=== PATIENT | female | born 1965 | race Hispanic/Latino ===

== ENCOUNTER 2017-08-25 21:15 | Emergency (ER) | payer SELFPAY ==
[~2017-08-25] VITALS: Ht 149.9 cm; Wt 75.7 kg
[~2017-08-25 21:15] MED LIST: ATENOLOL PO; ATENOLOL50 MG PO; BENTYL; BIOTIN1 MG PO; BUSPIRONE HCL5 MG PO; CALCIUM 500+D1 EACH PO; CELEXA PO; CREON DR 6,000 U1 EA PO; CYMBALTA; CYMBALTA30 MG PO; FOLIC ACID1 MG PO; GLYBURIDE; HUMALOG MI100 UNIT/2 SQ; KLONOPIN1 MG PO; LASIX40 MG PO; LISINOPRIL; LISINOPRIL10 MG PO; LYRICA75 MG PO; METFORMIN HCL500 MG PO; METFORMIN PO; METOCLOPRAMIDE10 MG PO; MORPHINE SULFAT30 M2 PO; NEURONTIN; NORCO 10-325 T1 EACH PO; NORCO 5-325 TA1 EACH PO; NOVOLOG MI100 UNITS/ SQ; PANTOPRAZOLE SO40 MG PO; POTASSIUM CHLO20 ME1 PO; PROMETHAZINE HC25 M1 PO; TOPAMAX15 MG PO; VITAMIN D400 UNIT PO
[2017-08-25] MEDS ORDERED: SODIUM CHLORIDE 0.9% 1000ML 1,000 ML IV SCH (21:26)
[2017-08-25] MEDS ORDERED: CLONIDINE HCL 0.2 MG TAB PO ONE (21:30)
[2017-08-25] MEDS ORDERED: ONDANSETRON HCL INJ 2 MG/ML VIAL IV ONE (21:35)
[2017-08-25 21:42] LABS: BASOPHILS % 0.6 % (0.0-1.0); EOSINOPHILS # (AUTO) 0.2 (0.0-0.4); EOSINOPHILS % 3.5 % (0.0-6.0); HEMATOCRIT 42.5 % (34.2-44.1); HEMOGLOBIN 14.4 g/dL (12.0-16.0); LYMPHOCYTES # (AUTO) 2.7 (1.0-3.2); LYMPHOCYTES % 49.9 % (18.0-39.1); MEAN CORPUSCULAR HEMOGLOBIN 27.3 pg (28-32); MEAN CORPUSCULAR HGB CONC 33.9 g/dL (31-35); MEAN CORPUSCULAR VOLUME 80.6 fL (81-99); MONOCYTES # (AUTO) 0.4 (0.2-0.8); MONOCYTES % 7.1 % (4.4-11.3); NEUTROPHILS # (AUTO) 2.1 (2.1-6.9); NEUTROPHILS % 38.7 % (38.7-80.0); PLATELET COUNT 239 x10e3/uL (140-360); RED BLOOD COUNT 5.27 x10e6/uL (3.6-5.1); RED CELL DISTRIBUTION WIDTH 14.8 % (11.7-14.4)
[2017-08-25 21:44] LABS: BILIRUBIN,URINE NEGATIVE (NEGATIVE); CLARITY,URINE CLEAR (CLEAR); COLOR,URINE YELLOW (YELLOW); KETONES,URINE NEGATIVE (NEGATIVE); LEUKOCYTE ESTERASE ,URINE NEGATIVE (NEGATIVE); NITRITE,URINE NEGATIVE (NEGATIVE); PROTEIN,URINE DIPSTICK NEGATIVE (NEGATIVE); URINE UROBILINOGEN 0.2 mg/dL (0.2 - 1)
[2017-08-25] MEDS ORDERED: CLONIDINE HCL 0.1 MG TAB PO ONE (21:45)
[2017-08-25 21:50] LABS: RBC,URINE 0-5 /HPF (0-5); WBC,URINE (MAN) 0-5 /HPF (0-5)
[2017-08-25 21:51] LABS: MUCUS,URINE FEW (RARE)
[2017-08-25 21:59] LABS: ALBUMIN 3.9 g/dL (3.5-5.0); ANION GAP 14.9 mmol/L (8-16); CREATININE, SERUM 0.97 mg/dL (0.57-1.11); POTASSIUM 3.9 mmol/L (3.5-5.1)
[2017-08-25 22:01] LABS: AMYLASE 63 U/L (25-125); CREATINE KINASE 54 IU/L (29-168); LIPASE 25 U/L (8-78); MAGNESIUM 1.7 MG/DL (1.3-2.1)
--- NOTE | 2017-08-25 22:26 | Diagnostic Imaging Report ---
CHEST 2 VIEWS, Technique: CHEST 2 VIEWS Comparison: 05/05/2016 Clinical history: Hypertension, chest pain DISCUSSION: Unremarkable appearance of the heart, mediastinum, lungs and pleural spaces. IMPRESSION: No acute abnormality Signed by: Dr Linda Carballo MD on 08/25/2017 10:05 PM
[2017-08-25] MEDS ORDERED: NIFEDIPINE 10 MG CAP PO STA (22:49)
[2017-08-25] MEDS ORDERED: HYDROCODONE/APAP 7.5MG-325MG 1 EA TAB PO ONE (23:00)
[2017-08-25 23:12] VITALS: BP 158/95
== END 2017-08-25 23:32 | disposition home or self-care (01) ==
LOC: ER 21:15
DX: R06.02 Shortness of breath (principal); R11.0 Nausea; R51 Headache; R10.13 Epigastric pain; I10 Essential (primary) hypertension; E11.9 Type 2 diabetes mellitus without complications; M79.7 Fibromyalgia; F32.9 Major depressive disorder, single episode, unspecified; F41.9 Anxiety disorder, unspecified
CPT/HCPCS: 36415; 71046; 80053; 81001; 82150; 82550; 82553; 83690; 83735; 84484; 85025; 93005; 99284

== ENCOUNTER 2017-10-25 20:45 | Emergency (ER) | payer SELFPAY ==
[~2017-10-25] VITALS: Ht 149.9 cm; Wt 75.7 kg
[2017-10-25 22:08] LABS: BASOPHILS # (AUTO) 0.1 (0.0-0.1); BASOPHILS % 0.7 % (0.0-1.0); EOSINOPHILS # (AUTO) 0.2 (0.0-0.4); HEMATOCRIT 39.2 % (34.2-44.1); HEMOGLOBIN 13.6 g/dL (12.0-16.0); LYMPHOCYTES # (AUTO) 2.9 (1.0-3.2); LYMPHOCYTES % 36.2 % (18.0-39.1); MEAN CORPUSCULAR HEMOGLOBIN 28.5 pg (28-32); MEAN CORPUSCULAR HGB CONC 34.7 g/dL (31-35); MEAN CORPUSCULAR VOLUME 82.2 fL (81-99); MONOCYTES # (AUTO) 0.5 (0.2-0.8); MONOCYTES % 5.8 % (4.4-11.3); NEUTROPHILS # (AUTO) 4.5 (2.1-6.9); NEUTROPHILS % 54.9 % (38.7-80.0); PLATELET COUNT 260 x10e3/uL (140-360); RED BLOOD COUNT 4.77 x10e6/uL (3.6-5.1); RED CELL DISTRIBUTION WIDTH 12.6 % (11.7-14.4)
[2017-10-25 22:22] LABS: ALANINE AMINOTRANSFERASE 42 IU/L (0-55); ALBUMIN 3.8 g/dL (3.5-5.0); ALKALINE PHOSPHATASE 87 IU/L (40-150); BLOOD UREA NITROGEN 17 mg/dL (7-26); BUN/CREATININE RATIO 18 (6-25); CALCIUM 10.2 mg/dL (8.4-10.2); CARBON DIOXIDE 26 mmol/L (22-29); CHLORIDE 101 mmol/L (98-107); CREATININE, SERUM 0.96 mg/dL (0.57-1.11); EST GLOMERULAR FILTRATION RATE > 60 ML/MIN (60-); GLUCOSE 118 mg/dL (74-118); SODIUM 140 mmol/L (136-145)
[2017-10-25 22:24] LABS: BILIRUBIN,URINE NEGATIVE (NEGATIVE); CLARITY,URINE SL CLOUDY (CLEAR); COLOR,URINE YELLOW (YELLOW); KETONES,URINE NEGATIVE (NEGATIVE); LEUKOCYTE ESTERASE ,URINE NEGATIVE (NEGATIVE); NITRITE,URINE NEGATIVE (NEGATIVE); PROTEIN,URINE DIPSTICK NEGATIVE (NEGATIVE); URINE UROBILINOGEN 0.2 mg/dL (0.2 - 1)
[2017-10-25 22:25] LABS: PREGNANCY TEST, URINE NEGATIVE (NEGATIVE)
[2017-10-25 22:35] LABS: BACTERIA,URINE FEW /HPF; EPITHELIAL CELLS,URINE MODERATE /LPF
[2017-10-26 01:06] LABS: AMYLASE 67 U/L (25-125); LIPASE 43 U/L (8-78)
[2017-10-26 02:01] VITALS: BP 128/78
== END 2017-10-26 02:10 | disposition home or self-care (01) ==
LOC: ER 20:45
DX: R10.13 Epigastric pain (principal); I10 Essential (primary) hypertension; E11.9 Type 2 diabetes mellitus without complications; Z87.19 Personal history of other diseases of the digestive system
CPT/HCPCS: 36415; 80053; 81001; 81025; 82150; 83690; 85025; 99283

== ENCOUNTER 2019-11-05 22:49 | Inpatient (IN) | payer OTHER, SELFPAY ==
[~2019-11-05] VITALS: Ht 149.9 cm; Wt 73.0 kg
[2019-11-05] MEDS ORDERED: VANCOMYCIN 1GM/NS 250 ML 250 ML IV SCH (23:15)
[2019-11-05 23:18] LABS: BASOPHILS # (AUTO) 0.1 (0.0-0.1); BASOPHILS % 0.5 % (0.0-1.0); EOSINOPHILS # (AUTO) 0.2 (0.0-0.4); EOSINOPHILS % 1.7 % (0.0-6.0); HEMATOCRIT 29.1 % (34.2-44.1); HEMOGLOBIN 9.5 g/dL (12.0-16.0); LYMPHOCYTES # (AUTO) 2.5 (1.0-3.2); MEAN CORPUSCULAR HEMOGLOBIN 27.5 pg (28-32); MEAN CORPUSCULAR HGB CONC 32.6 g/dL (31-35); MEAN CORPUSCULAR VOLUME 84.3 fL (81-99); MONOCYTES # (AUTO) 0.7 (0.2-0.8); NEUTROPHILS # (AUTO) 8.2 (2.1-6.9); NEUTROPHILS % 68.6 % (38.7-80.0); PLATELET COUNT 492 x10e3/uL (140-360); RED BLOOD COUNT 3.45 x10e6/uL (3.6-5.1); RED CELL DISTRIBUTION WIDTH 13.3 % (11.7-14.4)
--- OUTSIDE RECORDS SUMMARY | 2019-11-05 23:23 | XMS REPORT | Continuity of Care Document ---
Author Author [facility] Organization [facility] Address [address] [place] [address] Phone Unavailable Care Team Providers Care Beam Carrier Hauler Pusher Name Role Phone PRABHU ARCE MD PCP Harinder PEREZ Attphys Unavailable Payers Payer Name Policy Type Policy Number Effective Date Expiration Date [facility] [id number] 2016 00:00:00 [facility] Problems Condition Name Condition Details Condition Category Status Onset Date Resolution Date Last Treatment Date Treating Clinician Comments Source Chest pain Chest pain Problem Active C [facility] Diabetes mellitus Diabetes Problem Active [facility] Hypertension Hypertension Problem Active [facility] Allergies, Adverse Reactions, Alerts Allergy Name Allergy Type Status Severity Reaction(s) Onset Date Inacti ve Date Treating Clinician Comments Source Metaxalone Allergy to Substance Active RASH 2016-02-06 00:00:00 [facility] Naproxen Allergy to Substance Active RASH 2016-02-06 00:00:00 [facility] Amoxicillin Allergy to Substance Active RASH 2016-02-06 00:00:00 [facility] Amitriptyline Allergy to Substance Active RASH 2016-02-06 00:00: 00 [facility] Medications Ordered Medication Name Filled Medication Name Start Date Stop Da te Current Medication? Ordering Clinician Indication Dosage Frequency Signature (SIG) Comments Components Source Amylas/Cellu/Lipas/Protea/Bile (Christiano Saleem 6,000 Units C apsule) 1 Ea Cap Amylas/Cellu/Lipas/Protea/Bile (Christiano Saleem 6,000 Units Capsule) 1 Ea Cap Yes 259[address] Three Times A Day [facility] Atenolol 50 Mg Tablet Atenolol 50 Mg Tablet Yes 50 Daily [facility] Buspirone Hcl 5 Mg Tablet Buspirone Hcl 5 Mg Tablet Yes 15 Twice A Day [facility] Clonazepam (Klonopin) 1 Mg Tablet Clonazepam (Klonopin) 1 Mg Tablet Yes 1 Twice A Day [facility] Duloxetine Hcl (Cymbalta) 30 Mg Capsule. Duloxetine Hcl (Cymbalta) 30 Mg Capsule. Yes 30 Twice A Day [facility] Furosemide (Lasix) 40 Mg Tablet Furosemide (Lasix) 40 Mg Tablet Yes 40 Daily [facility] Hydrocodone Bit/Acetaminophen (Breckenridge 10-325 Tablet) 1 Each Tablet Hydrocodone Bit/Acetaminophen (Breckenridge 10-325 Tablet) 1 Each Tablet Yes 30 As Needed [facility] Insulin Aspart (Novolog Mix 70-30 Vial) 100 Units/Ml M l Insulin Aspart (Novolog Mix 70-30 Vial) 100 Units/Ml Ml Yes 15 Daily [facility] Insulin Npl/Insulin Lispro (Humalog Mix 75-25 Kwikpen) 100 Unit/1 Ml Insuln.pen Insulin Npl/Insulin Lispro (Humalog Mix 75-25 Kwikpen) 100 Unit/1 Ml Insuln.pen Yes [address] [facility] Lisinopril 10 Mg Tablet Lisinopril 10 Mg Tablet Yes 40 Daily [facility] Metformin Hcl 500 Mg Tablet Metformin Hcl 500 Mg Tablet Yes 1000 Twice A Day [facility] Metoclopramide Hcl 10 Mg Tablet Metoclopramide Hcl 10 Mg Tablet Yes 10 Four Times Daily [facility] Morphine Sulfate (Morphine Sulfate Er) 30 Mg Tablet.er Morphine Sulfate (Morphine Sulfate Er) 30 Mg Tablet.er Yes 30 As Needed [facility] Pantoprazole Sodium (Protonix) 40 Mg Tablet. Pantopr azole Sodium (Protonix) 40 Mg Tablet. Yes 40 Twice A Day [facility] Potassium Chloride 20 Meq Tab.er.prt Potassium Chloride 20 Meq Tab. er.prt Yes 20 Twice A Day [facility] Pregabalin (Lyrica) 75 Mg Cap Pregabalin (Lyrica) 75 Mg Cap Yes 75 Twice A Day [facility] Promethazine Hcl 25 Mg Tablet Promethazine Hcl 25 Mg Tablet Yes 25 As Needed [facility] Cholecalciferol (Vitamin D3) (Vitamin D) 400 Unit Caps ule, 400 Units Oral Cholecalciferol (Vitamin D3) (Vitamin D) 400 Unit Capsule, 400 Units Oral 2016-05-05 00:00:00 No 400 Daily [facility] Folic Acid 1 Mg Tablet, 1 Mg Oral Folic Acid 1 Mg Tablet, 1 Mg O ral 2016-05-05 00:00:00 No 1 Daily [facility] Hydrocodone Bit/Acetaminophen (Breckenridge 5-325 Tablet) 1 E ach Tablet, 1 Each Oral Hydrocodone Bit/Acetaminophen (Breckenridge 5-325 Tablet) 1 Each Tablet, 1 Each Oral 2016-05-05 00:00:00 No 1 [facility] Topiramate (Topamax) 15 Mg Cap.sprink, 20 Mg Oral Topi ramate (Topamax) 15 Mg Cap.sprink, 20 Mg Oral 2016-05-05 00:00:00 No 20 T wice A Day [facility] Procedures Procedure Date / Time Performed Performing Clinician [facility] e X-ray of chest, two views 2017-08-25 00:00:00 PAMELA ROSENBAUM [facility] Encounters Start Date/Time End Date/Time Encounter Type Admission Type Attendi [facility] Care Department Encounter ID Source 2018-09-05 17:30:00 2018-09-05 17:30:00 [place] [id number] 2017-10-25 20:45:00 2017-10-26 02:10:00 Departed Emergency Room [facility] [id number] [facility] 2017-08-25 21:15:00 2017-08-25 23:32:00 Departed Emergency Room 1 GUNJAN PEREZ [facility] [id number] [facility] 2016-07-17 05:12:00 2016-07-17 05:12:00 Emergency E [facility] [id number] [facility] Results Test Description Test Time Test Comments Results Result Comments Source Amylase Level 2017-10-26 01:06:00 Test Item Amylase Level (test code = 1798-8) 67 25-125 [facility] 01:06:00* Test Item Value Reference Range Interpretation Comments Lipase (test code = 3040-3) 43 8-78 [facility] [id number] 22:35:00* Test Item Value Reference Range Interpretation Comments Urine WBC (test code = 5821-4) NONE 0-5 [facility] [id number] 22:35:00* Test Item Value Reference Range Interpretation Comments Urine RBC (test code = 97849-9) NONE 0-5 [facility] Ojavubaj1280-48-66 22:35:00* Test Item Value Reference Range Interpretation Comments Urine Bacteria (test code = 64376-1) FEW NONE [facility] Epithelial Xapsp6844-91-37 22:35:00 * Test Item Value Reference Range Interpretation Comments Urine Epithelial Cells (test code = 74622-3) MODERATE NONE [facility] Snfaq0360-10-78 22:26:00* Test Item Value Reference Range Interpretation Comments Sodium Level (test code = 2951-2) 140 136-145 [facility] Uzmxg7402-42-23 22:26:00* Test Item Value Reference Range Interpretation Comments Potassium Level (test code = 2823-3) 4.0 3.5-5.1 [facility]Chloride Kzhtj4720-62-10 22:26:00* Test Item Value Reference Range Interpretation Comments Chloride Level (test code = 2075-0) 101 98-107 [facility]Carbon Dioxide Lfqey6461-97-02 22:26:00* Test Item Value Reference Range Interpretation Comments Carbon Dioxide Level (test code = 2028-9) 26 22-29 [facility]Anion Vnh0389-46-61 22:26:00* Test Item Value Reference Range Interpretation Comments Anion Gap (test code = 85715-5) 17.0 8-16 H [facility]Blood Urea Dorwmssz5417-76-91 22:26:00* Test Item Value Reference Range Interpretation Comments Blood Urea Nitrogen (test code = 3094-0) 17 7-26 [facility]Creatinine2018-08-22 22:26:00* Test Item Value Reference Range Interpretation Comments Creatinine (test code = 2160-0) 0.96 0.57-1.11 [facility] HospitalBUN/Creatinine Pnhgo0631-14-56 22:26:00* Test Item Value Reference Range Interpretation Comments BUN/Creatinine Ratio (test code = 3097-3) 18 6-25 [facility]Estimat Glomerular Filtration Rate 2017-10-25 22:26:00* Test Item Value Reference Range Interpretation Comments Estimat Glomerular Filtration Rate (test code = 29360-5) 60- >60 Ranges were taken from the National Kidney Disease Education Program and the [facility] literature.Reference ranges:60 or greater: Icagzc53-54 ( for 3 consecutive months): Chronic kidney disease 15 or less: Kidney failureSeymour HospitalGlucose Tyhug1914-13-67 22:26:00* Test Item Value Reference Range Interpretation Comments Glucose Level (test code = NZL0869) 118 74-118 [facility]Calcium Nwlrg3114-88-64 22:26:00* Test Item Value Reference Range Interpretation Comments Calcium Level (test code = 64747-8) 10.2 8.4-10.2 [facility] HospitalTotal Kkzotctwf6092-11-38 22:26:00* Test Item Value Reference Range Interpretation Comments Total Bilirubin (test code = 1975-2) 0.3 0.2-1.2 [facility] HospitalAspartate Amino Transf (AST/SGOT) 2017-10-25 22:26:00* Test Item Value Reference Range Interpretation Comments Aspartate Amino Transf (AST/SGOT) (test code = Aspartate Amino Transf (AST/SGOT)) 42 5-34 H [facility] HospitalAlanine Aminotransferase (ALT/SGPT) 2017-10-25 22:26:00* Test Item Value Reference Range Interpretation Comments Alanine Aminotransferase (ALT/SGPT) (test code = 1742-6) 42 0-55 [facility] HospitalTotal Mlpedgp8598-36-97 22:26:00* Test Item Value Reference Range Interpretation Comments Total Protein (test code = 2885-2) 7.8 6.5-8.1 [facility] HospitalAlbumin2018-08-22 22:26:00* Test Item Value Reference Range Interpretation Comments Albumin (test code = 1751-7) 3.8 3.5-5.0 [facility] HospitalGlobulin2018-08-22 22:26:00* Test Item Value Reference Range Interpretation Comments Globulin (test code = 16450-8) 4.0 2.3-3.5 H [facility] HospitalAlbumin/Globulin Ktzyz8117-62-40 22:26:00 * Test Item Value Reference Range Interpretation Comments Albumin/Globulin Ratio (test code = 1759-0) 1.0 0.8-2.0 [facility] HospitalAlkaline Icxjsefuhqd6259-76-85 22:26:00* Test Item Value Reference Range Interpretation Comments Alkaline Phosphatase (test code = 6768-6) 87 40-150 [facility] HospitalUrine Eeken4204-13-81 22:25:00* Test Item Value Reference Range Interpretation Comments Urine Color (test code = 5778-6) YELLOW YELLOW [facility] Qvgkpkw0310-00-41 22:25:00* Test Item Value Reference Range Interpretation Comments Urine Clarity (test code = 41564-4) SL CLOUDY CLEAR [facility] HospitalUrine Specific Bmaydwv8045-61-25 22:25:00 * Test Item Value Reference Range Interpretation Comments Urine Specific Eolia (test code = 5811-5) 1.015 1.010-1.02 5 [facility] jI2902-18-67 22:25:00* Test Item Value Reference Range Interpretation Comments Urine pH (test code = 54634-7) 7 5-7 [facility] Leukocyte Upgfpgsw9892-43-69 22:25:00* Test Item Value Reference Range Interpretation Comments Urine Leukocyte Esterase (test code = 5799-2) NEGATIVE NEGATIVE [facility] HospitalU[facility] Natgysr3487-53-58 22:25:00* Test Item Value Reference Range Interpretation Comments Urine Nitrite (test code = 54298-7) NEGATIVE NEGATIVE [facility] Kqogcva2878-13-14 22:25:00* Test Item Value Reference Range Interpretation Comments Urine Protein (test code = 5804-0) NEGATIVE NEGATIVE [facility] HospitalUrine Glucose (UA)2017-10-25 22:25:00* Test Item Value Reference Range Interpretation Comments Urine Glucose (UA) (test code = 2349-9) 1+ NEGATIVE H [facility] HospitalUrine Osyyuzt3176-10-78 22:25:00* Test Item Value Reference Range Interpretation Comments Urine Ketones (test code = 75540-5) NEGATIVE NEGATIVE [facility] HospitalU[facility] Vgaqamxonvui0793-77-57 22:25:00* Test Item Value Reference Range Interpretation Comments Urine Urobilinogen (test code = 20736-6) 0.2 0.2-1 [facility] HospitalU[facility] Xlbzyzuck5309-77-00 22:25:00* Test Item Value Reference Range Interpretation Comments Urine Bilirubin (test code = 1978-6) NEGATIVE NEGATIVE [facility] Trjof3087-59-70 22:25:00* Test Item Value Reference Range Interpretation Comments Urine Blood (test code = 88619-2) NEGATIVE NEGATIVE [facility] HospitalUrine Zrfz2210-87-79 22:25:00* Test Item Value Reference Range Interpretation Comments Urine Test (test code = 2106-3) NEGATIVE NEGATIVE [facility] HospitalWhite Blood Yyiwh4585-84-90 22:16:00* Test Item Value Reference Range Interpretation Comments White Blood Count (test code = 6690-2) 8.13 4.8-10.8 [facility] HospitalRed Blood Fezcq7260-48-57 22:16:00* Test Item Value Reference Range Interpretation Comments Red Blood Count (test code = 789-8) 4.77 3.6-5.1 [facility] HospitalHemoglobin2018-08-22 22:16:00* Test Item Value Reference Range Interpretation Comments Hemoglobin (test code = 32309-5) 13.6 12.0-16.0 [facility] HospitalHematocrit2018-08-22 22:16:00* Test Item Value Reference Range Interpretation Comments Hematocrit (test code = 4544-3) 39.2 34.2-44.1 [facility] HospitalMean Corpuscular Yxfyja0489-84-38 22:16:00* Test Item Value Reference Range Interpretation Comments Mean Corpuscular Volume (test code = 787-2) 82.2 81-99 [facility] HospitalMean Corpuscular Axfeevccma2574-57-04 22:16:00* Test Item Value Reference Range Interpretation Comments Mean Corpuscular Hemoglobin (test code = 785-6) 28.5 28-32 [facility] HospitalMean Corpuscular Hemoglobin Concent 2017-10-25 22:16:00* Test Item Value Reference Range Interpretation Comments Mean Corpuscular Hemoglobin Concent (test code = 786-4) 34.7 31-35 [facility] HospitalRed Cell Distribution Irlfe0039-88-26 22:16:00* Test Item Value Reference Range Interpretation Comments Red Cell Distribution Width (test code = 29378-5) 12.6 11.7 -14.4 [facility] HospitalPlatelet Sfwvy8994-85-61 22:16:00* Test Item Value Reference Range Interpretation Comments Platelet Count (test code = 777-3) 260 140-360 [facility] HospitalNeutrophils (%) (Auto)2017-10-25 22:16:00 * Test Item Value Reference Range Interpretation Comments Neutrophils (%) (Auto) (test code = 05778-9) 54.9 38.7-80.0 [facility] HospitalLymphocytes (%) (Auto)2017-10-25 22:16:00 * Test Item Value Reference Range Interpretation Comments Lymphocytes (%) (Auto) (test code = 736-9) 36.2 18.0-39.1 [facility] HospitalMonocytes (%) (Auto)2017-10-25 22:16:00* Test Item Value Reference Range Interpretation Comments Monocytes (%) (Auto) (test code = 5905-5) 5.8 4.4-11.3 [facility] HospitalEosinophils (%) (Auto)2017-10-25 22:16:00 * Test Item Value Reference Range Interpretation Comments Eosinophils (%) (Auto) (test code = 713-8) 2.0 0.0-6.0 [facility] HospitalBasophils (%) (Auto)2017-10-25 22:16:00* Test Item Value Reference Range Interpretation Comments Basophils (%) (Auto) (test code = 706-2) 0.7 0.0-1.0 [facility] HospitalIM GRANULOCYTES %2017-10-25 22:16:00* Test Item Value Reference Range Interpretation Comments IM GRANULOCYTES % (test code = IM GRANULOCYTES %) 0.4 0.0- 1.0 [facility] HospitalNeutrophils # (Auto)2017-10-25 22:16:00* Test Item Value Reference Range Interpretation Comments Neutrophils # (Auto) (test code = 751-8) 4.5 2.1-6.9 [facility] HospitalLymphocytes # (Auto)2017-10-25 22:16:00* Test Item Value Reference Range Interpretation Comments Lymphocytes # (Auto) (test code = 74304-8) 2.9 1.0-3.2 [facility] HospitalMonocytes # (Auto)2017-10-25 22:16:00* Test Item Value Reference Range Interpretation Comments Monocytes # (Auto) (test code = 742-7) 0.5 0.2-0.8 [facility] HospitalEosinophils # (Auto)2017-10-25 22:16:00* Test Item Value Reference Range Interpretation Comments Eosinophils # (Auto) (test code = 711-2) 0.2 0.0-0.4 [facility] HospitalBasophils # (Auto)2017-10-25 22:16:00* Test Item Value Reference Range Interpretation Comments Basophils # (Auto) (test code = 704-7) 0.1 0.0-0.1 [facility] HospitalAbsolute Immature Granulocyte (auto 2017-10-25 22:16:00* Test Item Value Reference Range Interpretation Comments Absolute Immature Granulocyte (auto (jareth t code = Absolute Immature Granulocyte (auto) 0.03 0-0.1 [facility] HospitalCreatine Kinase OD8805-47-78 22:08:00* Test Item Value Reference Range Interpretation Comments Creatine Kinase MB (test code = 56784-7) 0.40 0-5.0 [facility] E8891-47-10 22:08:00* Test Item Value Reference Range Interpretation Comments Troponin I (test code = PWV3895) -0.001 0-0.300 [facility] HospitalCreatine Kinase CW1480-82-17 22:08:00* Test Item Value Reference Range Interpretation Comments Creatine Kinase MB (test code = 03307-5) 0.40 0-5.0 [facility]5172-45-16 22:08:00* Test Item Value Reference Range Interpretation Comments Troponin I (test code = JHF3606) -0.001 0-0.300 [facility] HospitalCHEST 2 OMXHD6158-43-94 22:04:00 [place] [address] Patient Name: RADHA BOUDREAUX MR #: [id number] : 0 1965 Age/Sex: 52/F Req #: [id number] Adm Physician: Ordered by: KARO ROSENBAUM Report #: [id number] Location: ER Room /Bed: Procedure: [id number] DX/CHEST 2 VIEWS Exam Shiv e: Exam Time: REPORT STATUS: Signed CHEST 2 VIEWS, Technique: CHEST 2 VIEWS Comparison: 05/05/2016 Clinical his tory: Hypertension, chest pain DISCUSSION: Unremarkable appearance of t he heart, mediastinum, lungs and pleural spaces. IMPRESSION: No acute abn ormality Signed by: Dr Roland Carballo MD on 08/25/2017 10:05 PM Dicta chio By: ROLAND CARBALLO MD 04 COPY TO: KARO ROSENBAUM Magnesium Yprqa1538-33-56 22:01:00* Test Item Value Reference Range Interpretation Comments Magnesium Level (test code = 69616-4) 1.7 1.3-2.1 [facility] HospitalCreatine Fdndkc4214-67-91 22:01:00* Test Item Value Reference Range Interpretation Comments Creatine Kinase (test code = 2157-6) 54 29-168 [facility] HospitalAmylase Xajlt0376-82-00 22:01:00* Test Item Value Reference Range Interpretation Comments Amylase Level (test code = 1798-8) 63 25-125 [facility] HospitalLipase2018-06-22 22:01:00* Test Item Value Reference Range Interpretation Comments Lipase (test code = 3040-3) 25 8-78 [facility] HospitalMagnesium Aqpps0516-48-12 22:01:00* Test Item Value Reference Range Interpretation Comments Magnesium Level (test code = 67987-5) 1.7 1.3-2.1 [facility] HospitalCreatine Vutgpi7815-81-14 22:01:00* Test Item Value Reference Range Interpretation Comments Creatine Kinase (test code = 2157-6) 54 29-168 [facility] Bmjaj2306-38-66 22:00:00* Test Item Value Reference Range Interpretation Comments Sodium Level (test code = 2951-2) 138 136-145 [facility] HospitalPotassium Soisq1017-75-94 22:00:00* Test Item Value Reference Range Interpretation Comments Potassium Level (test code = 2823-3) 3.9 3.5-5.1 [facility] HospitalChloride Hhgbc5523-61-75 22:00:00* Test Item Value Reference Range Interpretation Comments Chloride Level (test code = 2075-0) 100 98-107 [facility] HospitalCarbon Dioxide Sitxe9706-16-60 22:00:00* Test Item Value Reference Range Interpretation Comments Carbon Dioxide Level (test code = 2028-9) 27 22-29 [facility] HospitalAnion Tqp8520-00-56 22:00:00* Test Item Value Reference Range Interpretation Comments Anion Gap (test code = 93102-1) 14.9 8-16 [facility] HospitalBlood Urea Zbjbfebv1923-89-14 22:00:00* Test Item Value Reference Range Interpretation Comments Blood Urea Nitrogen (test code = 3094-0) 12 7-26 [facility] HospitalCreatinine2018-06-22 22:00:00* Test Item Value Reference Range Interpretation Comments Creatinine (test code = 2160-0) 0.97 0.57-1.11 [facility] HospitalBUN/Creatinine Iqpcc8865-21-45 22:00:00* Test Item Value Reference Range Interpretation Comments BUN/Creatinine Ratio (test code = 3097-3) 12 6-25 [facility] HospitalEstimat Glomerular Filtration Rate 2017-08-25 22:00:00* Test Item Value Reference Range Interpretation Comments Estimat Glomerular Filtration Rate (test code = 63715-7) 60 >60 Ranges were taken from the National Kidney Disease Education Program and the [facility] Kid[facility] Foundation literature.Reference ranges:60 or greater: Wqgvnb34-96 ( for 3 consecutive months): Chronic kidney disease 15 or less: Kidney failureSeymour HospitalGlucose Srdai5938-40-75 22:00:00* Test Item Value Reference Range Interpretation Comments Glucose Level (test code = OLD0304) 108 74-118 [facility] HospitalCalcium Ysodw6094-21-25 22:00:00* Test Item Value Reference Range Interpretation Comments Calcium Level (test code = 36322-5) 10.0 8.4-10.2 [facility] HospitalTotal Zozqxxryy8025-54-51 22:00:00* Test Item Value Reference Range Interpretation Comments Total Bilirubin (test code = 1975-2) 0.3 0.2-1.2 [facility] HospitalAspartate Amino Transf (AST/SGOT) 2017-08-25 22:00:00* Test Item Value Reference Range Interpretation Comments Aspartate Amino Transf (AST/SGOT) (test code = Aspartate Amino Transf (AST/SGOT)) 26 5-34 [facility] HospitalAlanine Aminotransferase (ALT/SGPT) 2017-08-25 22:00:00* Test Item Value Reference Range Interpretation Comments Alanine Aminotransferase (ALT/SGPT) (test code = 1742-6) 21 0-55 [facility] HospitalTotal Rzaqnnq3276-25-93 22:00:00* Test Item Value Reference Range Interpretation Comments Total Protein (test code = 2885-2) 8.0 6.5-8.1 [facility] HospitalAlbumin2018-06-22 22:00:00* Test Item Value Reference Range Interpretation Comments Albumin (test code = 1751-7) 3.9 3.5-5.0 [facility] HospitalGlobulin2018-06-22 22:00:00* Test Item Value Reference Range Interpretation Comments Globulin (test code = 44453-6) 4.1 2.3-3.5 H [facility] HospitalAlbumin/Globulin Qvgex5916-18-69 22:00:00 * Test Item Value Reference Range Interpretation Comments Albumin/Globulin Ratio (test code = 1759-0) 1.0 0.8-2.0 [facility] HospitalAlkaline Kwnhemhzbrl9153-41-36 22:00:00* Test Item Value Reference Range Interpretation Comments Alkaline Phosphatase (test code = 6768-6) 74 40-150 [facility] HospitalUrine KFA2347-58-04 21:51:00* Test Item Value Reference Range Interpretation Comments Urine WBC (test code = 5821-4) 0-5 0-5 [facility] HospitalUrine VZZ9932-04-35 21:51:00* Test Item Value Reference Range Interpretation Comments Urine RBC (test code = 01180-9) 0-5 0-5 [facility] HospitalUrine Tfomtgtv1326-93-58 21:51:00* Test Item Value Reference Range Interpretation Comments Urine Bacteria (test code = 01516-9) NONE NONE [facility] HospitalUrine Epithelial Wmdiv9322-83-22 21:51:00 * Test Item Value Reference Range Interpretation Comments Urine Epithelial Cells (test code = 05730-5) NONE NONE [facility] HospitalUrine Iuuew1016-09-54 21:51:00* Test Item Value Reference Range Interpretation Comments Urine Mucus (test code = 8247-9) FEW RARE H [facility] Haeei7930-84-08 21:51:00* Test Item Value Reference Range Interpretation Comments Urine Mucus (test code = 8247-9) FEW RARE H [facility] HospitalUrine Dkhqg7631-74-82 21:44:00* Test Item Value Reference Range Interpretation Comments Urine Color (test code = 5778-6) YELLOW YELLOW [facility] HospitalUrine Bzdsxld1517-57-08 21:44:00* Test Item Value Reference Range Interpretation Comments Urine Clarity (test code = 70626-3) CLEAR CLEAR [facility] HospitalUrine Specific Ttxyvaf3617-10-81 21:44:00 * Test Item Value Reference Range Interpretation Comments Urine Specific [place] (test code = 5811-5) 1.015 1.010-1.02 5 [facility] HospitalUrine aW6274-09-29 21:44:00* Test Item Value Reference Range Interpretation Comments Urine pH (test code = 53233-6) 6 5-7 [facility] HospitalUrine Leukocyte Mqraifbw2361-22-59 21:44:00* Test Item Value Reference Range Interpretation Comments Urine Leukocyte Esterase (test code = 5799-2) NEGATIVE NEGATIVE [facility] Omhugrg7738-52-89 21:44:00* Test Item Value Reference Range Interpretation Comments Urine Nitrite (test code = 42588-2) NEGATIVE NEGATIVE [facility] HospitalUrine Kogrerq2256-34-18 21:44:00* Test Item Value Reference Range Interpretation Comments Urine Protein (test code = 5804-0) NEGATIVE NEGATIVE [facility] HospitalUrine Glucose (UA)2017-08-25 21:44:00* Test Item Value Reference Range Interpretation Comments Urine Glucose (UA) (test code = 2349-9) NEGATIVE NEGATIVE [facility] HospitalUrine Ifivnfe1134-82-64 21:44:00* Test Item Value Reference Range Interpretation Comments Urine Ketones (test code = 93150-0) NEGATIVE NEGATIVE [facility] HospitalUrine Exeicklttfpp1416-26-50 21:44:00* Test Item Value Reference Range Interpretation Comments Urine Urobilinogen (test code = 96260-3) 0.2 0.2-1 [facility] HospitalUrine Fmcemohxy8920-93-84 21:44:00* Test Item Value Reference Range Interpretation Comments Urine Bilirubin (test code = 1978-6) NEGATIVE NEGATIVE [facility] HospitalUrine Tywoj9041-89-22 21:44:00* Test Item Value Reference Range Interpretation Comments Urine Blood (test code = 81436-9) NEGATIVE NEGATIVE [facility] HospitalWhite Blood Enmzr0421-84-34 21:42:00* Test Item Value Reference Range Interpretation Comments White Blood Count (test code = 6690-2) 5.37 4.8-10.8 [facility] HospitalRed Blood Zdqzh5467-85-70 21:42:00* Test Item Value Reference Range Interpretation Comments Red Blood Count (test code = 789-8) 5.27 3.6-5.1 [facility]:42:00* Test Item Value Reference Range Interpretation Comments Hemoglobin (test code = 02785-1) 14.4 12.0-16.0 [facility] 21:42:00* Test Item Value Reference Range Interpretation Comments Hematocrit (test code = 4544-3) 42.5 34.2-44.1 [facility] Corpuscular [id number] 21:42:00* Test Item Value Reference Range Interpretation Comments Mean Corpuscular Volume (test code = 787-2) 80.6 81-99 [facility] Corpuscular [id number] 21:42:00* Test Item Value Reference Range Interpretation Comments Mean Corpuscular Hemoglobin (test code = 785-6) 27.3 28-32 L [facility] Hemoglobin Concent 2017-08-25 21:42:00* Test Item Value Reference Range Interpretation Comments Mean Corpuscular Hemoglobin Concent (test code = 786-4) 33.9 31-35 [facility]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
--- OUTSIDE RECORDS SUMMARY | 2019-11-05 23:23 | XMS REPORT | Continuity of Care Document ---
Author Author Minh Zoe MajesteRADHA [facility] [employer] Address Unknown Phone Unavailable Care Team Providers Care Secondary Education Professor Name Role Phone [employer] Unavailable Un available Problems Problem Status Onset Date Classification Date Reported Comments Source SOB Active 0 09/05/2018 [facility] ACUTE CHEST PAIN, SINUS BRADYCARDIA Active 09/05/2018 [facility] Pain in left knee 04/03/2018 10/15/2018 [facility] Acute pain due to trauma 03/28/2018 10/15/2018 [facility],[id number] KNEE PAIN Active 03/27/2018 [facility] Pain in left shoulder 03/23/2018 10/03/2018 [facility] Unspecified fall, initial encounter 03/16/2018 10/03/2018 [facility] KNEE INJURY Active 03/16/2018 [facility] Left upper quadrant pain 11/03/2017 05/14/2018 [facility] ABD PAIN Active 10/25/2017 [facility] Unspecified hydronephrosis 04/09/2017 07/10/2017 [facility] ABDOMINAL PAIN Active 04/02/2017 [facility] ACUTE LOWER UTI, ACUTE PANCREATITIS Active 04/02/2017 [facility] 789.00 ABD PAINGALLBLADDER REMOVED 2 Active 08/18/2014 [facility] Discharge Diagnosis: Diabetic gastroparesis 05/12/2014 05/14/2014 [facility] Discharge Diagnosis: Acute gastritis 05/12/2014 05/14/2014 [facility] FALL Active 02/23/2013 [facility] ABD CRAMPING Active 01/07/2013 [facility] RECTAL PAIN Active 01/06/2013 [facility] NAUSEA Active 08/02/2012 [facility] SHORTNESS OF BREATH Active 07/20/2012 [facility] FLANK PAIN Active 05/15/2012 [facility] Abdominal pain Active Problem 10/04/2018 [id number]1.2 2568 Chronic headache Active Problem 10/04/2018 2.16.840.1.151549.4.391.11.2 2568 Chronic pancreatitis Active Diagnosis 10/04/2018 eCW: Kike Jarvis,[id number]1.87330 Type 2 diabetes mellitus with diabetic n europathy, unspecified Active Prob sonia 10/04/2018 eCW: Kike Jarvis,[id number] halfway current use of insulin Active Problem 03/2018 2.16.840.1.764768.4.391.11.2 2568 Coronary artery disease of [place] artery of [place] heart with stable angina pectoris Active Problem 10/04/2018 2.16.840.1.509326.4.391.11.64403 HTN (hypertension) Active Diagnosis 04/04/2018 2.16.840.1.506569.4.391.11.2 2568 DM (diabetes mellitus), secondary uncontrolled Active Problem 10/04/2018 2.16.840.1.518110.4.391.11.52400 Polyneuropathy Active Problem 10/04/2018 2.16.840.1.468936.4.391.11.2 2568 Anxiety Active Problem 10/04/2018 eCW: Kike Jarvis,2.16.840.1.527731.4.391 .11.32695 Yeast infection Active Diagnosis 06/09/2018 2.16.840.1.357858.4.391.11.2 2568 Mixed hyperlipidemia Active Problem 10/04/2018 eCW: Kike Cagleelijah,2.16.840.1. 949948.4.391.11.09832 Lisa infection Active Diagnosis 01/04/2018 2.16.840.1.753924.4.391.11.2 2568 Reactive depression Active Problem 10/04/2018 2.16.840.1.906728.4.391.11.2 2568 HTN (hypertension), benign Act gio Problem 03/2018 2.16.840.1.659967.4.391.11.2 2568 Memory loss Active Problem 10/04/2018 2.16.840.1.360357.4.391.11.20525 Acute bronchitis, unspecified organism Active Diagnosis 06/07/2017 2.16.840.1.964089.4.391.11.99807 Acute non-recurrent maxillary sinusitis Active Diagnosis 05/11/2018 2.16.840.1.141454.4.391.11.55448 Ureteral stone Active Diagnosis 08/22/2017 2.16.840.1.411300.4.391.11.2 2568 Idiopathic chronic pancreatitis Active Diagnosis 0 05/11/2017 2.16.840.1.980612.4.391.11.2 2568 Right upper quadrant abdominal pain Active Diagnosis 0 05/11/2017 2.16.840.1.773464.4.391.11.2 2568 Status post laser lithotripsy of ureteral calculus Active Diagnosis 05/11/2017 2.16.840.1.284017.4.391.11.46568 Drug induced constipation Acti ve Diagnosis 0 08/22/2017 2.16.840.1.677470.4.391.11.2 2568 Abscess of leg without foot, right Active Diagnosis 1 04/10/2017 2.16.840.1.320354.4.391.11.2 2568 Syncope and collapse Active Diagnosis 08/10/2018 2.16.840.1.647720.4.391.11.2 2568 Chronic pancreatitis Active Problem 2015 eCW: Kike Jarvis HTN Hypertension - Unspecified essential hypertension Active Problem 2015 eCW: Kike Jarvis Displacement of lumbar intervertebral di sc without myelopathy Active Prob sonia 2015 eCW: Kike Jarvis Hemorrhoid - Unspecified hemorrhoids wit hout mention of complication Active Prob sonia 2015 eCW: Kike Jarvis Diabetes with neurological manifestation s, type II or unspecified type, uncontrolled Active Problem 2015 eCW: Kike Jarvis Unspecified vaginitis and vulvovaginitis Active Problem 2015 eCW: iKke Jarvis Diabetes with ophthalmic manifestations, type II or unspecified type, uncontrolled Active Problem 2015 eCW: Kike Jarvis Benign hypertensive heart disease with heart failure Active Problem 2015 eCW: Kike Jarvis Abdominal pain, right upper quadrant Active Problem eCW: Kike Jarvis Gastroparesis Active Problem 2015 eCW: Kike Jarvis Background diabetic retinopathy Active Problem eCW: Kike Jarvis Mixed hyperlipidemia Active Problem 2015 eCW: Kike Jarvis Diabetes mellitus without mention of com plication, type II or unspecified type, uncontrolled Active Problem 2015 eCW: Kike Jarvis Displacement of thoracic intervertebral disc without myelopathy Active Prob sonia 2015 eCW: Kike Jarvis External thrombosed hemorrhoids Active Problem eCW: Kike Jarvis edema Active Diagnosis 09/26/2013 eCW: Kike Jarvis Peripheral autonomic neuropathy in disor ders classified elsewhere Active Diag nosis 09/26/2013 eCW: Kike Jarvis Other specified gastritis without mention of hemorrhag e Active Problem 2015 eCW: Kike Jarvis Fatty liver disease, nonalcoholic Active Problem eCW: Kike Jarvis Dysuria Active Problem 2015 eCW: Kike Jarvis Chronic tension type headache Active Problem eCW: Kike Jarvis Abdominal pain, unspecified site Active Problem eCW: Kike Jravis Chronic pain syndrome Active Problem 2015 eCW: Kike Jarvis Constipation Active Problem 2015 eCW: Kike Jarvis Acute gastritis without mention of hemorrhage Active Problem 2015 eCW: Kike Jarvis Irritable bowel syndrome Active Problem 2015 eCW: Kike Jarvis Abnormal LFTs (liver function tests) Active Problem eCW: Kike Jarvis Obesity Morbid Active Problem 2015 eCW: Kike Jarvis Acute bronchitis Active Problem 2015 eCW: Kike Jarvis Polyneuropathy in diabetes Act gio Problem eCW: Kike Jarvis Depression Active Problem 2015 eCW: Kike Jarvis Depression Active Problem 2015 eCW: Kike Jarvis Breast cancer screening Active Problem 2015 eCW: Kike Jarvis Fatty liver Active Problem 2015 eCW: Kike Jarvis Radiculopathy of lumbosacral region Active Problem eCW: Kike Jarvis Radiculopathy, thoracic region Active Problem eCW: Kike Jarvis 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 950343.4.391.11.06320 Chronic pain disorder Active Problem 10/04/2018 2.16.840.1.537091.4.391.11.2 2568 Anterior shoulder pain Active Diagnosis 04/28/2018 2.16.840.1.075045.4.391.11.2 2568 Left medial knee pain Active Diagnosis 04/28/2018 2.16.840.1.772535.4.391.11.2 2568 Non-recurrent acute suppurative otitis m edia of right ear without spontaneous rupture of tympanic membrane Active Diagnosis 0 06/01/2018 2.16.840.1.043446.4.391.11.2 2568 Abscess of leg without foot, left Active Diagnosis 1 04/10/2017 2.16.840.1.941377.4.391.11.2 2568 Onychomycosis Active Diagnosis 02/07/2018 2.16.840.1.440035.4.391.11.2 2568 Encounter for immunization Act gio Diagnosis 0 03/06/2018 [facility],[id number] [D]Chest pain Active Problem 08/04/2012 [facility] Anxiety Active Problem 08/04/2012 [facility] AP - Abdominal pain Active Problem 08/04/2012 [facility] CHF - Congestive heart failure Active Problem 03/2012 [facility] Depression Active Problem 08/04/2012 [facility] Diabetes mellitus Active Problem 08/04/2012 [facility] DM - Diabetes mellitus Active Problem 08/04/2012 [facility] HTN - Hypertension Active Problem 08/04/2012 [facility] Hypertension Active Problem 08/04/2012 [facility] Nausea Active Problem 08/04/2012 [facility] Pancreatitis Active Problem 08/04/2012 [facility] SOB - Shortness of breath Acti ve Problem 03/2012 [facility] Urinary tract infection, site not specified 07/10/2017 [facility] Fatty (change of) liver, not elsewhere classified 07/10/2017 [facility] Type 2 diabetes mellitus without complications 10/15/2018 [facility] Essential (primary) hypertension 10/03/2018 [facility] Fibromyalgia 10/15/2018 [facility],2.16.840.1.031075.4.391.11. 92253 Constipation, unspecified 07/10/2017 [facility] Other specified anxiety disorders 07/10/2017 [facility] [D]Chest pain (context-dependent category) Active Problem 10/15/2018 [facility] Anxiety (finding) Active Problem 10/15/2018 [facility] Abdominal pain (finding) Active Problem 10/15/2018 [facility] Congestive heart failure (disorder) Active Problem 02/2019 [facility] Cholecystectomy (procedure) Re solved Problem 02/2019 [facility] Depressive disorder (disorder) Active Problem 02/2019 [facility] Diabetes mellitus (disorder) A ctive Problem 02/2019 [facility] Hypertensive disorder, systemic arterial (disorder) Active Problem 10/15/2018 [facility] Nausea (finding) Active Problem 10/15/2018 [facility] Pancarditis (disorder) Resolved Problem 10/15/2018 [facility] Pancreatitis (disorder) Active Problem 10/15/2018 [facility] Dyspnea (finding) Active Problem 10/15/2018 [facility] Pancarditis Resolved Problem 08/04/2012 [facility] Sprain of unspecified ligament of left a nkle, initial encounter 10/03/2018 [facility] Pain in left hip 10/03/2018 [facility] Other chronic pancreatitis 10/15/2018 [facility] Other chronic pain 10/03/2018 [facility] halfway (current) use of insulin 10/15/2018 [facility] Other buttermaker helper (current) drug therapy 10/15/2018 [facility] Allergy status to penicillin 10/03/2018 [facility] Fall on same level from slipping, trippi ng and stumbling without subsequent striking against object, initial encounter 10/03/2018 [facility] Heart failure, unspecified 10/15/2018 [facility] Hypertensive heart disease with heart failure 10/15/2018 [facility] Major depressive disorder, single episode, unspecified 10/15/2018 [facility] Anxiety disorder, unspecified 10/15/2018 [facility] Pain in right knee 10/15/2018 [facility] Localized edema 10/15/2018 [facility] Gastroparesis 10/15/2018 [facility],[id number]1. 91008 URINARY TRACT INFECTION, SITE NOT SPECIF Active [facility] ACUTE PANCREATITIS WITHOUT NECROSIS OR I Active [facility] CHEST PAIN, UNSPECIFIED Active [facility] BRADYCARDIA, UNSPECIFIED Active [facility] Medications Medication Details Route Status Patient Instructions Ordering Provider Order Date Source MS Contin 1 tablet Orally Active 30 mg Orally every 8 hr s Carloz 10/03/2018 [id number] [place] 1 tablet as needed Orally Active 10-325 MG Orally every 6 hrs Carloz 09/12/2018 [id number] MS Contin 1 tablet Orally Active 30 mg Orally every 8 ho urs Carloz 09/12/2018 [id number] Fenofibrate 145 MG Oral Tablet Notes: (Same as: Tricor) No Longer Active 09/07/2018 [facility] Hydralazine Hydrochloride 25 MG Oral Tablet 25 mg = 1 tab, PO, TID, # 90 tab, 0 Refill(s) Active 09/06/2018 [facility] amLODIPine 10 mg oral tablet 1 0 mg = 1 tab, PO, Daily, # 30 tab, 0 Refill(s) Active 09/06/2018 [facility] Amlodipine Notes: (Same as: No rvasc) Inactive 09/06/2018 [facility] Metoclopramide Notes: (Same as : Reglan) Take 30 min before meals Inactive 09/06/2018 [facility] Lisinopril Notes: (Same as: Pr inivil, Zestril) Inactive 09/06/2018 [facility] Aspirin Notes: Do not crush or chew. (Same As: Ecotrin) Inactive 09/06/2018 [facility] Protonix Notes: Tablet should not be chewed or crushed. (Same as: Protonix) Inactive 09/06/2018 [facility] Buspirone Notes: (Same As: BuS par) Inactive 09/06/2018 [facility] Atenolol Notes: (Same As:Tenor min) Inactive 09/06/2018 [facility] Lyrica Notes: (Same as: Lyrica) Inactive 09/06/2018 [facility] Hydralazine Hydrochloride 25 MG Oral Tablet 50 mg = 2 tab, PO, TID, 0 Refill(s) Inactive 09/06/2018 [facility] Escitalopram 10 MG Oral Tablet [Lexapro] 10 mg = 1 tab, PO, Daily, 0 Refill(s) Active 09/06/2018 [facility] Hydralazine 25 mg, PO, QID, 0 Refill(s) Inactive 09/06/2018 [facility] Clonidine See Instructions, CA N Hypertension, 0.1 mg PO, 0 Refill(s) Active 09/06/2018 [facility] gabapentin 300 mg, PO, TID, 0 Refill(s) Active 09/06/2018 [facility] Promethazine 25 mg, PO, BID, P RN as needed for nausea/vomiting, 0 Refill(s) Active 09/06/2018 [facility] Alprazolam 1 MG Oral Tablet [Xanax] 1 mg = 1 tab, PO, BID, 0 Refill(s) Active 09/06/2018 [facility] Trulicity Pen See Instructions , 1.5 mg SUB-Q, 0 Refill(s), takes once a week Active 09/06/2018 [facility] Levemir 15 unit, SUB-Q, Daily, 0 Refill(s) Active 09/06/2018 [facility] Lovenox Notes: (Same as: Loven ox) No Longer Active 09/06/2018 [facility] Insulin Lispro Notes: (Same as : Humalog) Roll in palms of hands gently; Do not shake vigorously. WASTE: F/P - Black; E - Municipal Trash Bin Stable for 28 days at room temperature. Expires in days from Date No Longer Active 09/06/2018 [facility] Dextrose 50% Syringe 25 gm, 50 mL, Route: IVP, Drug Form: INJ, Dosing Weight 77.273, kg, PRN, PRN Blood Glucose Results, Start date: 09/05/18 21:26:00 CDT, Duration: 30 day, Stop date: 10/05/18 21:25:00 CDT, 0 No Longer Active 09/06/2018 [facility] Glucagon 1 mg, Route: IM, Drug form: PDR/INJ, PRN, Dosing Weight 77.273, kg, PRN Blood Glucose Results, Start date: 09/05/18 21:26:00 CDT, Duration: 30 day, Stop date: 10/05/18 21:25:00 CDT, 0 No Longer Active 09/06/2018 [facility] Furosemide 20 MG Oral Tablet [Lasix] See Instructions, 1 tab PO Daily, 0 Refill(s) Active 09/05/2018 [facility] Trazodone Notes: (Same As: Po yrel) No Longer Active 09/05/2018 [facility] Albuterol 0.833 MG/ML / Ipratropium Brom fabricio 0.167 MG/ML Inhalant Solution [DuoNeb] Notes: (Same as: Duoneb) No Longer Active 09/05/2018 [facility] phenol Notes: WASTE: F/P - Raghav ck; E - Municipal Trash Bin No Longer Active 09/05/2018 [facility] Mucinex Notes: (Same as: Coyf enesin LA, Humibid LA, Mucinex) "Do Not Crush" Take medication with plenty of water. No Longer Active 09/05/2018 [facility] Robitussin-AC oral syrup Notes : (Same As: Robitussin AC) No Longer Active 09/05/2018 [facility] Tessalon Perles Notes: (Same A s: Gelasalon Perles) "Do Not Crush" No Longer Active 09/05/2018 [facility] Simethicone Notes: (Same as: Cece ylicon) No Longer Active 09/05/2018 [facility] Maalox Advanced Regular Strength SUSP Notes: (aluminum hydroxide-magnesium hyd-simethicone [id number]/5ml 30 ml ud NAVEEN) No Longer Active 09/05/2018 [facility] Acetaminophen 325 MG / Hydrocodone Julio trate 5 MG Oral Tablet [[place] 5/325] Notes: (Same as: [place] 325/5) Do not ex ceed 4gm/day of acetaminophen. No Longer Activ e 09/05/2018 [facility] Hydralazine Notes: (Same as: A presoline) Push over 5 minutes No Longer Active 09/05/2018 [facility] Nicotine Notes: (Same as: Leo ramos) "Remove old patch before application of new patch" WASTE: F/P - P Waste Black; E - P Waste Black No Longer Active 09/05/2018 [facility] Morphine Notes: (Same as:MORPh ine Sulfate) No Longer Active 09/05/2018 [facility] Seroquel Notes: (Same as: SERO quel) No Longer Active 09/05/2018 [facility] Acetaminophen Notes: Do not ex ceed 4 gm/day. (Same as: Tylenol) No Longer Active 09/05/2018 [facility] Melatonin Notes: (Same as: Jalyn atonin) No Longer Active 09/05/2018 [facility] POLYETHYLENE GLYCOL 3350 Notes : Dissolve in 8 oz of water or juice. (Same as: Miralax) No Longer Active 09/05/2018 [facility] Docusate Notes: (Same as: Cola ce) (Do Not Crush) No Longer Active 09/05/2018 [facility] Bisacodyl Notes: (Same As: Dul colax, Bisco-Lax) No Longer Active 09/05/2018 [facility] Ondansetron Notes: (Same as: Ankit deras) MEDICATION WASTE Product Size: 4 mg Product Wasted: ___ mg No Longer Active 09/05/2018 [facility] Diphenhydramine 25 mg, 1 tab, Route: PO, Drug form: TAB, Q6H, Dosing Weight 77.273, kg, PRN as needed for allergy symptoms, Start date: 09/05/18 17:49:00 CDT, Duration: 30 day, Stop date: 10/05/18 17:48:00 CDT, 0 No Longer Active 09/05/2018 [facility] Dextrose 50% Syringe 12.5 gm, 25 mL, Route: IVP, Drug Form: INJ, Dosing Weight 77.273, kg, PRN, PRN Blood Glucose Results, Start date: 09/05/18 17:49:00 CDT, Duration: 30 day, Stop date: 10/05/18 17:48:00 CDT, 0 No Longer Active 09/05/2018 [facility] Glucagon 1 mg, Route: IM, Drug form: PDR/INJ, PRN, Dosing Weight 77.273, kg, PRN Blood Glucose Results, Start date: 09/05/18 17:49:00 CDT, Duration: 30 day, Stop date: 10/05/18 17:48:00 CDT, 0 No Longer Active 09/05/2018 [facility] Hydralazine Notes: (Same as: A presoline) Push over 5 minutes Inactive 09/05/2018 [facility] Aspirin Notes: Take with food. Inactive 09/05/2018 [facility] Morphine Notes: (Same as:MORPh ine Sulfate) Inactive 09/05/2018 [facility] Zofran Notes: (Same as: Zofran ) MEDICATION WASTE Product Size: 4 mg Product Wasted: ___ mg Inactive 09/05/2018 [facility] MS Contin 1 tablet Orally Active 30 mg Orally every 8 ho urs Carloz 08/21/2018 [id number] [place] 1 tablet as needed Orally Active 10-325 MG Orally every 6 hrs Carloz 08/09/2018 2.16.840.1.874648.4.391.. MS Contin 1 tablet Orally Active 30 mg Orally every 8 ho urs Carloz 06/08/2018 2.16.840.1.859202.4.391.11. [place] 1 tablet as needed Orally Active 10-325 MG Orally every 6 hrs Carloz 06/08/2018 2.16.840.1.680225.4.391.11. [place] 1 tablet as needed Orally Active 10-325 MG Orally every 6 hrs Carloz 05/10/2018 2.16.840.1.859189.4.391.11.39123 Promethazine-DM 5 ml as needed Orally Active 6.25-15 MG/5ML Orally every 6 hrs Carloz 05/10/2018 2.16.840.1.572889.4.391.. Levofloxacin 1 tablet Orally Active 500 mg Orally Once a da y Carloz 05/10/2018 2.16.840.1.578803.4.391.11.46206 Nalfon 1 capsule Orally Active 400 MG Orally Three padilla es a day Carloz 05/10/2018 2.16.840.1.426500.4.391.11.36909 MS Contin 1 tablet Orally Active 30 mg Orally every 8 ho urs Carloz 05/10/2018 2.16.840.1.898664.4.391..91777 MS Contin 1 tablet Orally Active 30 mg Orally every 8 ho urs Carloz 04/09/2018 2.16.840.1.269402.4.391.11.89842 [place] 1 tablet as needed Orally Active 10-325 MG Orally every 6 hrs Carloz 04/09/2018 2.16.840.1.818636.4.391.11.71092 tramadol hydrochloride 50 MG Oral Tablet 50 mg = 1 tab, PO, Q4H, X 5 day, # 20 tab, 0 Refill(s) No Longer Active 03/28/2018 [facility] Acetaminophen 325 MG / Hydrocodone Julio trate 7.5 MG Oral Tablet [[place] 7.5/325] 1 tab, Route: PO, Drug Form: TAB, Dosing Weight 76.818, kg, ONCE, STAT, Start date: 03/28/18 1:20:00 LINER REPLACER, Stop date: 03/28/18 1:20:00 LINER REPLACER Inactive 03/28/2018 [facility] Zofran 4 mg, Route: IVP, Drug form: INJ, ONCE, Dosing Weight 76.818, kg, Priority: STAT, Start date: 03/27/18 23:34:00 LINER REPLACER, Stop date: 03/27/18 23:34:00 LINER REPLACER Inactive 03/28/2018 [facility] Morphine 4 mg, Route: IVP, ONC E, Dosing Weight 76.818, kg, Priority: STAT, Start date: 03/27/18 23:34:00 LINER REPLACER, Stop date: 03/27/18 23:34:00 LINER REPLACER Inactive 03/28/2018 [facility] Zofran ODT 4 mg, Route: PO, Dr ug form: TABDIS, ONCE, Dosing Weight 76.818, kg, Priority: STAT, Start date: 03/27/18 23:31:00 LINER REPLACER, Stop date: 03/27/18 23:31:00 LINER REPLACER Inactive 03/28/2018 [facility] Morphine 4 mg, Route: IM, ONCE , Dosing Weight 76.818, kg, Priority: STAT, Start date: 03/27/18 23:31:00 LINER REPLACER, Stop date: 03/27/18 23:31:00 LINER REPLACER Inactive 03/28/2018 [facility] Ketorolac 4 days MEDICA TION WASTE Product Size: 30 mg Product Wasted: ___ mg Inactive 03/17/2018 [facility] Acetaminophen 325 MG / Hydrocodone Julio trate 10 MG Oral Tablet [[place] 10/325] Notes: Do not exceed 4gm/day of acetamin ophen. (Same as: [place] 325/10) Inactive 03/17/2018 [facility] Acetaminophen 325 MG / Hydrocodone Julio trate 10 MG Oral Tablet [[place] 10/325] 1 tab, Route: PO, Drug Form: TAB, Dosing Weight 71.364, kg, ONCE, STAT, Start date: 03/16/18 16:01:00 LINER REPLACER, Stop date: 03/16/18 16:01:00 LINER REPLACER Inactive 03/16/2018 [facility] [place] 1 tablet as needed Orally Active 10-325 MG Orally every 6 hrs Carloz 03/14/2018 2.16.840.1.611027.4.391.11.23254 MS Contin 1 tablet Orally Active 30 mg Orally every 8 ho urs Carloz 03/14/2018 2.16.840.1.974781.4.391.11.51053 Tylenol/Codeine #3 1 tablet as needed Orally Active 300-30 MG Orally every 6 hrs Carloz 03/07/2018 2.16.840.1.633298.4.391.11.77948 Trulicity one injection pen subcutaneous Active 1.5mg/0.5mL subcutaneous once a week Carloz 01/29/2018 2.16.840.1.388507.4.391.11.80307 Doxycycline Monohydrate 1 tabl et Orally Active 100 MG Orally twice a day Carloz 11/20/2017 2.16.840.1.703376.4.391.11.13212 Saline Flush 0.9% Notes: (Same as: BD Posiflush) No Longer Active 10/26/2017 [facility] Ondansetron Notes: (Same as: Z ofran) MEDICATION WASTE Product Size: 4 mg Product Wasted: ___ mg No Longer Active 10/26/2017 [facility] Morphine Notes: (Same as:MORPh ine Sulfate) No Longer Active 10/26/2017 [facility] Clonidine HCl 1 tablet Orally Active 0.2 MG Orally twice a d ay (bid) as needed (prn) when SBP is over 160 [facility] 08/29/2017 [id number] Xanax 1 tablet Orally Active 1 MG Orally Twice a day [facility] 08/28/2017 2.16.840.1.841393.4.391.11.92247 HydrALAZINE HCl 1 tablet intravenously Active 100 mg intravenously twice a day (bid) [facility] 08/28/2017 2.16.840.1.912556.4 .[id number] Wellbutrin XL 1 tablet in the morning Orally Active 300 MG Orally Once a day [facility] 05/31/2017 [id number] Levaquin 1 tablet Orally Active 500 mg Orally Once a da y [facility] 05/02/2017 [id number] Levaquin 1 tablet Orally Active 500 mg Orally Once a da y [facility] 05/02/2017 [id number] Promethazine-DM 5 ml as needed Orally Active 6.25-15 MG/5ML Orally every 6 hrs [facility] 04/28/2017 [id number] Famotidine Notes: (Same as: Dylan pcid) Inactive 04/04/2017 [facility] Ciprofloxacin 400 mg, Route: I VPB, Drug form: INJ, Q12H, Dosing Weight 75, kg, Start date: 04/03/17 21:00:00 LINER REPLACER, Duration: 1 doses or times, Stop date: 04/03/17 21:00:00 LINER REPLACER, ABX Indication: Surgical Prophylaxis Inactive 04/04/2017 [facility] influenza virus vaccine, inactivated Notes: (Same as: Fluzone Quadrivalent, Fluarix Quadrivalent) For 3 years of age and older (0.5 mL IM) Shake well before use Inactive 04/04/2017 [facility] pneumococcal capsular polysaccharide typ e 1 vaccine / pneumococcal capsular polysaccharide type 10A vaccine / pneumococcal capsular polysaccharide type 11A vaccine / pneumococcal capsular polysaccharide type 12F vaccine / pneumococcal capsular polysacchar Notes: (Same as: Pneumovax 23) Refrigerate Inactive 04/04/2017 [facility] Wellbutrin XL 1 tablet in the morning Orally Active 150 MG Orally Once a day [facility] 04/04/2017 [id number] Dilaudid Notes: (Same as: Dila udid) Inactive 04/03/2017 [facility] phenylephrine (ANES) Route: IV , Drug form: INJ, ONCE, Stop date: 04/03/17 14:56:00 LINER REPLACER Inactive 04/03/2017 [facility] glycopyrrolate (ANES) Route: I V, Drug form: INJ, ONCE, Stop date: 04/03/17 14:56:00 LINER REPLACER Inactive 04/03/2017 [facility] propofol (ANES) Route: IV, Jordin g form: INJ, ONCE, Stop date: 04/03/17 14:38:00 LINER REPLACER Inactive 04/03/2017 [facility] ondansetron (ANES) Route: IV, Drug form: INJ, ONCE, Stop date: 04/03/17 14:38:00 LINER REPLACER Inactive 04/03/2017 [facility] fentaNYL (ANES) Route: IV, Jordin g form: INJ, ONCE, Stop date: 04/03/17 14:38:00 LINER REPLACER Inactive 04/03/2017 [facility] lidocaine (ANES) Route: IV, Dr ug form: INJ, ONCE, Stop date: 04/03/17 14:38:00 LINER REPLACER Inactive 04/03/2017 [facility] midazolam (ANES) Route: IV, Dr ug form: SOLN, ONCE, Stop date: 04/03/17 14:32:00 LINER REPLACER Inactive 04/03/2017 [facility] Docusate Sodium 100 MG Oral Capsule [Colace] 100 mg = 1 cap, PO, BID, PRN Constipation, # 20 cap, 0 Refill(s) Active 04/03/2017 [facility] Phenazopyridine hydrochloride 100 MG Ora l Tablet [Pyridium] 100 mg = 1 tab, PO, TID, PRN Dysuria, X 7 day, # 21 cap, 0 Refill(s) No Longer Active 04/03/2017 [facility] Ciprofloxacin 500 MG Oral Tablet [Cipro] 500 mg = 1 tab, PO, Q12H, X 7 day, # 14 tab, 0 Refill(s) No Longer Active 04/03/2017 [facility] oxybutynin 5 mg oral tablet 5 mg = 1 tab, PO, BID, PRN Other-See Comments, # 14 tab, 0 Refill(s) Active 04/03/2017 [facility] oxybutynin Notes: Same as: Zeeshan dutta) Inactive 04/03/2017 [facility] Ondansetron Notes: (Same as: Ankit deras) MEDICATION WASTE Product Size: 4 mg Product Wasted: ___ mg Inactive 04/03/2017 [facility] Hydromorphone 0.3 mg, 0.3 mL, Route: IVP, Drug form: INJ, Q3H, Dosing Weight 75, kg, PRN Pain Score 4-6, Start date: 04/03/17 14:30:00 LINER REPLACER, Duration: 30 day, Stop date: 05/03/17 14:29:00 LINER REPLACER Inactive 04/03/2017 [facility] Calcium Chloride 0.0014 MEQ/ML / Potassi um Chloride 0.004 MEQ/ML / Sodium Chloride 0.103 MEQ/ML / Sodium Lactate 0.028 MEQ/ML Injectable Solution 1,000 mL, Rate: 125 ml/hr, Infuse over: 8 hr, Route: IV, Dosing Weight 75 kg, Total Volume: 1,000, Start date: 04/03/17 14:30:00 LINER REPLACER, Duration: 30 day, Stop date: 05/03/17 14:29:00 LINER REPLACER, 1.8, m2 Inactive 04/03/2017 [facility] Calcium Chloride 0.0014 MEQ/ML / Potassi um Chloride 0.004 MEQ/ML / Sodium Chloride 0.103 MEQ/ML / Sodium Lactate 0.028 MEQ/ML Injectable Solution 1,000 mL, Rate: 25 ml/hr, Infuse over: 4 0 hr, Route: IV, Dosing Weight 75 kg, Total Volume: 1,000, Start date: 04/03/17 13:48:00 LINER REPLACER, Duration: 30 day, Stop date: 05/03/17 13:47:00 LINER REPLACER, 1.8, m2 Inactive 04/03/2017 [facility] Lactated Ringers Injection IV (ANES) 1000 mL Route: IV, Total Volume: 1,000, Start date: 04/03/17 13:47:00 LINER REPLACER, Stop date: 04/03/17 14:47:00 LINER REPLACER Inactive 04/03/2017 [facility] Lactated Ringers IV 1,000 mL 1 ,000 mL, Rate: 250 ml/hr, Infuse over: 4 hr, Route: IV, Dosing Weight 75 kg, Total Volume: 1,000, Start date: 04/03/17 9:25:00 LINER REPLACER, Duration: 30 day, Stop date: 05/03/17 9:24:00 LINER REPLACER, 1.8, m2 Inactive 04/03/2017 [facility] Lyrica Notes: (Same as: Lyrica) Inactive 04/03/2017 [facility] Metoclopramide Notes: (Same as : Reglan) Take 30 min before meals Inactive 04/03/2017 [facility] Cipro Notes: Do not refrigerate Inactive 04/03/2017 [facility] Metformin 500 mg, Route: PO, Q ID, Dosing Weight 75, kg, Start date: 04/03/17 9:00:00 LINER REPLACER, Duration: 30 day, Stop date: 05/02/17 21:00:00 LINER REPLACER Inactive 04/03/2017 [facility] Lisinopril Notes: (Same as: Pr inivil, Zestril) Inactive 04/03/2017 [facility] Insulin, Aspart, Human 15 unit , Route: SUB-Q, Daily, Dosing Weight 75, kg, Start date: 04/03/17 9:00:00 LINER REPLACER, Duration: 30 day, Stop date: 05/02/17 9:00:00 LINER REPLACER Inactive 04/03/2017 [facility] Buspirone Notes: (Same As: BuS par) Inactive 04/03/2017 [facility] Atenolol Notes: (Same As:Tenor min) Inactive 04/03/2017 [facility] Nurse pls clarify home meds dosing for m etformin and insulin Nurse pls clarify home meds dosing for m etformin and insulin, reminder, Drug form: MISC, Route: MISC, QSHIFT, 04/03/17 8:00:00 LINER REPLACER, Duration: 30 day, Stop date: 05/03/17 0:00:00 LINER REPLACER Inactive 04/03/2017 [facility] Morphine Notes: Do not crush ( Same as:Oramorph SR, MS Contin) Inactive 04/03/2017 [facility] Rocephin Notes: (Same As: Zeus phin). Use with 100 mL NS and infuse over 30 min MEDICATION WASTE Product Size: 1000 mg Product Wasted: ___ mg Inactive 04/03/2017 [facility] Sodium Chloride 0.9% IV 1,000 mL 1,000 mL, Rate: 125 ml/hr, Infuse over: 8 hr, Route: IV, Dosing Weight 75 kg, Total Volume: 1,000, Start date: 04/02/17 23:40:00 LINER REPLACER, Duration: 30 day, Stop date: 05/02/17 23:39:00 LINER REPLACER, 1.8, m2 No Longe r Active 04/03/2017 [facility] Ondansetron Notes: (Same as: Ankit deras) MEDICATION WASTE Product Size: 4 mg Product Wasted: ___ mg No Longer Active 04/03/2017 [facility] Saline Flush 0.9% Notes: (Same as: BD Posiflush) No Longer Active 04/03/2017 [facility] Acetaminophen 325 MG / Hydrocodone Julio trate 10 MG Oral Tablet [Rising Star 10/325] Notes: Do not exceed 4gm/day of acetamin ophen. (Same as: Rising Star 325/10) No Longer Active 04/03/2017 [facility] Acetaminophen 325 MG / Hydrocodone Julio trate 10 MG Oral Tablet [R[place] 10/325] 1 tab, PO, TID, PRN Pain, # 60 tab, 0 Re fill(s) Active 04/03/2017 [facility] Morphine 30 mg, PO, TID, 0 Ref ill(s) Active 04/03/2017 [facility] Metoclopramide 10 mg, TID, 0 R efill(s) Active 04/03/2017 [facility] Insulin, Aspart, Human 15 unit , SUB-Q, Daily, 0 Refill(s) Active 04/03/2017 [facility] Atenolol 50 mg, PO, Daily, 0 R efill(s) Active 04/03/2017 [facility] Buspirone 15 mg, PO, BID, 0 Re fill(s) Active 04/03/2017 [facility] Lyrica 75 mg, PO, Daily, 0 Ref ill(s) Active 04/03/2017 [facility] Metformin 500 mg, PO, QID, 0 R efill(s) Active 04/03/2017 [facility] Lisinopril 40 mg, PO, Daily, 0 Refill(s) Active 04/03/2017 [facility] Zofran Notes: (Same as: Zofran ) MEDICATION WASTE Product Size: 4 mg Product Wasted: ___ mg No Longer Active 04/03/2017 [facility] Ketorolac 4 days MEDICA TION WASTE Product Size: 30 mg Product Wasted: ___ mg Inactive 04/03/2017 [facility] Fentanyl 50 microgram, Route: IVP, ONCE, Dosing Weight 68.182, kg, Priority: STAT, Start date: 04/02/17 20:32:00 LINER REPLACER, Stop date: 04/02/17 20:32:00 LINER REPLACER Inactive 04/03/2017 [facility] Cipro 400 mg, Route: IVPB, ONC E, Dosing Weight 68.182, kg, Priority: STAT, Start date: 04/02/17 19:56:00 LINER REPLACER, Stop date: 04/02/17 19:56:00 LINER REPLACER, ABX Indication: Urinary Tract Infection Inactive 04/03/2017 [facility] Sodium Chloride 0.9% (Bolus) IV 1,000 mL, 1000 ml/hr, Infuse Over: 1 hr, Route: IV, 1,000, Drug form: INJ, ONCE, Priority: STAT, Dosing Weight 68.182 kg, Start date: 04/02/17 18:20:00 LINER REPLACER, Stop date: 04/02/17 18:20:00 LINER REPLACER Inactive 04/03/2017 [facility] Fentanyl Notes: (Same as: Subl imaze) Preservative free. Inactive 04/02/2017 [facility] Saline Flush 0.9% Notes: (Same as: BD Posiflush) No Longer Active 04/02/2017 [facility] Lyrica 1 capsule Orally Active 150 MG Orally Twice a d [facility] 03/02/2017 [id number] Zithromax Z-Eric 2 tablets on the first day, then 1 tablet daily for 4 days Orally Active 250 MG Orally Once a day [facility] 02/28/2017 [id number] Diflucan 1 tablet Orally Active 100 mg Orally daily [facility] 02/02/2017 [id number] MS Contin 1 tablet by mouth Active 30 MG by mouth three ti mes a day [facility] 10/27/2016 [id number] MS Contin 1 tablet by mouth Active 30 mg by mouth three ti mes a day [facility] 10/27/2016 [id number] Fenofibrate 1 tablet Orally Active 48 MG Orally Once a day [facility] 09/26/2016 [id number] Fenofibrate 1 tablet Orally Active 48 MG Orally Once a day [facility] 09/26/2016 [id number] Fluconazole 1 tablet Orally Active 100 MG Orally daily [facility] 08/25/2016 [id number] HydrALAZINE HCl 1 tablet with food Orally Active 50 MG Orally twice a day (bid) [facility] 07/25/2016 [id number] HydrALAZINE HCl 1 tablet with food Orally Active 50 mg Orally twice a day (bid) [facility] 07/25/2016 [id number] HydrALAZINE HCl 3 tablet with food Orally Active 50 mg Orally twice a day (bid) [facility] 07/25/2016 [id number] MS Contin 1 tablet by mouth Active 30 MG by mouth three ti mes a day [facility] 07/24/2016 [id number] Diflucan 1 tablet Orally Active 200 MG Orally Once a da y [facility] 07/14/2016 [id number] Promethazine HCl 1 tablet as n eeded Orally Active 25 MG Orally twice a day (bid) [facility] 07/14/2016 [id number] Cipro 1 tablet Orally Active 500 MG Orally Twice a d ay [facility] 07/12/2016 [id number] Nitroglycerin as directed Sublingual Active 0.3 MG Sublingual as needed (prn) [facility] 06/24/2016 [id number] Nitroglycerin as directed Sublingual Active 0.3 MG Sublingual as needed (prn) [facility] 06/24/2016 [id number] Promethazine HCl 1 tablet as n eeded Orally Active 25 MG Orally four times a day (qid) [facility] 03/28/2016 [id number] Clonazepam 1 tablet by mouth Active 1 MG by mouth Twice a d ay [facility] 02/26/2016 [id number] BusPIRone HCl 1 tablet Orally Active 15 MG Orally Twice a da y [facility] 02/26/2016 [id number] Clonazepam 1 tablet by mouth Active 1 MG by mouth Twice a d ay [facility] 02/26/2016 [id number] BusPIRone HCl 1 tablet Orally Active 15 MG Orally Twice a da y [facility] 02/26/2016 [id number] Lactulose 15 ml Orally Active 10 GM/15ML Orally Once a day [facility] 02/26/2016 [id number] Phenergan 1 tablet as needed Orally Active 25 MG Orally every 12 hrs [facility] 02/04/2016 [id number] NovoLog Flexpen as directed Subcutaneous Active 100 UNIT/ML Subcutaneous 15u daily [facility] 12/30/2015 [id number] NovoLog Flexpen as directed Subcutaneous Active 100 UNIT/ML Subcutaneous 15u daily [facility] 12/30/2015 [id number] Diflucan 1 tablet Orally Active 200 MG Orally Once a da y [facility] 12/11/2015 [id number] Atenolol 1 tablet Orally Active 50 MG Orally Once a day [facility] 09/29/2015 [id number] Atenolol 1 tablet Orally Active 50 mg Orally Once a day [facility] 09/29/2015 [id number] Zithromax Z-Eric 2 tablets on the first day, then 1 tablet daily for 4 days Orally Active 250 MG Orally Once a day [facility] 06/25/2015 [id number] Promethazine-DM 5 ml as needed Orally Active 6.25-15 MG/5ML Orally every 6 hrs [facility] 06/25/2015 [id number] Creon as directed Orally Active 43765 UNIT Orally three times a day (tid) [facility] 06/16/2015 [id number] Diflucan 1 tablet Orally Active 200 MG Orally Once a da y [facility] 06/16/2015 [id number] Ciprofloxacin 1 tablet Orally Active 250 MG Orally Twice a d ay [facility] 04/10/2015 eCW: Kike Jarvis Lotrimin AF 1 application to a ffected area Externally Active 1 % Externally Twice a day [facility] 04/10/2015 eCW: Kike Jarvis Pyridium 1 tablet after meals Orally Active 100 mg Orally Three times a day [facility] 04/10/2015 eCW: Kike Jarvis MS Contin 1 tablet Orally Active 30 mg Orally three time s a day (tid) [facility] 03/13/2015 eCW: Kike Jarvis Rising Star 1 tablet as needed Orally Active 10-325 MG Orally every 6 hrs [facility] 03/13/2015 eCW: Kike Jarvis Rising Star 1 tablet as needed Orally Active 10-325 MG Orally every 6 hrs [facility] 02/11/2015 eCW: Kike Jarvis MS Contin 1 tablet Orally Active 30 mg Orally three time s a day (tid) [facility] 02/11/2015 eCW: Kike Jarvis Clonazepam 1 tablet Orally Active 1 MG Orally Twice a day [facility] 11/12/2014 eCW: Kike Jarvis Duloxetine HCl 1 capsule Orally Active 30 mg Orally Twice a da y [facility] 11/12/2014 eCW: Kike Jarvis Clonazepam 1 tablet Orally Active 1 MG Orally Twice a day [facility] 11/12/2014 eCW: Kike Jarvis Citalopram Hydrobromide 2 tabl ets Orally No Longer Active 10 mg Orally Once a day [facility] 10/09/2014 eCW: Kike Jarvis Pyridium 1 tablet after meals Orally Active 200 MG Orally Three times a day [facility] 09/09/2014 eCW: Kike Jarvis Lotrimin AF 1 application to a ffected area Externally Active 1 % Externally Twice a day [facility] 09/09/2014 eCW: Kike Jarvis Trulicity 1.5 mg dose Subcutaneous injection Active 1.5mg/0.5 ml Subcutaneous injection Once a week [facility] 06/16/2014 eCW: Kike Jarvis Gabapentin 1 tablet Orally Active 600 MG Orally Three padilla es a day [facility] 06/06/2014 eCW: Kike Jarvis Topamax 1 tablet at bedtime Orally Active 50 mg Orally once every night [facility] 06/06/2014 eCW: Kike Jarvis Morphine 4 mg, Route: IVP, ONC E, Dosing Weight 79.545, kg, Priority: STAT, Start date: 05/12/14 3:32:00, Stop date: 05/12/14 3:32:00 Inactive 05/12/2014 [facility] 20 mg, Route: IM, ONCE, Dosing Weight 79.545, kg, Start date: 05/12/14 3:31:00, Stop date: 05/12/14 3:31:00 Inactive 05/12/2014 [facility] Ondansetron 4 mg, Route: IVP, Drug form: INJ, ONCE, Dosing Weight 79.545, kg, Priority: STAT, Start date: 05/12/14 2:04:00, Stop date: 05/12/14 2:04:00 Inactiv e 05/12/2014 [facility] Morphine 4 mg, Route: IVP, ONC E, Dosing Weight 79.545, kg, Priority: STAT, Start date: 05/12/14 2:04:00, Stop date: 05/12/14 2:04:00 Inactive 05/12/2014 [facility] GI cocktail 30 mL, Route: PO, Dosing Weight 79.545, kg, ONCE, STAT, Start date: 05/12/14 1:55:00, Stop date: 05/12/14 1:55:00 Inactive 05/12/2014 [facility] Humalog Mix 75/25 Pen 0.30 ml in am Subcutaneous Active (75-25) 100 UNIT/ML Subcutaneous twice a day (bid) [facility] 03/10/2014 eCW: Kike Jarvis Levemir Flexpen 0.5 ml in am a nd 0.4 ml at bedtime Subcutaneous Active 100 UNIT/ML Subcutaneous twice a day (bid) [facility] 02/10/2014 eCW: Kike Jarvis Promethazine-Codeine 5 ml as n eeded Orally Active 6.25-10 MG/5ML Orally every 6 hrs [facility] 02/10/2014 eCW: Kike Jarvis Doxycycline Hyclate 1 capsule Orally Active 100 mg Orally Once a day [facility] 02/10/2014 eCW: Kike Jarvis BusPIRone HCl 1 tablet Orally Active 10 mg Orally Twice a da y [facility] 01/10/2014 eCW: Kike Jarvis Lactulose 30 ml Orally Active 20 GM/30ML Orally three times a day (tid) [facility] 12/13/2013 eCW: Kike Jarvis Colace 1 capsule as needed Orally Active 100 mg Orally three times a day (tid) [facility] 12/13/2013 eCW: Kike Jarvis Metamucil as directed Orally Active 30.9 % Orally three padilla es a day (tid) [facility] 12/13/2013 eCW: Kike Jarvis MS Contin 1 tablet Orally Active 30 mg Orally three time s a day (tid) [facility] 11/22/2013 eCW: Kike Jarvis Lasix 1 tablet Orally Active 40 MG Orally Once a day [facility] 10/16/2013 eCW: Kike Jarvis MS Contin 1 tablet Orally Active 30 mg Orally every 8 hr s [facility] 10/11/2013 eCW: Kike Jarvis Anusol-HC 1 suppository Rectal Active 25 MG Rectal Twice a da y [facility] 10/11/2013 eCW: Kike Jarvis Rising Star 1 tablet as needed Orally Active 10-325 MG Orally every 6 hrs [facility] 10/11/2013 eCW: Kike Jarvis Lyrica 1 capsule Orally Active 50 mg Orally Three time s a day [facility] 10/11/2013 eCW: Kike Jarvis Lidocaine (Anorectal) as direc chio Externally Active 5 % Externally four times a day (qid) as needed (prn) [facility] 10/11/2013 eCW: Kike Jarvis Levemir Flexpen 0.4 ml Subcutaneous No Longer Active 100 UNIT/ML Subcutaneous twice a day (bid) [facility] 09/26/2013 eCW: Kike Jarvis Nystatin 1 application to affe cted area Externally Active 820291 UNIT/GM Externally Twice a day [facility] 09/26/2013 eCW: Kike Jarvis Metformin HCl 1 tablet with me als Orally Active 1000 mg Orally Twice a day [facility] 09/26/2013 eCW: Kike Jarvis Lisinopril 1 tablet Orally Active 40 mg Orally Once a day [facility] 09/26/2013 eCW: Kike Jarvis Diflucan 1 tablet Orally Active 200 MG Orally Once a da y [facility] 09/26/2013 eCW: Kike Jarvis MS Contin 1 tablet Orally No Longer Active 30 mg Orally every 8 hrs [facility] 09/12/2013 eCW: Kike Jarvis Gabapentin 1 capsule Orally Active 300 MG Orally Three padilla es a day [facility] 09/12/2013 eCW: Kike Jarvis Potassium Chloride 1 tablet Orally Active 20 MEQ Orally Once a day [facility] 09/12/2013 eCW: Kike Jarvis Levemir Flexpen 0.5 ml Subcutaneous No Longer Active 100 UNIT/ML Subcutaneous once every night [facility] 09/12/2013 eCW: Kike Jarvis Lasix 1 tablet Orally Active 40 MG Orally Once a day [facility] 09/12/2013 eCW: Kike Cagleg Protonix 1 tablet Orally Active 40 mg Orally Once a day [facility] 09/05/2013 eCW: Rodericktoshia Jarvis Lidoderm 1 patch to intact ski n remove after 12 hours Externally Active 5 % Externally Once a day [facility] 09/05/2013 eCW: Kike Cagleelijah Reglan 1 tablet 30 minutes bef ore meals and at bedtime as needed Orally Active 10 mg Orally Four times a day [facility] 09/05/2013 eCW: Kike Simona Rising Star 1 tablet as needed Orally Active 10-325 MG Orally three times a day (tid) [facility] 09/05/2013 eCW: Kike Simona Gabapentin 1 capsule Orally No Longer Active 300 MG Orally once every night [facility] 09/05/2013 eCW: Rodericktoshia Jarvis Zofran ODT 4 mg oral tablet, disintegrating 4 mg = 1 tab, PO, Q8H, Nausea and Vomiting, Dissolve tab under tongue, # 10 tab, 0 Refill(s)Dissolve tab under tongue Active Fatimah fine 02/24/2013 [facility] Zofran ODT 4 mg, Route: PO, Dr ug form: TABDIS, ONCE, Dosing Weight 93.636, kg, Priority: STAT, Start date: 02/24/13 10:35:00, Stop date: 02/24/13 10:35:00 Inactive Anant 02/24/2013 [facility] Pin-X 50 mg/mL oral suspension 1,000 mg, 20 ml, PO, ONCE, 30 ml, Substitution Allowed, SUSP Active Mitali an 01/08/2013 [facility] morphine Sulfate 4 mg, 2 mL, R oute: IVP, Drug form: INJ, ONCE, Dosing Weight 95, kg, Priority: STAT, Start date: 01/08/13 3:50:00, Stop date: 01/08/13 3:50:00(Same as:MORPhine Sulfate) Inactive Alyson 01/08/2013 [facility] ondansetron 4 mg, 2 mL, Route: IVP, Drug form: INJ, ONCE, Dosing Weight 95, kg, Priority: STAT, Start date: 01/08/13 3:50:00, Stop date: 01/08/13 3:50:00(Same as: Zofran) Inactive Sara lorenzo 01/08/2013 [facility] Saline Flush 0.9% 5 mL, Route: IVP, Drug Form: INJ, Dosing Weight 95, kg, PRN, PRN Line Flush, Start date: 01/08/13 3:50:00, Duration: 24 hr, Stop date: 01/09/13 3:49:00(Same as: BD Posiflush) [facility] Ultram 50 mg oral tablet 50 mg , 1 tab, PO, Q4H, PRN, 10 tab, pain, Substitution Allowed PO Active Flora fritz 07/21/2012 [facility] Rising Star 5/325 oral tablet 1 tab, Route: PO, Dosing Weight 109.091, kg, ONCE, Start date: 07/21/12 2:33:00, Stop date: 07/21/12 2:33:00 PO No Longer Active [facility] potassium chloride 40 mEq, Rou te: PO, Drug form: ERTAB, ONCE, Dosing Weight 109.091, kg, Priority: STAT, Start date: 07/21/12 1:53:00, Stop date: 07/21/12 1:53:00 PO No Longer Active [facility] 07/21/2012 [facility] Insulin regular 8 unit, Route: IVP, ONCE, Dosing Weight 109.091, kg, Priority: STAT, Start date: 07/21/12 1:53:00, Stop date: 07/21/12 1:53:00 IVP No Longer Active [facility] 07/21/2012 [facility] morphine Sulfate 4 mg, Route: IVP, Drug form: INJ, ONCE, Dosing Weight 109.091, kg, Priority: STAT, Start date: 07/21/12 1:01:00, Stop date: 07/21/12 1:01:00 IVP No Longer Active [facility] 07/21/2012 [facility] Sodium Chloride 0.9% (Bolus) IV 2000 mL 2,000 mL, Rate: 2,000 ml/hr, Infuse over: 1 hr, Route: IV, Dosing Weight 109.091 kg, Total Volume: 2,000, Priority: STAT, Start date: 07/21/12 1:01:00, Duration: 1 doses or times, Stop date: 07/21/12 2:00:00 IV No Longer Active [facility] 07/21/2012 [facility] Saline Flush 0.9% 5 mL, Route: IVP, Drug Form: INJ, Dosing Weight 109.091, kg, PRN, PRN Line Flush, Start date: 07/21/12 1:01:00, Duration: 30 day, Stop date: 08/20/12 1:00:00 IVP No Longer Active [facility] 07/21/2012 [facility] ondansetron 4 mg, Route: IVP, ONCE, Dosing Weight 109.091, kg, Priority: STAT, Start date: 07/21/12 1:01:00, Stop date: 07/21/12 1:01:00 IVP No Longer Active [facility] 07/21/2012 [facility] Dextrose 50% Syringe 12.5 gm, 25 mL, Route: IVP, Drug Form: INJ, Dosing Weight 109.091, kg, PRN, PRN Blood Glucose Results, Start date: 07/21/12 1:01:00, Duration: 30 day, Stop date: 08/20/12 1:00:00, If Blood Glucose is 40 - 60 mg/dL. For patients that are Unconscious or... IVP No Longer Active [facility] 07/21/2012 [facility] glucagon 1 mg, Route: IM, Drug form: PDR/INJ, PRN, Dosing Weight 109.091, kg, PRN Blood Glucose Results, Start date: 07/21/12 1:01:00, Duration: 30 day, Stop date: 08/20/12 1:00:00, For BG < 60 mg/dL if no IV access and patient is either Unconscious or Unable... IM No Longer Active [facility] 07/21/2012 [facility] Zofran ODT 4 mg oral tablet, disintegrating 4 mg, 1 tab, PO, Q8H, PRN, Dissolve tab under tongue, 10 tab, Nausea and Vomiting, Substitution AllowedDissolve tab under tongue PO Active [facility] 05/16/2012 [facility] Protonix 40 mg oral enteric coated tablet 40 mg, 1 tab, PO, Daily, 15 tab, Substitution Allowed, ECTAB PO Active [facility] 05/16/2012 [facility] Dilaudid 1 mg, Route: IV, ONCE , Dosing Weight 98.182, kg, Priority: STAT, Start date: 05/16/12 5:57:00, Stop date: 05/16/12 5:57:00 IV No Longer Active [facility] 05/04 [facility] Sodium Chloride 0.9% IV 1,000 mL 1,000 mL, Rate: 125 ml/hr, Infuse over: 8 hr, Route: IV, kg, Total Volume: 1,000, Start date: 05/16/12 3:55:00, Duration: 30 day, Stop date: 06/15/12 3:54:00 IV No Longer Active [facility] 05/16/2012 [facility] Zofran 4 mg, Route: IVP, Drug form: INJ, ONCE, Dosing Weight 98.182, kg, PRN Nausea, Priority: STAT, Start date: 05/16/12 3:54:00 IVP No Longer Active [facility] 05/04 [facility] morphine Sulfate 4 mg, Route: IVP, ONCE, Dosing Weight 98.182, kg, Start date: 05/16/12 3:54:00, Stop date: 05/16/12 3:54:00 IVP No Longer Active [facility] 05/04 [facility] Protonix 40 mg, Route: IVP, ON CE, Dosing Weight 98.182, kg, Priority: STAT, Start date: 05/16/12 3:54:00, Stop date: 05/16/12 3:54:00 IVP No Longer Active [facility] 05/04 [facility] NovoLog Flexpen as directed Subcutaneous Active 100 UNIT/ML Subcutaneous three times a day [facility] 01/26/2011 eCW: Kike Jarvis Famotidine 1 tablet at bedtime Orally Active 40 MG Orally Once a day [facility] 11/23/2010 eCW: Kike Jarvis Gabapentin 1 capsule Orally Active 300 MG Orally Three padilla es a day [facility] 11/23/2010 eCW: Kike Jarvis Lasix 1 tablet Orally No Longer Active 20 mg Orally Once a day [facility] 11/23/2010 eCW: Kike Jarvis pneumococcal 23-valent vaccine 0.5 ml, Route: IM, Drug Form: INJ, Start date: 11/25/09 9:00:00, Stop date: 11/25/09 9:00:00 Inactive [facility] 11/25/2009 [facility] Lisinopril 1 tablet by mouth Active 40 MG by mouth Once a d ay [facility] eCW: Kike Jarvis,[id number] Lasix 1 tablet by mouth Active 40 mg by mouth Once a d ay [facility] [id number] Lidocaine 1 patch Externally Active 5 % Externally every tw elve hours [facility] [id number] Pantoprazole Sodium 1 tablet by mouth Active 40 MG by mouth twice a day [facility] eCW: Kike Jarvis,[id number] .11. Humalog Mix 75/[address] 30 units Subcutaneous Active (75-25) 100 UNIT/ML Subcutaneous twice a day [facility] [id number] 2568 Metformin HCl 1 tablet by mouth Active 1000 mg by mouth Twice a day [facility] eCW: Rodericktoshia Jarvis,[id number] . Rising Star 1 tablet Orally Active 10-325 MG Orally four t imes a day (qid) as needed (prn) [facility] eCW: Kike Simona,[id number] . Lyrica 1 capsule Orally Active 75 MG Orally Twice a da y [facility] [id number]. Potassium Chloride 1 tablet Orally Active 20 MEQ Orally Twice a day [facility] [id number]. Metoclopramide HCl one tablet by mouth Active 10 MG by mouth four times a day [facility] [id number] Duloxetine HCl 1 capsule by mouth Active 30 MG by mouth Twice a day [facility] [id number]. Atenolol TAKE ONE TABLET BY MO [facility] DAILY NA Active 50 MG Carloz [id number] Lisinopril 1 tablet by mouth Active 40MG by mouth daily [facility] [id number]. Humalog Mix 75/[address] 30 units Subcutaneous Active (75-25) 100 UNIT/ML Subcutaneous twice a day [facility] [id number] 2568 Rising Star 1 tablet Orally Active 10-325 MG Orally four t imes a day (qid) as needed (prn) [facility] [id number]. Pantoprazole Sodium 1 tablet by mouth Active 40 MG by mouth twice a day [facility] [id number]. Metformin HCl TAKE ONE TABLET BY MOUTH TWICE A DAY NA Active 1,000 [facility] [id number]. Lidocaine 1 patch Externally Active 5 % Externally every tw elve hours [facility] [id number]. Potassium Chloride 1 tablet Orally Active 20 MEQ Orally Twice a day [facility] [id number] Lyrica 1 capsule Orally Active 75 MG Orally Twice a da y [facility] [id number]. Lasix 1 tablet by mouth Active 40 mg by mouth Once a d ay [facility] [id number]. Metformin HCl 1 tablet by mouth Active 1000 mg by mouth Twice a day [facility] [id number]. Metoclopramide HCl one tablet by mouth Active 10 MG by mouth four times a day [facility] [id number]. Gabapentin 1 tablet Orally Active 300 MG Orally Three padilla es a day [facility] [id number]. Lisinopril TAKE ONE TABLET BY MOUTH DAILY NA Active 40 [facility] 840.1.982504.4. Gabapentin 1 tablet Orally Active 300 MG Orally Three padilla es a day [facility] [id number]. Gabapentin TAKE ONE CAPSULE BY MOUTH THREE TIMES A DAY orally Active 300 orally [facility] [id number]. Metformin HCl 1 tablet with me als Orally No Longer Active 500 mg Orally Twice a day [facility] eCW: Kike Javris Atenolol 1 tablet by mouth Active 100 mg by mouth Once a day [facility] eCW: Kike Jarvis Phenergan 1 tablet at bedtime Orally Active 25 MG Orally three times a day (tid) [facility] eCW: Kike Jarvis Lisinopril-Hydrochlorothiazide 1 tablet Orally No Longer Active 20-25 MG Orally Once a day [facility] eCW: Kike Jarvis Amlodipine Besylate 1 tablet Orally No Longer Active 10 MG Orally Once a day [facility] eCW: Kike Jarvis Levemir Flexpen 40 unit Subcutaneous No Longer Active 100 UNIT/ML Subcutaneous once every night [facility] eCW: Kike Jarvis GlyBURIDE 1 tablet Orally No Longer Active 5 MG Orally T wice a day [facility] eCW: Kike Jarivs Potassium Chloride 1 tablet Orally Active 20 MEQ Orally Once a day [facility] eCW: Kike Jarvis BusPIRone HCl 1 tablet Orally No Longer Active 10 mg Orally Twice a day [facility] eCW: Kike Jarvis Phenergan 1 tablet at bedtime Orally Active 25 MG Orally three times a day (tid) [facility] eCW: Kike Jarvis Duloxetine HCl 1 capsule Orally Active 30 mg Orally Twice a da y [facility] eCW: Kike Jarvis Lisinopril 1 tablet Orally Active 40 mg Orally Once a day [facility] eCW: Kike Jarvis Lidocaine APPLY OE PATCH ON FO R 12 HOURS AND OFF FOR 12 HOURS NA Active 5 Fang eCW: Kike Jarvis MS Contin 1 tablet by mouth Active 30 mg by mouth three ti mes a day [facility] eCW: Kike Jarvis,[id number]. Topamax 1 tablet by mouth Active 50 MG by mouth once at night [facility] [id number]. Gabapentin 1 tablet by mouth No Longer Active 600 MG by jada th Three times a day [facility] [id number].. Metoclopramide HCl one tablet by mouth Active 10 mg by mouth four times a day [facility] eCW: Kike Jarvis,[id number] .. Phenergan 1 tablet as needed Orally Active 25 MG Orally every 12 hrs [facility] eCW: Rodericktoshia Jarvis,[id number] . Clonazepam 1 tablet by mouth Active 1 MG by mouth Twice a d ay [facility] [id number].. Metoclopramide HCl TAKE ONE TA BLET BY MOUTH FOUR TIMES A DAY NA Active 10 MG Carloz [id number].. Wellbutrin XL TAKE ONE TABLET BY MOUTH EVERY MORNING NA Active 300 MG Carloz [id number].. Atenolol TAKE ONE TABLET BY MO UTH DAILY Orally Active 50 mg Orally Once a day [facility] [id number].. HydrALAZINE HCl 2 tablet with food Orally Active 50 mg Orally twice a day (bid) [facility] [id number].. Allergies, Adverse Reactions, Alerts Substance Category Reaction Severity Reaction type Status Date Reported Comments Source skelaxin Adverse Reaction diarrhea Adverse Reaction Active 04/10/2015 eCW: Kike Jarvis naprosyn Adverse Reaction dizziness Adverse Reaction Active 04/10/2015 eCW: Kike Jarvis Zocor Adverse Reaction rash Adverse Reaction Active 06/08/2018 [id number]. Lyrica Adverse Reaction swelling Adverse Reaction Active 06/08/2018 [id number] Celexa Adverse Reaction depression Adverse Reaction Active 06/08/2018 [id number] 2568 Amoxicillin Adverse Reaction itch Adverse Reaction Active 06/08/2018 [id number] Amlodipine Besylate Adverse Re action leg swelling Adverse Reaction Active 06/08/2018 [id number] 2568 Amitriptyline HCl Adverse Reac tion Mood Changes Adverse Reaction Active 06/08/2018 [id number] 2568 amoxicillin Assertion Drug allergy Active [facility] Skelaxin Assertion Drug allergy Active [facility] Naprosyn Assertion Drug allergy Active [facility] penicillins Assertion Drug allergy Active [facility] amitriptyline Assertion Drug allergy Active [facility] Immunizations Immunization Date Given Site Status Last Updated Comments Source INFLUENZA II Multi 1 completed [id number] 2568 pneumococcal 23-valent vaccine 04/04/2017 Right deltoid completed [facility] So [place] influenza virus vaccine, inactivated 04/04/2017 Left deltoid completed [facility] [place] pneumococcal 23-valent vaccine 11/25/2009 Not Given H mike [facility] Results Order Name Results Value Reference Range Date Interpretation Comments Source CARDIAC ENZYMES Troponin-I <0.02 0.00 - 0.40 09/06/2018 [facility] ELECTROLYTES AGAP 10.4 10.0 - 20.0 09/06/2018 [facility] ELECTROLYTES Calcium Lvl 8.3 8.5 - 10.5 09/06/2018 [facility] ELECTROLYTES eGFR 60 09/06/2018 Result Comment: The eGFR is calculated using the CKD-EPI formula. In most young, healthy individuals the eGFR will be >90 mL/min/1.73m2. The eGFR declines with age. An eGFR of 60-89 may be normal in some populations, particularly the elderly, for whom the CKD-EPI formula has not been extensively validated. Use of the eGFR is not recommended in the following populations:

Individuals with unstable creatinine concentrations, including patients and those with serious co-morbid conditions.

Patients with extremes in muscle mass or diet.

The data above are obtained from the National Kidney Disease Education Program (NKDEP) which additionally recommends that when the eGFR is used in patients with extremes of body mass index for purposes of drug dosing, the eGFR should be multiplied by the estimated BMI. [facility] ELECTROLYTES CO2 29 24 - 32 09/06/2018 [facility] ELECTROLYTES Chloride Lvl 102 95 - 109 09/06/2018 [facility] ELECTROLYTES Potassium Lvl 3.4 3.5 - 5.1 09/06/2018 [facility] ELECTROLYTES BUN 19 7 - 22 09/06/2018 [facility] ELECTROLYTES Glucose Lvl 211 70 - 99 09/06/2018 [facility] ELECTROLYTES Sodium Lvl 138 135 - 145 09/06/2018 [facility] ELECTROLYTES Creatinine Lvl 1.0 6 0.50 - 1.40 09/06/2018 [facility] HEMATOLOGY MPV 8.7 7.4 - 10.4 09/06/2018 [facility] HEMATOLOGY RDW 13.8 11.5 - 14.5 09/06/2018 [facility] HEMATOLOGY Platelet 198 133 - 450 09/06/2018 [facility] HEMATOLOGY MCHC 34.4 32.0 - 36.0 09/06/2018 [facility] HEMATOLOGY Hct 34.9 36.0 - 48.0 09/06/2018 [facility] HEMATOLOGY Hgb 12.0 12.0 - 16.0 09/06/2018 [facility] HEMATOLOGY RBC 4.10 4.20 - 5.40 09/06/[address] [facility] MCH 29.3 27.0 - 31.0 09/06/2018 [facility] HEMATOLOGY WBC 5.5 3.7 - 10.4 09/06/[address] [facility] MCV 85.1 80.0 - 98.0 09/06/2018 [facility] LDL (Calculated) See Note mg/dL <=99 mg/dL 09/06/2018 Result Comment: LDL cholesterol cannot b e calculated due to very high triglycerides (>400 mg/dL). Recommend Direct LDL if clinically indicated. [facility] LIPIDS VLDL See Note 4 *NA* (09/06/18 3:43 AM) 09/06/2018 Result Comment: VLDL - Heather sterol level cannot be accurately calculated due to very high triglycerides (>400 mg/dL). [facility] LIPIDS Trig 460 <=149 mg/dL 09/06/2018 [facility] HDL 50 >=61 mg/dL 09/06/2018 [facility] LIPIDS Chol 223 <=199 mg/dL 09/06/2018 [facility] LIPIDS CHD Risk 4.46 3.90 - 5.80 09/06/2018 [facility] SPECIAL CHEMISTRY Hgb A1C 9.4 <=5.6 % 09/06/2018 [facility] CARDIAC ENZYMES Troponin-I <0.02 0.00 - 0.40 09/06/2018 [facility] CARDIAC ENZYMES Troponin-I <0.02 0.00 - 0.40 09/05/2018 [facility] CHEM PANEL Lipase Lvl 76 73 - 393 09/05/2018 [facility] CHEM PANEL A/G Ratio 0.9 0.7 - 1.6 09/05/2018 [facility] CHEM PANEL Globulin 3.8 2.7 - 4.2 09/05/2018 [facility] CHEM PANEL B/C Ratio 13 6 - 25 09/05/2018 [facility] CHEM PANEL AGAP 13.7 10.0 - 20.0 09/05/2018 [facility] CHEM PANEL eGFR 47 09/05/2018 Result Comment: The eGFR is calculated using the CKD-EPI formula. In most young, healthy individuals the eGFR will be >90 mL/min/1.73m2. The eGFR declines with age. An eGFR of 60-89 may be normal in some populations, particularly the elderly, for whom the CKD-EPI formula has not been extensively validated. Use of the eGFR is not recommended in the following populations:

Individuals with unstable creatinine concentrations, including patients and those with serious co-morbid conditions.

Patients with extremes in muscle mass or diet.

The data above are obtained from the National Kidney Disease Education Program (NKDEP) which additionally recommends that when the eGFR is used in patients with extremes of body mass index for purposes of drug dosing, the eGFR should be multiplied by the estimated BMI. [facility] CHEM PANEL ALT 34 0 - 65 09/05/2018 [facility] CHEM PANEL Albumin Lvl 3.4 3.5 - 5.0 09/05/2018 [facility] CHEM PANEL Bili Total <0.1 0.2 - 1.3 09/05/2018 [facility] CHEM PANEL Alk Phos 93 39 - 136 09/05/2018 [facility] CHEM PANEL AST 29 0 - 37 09/05/2018 [facility] CHEM PANEL Calcium Lvl 8.0 8.5 - 10.5 09/05/2018 [facility] CHEM PANEL CO2 25 24 - 32 09/05/2018 [facility] CHEM PANEL Chloride Lvl 101 95 - 109 09/05/2018 [facility] CHEM PANEL Glucose Lvl 177 70 - 99 09/05/2018 [facility] CHEM PANEL Sodium Lvl 136 135 - 145 09/05/2018 [facility] CHEM PANEL Total Protein 7.2 6.4 - 8.4 09/05/2018 [facility] CHEM PANEL Potassium Lvl 3.7 3.5 - 5.1 09/05/2018 [facility] CHEM PANEL Creatinine Lvl 1.30 0.50 - 1.40 09/05/2018 [facility] CHEM PANEL BUN 17 7 - 22 09/05/2018 [facility] HEMATOLOGY MCH 28.6 27.0 - 31.0 09/05/2018 [facility] HEMATOLOGY Platelet 232 133 - 450 09/05/2018 [facility] HEMATOLOGY MPV 9.4 7.4 - 10.4 09/05/[address] [facility] MCHC 33.6 32.0 - 36.0 09/05/2018 [facility] HEMATOLOGY RDW 13.9 11.5 - 14.5 09/05/2018 [facility] HEMATOLOGY Hct 35.9 36.0 - 48.0 09/05/2018 [facility] HEMATOLOGY RBC 4.21 4.20 - 5.40 09/05/2018 [facility] HEMATOLOGY Hgb 12.0 12.0 - 16.0 09/05/2018 [facility] HEMATOLOGY MCV 85.1 80.0 - 98.0 09/05/2018 [facility] HEMATOLOGY WBC 5.9 3.7 - 10.4 09/05/2018 [facility] HEMATOLOGY Monocytes # 0.4 0.0 - 0.8 09/05/2018 [facility] HEMATOLOGY Eosinophils # 0.1 0.0 - 0.5 09/05/2018 [facility] HEMATOLOGY Lymphocytes 38.1 20.0 - 40.0 09/05/2018 [facility] HEMATOLOGY Neutrophils # 3.2 1.5 - 8.1 09/05/2018 [facility] HEMATOLOGY Lymphocytes # 2.3 1.0 - 5.5 09/05/2018 [facility] HEMATOLOGY Segs 53.2 45.0 - 75.0 09/05/2018 [facility] HEMATOLOGY Basophils 0.8 0.0 - 1.0 09/05/2018 [facility] HEMATOLOGY Monocytes 6.5 2.0 - 12.0 09/05/2018 [facility] HEMATOLOGY Eosinophils 1.4 0.0 - 4.0 09/05/2018 [facility] CARDIAC ENZYMES BNP 56 <=100 pg/mL 03/28/2018 [facility] URINE AND STOOL UA pH 5.0 5.0 - 8.0 03/28/2018 [facility] URINE AND STOOL UA Protein Negative (03/27/18 6:29 PM) Negative 03/28/2018 [facility] URINE AND STOOL UA Spec Grav 1.011 <=1.030 03/28/2018 [facility] URINE AND STOOL UA Sq Epi Occasional /LPF Few /LPF 03/28/2018 [facility] URINE AND STOOL UA Nitrite Negative (03/27/18 6:29 PM) Negative 03/28/2018 [facility] URINE AND STOOL UA Leuk Est Negative (03/27/18 6:29 PM) Negative 03/28/2018 [facility] URINE AND STOOL UA Urobilinogen <=1.0 mg/dL 0.1 - 1.0 03/28/2018 [facility] URINE AND STOOL UA Blood Negative (03/27/18 6:29 PM) Negative 03/28/2018 [facility] URINE AND STOOL UA Ketones Negative *NA* (03/27/18 6:29 PM) Negative 03/28/2018 [facility] URINE AND STOOL UA Bili Negative *NA* (03/27/18 6:29 PM) Negative 03/28/2018 [facility] URINE AND STOOL UA Glucose 150 mg/dL Negative mg/dL 03/28/2018 [facility] URINE AND STOOL UA WBC <1 0 - 5 03/28/2018 [facility] URINE AND STOOL UA Bacteria Occasional /HPF None Seen /HPF 03/28/2018 [facility] URINE AND STOOL UA Turbidity Clear (03/27/18 6:29 PM) Clear 03/28/2018 [facility] URINE AND STOOL UA Color Ltyellow 03/28/2018 [facility] CHEM PANEL Lipase Lvl 171 73 - 393 03/27/2018 [facility] CHEM PANEL eGFR 61 03/27/2018 Result Comment: The eGFR is calculated using the CKD-EPI formula. In most young, healthy individuals the eGFR will be >90 mL/min/1.73m2. The eGFR declines with age. An eGFR of 60-89 may be normal in some populations, particularly the elderly, for whom the CKD-EPI formula has not been extensively validated. Use of the eGFR is not recommended in the following populations:

Individuals with unstable creatinine concentrations, including patients and those with serious co-morbid conditions.

Patients with extremes in muscle mass or diet.

The data above are obtained from the National Kidney Disease Education Program (NKDEP) which additionally recommends that when the eGFR is used in patients with extremes of body mass index for purposes of drug dosing, the eGFR should be multiplied by the estimated BMI. [facility] CHEM PANEL Glucose Lvl 276 70 - 99 03/27/2018 [facility] CHEM PANEL Bili Total 0.2 0.2 - 1.3 03/27/2018 [facility] CHEM PANEL Alk Phos 122 39 - 136 03/27/2018 [facility] CHEM PANEL AST 21 0 - 37 03/27/2018 [facility] CHEM PANEL ALT 30 0 - 65 03/27/2018 [facility] CHEM PANEL Creatinine Lvl 1.05 0.50 - 1.40 03/27/2018 [facility] CHEM PANEL BUN 22 7 - 22 03/27/2018 [facility] CHEM PANEL Potassium Lvl 3.9 3.5 - 5.1 03/27/2018 [facility] CHEM PANEL Sodium Lvl 134 135 - 145 03/27/2018 [facility] CHEM PANEL Total Protein 7.2 6.4 - 8.4 03/27/2018 [facility] CHEM PANEL Calcium Lvl 8.9 8.5 - 10.5 03/27/2018 [facility] CHEM PANEL CO2 29 24 - 32 03/27/2018 [facility] CHEM PANEL Chloride Lvl 97 95 - 109 03/27/2018 [facility] CHEM PANEL Albumin Lvl 3.5 3.5 - 5.0 03/27/2018 [facility] CHEM PANEL Globulin 3.7 2.7 - 4.2 03/27/2018 [facility] CHEM PANEL B/C Ratio 21 6 - 25 03/27/2018 [facility] CHEM PANEL A/G Ratio 0.9 0.7 - 1.6 03/27/2018 [facility] CHEM PANEL AGAP 11.9 10.0 - 20.0 03/27/2018 [facility] ENDOCRINOLOGY S Preg Ne gative *NA* (03/27/18 5:12 PM) Negative 03/27/2018 [facility] HEMATOLOGY MCH 27.9 27.0 - 31.0 03/27/2018 [facility] HEMATOLOGY MCHC 33.4 32.0 - 36.0 03/27/2018 [facility] HEMATOLOGY RDW 13.0 11.5 - 14.5 03/27/2018 [facility] HEMATOLOGY Platelet 225 133 - 450 03/27/[address] [facility] MPV 8.1 7.4 - 10.4 03/27/[address] [facility] MCV 83.6 80.0 - 98.0 03/27/[address] [facility] Hct 34.7 36.0 - 48.0 03/27/[address] [facility] WBC 5.2 3.7 - 10.4 03/27/[address] [facility] Hgb 11.6 12.0 - 16.0 03/27/[address] [facility] RBC 4.15 4.20 - 5.40 03/27/2018 [facility] HEMATOLOGY Basophils 0.7 0.0 - 1.0 03/27/[address] [facility] Lymphocytes # 2.1 1.0 - 5.5 03/27/[address] [facility] Neutrophils # 2.5 1.5 - 8.1 03/27/[address] [facility] Monocytes # 0.5 0.0 - 0.8 03/27/[address] [facility] Eosinophils # 0.2 0.0 - 0.5 03/27/[address] [facility] Segs 47.4 45.0 - 75.0 03/27/[address] [facility] Lymphocytes 39.6 20.0 - 40.0 03/27/[address] [facility] Eosinophils 3.0 0.0 - 4.0 03/27/[address] [facility] Monocytes 9.3 2.0 - 12.0 03/27/2018 [facility] ELECTROLYTES AGAP 10.1 10.0 - 20.0 04/03/2017 [facility] ELECTROLYTES eGFR 87 04/03/2017 Result Comment: The eGFR is calculated using the CKD-EPI formula. In most young, healthy individuals the eGFR will be >90 mL/min/1.73m2. The eGFR declines with age. An eGFR of 60-89 may be normal in some populations, particularly the elderly, for whom the CKD-EPI formula has not been extensively validated. Use of the eGFR is not recommended in the following populations:

Individuals with unstable creatinine concentrations, including patients and those with serious co-morbid conditions.

Patients with extremes in muscle mass or diet.

The data above are obtained from the National Kidney Disease Education Program (NKDEP) which additionally recommends that when the eGFR is used in patients with extremes of body mass index for purposes of drug dosing, the eGFR should be multiplied by the estimated BMI. [facility] ELECTROLYTES CO2 30 24 - 32 04/03/2017 [facility] ELECTROLYTES Chloride Lvl 103 95 - 109 04/03/2017 [facility] ELECTROLYTES Calcium Lvl 8.3 8.5 - 10.5 04/03/2017 [facility] ELECTROLYTES Potassium Lvl 4.1 3.5 - 5.1 04/03/2017 [facility] ELECTROLYTES Creatinine Lvl 0.7 9 0.50 - 1.40 04/03/2017 [facility] ELECTROLYTES Sodium Lvl 139 135 - 145 04/03/2017 [facility] ELECTROLYTES BUN 12 7 - 22 04/03/2017 [facility] ELECTROLYTES Glucose Lvl 137 70 - 99 04/03/2017 [facility] HEMATOLOGY Monocytes 8.7 2.0 - 12.0 04/03/2017 [facility] HEMATOLOGY Lymphocytes 41.7 20.0 - 40.0 04/03/2017 [facility] HEMATOLOGY Segs 46.5 45.0 - 75.0 04/03/2017 [facility] HEMATOLOGY Monocytes # 0.6 0.0 - 0.8 04/03/2017 [facility] HEMATOLOGY Segs-Bands # 3.3 1.5 - 8.1 04/03/2017 [facility] HEMATOLOGY Basophils 0.6 0.0 - 1.0 04/03/2017 [facility] HEMATOLOGY Eosinophils 2.5 0.0 - 4.0 04/03/2017 [facility] HEMATOLOGY Lymphocytes # 2.9 1.0 - 5.5 04/03/2017 [facility] HEMATOLOGY Eosinophils # 0.2 0.0 - 0.5 04/03/2017 [facility] HEMATOLOGY Platelet 183 133 - 450 04/03/2017 [facility] HEMATOLOGY MPV 8.3 7.4 - 10.4 04/03/2017 [facility] HEMATOLOGY RDW 14.6 11.5 - 14.5 04/03/2017 [facility] HEMATOLOGY Hct 37.0 36.0 - 48.0 04/03/2017 [facility] HEMATOLOGY MCV 82.7 80.0 - 98.0 04/03/2017 [facility] HEMATOLOGY MCH 28.4 27.0 - 31.0 04/03/[address] [facility] MCHC 34.4 32.0 - 36.0 04/03/[address] [facility] Hgb 12.7 12.0 - 16.0 04/03/[address] [facility] WBC 7.0 3.7 - 10.4 04/03/[address] [facility] RBC 4.48 4.20 - 5.40 04/03/2017 [facility] URINE AND STOOL UA Urobilinogen <=1.0 mg/dL 0.1 - 1.0 04/02/2017 [facility] URINE AND STOOL UA Color Ltyellow 04/02/2017 [facility] URINE AND STOOL UA Protein 100 mg/dL Negative mg/dL 04/02/2017 [facility] URINE AND STOOL UA Trans Epi 3 <=0 /LPF 04/02/2017 [facility] URINE AND STOOL UA Bacteria Many /HPF None Seen /HPF 04/02/2017 [facility] URINE AND STOOL UA RBC 19 0 - 2 04/02/2017 [facility] URINE AND STOOL UA Leuk Est Large *ABN* (04/02/17 4:15 PM) Negative 04/02/2017 [facility] URINE AND STOOL UA WBC 131 0 - 5 04/02/2017 [facility] URINE AND STOOL UA Sq Epi Occasional /LPF Few /LPF 04/02/2017 [facility] URINE AND STOOL UA Bili Negative *NA* (04/02/17 4:15 PM) Negative 04/02/2017 [facility] URINE AND STOOL UA Ketones Negative mg/dL Negative mg/dL 04/02/[address] [facility] [address] URINE AND STOOL UA Blood Large *ABN* (04/02/17 4:15 PM) Negative 04/02/2017 [facility] URINE AND STOOL UA Glucose Negative mg/dL Negative mg/dL 04/02/[address] [facility] [address] URINE AND STOOL UA Spec Grav 1.006 <=1.030 04/02/2017 [facility] URINE AND STOOL UA Turbidity Marked *ABN* (04/02/17 4:15 PM) Clear 04/02/2017 [facility] URINE AND STOOL UA pH 6.0 5.0 - 8.0 04/02/2017 [facility] URINE AND STOOL UA Nitrite Negative (04/02/17 4:15 PM) Negative 04/02/2017 [facility] CARDIAC ENZYMES Troponin-I <0.02 0.00 - 0.40 04/02/2017 [facility] CHEM PANEL A/G Ratio 1.0 0.7 - 1.6 04/02/2017 [facility] CHEM PANEL Globulin 4.0 2.7 - 4.2 04/02/2017 [facility] CHEM PANEL Bili Indirect 0.5 0.0 - 1.0 04/02/2017 [facility] CHEM PANEL Total Protein 7.8 6.4 - 8.4 04/02/2017 [facility] CHEM PANEL Albumin Lvl 3.8 3.5 - 5.0 04/02/2017 [facility] CHEM PANEL ALT 55 0 - 65 04/02/2017 [facility] CHEM PANEL Alk Phos 106 39 - 136 04/02/2017 [facility] CHEM PANEL AST 34 0 - 37 04/02/2017 [facility] CHEM PANEL Bili Total 0.6 0.2 - 1.3 04/02/2017 [facility] CHEM PANEL Bili Direct 0.1 0.0 - 0.3 04/02/2017 [facility] CHEM PANEL Lipase Lvl 721 73 - 393 04/02/2017 [facility] ELECTROLYTES Chloride Lvl 101 95 - 109 04/02/2017 [facility] ELECTROLYTES Calcium Lvl 8.6 8.5 - 10.5 04/02/2017 [facility] ELECTROLYTES CO2 25 24 - 32 04/02/2017 [facility] ELECTROLYTES Sodium Lvl 137 135 - 145 04/02/2017 [facility] ELECTROLYTES Potassium Lvl 4.3 3.5 - 5.1 04/02/2017 [facility] ELECTROLYTES eGFR 72 04/02/2017 Result Comment: The eGFR is calculated using the CKD-EPI formula. In most young, healthy individuals the eGFR will be >90 mL/min/1.73m2. The eGFR declines with age. An eGFR of 60-89 may be normal in some populations, particularly the elderly, for whom the CKD-EPI formula has not been extensively validated. Use of the eGFR is not recommended in the following populations:

Individuals with unstable creatinine concentrations, including patients and those with serious co-morbid conditions.

Patients with extremes in muscle mass or diet.

The data above are obtained from the National Kid[employer] Disease Education Program (NKDEP) which additionally recommends that when the eGFR is used in patients with extremes of body mass index for purposes of drug dosing, the eGFR should be multiplied by the estimated BMI. [facility] ELECTROLYTES BUN 13 7 - 22 04/02/2017 [facility] ELECTROLYTES Creatinine Lvl 0.9 2 0.50 - 1.40 04/02/2017 [facility] ELECTROLYTES Glucose Lvl 188 70 - 99 04/02/2017 [facility] ELECTROLYTES AGAP 15.3 10.0 - 20.0 04/02/2017 [facility] ENDOCRINOLOGY hCG Tot 3 04/02/2017 [facility] HEMATOLOGY Eosinophils # 0.2 0.0 - 0.5 04/02/[address] [facility] Lymphocytes # 2.8 1.0 - 5.5 04/02/2017 [facility] HEMATOLOGY Monocytes # 0.7 0.0 - 0.8 04/02/2017 [facility] HEMATOLOGY Eosinophils 2.0 0.0 - 4.0 04/02/[address] [facility] Basophils 0.5 0.0 - 1.0 04/02/[address] [facility] Segs-Bands # 6.7 1.5 - 8.1 04/02/[address] [facility] Segs 64.1 45.0 - 75.0 04/02/[address] [facility] Monocytes 6.6 2.0 - 12.0 04/02/[address] [facility] Lymphocytes 26.8 20.0 - 40.0 04/02/[address] [facility] MPV 8.0 7.4 - 10.4 04/02/[address] [facility] Hct 39.3 36.0 - 48.0 04/02/[address] [facility] Hgb 13.3 12.0 - 16.0 04/02/[address] [facility] RBC 4.79 4.20 - 5.40 04/02/[address] [facility] WBC 10.4 3.7 - 10.4 04/02/[address] [facility] RDW 14.7 11.5 - 14.5 04/02/[address] [facility] MCHC 33.9 32.0 - 36.0 04/02/[address] [facility] MCH 27.8 27.0 - 31.0 04/02/[address] [facility] MCV 82.1 80.0 - 98.0 04/02/[address] [facility] Platelet 204 133 - 450 04/02/2017 [facility] CHEM PANEL Lipase Lvl 183 73 - 393 05/12/2014 [facility] CHEM PANEL B/C Ratio 17 6 - 25 05/12/2014 [facility] CHEM PANEL AGAP 11.9 10.0 - 20.0 05/12/2014 [facility] CHEM PANEL A/G Ratio 0.9 0.7 - 1.6 05/12/2014 [facility] CHEM PANEL Globulin 4.2 2.0 - 4.0 05/12/2014 [facility] CHEM PANEL eGFR 75 05/12/2014 <sup>1</sup>Result Comment: The eGFR is calculated using the CKD-EPI formula. In most young, healthy individuals the eGFR will be >90 mL/min/1.73m2. The eGFR declines with age. An eGFR of 60-89 may be normal in some populations, particularly the elderly, for whom the CKD-EPI formula has not been extensively validated. Use of the eGFR is not recommended in the following populations:& lt;br/>
Individuals with unstable creatinine concentrations, including patients and those with serious co-morbid conditions.

Patients with extremes in muscle mass or diet.

The data above are obtained from the National Kid[employer] Disease Education Program (NKDEP) which additionally recommends that when the eGFR is used in patients with extremes of body mass index for purposes of drug dosing, the eGFR should be multiplied by the estimated BMI. [facility] CHEM PANEL Calcium Lvl 8.7 8.5 - 10.5 05/12/2014 [facility] CHEM PANEL Albumin Lvl 3.6 3.5 - 5.0 05/12/2014 [facility] CHEM PANEL Creatinine Lvl 0.9 0.5 - 1.4 05/12/2014 [facility] CHEM PANEL Sodium Lvl 139 135 - 145 05/12/2014 [facility] CHEM PANEL Potassium Lvl 3.9 3.5 - 5.1 05/12/2014 [facility] CHEM PANEL Chloride Lvl 105 95 - 109 05/12/2014 [facility] CHEM PANEL ALT 104 0 - 65 05/12/2014 [facility] CHEM PANEL Total Protein 7.8 6.4 - 8.4 05/12/2014 [facility] CHEM PANEL AST 52 0 - 37 05/12/2014 [facility] CHEM PANEL Alk Phos 122 39 - 136 05/12/2014 [facility] CHEM PANEL CO2 26 24 - 32 05/12/2014 [facility] CHEM PANEL Bili Total 0.3 0.2 - 1.3 05/12/2014 [facility] CHEM PANEL BUN 15 7 - 22 05/12/2014 [facility] CHEM PANEL Glucose Lvl 97 70 - 99 05/12/2014 <sup>2</sup>Interpretive Data: Adult ref erence range values reflect the clinical guidelines
of the [place] [employer]. [facility] HEMATOLOGY Platelet 222 133 - 450 05/12/2014 [facility] HEMATOLOGY RDW 13.7 11.5 - 14.5 05/12/2014 [facility] HEMATOLOGY MCHC 33.0 32.0 - 36.0 05/12/2014 [facility] HEMATOLOGY MCH 27.4 27.0 - 31.0 05/12/2014 [facility] HEMATOLOGY MCV 83.2 80.0 - 98.0 05/12/[address] [facility] MPV 8.6 7.4 - 10.4 05/12/[address] [facility] WBC 6.6 3.7 - 10.4 05/12/[address] [facility] Hct 39.5 36.0 - 48.0 05/12/[address] [facility] Hgb 13.0 12.0 - 16.0 05/12/2014 [facility] HEMATOLOGY RBC 4.74 4.20 - 5.40 05/12/[address] [facility] Lymphocytes 31.6 20.0 - 40.0 05/12/[address] [facility] Segs 61.3 45.0 - 75.0 05/12/2014 [facility] HEMATOLOGY Lymphocytes # 2.1 1.0 - 5.5 05/12/[address] [facility] Segs-Bands # 4.1 1.5 - 8.1 05/12/2014 [facility] HEMATOLOGY Basophils 0.8 0.0 - 1.0 05/12/2014 [facility] HEMATOLOGY Basophils # 0.1 0.0 - 0.2 05/12/2014 [facility] HEMATOLOGY Eosinophils # 0.1 0.0 - 0.5 05/12/2014 [facility] HEMATOLOGY Monocytes # 0.3 0.0 - 0.8 05/12/2014 [facility] HEMATOLOGY Eosinophils 1.4 0.0 - 4.0 05/12/[address] [facility] Monocytes 4.9 2.0 - 12.0 05/12/2014 [facility] CHEMISTRY Lipase Lvl 170 73 - 393 01/08/2013 Normal [facility] CHEMISTRY Sodium Lvl 142 135 - 145 01/08/2013 Normal [facility] CHEMISTRY Potassium Lvl 3.9 3.5 - 5.1 01/08/2013 Normal [facility] CHEMISTRY Chloride Lvl 105 95 - 109 01/08/2013 Normal [facility] CHEMISTRY eGFR 76 01/08/2013 <sup>1</sup>Result Comment: The eGFR is calculated using the CKD-EPI formula. In most young, healthy individuals the eGFR will be >90 mL/min/1.73m2. The eGFR declines with age. An eGFR of 60-89 may be normal in some populations, particularly the elderly, for whom the CKD-EPI formula has not been extensively validated. Use of the eGFR is not recommended in the following populations:& lt;br/>
Individuals with unstable creatinine concentrations, including patients and those with serious co-morbid conditions.

Patients with extremes in muscle mass or diet.

The data above are obtained from the National Kid[employer] Disease Education Program (NKDEP) which additionally recommends that when the eGFR is used in patients with extremes of body mass index for purposes of drug dosing, the eGFR should be multiplied by the estimated BMI. [facility] CHEMISTRY Creatinine Lvl 0.9 0.5 - 1.4 01/08/2013 Normal [facility] CHEMISTRY BUN 19 7 - 22 01/08/2013 Normal [facility] CHEMISTRY Albumin Lvl 3.6 3.5 - 5.0 01/08/2013 Normal [facility] CHEMISTRY Total Protein 7.3 6.4 - 8.4 01/08/2013 Normal [facility] CHEMISTRY ASPARTATE TRANSAMINASE 17 0 - 37 01/08/2013 Normal [facility] CHEMISTRY Glucose Lvl 96 70 - 99 01/08/2013 Normal <sup>2</sup>Interpretive Data: Adult ref erence range values reflect the clinical guidelines
of the [place] [employer]. [facility] CHEMISTRY ALANINE AMINOTRANSFERASE 2 8 0 - 65 01/08/2013 Normal [facility] CHEMISTRY Bili Total 0.2 0.2 - 1.3 01/08/2013 Normal [facility] CHEMISTRY Alk Phos 97 39 - 136 01/08/2013 Normal [facility] CHEMISTRY Calcium Lvl 8.9 8.5 - 10.5 01/08/2013 Normal [facility] CHEMISTRY CO2 26 24 - 32 01/08/2013 Normal [facility] CHEMISTRY A/G Ratio 1.0 0.7 - 1.6 01/08/2013 Normal [facility] CHEMISTRY Globulin 3.7 2.0 - 4.0 01/08/2013 Normal [facility] CHEMISTRY B/C Ratio 21 6 - 25 01/08/2013 Normal [facility] CHEMISTRY AGAP 14.9 10.0 - 20.0 01/08/2013 Normal [facility] HEMATOLOGY MCHC 32.8 32.0 - 36.0 01/08/2013 Normal [facility] HEMATOLOGY RDW 13.1 11.5 - 14.5 01/08/2013 Normal [facility] HEMATOLOGY Platelet 275 133 - 450 01/08/2013 Normal [facility] HEMATOLOGY MPV 8.4 7.4 - 10.4 01/08/2013 Normal [facility] HEMATOLOGY Hct 34.3 36.0 - 48.0 01/08/2013 [facility] HEMATOLOGY MCV 83.4 81.0 - 99.0 01/08/2013 [facility] HEMATOLOGY MCH 27.3 27.0 - 31.0 01/08/2013 Normal [facility] HEMATOLOGY RBC X 10x6 4.12 4.20 - 5.40 01/08/2013 [facility] HEMATOLOGY WBC X 10x3 7.4 3.7 - 10.4 01/08/2013 Normal [facility] HEMATOLOGY Hgb 11.3 12.0 - 16.0 01/08/2013 [facility] HEMATOLOGY Eosinophils 2.5 0.0 - 4.0 01/08/2013 [facility] HEMATOLOGY Segs 49.7 45.0 - 75.0 01/08/2013 [facility] HEMATOLOGY Lymphocytes 41.4 20.0 - 40.0 01/08/2013 [facility] HEMATOLOGY Monocytes 5.8 2.0 - 12.0 01/08/2013 [facility] HEMATOLOGY Basophils 0.6 0.0 - 1.0 01/08/2013 [facility] HEMATOLOGY Monocytes # 0.4 0.0 - 0.8 01/08/2013 [facility] HEMATOLOGY Eosinophils # 0.2 0.0 - 0.5 01/08/2013 [facility] HEMATOLOGY Segs-Bands # 3.7 1.5 - 8.1 01/08/2013 [facility] HEMATOLOGY Lymphocytes # 3.1 1.0 - 5.5 01/08/2013 [facility] HEMATOLOGY Basophils # 0.0 0.0 - 0.2 01/08/2013 Normal [facility] CHEMISTRY U Preg Negati ve (01/07/2013 22:30:00) Negati ve 01/08/2013 Normal [facility] URINALYSIS UA Color Colorless 01/08/2013 [facility] URINALYSIS UA Urobilinogen <=1.0 mg/dL 0.1 - 1.0 01/08/2013 [facility] URINALYSIS UA Sq Epi Occas ional /LPF Few 01/08/2013 [facility] URINALYSIS UA Glucose Negat gio mg/dL Negative 01/08/2013 [facility] URINALYSIS UA Bacteria Occas ional /HPF None Seen 01/08/2013 [facility] URINALYSIS UA WBC 1 0 - 5 01/08/2013 Normal [facility] URINALYSIS UA RBC <1 0 - 2 01/08/2013 Normal [facility] URINALYSIS UA Blood Negat gio (01/07/2013 22:30:00) Negati ve 01/08/2013 Normal [facility] URINALYSIS UA Nitrite Negat gio (01/07/2013 22:30:00) Negati ve 01/08/2013 Normal [facility] URINALYSIS UA Leuk Est Trace *ABN* (01/07/2013 22:30:00) Negati ve 01/08/2013 ABN [facility] URINALYSIS UA Bili Negat gio *NA* (01/07/2013 22:30:00) Negati ve 01/08/2013 [facility] URINALYSIS UA Ketones Negat gio mg/dL Negative 01/08/2013 [facility] URINALYSIS UA pH 7.0 5.0 - 8.0 01/08/2013 Normal [facility] URINALYSIS UA Protein Negat gio mg/dL Negative 01/08/2013 Normal [facility] URINALYSIS UA Spec Grav 1.004 <=1.030 01/08/2013 Normal [facility] URINALYSIS UA Turbidity Clear (01/07/2013 22:30:00) Clear 01/08/2013 [facility] CHEMISTRY U Preg Negati ve (08/02/2012 15:06:00) Negati ve 08/02/2012 Normal [facility] URINALYSIS UA Spec Grav 1.018 <=1.030 08/02/2012 Normal [facility] URINALYSIS UA Turbidity Clear (08/02/2012 15:06:00) Clear 08/02/2012 Normal [facility] URINALYSIS UA pH 7.0 5.0 - 8.0 08/02/2012 Normal [facility] URINALYSIS UA RBC 3 0 - 2 08/02/2012 [facility] URINALYSIS UA WBC 1 0 - 5 08/02/2012 Normal [facility] URINALYSIS UA Bacteria Occas ional /HPF *NA* (08/02/2012 15:06:00) None S een 08/02/2012 NA [facility] URINALYSIS UA Hyal Cast 1 0 - 2 08/02/2012 Normal [facility] URINALYSIS UA Ketones 20 mg /dL *ABN* (08/02/2012 15:06:00) Negati ve 08/02/2012 [facility] URINALYSIS UA Bili Negat gio *NA* (08/02/2012 15:06:00) Negati ve 08/02/2012 NA [facility] URINALYSIS UA Blood Negat gio (08/02/2012 15:06:00) Negati ve 08/02/2012 Normal [facility] URINALYSIS UA Glucose 500 m g/dL *ABN* (08/02/2012 15:06:00) Negati ve 08/02/2012 ABN [facility] URINALYSIS UA Protein Negat gio mg/dL (08/02/2012 15:06:00) Negati ve 08/02/2012 Normal [facility] URINALYSIS UA Sq Epi Moder ate /LPF *ABN* (08/02/2012 15:06:00) Few 08/02/2012 ABN [facility] URINALYSIS UA Leuk Est Negat gio (08/02/2012 15:06:00) Negati ve 08/02/2012 Normal [facility] URINALYSIS UA Nitrite Negat gio (08/02/2012 15:06:00) Negati ve 08/02/2012 Normal [facility] URINALYSIS UA Color Ltyellow 08/02/2012 NA [facility] URINALYSIS UA Urobilinogen 0.1 - 1.0 08/02/2012 [facility] BEDSIDE GLUCOSE TESTING Comment1 Notify RN/ 07/21/2012 [facility] BEDSIDE GLUCOSE TESTING Gluc POC Lif scn 83 70 - 99 07/21/2012 Normal <sup>1</sup>Interpretive Data: Upper Reportable Limit: 200 mg/dL. [facility] CHEMISTRY Lipase Lvl 145 73 - 393 07/21/2012 Normal [facility] CHEMISTRY Ketone Quantitative 0.09 <=0.27 07/21/2012 Normal [facility] CHEMISTRY Magnesium Lvl 1.8 1.8 - 2.4 07/21/2012 Normal [facility] CHEMISTRY Sodium Lvl 136 135 - 145 07/21/2012 Normal [facility] CHEMISTRY Chloride Lvl 100 95 - 109 07/21/2012 Normal [facility] CHEMISTRY Potassium Lvl 3.8 3.5 - 5.1 07/21/2012 Normal [facility] CHEMISTRY eGFR 76 07/21/2012 NA <sup>3</sup>Result Comment: The eGFR is calculated using the CKD-EPI formula. In most young, healthy individuals the eGFR will be >90 mL/min/1.73m2. The eGFR declines with age. An eGFR of 60-89 may be normal in some populations, particularly the elderly, for whom the CKD-EPI formula has not been extensively validated. Use of the eGFR is not recommended in the following populations:& lt;br/>
Individuals with unstable creatinine concentrations, including patients and those with serious co-morbid conditions.

Patients with extremes in muscle mass or diet.

The data above are obtained from the National Kidney Disease Education Program (NKDEP) which additionally recommends that when the eGFR is used in patients with extremes of body mass index for purposes of drug dosing, the eGFR should be multiplied by the estimated BMI. [facility] CHEMISTRY Glucose Lvl 319 70 - 99 07/21/2012 [facility] <sup>4</sup>Interpretive Data: Adult ref erence range values reflect the clinical guidelines
of the [place] [employer]. [facility] CHEMISTRY BUN 15 7 - 22 07/21/2012 Normal [facility] CHEMISTRY Creatinine Lvl 0.9 0.5 - 1.4 07/21/2012 Normal [facility] CHEMISTRY CO2 27 24 - 32 07/21/2012 Normal [facility] CHEMISTRY Alk Phos 120 39 - 136 07/21/2012 Normal [facility] CHEMISTRY Bili Total 0.2 0.2 - 1.3 07/21/2012 Normal [facility] CHEMISTRY AST 21 0 - 37 07/21/2012 Normal [facility] CHEMISTRY Calcium Lvl 8.6 8.5 - 10.5 07/21/2012 Normal [facility] CHEMISTRY Total Protein 7.7 6.4 - 8.4 07/21/2012 Normal [facility] CHEMISTRY Albumin Lvl 3.5 3.5 - 5.0 07/21/2012 Normal [facility] CHEMISTRY ALT 31 0 - 65 07/21/2012 Normal [facility] CHEMISTRY AGAP 12.8 10.0 - 20.0 07/21/2012 Normal [facility] CHEMISTRY B/C Ratio 17 6 - 25 07/21/2012 Normal [facility] CHEMISTRY A/G Ratio 0.8 0.7 - 1.6 07/21/2012 Normal [facility] CHEMISTRY Globulin 4.2 2.0 - 4.0 07/21/2012 [facility] HEMATOLOGY MPV 8.2 7.4 - 10.4 07/21/2012 Normal [facility] HEMATOLOGY MCV 84.2 81.0 - 99.0 07/21/2012 Normal [facility] HEMATOLOGY Hct 36.9 36.0 - 48.0 07/21/2012 Normal [facility] HEMATOLOGY RDW 13.7 11.5 - 14.5 07/21/2012 Normal [facility] HEMATOLOGY MCHC 32.9 32.0 - 36.0 07/21/2012 Normal [facility] HEMATOLOGY MCH 27.7 27.0 - 31.0 07/21/2012 Normal [facility] HEMATOLOGY Platelet 268 133 - 450 07/21/2012 Normal [facility] HEMATOLOGY WBC 6.7 3.7 - 10.4 07/21/2012 Normal [facility] HEMATOLOGY Hgb 12.1 12.0 - 16.0 07/21/2012 Normal [facility] HEMATOLOGY RBC 4.38 4.20 - 5.40 07/21/2012 Normal [facility] HEMATOLOGY Lymphocytes # 2.6 1.0 - 5.5 07/21/2012 [facility] HEMATOLOGY Segs-Bands # 3.6 1.5 - 8.1 07/21/2012 Normal [facility] HEMATOLOGY Basophils 0.5 0.0 - 1.0 07/21/2012 Normal [facility] HEMATOLOGY Eosinophils # 0.1 0.0 - 0.5 07/21/2012 [facility] HEMATOLOGY Monocytes # 0.4 0.0 - 0.8 07/21/2012 Normal [facility] HEMATOLOGY Monocytes 5.5 2.0 - 12.0 07/21/2012 Normal [facility] HEMATOLOGY Lymphocytes 38.9 20.0 - 40.0 07/21/2012 [facility] HEMATOLOGY Segs 53.4 45.0 - 75.0 07/21/2012 Normal [facility] HEMATOLOGY Basophils # 0.0 0.0 - 0.2 07/21/2012 [facility] HEMATOLOGY Eosinophils 1.7 0.0 - 4.0 07/21/2012 [facility] URINALYSIS UA Bili Negat gio *NA* (07/21/2012 00:40:00) Negati ve 07/21/2012 [facility] URINALYSIS UA Glucose 500 m g/dL *ABN* (07/21/2012 00:40:00) Negati ve 07/21/2012 ABN [facility] URINALYSIS UA pH 7.0 5.0 - 8.0 07/21/2012 Normal [facility] URINALYSIS UA Protein Negat gio mg/dL (07/21/2012 00:40:00) Negati ve 07/21/2012 Normal [facility] URINALYSIS UA Turbidity Clear (07/21/2012 00:40:00) Clear 07/21/2012 Normal [facility] URINALYSIS UA Spec Grav 1.028 <=1.030 07/21/2012 Normal [facility] URINALYSIS UA RBC 1 0 - 2 07/21/2012 Normal [facility] URINALYSIS UA Leuk Est Negat gio (07/21/2012 00:40:00) Negati ve 07/21/2012 Normal [facility] URINALYSIS UA Sq Epi Occas ional /LPF *NA* (07/21/2012 00:40:00) Few 07/21/2012 NA [facility] URINALYSIS UA Blood Negat gio (07/21/2012 00:40:00) Negati ve 07/21/2012 Normal [facility] URINALYSIS UA Nitrite Negat gio (07/21/2012 00:40:00) Negati ve 07/21/2012 Normal [facility] URINALYSIS UA Ketones Negat gio mg/dL *NA* (07/21/2012 00:40:00) Negati ve 07/21/2012 NA [facility] URINALYSIS UA Color Ltyellow 07/21/2012 NA [facility] URINALYSIS UA Urobilinogen 0.1 - 1.0 07/21/2012 NA [facility] Microbiology Culture: Urine 07/21/2012 [facility] BEDSIDE GLUCOSE TESTING Comment1 Notify RN/ 07/21/2012 NA [facility] BEDSIDE GLUCOSE TESTING Gluc POC Lif scn >400 70 - 99 07/21/2012 CRIT <sup>2</sup>Interpretive Data: Upper Reportable Limit: 200 mg/dL. [facility] CHEMISTRY U Preg Negati ve (05/16/2012 01:22:00) Negati ve 05/16/2012 Normal [facility] CHEMISTRY Lipase Lvl 154 73 - 393 05/16/2012 Normal [facility] CHEMISTRY Amylase Lvl 53 25 - 115 05/16/2012 Normal [facility] CHEMISTRY AST 20 0 - 37 05/16/2012 Normal [facility] CHEMISTRY Alk Phos 107 39 - 136 05/16/2012 Normal [facility] CHEMISTRY ALT 30 0 - 65 05/16/2012 Normal [facility] CHEMISTRY Total Protein 7.9 6.4 - 8.4 05/16/2012 Normal [facility] CHEMISTRY Bili Total 0.2 0.2 - 1.3 05/16/2012 Normal [facility] CHEMISTRY eGFR 76 05/16/2012 NA <sup>1</sup>Result Comment: The eGFR is calculated using the CKD-EPI formula. In most young, healthy individuals the eGFR will be >90 mL/min/1.73m2. The eGFR declines with age. An eGFR of 60-89 may be normal in some populations, particularly the elderly, for whom the CKD-EPI formula has not been extensively validated. Use of the eGFR is not recommended in the following populations:& lt;br/>
Individuals with unstable creatinine concentrations, including patients and those with serious co-morbid conditions.

Patients with extremes in muscle mass or diet.

The data above are obtained from the National Kidney Disease Education Program (NKDEP) which additionally recommends that when the eGFR is used in patients with extremes of body mass index for purposes of drug dosing, the eGFR should be multiplied by the estimated BMI. [facility] CHEMISTRY Chloride Lvl 101 95 - 109 05/16/2012 Normal [facility] CHEMISTRY Calcium Lvl 8.8 8.5 - 10.5 05/16/2012 Normal [facility] CHEMISTRY CO2 27 24 - 32 05/16/2012 Normal [facility] CHEMISTRY Albumin Lvl 3.7 3.5 - 5.0 05/16/2012 Normal [facility] CHEMISTRY Glucose Lvl 278 70 - 99 05/16/2012 HI <sup>2</sup>Interpretive Data: Adult ref erence range values reflect the clinical guidelines
of the [place] [employer]. [facility] CHEMISTRY Sodium Lvl 137 135 - 145 05/16/2012 Normal [facility] CHEMISTRY Creatinine Lvl 0.9 0.5 - 1.4 05/16/2012 Normal [facility] CHEMISTRY BUN 23 7 - 22 05/16/2012 [facility] CHEMISTRY Potassium Lvl 3.8 3.5 - 5.1 05/16/2012 Normal [facility] CHEMISTRY Globulin 4.2 2.0 - 4.0 05/16/2012 [facility] CHEMISTRY A/G Ratio 0.9 0.7 - 1.6 05/16/2012 Normal [facility] CHEMISTRY B/C Ratio 26 6 - 25 05/16/2012 [facility] CHEMISTRY AGAP 12.8 10.0 - 20.0 05/16/2012 Normal [facility] HEMATOLOGY INR 0.90 0.85 - 1.17 05/16/2012 Normal <sup>3</sup>Interpretive Data: RECOMMEND ED RANGES FOR PROTIME INR:
2.0-3.0 for most medical and surgical thromboembolic states.
2.5-3.5 for artificial heart valves and recurrent embolism.

INR SHOULD BE USED ONLY FOR PATIENTS ON STABLE ANTICOAGULANT THERAPY. [facility] HEMATOLOGY PTT 30.2 22.9 - 35.8 05/16/2012 Normal <sup>4</sup>Interpretive Data: Heparin T herapeutic Range: 57 - 92 Seconds [facility] HEMATOLOGY PT 12.4 12.0 - 14.7 05/16/2012 Normal [facility] HEMATOLOGY RDW 14.4 11.5 - 14.5 05/16/2012 Normal [facility] HEMATOLOGY Platelet 257 133 - 450 05/16/2012 Normal [facility] HEMATOLOGY MPV 9.3 7.4 - 10.4 05/16/2012 Normal [facility] HEMATOLOGY MCV 82.4 81.0 - 99.0 05/16/2012 Normal [facility] HEMATOLOGY Hgb 11.8 12.0 - 16.0 05/16/2012 LOW [facility] HEMATOLOGY RBC 4.35 4.20 - 5.40 05/16/2012 Normal [facility] HEMATOLOGY Hct 35.8 36.0 - 48.0 05/16/2012 LOW [facility] HEMATOLOGY WBC 6.7 3.7 - 10.4 05/16/2012 Normal [facility] HEMATOLOGY MCHC 33.0 32.0 - 36.0 05/16/2012 Normal [facility] HEMATOLOGY MCH 27.2 27.0 - 31.0 05/16/2012 Normal [facility] HEMATOLOGY Monocytes # 0.4 0.0 - 0.8 05/16/2012 Normal [facility] HEMATOLOGY Basophils # 0.0 0.0 - 0.2 05/16/2012 Normal [facility] HEMATOLOGY Eosinophils # 0.1 0.0 - 0.5 05/16/2012 Normal [facility] HEMATOLOGY Lymphocytes 43.9 20.0 - 40.0 05/16/2012 HI [facility] HEMATOLOGY Segs 48.2 45.0 - 75.0 05/16/2012 Normal [facility] HEMATOLOGY Monocytes 5.9 2.0 - 12.0 05/16/2012 Normal [facility] HEMATOLOGY Lymphocytes # 2.9 1.0 - 5.5 05/16/2012 Normal [facility] HEMATOLOGY Segs-Bands # 3.2 1.5 - 8.1 05/16/2012 Normal [facility] HEMATOLOGY Basophils 0.4 0.0 - 1.0 05/16/2012 Normal [facility] HEMATOLOGY Eosinophils 1.6 0.0 - 4.0 05/16/2012 Normal [facility] URINALYSIS UA WBC <1 0 - 5 05/16/2012 Normal [facility] URINALYSIS UA Glucose 150 m g/dL *ABN* (05/16/2012 01:22:00) Negati ve 05/16/2012 ABN [facility] URINALYSIS UA Ketones Negat gio mg/dL *NA* (05/16/2012 01:22:00) Negati ve 05/16/2012 NA [facility] URINALYSIS UA Color Ltyellow 05/16/2012 NA [facility] URINALYSIS UA Urobilinogen 0.1 - 1.0 05/16/2012 NA [facility] URINALYSIS UA Nitrite Negat gio (05/16/2012 01:22:00) Negati ve 05/16/2012 Normal [facility] URINALYSIS UA Leuk Est Negat gio (05/16/2012 01:22:00) Negati ve 05/16/2012 Normal [facility] URINALYSIS UA Bili Negat gio *NA* (05/16/2012 01:22:00) Negati ve 05/16/2012 NA [facility] URINALYSIS UA Blood Negat gio (05/16/2012 01:22:00) Negati ve 05/16/2012 Normal [facility] URINALYSIS UA Turbidity Clear (05/16/2012 01:22:00) Clear 05/16/2012 Normal [facility] URINALYSIS UA pH 5.0 5.0 - 8.0 05/16/2012 Normal [facility] URINALYSIS UA Protein Negat gio mg/dL (05/16/2012 01:22:00) Negati ve 05/16/2012 Normal [facility] URINALYSIS UA Spec Grav 1.024 <=1.030 05/16/2012 Normal [facility] URINALYSIS UA Sq Epi Occas ional /LPF *NA* (05/16/2012 01:22:00) Few 05/16/2012 NA [facility] Pathology Reports No Data Provided for This Section Diagnostic Reports Report Value Date Source Chest 2 views DX Clinical [place]osh[place] cation: - CP Comparison: Comparison is made to chest radiograph examination dated 03/28/2018. FINDINGS: The cardiomediastinal silhouette is within normal limits for appearance. The cardiac silhouette is at the upper limits of normal for size. No focal pulmonary consolidation, pneumothorax or pleural effusion. Midline trachea. The thoracic spine appears intact. Surgical clips are identified over the right upper abdominal quadrant. IMPRESSION: 1. No acute cardiopulmonary process. SL: [id number] 09/05/2018 [facility] Chest 1view DX Clinical Indica tion: - lower extremity edema Comparison: 10/25/2010 FINDINGS: Single frontal radiograph of the chest is performed. Heart size is within normal limits. Mediastinal contours are unremarkable. Lungs are clear without infiltrate or mass. No pleural effusion or pneumothorax. No acute osseous abnormality. IMPRESSION: 1. No radiographic evidence for acute pr ocess in the chest. SL: [id number] 03/27/2018 [facility] Spine cervical 2 or 3 view DX CERVICAL SPINE Clinical Indication: - pain after fall Comparison: None FINDINGS: The AP, lateral, and odontoid views of the cervical spine show normal alignment of the cervical spine. There are no fractures or subluxations. The prevertebral soft tissues and atlanto-dental interspace are normal. The facet joint, spinolaminar line and spinous process alignment is normal. The vertebral body heights and disk spaces are unremarkable. If there is further concern or neurological abnormalities on clinical exam, recommend further radiographic views, MRI or CT of the cervical spine for complete assessment. IMPRESSION: 1. Unremarkable cervical spine examinati on. SL: [id number] 03/27/2018 [facility] Knee 3 Views Bilateral DX Clin ical Indication: - pain after fall Comparison: None FINDINGS: RIGHT KNEE: AP, lateral, and oblique views of the right knee show normal alignment without fractures or dislocations. The medial and lateral tibiofemoral compartments and patellofemoral compartment are unremarkable. There is no knee region soft tissue swelling. Hoffa's fat pad region is unremarkable. There are no joint bodies. There is no joint effusion. There are no radiopaque foreign bodies. LEFT KNEE: AP, lateral, and oblique views of the left knee show normal alignment without fractures or dislocations. The medial and lateral tibiofemoral compartments and patellofemoral compartment are unremarkable. There is no knee region soft tissue swelling. Hoffa's fat pad region is unremarkable. There are no joint bodies. There is no joint effusion. There are no radiopaque foreign bodies. If there is further concern, recommend follow-up radiographs or MRI for complete assessment. IMPRESSION: 1. No fractures or dislocation of the t he bilateral knees. SL: [id number] 03/27/2018 [facility] Tibia fibula series DX Study: Tibia fibula series DX, Knee 3 views DX, Ankle 3 views DX 03/16/2018 4:06 PM LINER REPLACER Clinical Indication: - fall; left leg pain Comparison: None. FINDINGS: 3 views left ankle show no acute bony fr acture, subluxation or dislocation. Small lipohemarthrosis. Tibial plateau is intact. 2 views of the left tibia and fibula on 4 images show no acute bony fracture. 3 views left ankle show no acute bony fr acture, subluxation or dislocation. Talar dome and ankle mortise are intact. Regional soft tissue swelling along the lateral malleolus. Base of the 5th metatarsal bone is intact. SL: AUNG 03/16/2018 [facility] Shoulder series DX Left should er 3 views 03/16/2018 HISTORY: Left shoulder pain after fall FINDINGS: There are osteophytes in the acromioclavicular joint. No fracture or dislocation is present. No aggressive lytic or blastic lesion is present. IMPRESSION: 1. No acute fracture or dislocation invo lving left shoulder. 2. Mild degenerative changes. SL: BEE 03/16/2018 [facility] Ankle 3 views DX Study: Tibia fibula series DX, Knee 3 views DX, Ankle 3 views DX 03/16/2018 4:06 PM LINER REPLACER Clinical Indication: - fall; left leg pain Comparison: None. FINDINGS: 3 views left ankle show no acute bony fr acture, subluxation or dislocation. Small lipohemarthrosis. Tibial plateau is intact. 2 views of the left tibia and fibula on 4 images show no acute bony fracture. 3 views left ankle show no acute bony fr acture, subluxation or dislocation. Talar dome and ankle mortise are intact. Regional soft tissue swelling along the lateral malleolus. Base of the 5th metatarsal bone is intact. SL: AUNG 03/16/2018 [facility] Knee 3 views DX Study: Tibia f ibula series DX, Knee 3 views DX, Ankle 3 views DX 03/16/2018 4:06 PM LINER REPLACER Clinical Indication: - fall; left leg pain Comparison: None. FINDINGS: 3 views left ankle show no acute bony fr acture, subluxation or dislocation. Small lipohemarthrosis. Tibial plateau is intact. 2 views of the left tibia and fibula on 4 images show no acute bony fracture. 3 views left ankle show no acute bony fr acture, subluxation or dislocation. Talar dome and ankle mortise are intact. Regional soft tissue swelling along the lateral malleolus. Base of the 5th metatarsal bone is intact. SL: AUNG 03/16/2018 [facility] Femur series DX Patient Name: RADHA BOUDREAUX : 1965 Age: 52 years, Female MR: [id number] Study: Femur series DX 03/16/2018 14:56 LINER REPLACER Indication: - fall. Technique: Femur, left, 2 views Comparison: None Findings: Bones: No acute displaced fracture. No expansile lytic or sclerotic lesion. Joints: The joint spaces are well-maintained. No dislocation. No effusion. Soft tissues: No soft tissue swelling is present. No radiopaque foreign body. No subcutaneous air is visualized. IMPRESSION: No acute radiographic abnormality. SL: [id number] 03/16/2018 [facility] Hip 2/3 views uni w pelvis DX Patient Name: RADHA BOUDREAUX : 1965 Age: 52 years, Female MR: [id number] Study: Hip 2/3 views uni w pelvis DX 03/16/2018 14:33 LINER REPLACER Indication: - fall, hip pain. Technique: Pelvis, AP. Hip, left, 2 views Comparison: None Findings: Bones: No acute displaced fracture. No expansile lytic or sclerotic lesion. Joints: The joint spaces are well-maintained. No dislocation. No effusion. Soft tissues: No soft tissue swelling is present. No radiopaque foreign body. No subcutaneous air is visualized. IMPRESSION: No acute radiographic abnormality. SL: [id number] 03/16/2018 [facility] Renal pyelogram retrograde DX Renal pyelogram retrograde DX CLINICAL HX: right stent placement - Fluoro time 1.22 min Dose 17.58 mgy [facility] [place] #4 OR 8 COMPARISON: 04/02/2017 FINDINGS/IMPRESSION: The submitted images demonstrate contrast within the right collecting system. There is no significant blunting of the calyces. A ureteral stent extends from the right renal pelvis inferiorly towards the bladder. No images of the bladder are visualized. SL: [id number] 04/03/2017 [facility] Abdomen AP DX KUB: There is co ntrast in the urinary tract without evidence of obstruction. The contrast obscures evaluation for small ureteral stones. There is moderate fecal material throughout the colon. The gas pattern is otherwise normal. Cholecystectomy clips in the right upper quadrant are seen. There are no acute osseous abnormalities. DEDE BRANDT-PC 04/02/2017 [facility] Abdomen/Pelvis w IV contrast CT Patient Name: RADHA BOUDREAUX : 1965; Age: 51 years y/o Female MR: [id number] * I. COMPUTED TOMOGRAPHY SCAN OF THE ABDOMEN with contrast. * II. COMPUTED TOMOGRAPHY SCAN OF THE PELVIS with contrast HISTORY: Generalized nonspecific abdominal pain. History of pancreatitis. COMPARISON: Noncontrast computed tomography scan of the abdomen and pelvis of 01/08/2013 * TECHNIQUE: I. COMPUTED TOMOGRAPHY SCAN OF THE ABDOMEN with contrast: Helical CT images were obtained on a multidetector computed tomography from the domes the diaphragms to the iliac crests following the intravenous administration of nonionic iodinated contrast. Oral contrast was not administered. II. COMPUTED TOMOGRAPHY SCAN OF THE PELVIS with contrast: Helical CT images were obtained on a multidetector computed tomography from the iliac crests to the pubic symphysis following the intravenous administration of nonionic iodinated contrast. Oral contrast was not administered. Coronal and sagittal reconstructions were obtained. CT radiation dose DLP: 1130 mGy-cm FINDINGS: There is mild right hydronephrosis and right hydroureter. There is also mild perinephric and periureteral stranding probably related to the hilus sinus extravasation. There is a tiny (1 mm) calcific density in the right mid -- lower pelvis best seen on image 95 series 2 which was not present on the prior study likely to represent a tiny distal right ureteral calculus although the right ureter cannot be well traced in this region. Would suggest a delayed abdominal radiograph in approximately 45 minutes following this study or further evaluation. There is no hydronephrosis on the left. The kidneys are normal in size. No other urinary tract calculi are seen. No focal lesions are seen involving the kidneys on this limited noncontrast study. There is no free intraperitoneal gas, intra-abdominal abscess, ascites, or other fluid collection. There are postcholecystectomy changes. Surgical clips are noted in the right upper quadrant. There is mild dilatation of the common bile duct which has progressed from the prior study which measures approximately 8.5 mm in maximal diameter. This is presumably related to postcholecystectomy change. There is no significant intrahepatic ductal dilatation. Please correlate with clinical and laboratory information. There are mild diffuse fatty change involving the liver. The liver is otherwise unremarkable. No focal lesions are seen. There is a 2 x 1.3 cm low-density right adrenal lesion which in retrospect was present on the prior study although not described. This likely represents an adenoma. The spleen, pancreas, and left adrenal gland are normal in appearance. There is a moderate amount of fecal material within the colon (constipation). The gastrointestinal structures are otherwise unremarkable. There is no evidence of obstruction or ileus. The appendix is not visualized on this study but is demonstrated on the prior study. There is no evidence of appendicitis. Evaluation of the gastrointestinal structures is limited due to lack of oral contrast. No mass or adenopathy is seen within the abdomen or pelvis. The aorta is normal in caliber. The uterus is not visualized. Presumably, the patient has had a prior hysterectomy. There is a moderate sized periumbilical ventral hernia which is similar appearance to the prior study. There is no herniation of bowel. The visualized lung bases are clear. There are no pleural effusions. The heart is normal in size. There is no pericardial effusion. There are minimal scattered degenerative changes in the visualized spine. The osseous structures are unremarkable. No blastic or destructive lesions are seen. IMPRESSION: 1. Mild right hydronephrosis and right h ydroureter. A tiny calcification is noted the right mid -- lower pelvis probably representing a tiny distal right ureteral calculus. A delayed abdominal radiograph in approximately 45 minutes is suggested. 2. No other urinary tract calculi or oth er urinary tract pathology. 3. Status post cholecystectomy. Mild dil atation the common bile duct is considerably related to postcholecystectomy change. 4. Mild diffuse fatty change involving t he liver. 5. Small stable low-density right adrena l lesion, probable adenoma. 6. Apparent prior hysterectomy. 7. Constipation. 8. Moderate sized umbilical hernia. Ther e is no herniation of bowel. SL: [id number] 04/02/2017 [facility] complete US PROCEDURE: ABDOMEN ULTRASOUND INDICATION: 789.00 Abdominal pain. COMPARISON: Reports of multiple prior examinations were reviewed, the most recent comparison examination is a renal stone CT performed 01/08/2013. TECHNIQUE: Sonographic evaluation of the abdomen was performed. Static images are submitted. FINDINGS: LIVER: The liver is remarkable for diffusely increased echogenicity indicating hepatocellular disease most commonly due to fatty infiltration. There is no demonstrable liver lesion. The liver contour is smooth. The maximal craniocaudad dimension of the liver measures approximately 15 cm. BILE DUCTS: The intrahepatic and extrahepatic bile ducts are not dilated with the visualized common bile duct measuring 0.57 cm. GALLBLADDER: The gallbladder is surgically absent. PANCREAS: The pancreas is partially obscured. The visualized pancreas is unremarkable. SPLEEN: The spleen is unremarkable. The maximal length of the spleen measures 11.3 cm. KIDNEYS: The kidneys are normal in contour, morphology and echogenicity. There is no hydronephrosis. The right kidney measures 11 x 5.3 x 5.6 cm. The left kidney measures 10.7 x 5.4 x 4.9 cm. AORTA AND INFERIOR VENA CAVA: The visualized portions are unremarkable. Additional comments: None. IMPRESSION: 1. Post cholecystectomy. 2. Fatty infiltration of the liver. 3. Poor visualization of the pancreas. 4. Otherwise unremarkable abdominal ultr asound. SL: 15 08/20/2014 [facility] Knee series Right knee 4 views : Small calcifications are seen adjacent to the head of the fibula, probably soft tissue related. There are no other significant osseous, articular or soft tissue abnormalities. IMPRESSION: No acute radiographic abnormality of the right knee. SL:13 02/24/2013 [facility] Brain wo contrast CT CT BRAIN WITHOUT CONTRAST: TECHNIQUE: Axial images were done without contrast. FINDINGS: There is no significant parenchymal abnormality, hemorrhage, infarct, mass, or shift. The ventricles and extra-axial spaces are within normal limits. There is no significant osseous abnormality. There is no significant change compared to 10/25/2010. IMPRESSION: No acute CT abnormality of the brain. SL:13 02/24/2013 [facility] Renal Stone CT HISTORY: Right flank pain. CT abdomen without contrast. Comparison 05/16/2012. Previous cholecystectomy. Fatty liver with. Pancreas, adrenal glands, kidneys demonstrate no acute findings. No urinary tract obstruction is noted. No definite urinary tract calculus appreciated. No bowel obstruction or pathologic distention. Pelvic CT demonstrates normal appendix. There is a 3 cm supraumbilical abdominal wall hernia containing fat but no included bowel. No pathologic pelvic fluid or inflammation is otherwise demonstrated. Previous hysterectomy. IMPRESSION: No specific acute findings. SL:12 01/08/2013 [facility] Consultation Notes No Data Provided for This Section Discharge Summaries No Data Provided for This Section History and Physicals No Data Provided for This Section Vital Signs Vital Sign Value Date Comments Source Systolic (mm Hg) 183 09/06/2018 [facility] Diastolic (mm Hg) 84 09/06/2018 [facility] Respitory Rate 18 09/06/2018 [facility] Heart Rate 55 09/06/2018 [facility] Temperature Oral (F) 97.9 F 09/06/2018 [facility] Temperature Oral (F) 97.7 F 09/06/2018 [facility] Heart Rate 45 09/06/2018 [facility] Systolic (mm Hg) 179 09/06/2018 [facility] Diastolic (mm Hg) 76 09/06/2018 [facility] Respitory Rate 18 09/06/2018 [facility] Respitory Rate 19 09/06/2018 [facility] Systolic (mm Hg) 182 09/06/2018 [facility] Diastolic (mm Hg) 97 09/06/2018 [facility] Heart Rate 48 09/06/2018 [facility] Temperature Oral (F) 97.9 F 09/06/2018 [facility] Weight 77.273 09/05/2018 [facility] BMI Calculated 34.41 09/05/2018 [facility] Height 149.86 cm 09/05/2018 [facility] Weight 77.273 09/05/2018 [facility] BMI Calculated 34.41 09/05/2018 [facility] Height 149.86 cm 09/05/2018 [facility] Weight 181.9 06/08/2018 [id number] 2568 Height 59.1 06/08/2018 2.16.840.1.072310.4.391.11.2 2568 Temperature Oral (F) 97.1 F 06/08/2018 [id number] Heart Rate 60 06/08/2018 2.16.840.1.100805.4.391.11.2 2568 Diastolic (mm Hg) 102 06/08/2018 [id number] Systolic (mm Hg) 188 06/08/2018 [id number] Weight 172.3 05/10/2018 2.16.840.1.020780.4.391.11.2 2568 Height 59.1 05/10/2018 2.16.840.1.849976.4.391.11.2 2568 Temperature Oral (F) 97.8 F 05/10/2018 2.16.840.1.516562.4.391.11.84392 Heart Rate 72 05/10/2018 2.16.840.1.237616.4.391.11.2 2568 Diastolic (mm Hg) 67 05/10/2018 2.16.840.1.047280.4.391.11.09736 Systolic (mm Hg) 152 05/10/2018 2.16.840.1.338691.4.391.11.15004 Weight 170.9 04/09/2018 2.16.840.1.265946.4.391.11.2 2568 Height 59.1 04/09/2018 2.16.840.1.269399.4.391.11.2 2568 Temperature Oral (F) 98.1 F 04/09/2018 2.16.840.1.281698.4.391.11.52197 Heart Rate 60 04/09/2018 2.16.840.1.202577.4.391.11.2 2568 Diastolic (mm Hg) 77 04/09/2018 2.16.840.1.267799.4.391.11.74799 Systolic (mm Hg) 173 04/09/2018 2.16.840.1.515900.4.391.11.31837 Temperature Oral (F) 98.1 F 03/28/2018 [facility] Systolic (mm Hg) 151 03/28/2018 [facility] Diastolic (mm Hg) 96 03/28/2018 [facility] Respitory Rate 18 03/28/2018 [facility] Heart Rate 77 03/28/2018 [facility] Resp[facility] Rate 19 03/28/2018 [facility] Heart Rate 72 03/28/2018 [facility] Systolic (mm Hg) 119 03/28/2018 [facility] Diastolic (mm Hg) 109 03/28/2018 [facility] Respitory Rate 18 03/28/2018 [facility] Heart Rate 71 03/28/2018 [facility] Systolic (mm Hg) 169 03/28/2018 [facility] Diastolic (mm Hg) 76 03/28/2018 [facility] Weight 76.818 03/27/2018 [facility] Height 150.86 cm 03/27/2018 [facility] BMI Calculated 33.75 03/27/2018 [facility] Temperature Oral (F) 98.1 F 03/27/2018 [facility] Temperature Oral (F) 98 F 03/17/2018 [facility] Heart Rate 90 03/17/2018 [facility] Systolic (mm Hg) 144 03/17/2018 [facility] Diastolic (mm Hg) 76 03/17/2018 [facility] Respitory Rate 18 03/17/2018 [facility] Temperature Oral (F) 98.6 F 03/16/2018 [facility] Respitory Rate 24 03/16/2018 [facility] Systolic (mm Hg) 154 03/16/2018 [facility] Diastolic (mm Hg) 98 03/16/2018 [facility] Heart Rate 111 03/16/2018 [facility] Weight 173.6 03/05/2018 2.16.840.1.069418.4.391.11.2 2568 Height 59.1 03/05/2018 2.16.840.1.416449.4.391.11.2 2568 Temperature Oral (F) 98.7 F 03/05/2018 2.16.840.1.275654.4.391.11.85649 Heart Rate 64 03/05/2018 2.16.840.1.271586.4.391.11.2 2568 Diastolic (mm Hg) 70 03/05/2018 2.16.840.1.301263.4.391.11.66812 Systolic (mm Hg) 113 03/05/2018 2.16.840.1.238198.4.391.11.93979 Weight 172.0 01/29/2018 2.16.840.1.747662.4.391.11.2 2568 Height 59.1 01/29/2018 2.16.840.1.532593.4.391.11.2 2568 Temperature Oral (F) 95.9 F 01/29/2018 2.16.840.1.795195.4.391.11.93024 Heart Rate 69 01/29/2018 2.16.840.1.356269.4.391.11.2 2568 Diastolic (mm Hg) 78 01/29/2018 2.16.840.1.560601.4.391.11.54865 Systolic (mm Hg) 128 01/29/2018 2.16.840.1.854924.4.391.11.65352 Weight 170.4 01/01/2018 2.16.840.1.919958.4.391.11.2 2568 Height 59.1 01/01/2018 2.16.840.1.289336.4.391.11.2 2568 Temperature Oral (F) 97.4 F 01/01/2018 2.16.840.1.000497.4.391.11.76443 Heart Rate 75 01/01/2018 2.16.840.1.930306.4.391.11.2 2568 Diastolic (mm Hg) 96 01/01/2018 2.16.840.1.514923.4.391.11.22774 Systolic (mm Hg) 178 01/01/2018 2.16.840.1.766054.4.391.11.53871 Weight 173.0 11/20/2017 2.16.840.1.271298.4.391.11.2 2568 Height 59.1 11/20/2017 2.16.840.1.479942.4.391.11.2 2568 Temperature Oral (F) 97.3 F 11/20/2017 2.16.840.1.302732.4.391.11.44460 Heart Rate 77 11/20/2017 2.16.840.1.648441.4.391.11.2 2568 Diastolic (mm Hg) 98 11/20/2017 2.16.840.1.577042.4.391.11.18230 Systolic (mm Hg) 175 11/20/2017 2.16.840.1.801752.4.391.11.34033 Systolic (mm Hg) 156 10/26/2017 [facility] Diastolic (mm Hg) 94 10/26/2017 [facility] Temperature Oral (F) 98.2 F 10/26/2017 [facility] Respitory Rate 18 10/26/2017 [facility] Heart Rate 66 10/26/2017 [facility] BMI Calculated 31.78 10/26/2017 [facility] Height 149.86 cm 10/26/2017 [facility] Weight 71.364 10/26/2017 [facility] Weight 170.2 10/02/2017 2.16.840.1.797193.4.391.11.2 2568 Height 59.1 10/02/2017 2.16.840.1.559701.4.391.11.2 2568 Temperature Oral (F) 96.3 F 10/02/2017 2.16.840.1.706144.4.391.11.70968 Heart Rate 75 10/02/2017 2.16.840.1.212191.4.391.11.2 2568 Diastolic (mm Hg) 85 10/02/2017 2.16.840.1.746748.4.391.11.43535 Systolic (mm Hg) 146 10/02/2017 2.16.840.1.570969.4.391.11.72024 Weight 175.5 08/28/2017 2.16.840.1.030637.4.391.11.2 2568 Height 59.1 08/28/2017 2.16.840.1.680157.4.391.11.2 2568 Temperature Oral (F) 98.5 F 08/28/2017 2.16.840.1.983856.4.391.11.85528 Heart Rate 80 08/28/2017 2.16.840.1.012977.4.391.11.2 2568 Diastolic (mm Hg) 126 08/28/2017 2.16.840.1.823813.4.391.11.68979 Systolic (mm Hg) 150 08/28/2017 2.16.840.1.564958.4.391.11.14503 Weight 170.6 08/01/2017 2.16.840.1.435180.4.391.11.2 2568 Height 59.1 08/01/2017 2.16.840.1.068775.4.391.11.2 2568 Temperature Oral (F) 98.3 F 08/01/2017 2.16.840.1.735784.4.391.11.11122 Heart Rate 79 08/01/2017 2.16.840.1.580602.4.391.11.2 2568 Diastolic (mm Hg) 98 08/01/2017 2.16.840.1.373683.4.391.11.59396 Systolic (mm Hg) 160 08/01/2017 2.16.840.1.690091.4.391.11.38613 Weight 169.3 07/03/2017 2.16.840.1.545026.4.391.11.2 2568 Height 59.1 07/03/2017 2.16.840.1.887749.4.391.11.2 2568 Temperature Oral (F) 98.4 F 07/03/2017 2.16.840.1.917601.4.391.11.45074 Heart Rate 60 07/03/2017 2.16.840.1.413059.4.391.11.2 2568 Diastolic (mm Hg) 97 07/03/2017 2.16.840.1.248314.4.391.11.28869 Systolic (mm Hg) 184 07/03/2017 2.16.840.1.638764.4.391.11.80899 Weight 157.1 05/31/2017 2.16.840.1.884671.4.391.11.2 2568 Height 59.1 05/31/2017 2.16.840.1.010296.4.391.11.2 2568 Temperature Oral (F) 97.7 F 05/31/2017 2.16.840.1.776960.4.391.11.07254 Heart Rate 75 05/31/2017 2.16.840.1.582611.4.391.11.2 2568 Diastolic (mm Hg) 71 05/31/2017 2.16.840.1.047011.4.391.11.08186 Systolic (mm Hg) 138 05/31/2017 2.16.840.1.889825.4.391.11.55316 Weight 161.0 05/02/2017 2.16.840.1.298537.4.391.11.2 2568 Height 59.1 05/02/2017 2.16.840.1.471358.4.391.11.2 2568 Temperature Oral (F) 98.1 F 05/02/2017 2.16.840.1.698002.4.391.11.90398 Heart Rate 75 05/02/2017 2.16.840.1.015327.4.391.11.2 2568 Diastolic (mm Hg) 97 05/02/2017 2.16.840.1.274484.4.391.11.79140 Systolic (mm Hg) 187 05/02/2017 2.16.840.1.959846.4.391.11.71226 Weight 57.7 04/04/2017 2.16.840.1.922237.4.391.11.2 2568 Height 59.1 04/04/2017 2.16.840.1.908838.4.391.11.2 2568 Temperature Oral (F) 95.6 F 04/04/2017 2.16.840.1.333920.4.391.11.76732 Heart Rate 71 04/04/2017 2.16.840.1.103198.4.391.11.2 2568 Diastolic (mm Hg) 73 04/04/2017 2.16.840.1.731151.4.391.11.35547 Systolic (mm Hg) 151 04/04/2017 2.16.840.1.330765.4.391.11.38264 Respitory Rate 16 04/03/2017 [facility] Systolic (mm Hg) 118 04/03/2017 [facility] Diastolic (mm Hg) 75 04/03/2017 [facility] Rate 15 04/03/2017 [facility] Respitory Rate 12 04/03/2017 [facility] Systolic (mm Hg) 117 04/03/2017 [facility] Diastolic (mm Hg) 74 04/03/2017 [facility] Systolic (mm Hg) 124 04/03/2017 [facility] Diastolic (mm Hg) 77 04/03/2017 [facility] Heart Rate 65 04/03/2017 [facility] Temperature Oral (F) 98.2 F 04/03/2017 [facility] Heart Rate 74 04/03/2017 [facility] Heart Rate 69 04/03/2017 [facility] Temperature Oral (F) 97.9 F 04/03/2017 [facility] Temperature Oral (F) 97.4 F 04/03/2017 [facility] Height 149.86 cm 04/03/2017 [facility] BMI Calculated 33.4 04/03/2017 [facility] Weight 75 0 04/03/2017 [facility] BMI Calculated 30.36 04/02/2017 [facility] Weight 68.182 04/02/2017 [facility] Height 149.86 cm 04/02/2017 [facility] Weight 150.6 03/02/2017 2.16.840.1.778190.4.391.11.2 2568 Height 59.1 03/02/2017 2.16.840.1.066460.4.391.11.2 2568 Temperature Oral (F) 97.3 F 03/02/2017 2.16.840.1.117173.4.391.11.98501 Heart Rate 84 03/02/2017 2.16.840.1.876353.4.391.11.2 2568 Diastolic (mm Hg) 103 03/02/2017 2.16.840.1.517594.4.391.11.96404 Systolic (mm Hg) 147 03/02/2017 2.16.840.1.565181.4.391.11.13284 Weight 153.0 02/02/2017 2.16.840.1.882133.4.391.11.2 2568 Height 59.1 02/02/2017 2.16.840.1.191635.4.391.11.2 2568 Temperature Oral (F) 97.9 F 02/02/2017 2.16.840.1.783612.4.391.11.75652 Heart Rate 72 02/02/2017 2.16.840.1.212975.4.391.11.2 2568 Diastolic (mm Hg) 84 02/02/2017 2.16.840.1.831520.4.391.11.15130 Systolic (mm Hg) 146 02/02/2017 2.16.840.1.320266.4.391.11.74664 Weight 156.1 12/28/2016 2.16.840.1.947830.4.391.11.2 2568 Height 59.1 12/28/2016 2.16.840.1.644481.4.391.11.2 2568 Temperature Oral (F) 98.7 F 12/28/2016 2.16.840.1.427758.4.391.11.26787 Heart Rate 56 12/28/2016 2.16.840.1.518160.4.391.11.2 2568 Diastolic (mm Hg) 83 12/28/2016 2.16.840.1.004417.4.391.11.12443 Systolic (mm Hg) 151 12/28/2016 2.16.840.1.303044.4.391.11.32247 Weight 167.3 11/24/2016 2.16.840.1.060772.4.391.11.2 2568 Height 59.1 11/24/2016 2.16.840.1.744826.4.391.11.2 2568 Temperature Oral (F) 97.9 F 11/24/2016 2.16.840.1.273513.4.391.11.34868 Heart Rate 58 11/24/2016 2.16.840.1.678402.4.391.11.2 2568 Diastolic (mm Hg) 87 11/24/2016 2.16.840.1.563494.4.391.11.94090 Systolic (mm Hg) 181 11/24/2016 2.16.840.1.345176.4.391.11.16065 Weight 164 10/27/2016 2.16.840.1.075929.4.391.11.2 2568 Height 59 0 10/27/2016 2.16.840.1.101694.4.391.11.2 2568 Temperature Oral (F) 98.8 F 10/27/2016 2.16.840.1.123312.4.391.11.70206 Heart Rate 64 10/27/2016 2.16.840.1.226186.4.391.11.2 2568 Diastolic (mm Hg) 60 10/27/2016 2.16.840.1.266842.4.391.11.30849 Systolic (mm Hg) 131 10/27/2016 2.16.840.1.073205.4.391.11.12347 Weight 165.3 09/26/2016 2.16.840.1.314692.4.391.11.2 2568 Height 59.1 09/26/2016 2.16.840.1.206517.4.391.11.2 2568 Temperature Oral (F) 97.5 F 09/26/2016 2.16.840.1.756737.4.391.11.68246 Heart Rate 75 09/26/2016 2.16.840.1.894394.4.391.11.2 2568 Diastolic (mm Hg) 89 09/26/2016 2.16.840.1.041265.4.391.11.73862 Systolic (mm Hg) 148 09/26/2016 2.16.840.1.678319.4.391.11.84944 Weight 176 08/25/2016 2.16.840.1.372468.4.391.11.2 2568 Height 59.1 08/25/2016 2.16.840.1.010169.4.391.11.2 2568 Temperature Oral (F) 97.6 F 08/25/2016 2.16.840.1.335259.4.391.11.39601 Heart Rate 76 08/25/2016 2.16.840.1.021716.4.391.11.2 2568 Diastolic (mm Hg) 74 08/25/2016 2.16.840.1.109756.4.391.11.41727 Systolic (mm Hg) 104 08/25/2016 2.16.840.1.736801.4.391.11.42495 Weight 163 07/25/2016 2.16.840.1.316356.4.391.11.2 2568 Height 59.1 07/25/2016 2.16.840.1.908910.4.391.11.2 2568 Temperature Oral (F) 97.8 F 07/25/2016 2.16.840.1.214301.4.391.11.26175 Heart Rate 67 07/25/2016 2.16.840.1.101067.4.391.11.2 2568 Diastolic (mm Hg) 98 07/25/2016 2.16.840.1.558804.4.391.11.61744 Systolic (mm Hg) 173 07/25/2016 2.16.840.1.274334.4.391.11.17599 Weight 162 06/24/2016 2.16.840.1.615706.4.391.11.2 2568 Height 59.1 06/24/2016 2.16.840.1.080659.4.391.11.2 2568 Temperature Oral (F) 97.6 F 06/24/2016 2.16.840.1.478844.4.391.11.37661 Heart Rate 58 06/24/2016 2.16.840.1.485041.4.391.11.2 2568 Diastolic (mm Hg) 89 06/24/2016 2.16.840.1.840891.4.391.11.83027 Systolic (mm Hg) 203 06/24/2016 2.16.840.1.192167.4.391.11.32856 Weight 164 05/23/2016 2.16.840.1.124708.4.391.11.2 2568 Height 59.1 05/23/2016 2.16.840.1.487914.4.391.11.2 2568 Temperature Oral (F) 97.8 F 05/23/2016 2.16.840.1.180518.4.391.11.45604 Heart Rate 68 05/23/2016 2.16.840.1.578310.4.391.11.2 2568 Diastolic (mm Hg) 89 05/23/2016 2.16.840.1.059713.4.391.11.34190 Systolic (mm Hg) 145 05/23/2016 2.16.840.1.420434.4.391.11.87443 Weight 164 04/28/2016 2.16.840.1.680849.4.391.11.2 2568 Height 59.1 04/28/2016 2.16.840.1.350310.4.391.11.2 2568 Temperature Oral (F) 97.7 F 04/28/2016 2.16.840.1.279054.4.391.11.59500 Heart Rate 64 04/28/2016 2.16.840.1.703473.4.391.11.2 2568 Diastolic (mm Hg) 101 04/28/2016 2.16.840.1.048474.4.391.11.88046 Systolic (mm Hg) 194 04/28/2016 2.16.840.1.644108.4.391.11.41742 Weight 167 03/28/2016 2.16.840.1.353327.4.391.11.2 2568 Height 59.1 03/28/2016 2.16.840.1.588586.4.391.11.2 2568 Temperature Oral (F) 97.6 F 03/28/2016 2.16.840.1.577142.4.391.11.17522 Heart Rate 72 03/28/2016 2.16.840.1.284428.4.391.11.2 2568 Diastolic (mm Hg) 97 03/28/2016 2.16.840.1.043873.4.391.11.85147 Systolic (mm Hg) 155 03/28/2016 2.16.840.1.739645.4.391.11.16565 Weight 163 12/30/2015 2.16.840.1.024182.4.391.11.2 2568 Height 59.1 12/30/2015 2.16.840.1.972678.4.391.11.2 2568 Temperature Oral (F) 97.7 F 12/30/2015 2.16.840.1.796047.4.391.11.32568 Heart Rate 79 12/30/2015 2.16.840.1.145778.4.391.11.2 2568 Diastolic (mm Hg) 73 12/30/2015 2.16.840.1.867459.4.391.11.68640 Systolic (mm Hg) 128 12/30/2015 2.16.840.1.537070.4.391.11.24077 Weight 165 08/25/2015 2.16.840.1.391676.4.391.11.2 2568 Height 59.1 08/25/2015 2.16.840.1.386278.4.391.11.2 2568 Temperature Oral (F) 97.8 F 08/25/2015 2.16.840.1.745946.4.391.11.53299 Heart Rate 59 08/25/2015 2.16.840.1.065249.4.391.11.2 2568 Diastolic (mm Hg) 64 08/25/2015 2.16.840.1.301748.4.391.11.86878 Systolic (mm Hg) 132 08/25/2015 2.16.840.1.263396.4.391.11.27006 Weight 164 07/24/2015 2.16.840.1.995429.4.391.11.2 2568 Height 59.1 07/24/2015 2.16.840.1.669021.4.391.11.2 2568 Temperature Oral (F) 98.2 F 07/24/2015 2.16.840.1.373308.4.391.11.69813 Heart Rate 69 07/24/2015 2.16.840.1.678236.4.391.11.2 2568 Diastolic (mm Hg) 82 07/24/2015 2.16.840.1.255249.4.391.11.76702 Systolic (mm Hg) 141 07/24/2015 2.16.840.1.884438.4.391.11.89866 Weight 165.1 06/16/2015 2.16.840.1.779180.4.391.11.2 2568 Height 59.1 06/16/2015 2.16.840.1.032362.4.391.11.2 2568 Temperature Oral (F) 97.5 F 06/16/2015 2.16.840.1.944711.4.391.11.24455 Heart Rate 71 06/16/2015 2.16.840.1.899287.4.391.11.2 2568 Diastolic (mm Hg) 99 06/16/2015 2.16.840.1.157662.4.391.11.20297 Systolic (mm Hg) 161 06/16/2015 2.16.840.1.595380.4.391.11.60317 Weight 168.5 04/10/2015 eCW: [facility] Height 59 0 04/10/2015 eCW: [facility] Temperature Oral (F) 98.6 F 04/10/2015 [facility]: [facility] Heart Rate 54 04/10/2015 [facility]: [facility] Diastolic (mm Hg) 50 04/10/2015 [facility]: [facility] Systolic (mm Hg) 110 04/10/2015 [facility]: [facility] Respitory Rate 20 04/10/2015 [facility]: [facility] Weight 169.0 02/11/2015 [facility]: [facility] Height 59 1 04/14/2014 [facility]: [facility] Temperature Oral (F) 98.6 F 02/11/2015 [facility]: [facility] Heart Rate 66 02/11/2015 [facility]: [facility] Diastolic (mm Hg) 79 02/11/2015 [facility]: [facility] Systolic (mm Hg) 121 02/11/2015 [facility]: [facility] Respitory Rate 20 02/11/2015 [facility]: [facility] Weight 178.0 01/12/2015 [facility]CW: [facility] Height 59 1 03/14/2014 [facility]: [facility] Temperature Oral (F) 98.5 F 01/12/2015 [facility]: [facility] Heart Rate 65 01/12/2015 [facility]: [facility] Diastolic (mm Hg) 80 01/12/2015 [facility]: [facility] Systolic (mm Hg) 129 01/12/2015 [facility]: [facility] Respitory Rate 20 01/12/2015 [facility]: [facility] Weight 171.0 11/12/2014 [facility]CW: [facility] Height 59 0 11/12/2014 [facility]: [facility] Temperature Oral (F) 98.5 F 11/12/2014 [facility]: [facility] Heart Rate 73 11/12/2014 [facility]: [facility] Diastolic (mm Hg) 73 11/12/2014 [facility]: [facility] Systolic (mm Hg) 123 11/12/2014 [facility]: [facility] Respitory Rate 20 11/12/2014 [facility]: [facility] Weight 168.7 10/09/2014 eCW: [facility] Height 59 0 10/09/2014 eCW: [facility] Temperature Oral (F) 98.5 F 10/09/2014 eCW: [facility] Heart Rate 87 10/09/2014 eCW: [facility] Diastolic (mm Hg) 90 10/09/2014 [facility]CW: [facility] Systolic (mm Hg) 123 10/09/2014 [facility]: [facility] Respitory Rate 20 10/09/2014 [facility]: [facility] Weight 175.5 09/09/2014 eCW: [facility] Height 59 0 09/09/2014 eCW: [facility] Temperature Oral (F) 98.5 F 09/09/2014 eCW: [facility] Heart Rate 69 09/09/2014 [facility]CW: [facility] Diastolic (mm Hg) 69 09/09/2014 eCW: [facility] Systolic (mm Hg) 114 09/09/2014 eCW: [facility] Respitory Rate 20 09/09/2014 eCW: [facility] Weight 176.9 07/12/2014 eCW: [facility] Height 59 0 07/12/2014 eCW: [facility] Temperature Oral (F) 98.4 F 07/12/2014 eCW: [facility] Heart Rate 66 07/12/2014 eCW: [facility] Diastolic (mm Hg) 85 07/12/2014 [facility]CW: [facility] Systolic (mm Hg) 121 07/12/2014 [facility]: [facility] Respitory Rate 20 07/12/2014 [facility]CW: [facility] Systolic (mm Hg) 145 05/12/2014 [facility] Diastolic (mm Hg) 72 05/12/2014 [facility] Temperature Oral (F) 98.2 F 05/12/2014 [facility] Heart Rate 60 05/12/2014 [facility] Respitory Rate 18 05/12/2014 [facility] Heart Rate 68 05/12/2014 [facility] Respitory Rate 18 05/12/2014 [facility] Systolic (mm Hg) 155 05/12/2014 [facility] Diastolic (mm Hg) 84 05/12/2014 [facility] Systolic (mm Hg) 175 05/12/2014 [facility] Diastolic (mm Hg) 83 05/12/2014 [facility] Heart Rate 69 05/12/2014 [facility] Respitory Rate 18 05/12/2014 [facility] Temperature Oral (F) 98.0 F 05/12/2014 [facility] Height 149.86 cm 05/12/2014 [facility] BMI Calculated 35.42 05/12/2014 [facility] Weight 79.545 05/12/2014 [facility] Weight 189.9 03/10/2014 eCW: Kaisen [facility] Height 59 0 03/10/2014 eCW: Kaisen [facility] Temperature Oral (F) 98.6 F 03/10/2014 eCW: [facility]ais[facility] Heart Rate 67 03/10/2014 eCW: Kaisen [facility] Diastolic (mm Hg) 76 03/10/2014 eCW: Kaisen [facility] Systolic (mm Hg) 120 03/10/2014 eCW: [facility] Respitory Rate 20 03/10/2014 eCW: [facility] Weight 182.6 02/10/2014 eCW: [facility] Height 59 1 04/13/2013 eCW: [facility]ais[facility] Temperature Oral (F) 98.4 F 02/10/2014 eCW: [facility] Heart Rate 65 02/10/2014 eCW: Kaisen [facility] Diastolic (mm Hg) 91 02/10/2014 eCW: Kaisen [facility] Systolic (mm Hg) 134 02/10/2014 eCW: [facility] Respitory Rate 20 02/10/2014 eCW: [facility] Weight 193.6 01/10/2014 eCW: [facility] Height 59 1 03/12/2013 eCW: [facility]ais[facility] Temperature Oral (F) 98.6 F 01/10/2014 eCW: [facility]ais[facility] Heart Rate 57 01/10/2014 eCW: Kaisen [facility] Diastolic (mm Hg) 93 01/10/2014 eCW: Kaisen [facility] Systolic (mm Hg) 154 01/10/2014 eCW: [facility] Respitory Rate 20 01/10/2014 eCW: [facility] Weight 200.8 11/22/2013 eCW: [facility] Height 59 0 11/22/2013 eCW: [facility] Temperature Oral (F) 98.6 F 11/22/2013 eCW: Kaisen [facility] Heart Rate 78 11/22/2013 eCW: Kaisen [facility] Diastolic (mm Hg) 106 11/22/2013 eCW: Kaisen [facility] Systolic (mm Hg) 164 11/22/2013 eCW: [facility] Respitory Rate 20 11/22/2013 eCW: [facility] Weight 206.4 10/11/2013 [facility]CW: [facility] Height 59 0 10/11/2013 eCW: [facility] Temperature Oral (F) 98.6 F 10/11/2013 eCW: [facility] Heart Rate 72 10/11/2013 eCW: Kaisen [facility] Diastolic (mm Hg) 69 10/11/2013 eCW: [facility] Systolic (mm Hg) 109 10/11/2013 eCW: [facility] Respitory Rate 20 10/11/2013 [facility]CW: [facility] Weight 201.2 09/26/2013 eCW: [facility] Height 59 0 09/26/2013 eCW: [facility] Temperature Oral (F) 98.6 F 09/26/2013 eCW: [facility] Heart Rate 58 09/26/2013 [facility]CW: [facility] Diastolic (mm Hg) 85 09/26/2013 eCW: [facility] Systolic (mm Hg) 126 09/26/2013 [facility]: [facility] Respitory Rate 20 09/26/2013 eCW: [facility] Weight 210.0 09/12/2013 eCW: [facility] Height 48 0 09/12/2013 eCW: [facility] Respitory Rate 20 09/12/2013 eCW: [facility]en [facility] Heart Rate 78 09/12/2013 eCW: Roderickisen Fang Diastolic (mm Hg) 87 09/12/2013 eCW: [facility] Systolic (mm Hg) 158 09/12/2013 eCW: Roderickisen Fang Weight 201.2 09/05/2013 eCW: Kike Fang Height 48 0 09/05/2013 eCW: Roderickisen Fang Respitory Rate 20 09/05/2013 eCW: Roderickisen Fang Heart Rate 84 09/05/2013 eCW: Kaisen [facility] Diastolic (mm Hg) 89 09/05/2013 eCW: Kaisen Fang Systolic (mm Hg) 146 09/05/2013 eCW: Kike Cagleg Temperature Oral (F) 98.0 F 02/24/2013 [facility] Respitory Rate 20 02/24/2013 [facility] Heart Rate 80 02/24/2013 [facility] Diastolic (mm Hg) 78 02/24/2013 [facility] Systolic (mm Hg) 123 02/24/2013 [facility] Weight 93.636 02/24/2013 [facility] Height 149.86 cm 02/24/2013 [facility] Heart Rate 101 02/24/2013 [facility] Respitory Rate 16 02/24/2013 [facility] Systolic (mm Hg) 153 02/24/2013 [facility] Diastolic (mm Hg) 97 02/24/2013 [facility] Temperature Oral (F) 98.4 F 02/24/2013 [facility] Temperature Oral (F) 97.9 F 01/08/2013 [facility] Diastolic (mm Hg) 63 01/08/2013 [facility] Respitory Rate 18 01/08/2013 [facility] Systolic (mm Hg) 154 01/08/2013 [facility] Heart Rate 60 01/08/2013 [facility] Systolic (mm Hg) 161 01/08/2013 [facility] Heart Rate 72 01/08/2013 [facility] Respitory Rate 20 01/08/2013 [facility] Diastolic (mm Hg) 76 01/08/2013 [facility] Temperature Oral (F) 97.9 F 01/08/2013 [facility] Heart Rate 65 01/08/2013 [facility] Respitory Rate 20 01/08/2013 [facility] Systolic (mm Hg) 173 01/08/2013 [facility] Diastolic (mm Hg) 89 01/08/2013 [facility] Weight 95 1 03/10/2012 [facility] Height 149.86 cm 01/08/2013 [facility] Temperature Oral (F) 98.1 F 01/08/2013 [facility] Height 149.86 cm 08/02/2012 [facility] Weight 100.455 08/02/2012 [facility] Weight 109.091 07/21/2012 [facility] Encounters Location Location Details Encounter Type Encounter Number Reason For Visit Attending Provider ADM Date DC Date Status Source [facility] Emergency [id number] TERI BRYSON 05/16/2012 05/16/[address] [facility] Emergency [id number] ETHAN ANA 07/21/2012 07/21/[address] [facility] Emergency [id number] LULA BYRON 08/02/2012 08/02/[address] [facility] Emergency [id number] VAMSHI HICKMANBALL 01/06/2013 01/06/[address] [facility] Emergency [id number] TERI BRYSON 01/07/2013 01/08/2013 Discharged [facility] Emergency [id number] HUONG NAIDU 02/24/2013 02/24/2013 Discharged [facility] Kike Jarvis MD Follow-up for mutiple problems [id number] 09/05/2013 09/05/2013 [facility]: Kike Jarvis MD Follow-up for mutiple problems [id number] 09/05/2013 09/05/2013 [facility]: Kike Jarvis MD Follow-up for mutiple problems [id number] 09/05/2013 09/05/2013 [facility]: Kike Jarvis MD Follow-up for mutiple problems [id number] 09/05/2013 09/05/2013 [facility]: Kike Jarvis MD Follow-up for mutiple problems [id number] 09/05/2013 09/05/2013 [facility]: Kike Jarvis MD Follow-up for mutiple problems [id number] 09/05/2013 09/05/2013 2.16.840.1.699620.4.391.11.85679 Kike Jarvis MD Follow-up for mutiple problems [id number] 09/05/2013 09/05/2013 e[facility]: Kike Jarvis MD Follow-up for mutiple problems [id number] 09/05/2013 09/05/2013 e[facility]: Kike Jarvis MD Follow-up for mutiple problems [id number] 09/05/2013 09/05/2013 2.16.840.1.431688.4.391.11.19167 Kike Jarvis MD Follow-up for mutiple problems [id number] 09/05/2013 09/05/2013 2.16.840.1.081281.4.391.11.86615 Kike Jarvis MD Follow-up for mutiple problems [id number] 09/05/2013 09/05/2013 2.16.840.1.710122.4.391.11.45325 Kike Jarvis MD Follow-up for mutiple problems [id number] 09/05/2013 09/05/2013 2.16.840.1.589747.4.391.11.40945 Kike Jarvis MD Follow-up for mutiple problems [id number] 09/05/2013 09/05/2013 2.16.840.1.849854.4.391.11.05656 Kike Jarvis MD Follow-up for mutiple problems [id number] 09/05/2013 09/05/2013 2.16.840.1.686633.4.391.11.17501 Kiek Jarvis MD Follow-up for mutiple problems [id number] 09/05/2013 09/05/2013 2.16.840.1.126555.4.391.11.49792 Kike Jarvis MD Follow-up for mutiple problems [id number] 09/05/2013 09/05/2013 2.16.840.1.259365.4.391.11.67716 Kike Jarvis MD Follow-up for mutiple problems [id number] 09/05/2013 09/05/2013 2.16.840.1.856076.4.391.11.85938 Kike Jarvis MD Follow-up for mutiple problems [id number] 09/05/2013 09/05/2013 eCW: Kike Jarvis MD Follow-up for mutiple problems [id number] 09/05/2013 09/05/2013 eCW: Kike Jarvis MD Follow-up for mutiple problems [id number] 09/05/2013 09/05/2013 e[facility]: Kike Jarvis MD Follow-up for mutiple problems [id number] 09/05/2013 09/05/2013 eCW: Kike Jarvis MD Follow-up for mutiple problems [id number] 09/05/2013 09/05/2013 eCW: Kike Jarvis MD Follow-up for mutiple problems [id number] 09/05/2013 09/05/2013 eCW: Kike Jarvis MD Follow-up for mutiple problems [id number] 09/05/2013 09/05/2013 eCW: Kike Jarvis MD Follow-up for mutiple problems [id number]-9167-7j13p9n3g91c 09/05/2013 09/05/2013 eCW: Kike Jarvis MD Follow-up for mutiple problems vkv46i4c-yl9r-4997-z60f-9s665508032r 09/05/2013 09/05/2013 eCW: Kike Jarvis MD Follow-up for mutiple problems 2m29z603-zo60-8m22-8048-gg1x5l204061 09/05/2013 09/05/2013 eCW: Kike Jarvis MD Follow-up for mutiple problems [id number]187 09/05/2013 09/05/2013 2.16.840.1.037778.4.391.11.38752 Kike Jarvis MD Follow-up for mutiple problems 8j7f175n-5a95-1103-393s-48f0114rc66y 09/05/2013 09/05/2013 2.Nelson.840.1.211384.4.391.11.20269 Kike Jarvis MD Follow-up for mutiple problems 4w9i897l-d3v3-14gc-0836-8350x338l40e 09/05/2013 09/05/2013 2.16.840.1.795080.4.391.11.00938 Kike Jarvis MD Follow-up for mutiple problems x101w6dm-q027-4353-3iu9-kk24u9c33845 09/05/2013 09/05/2013 2.16.840.1.559691.4.391.11.94919 Kike Jarvis MD Follow-up for mutiple problems 1cs64243-u5gm-278n-5821-1j2l78b1395r 09/05/2013 09/05/2013 2.16.840.1.258218.4.391.11.02152 Kike Jarvis MD Follow-up for mutiple problems 7f4waav1-4w0d-1708-14gl-i079uha35081 09/12/2013 09/12/2013 eCW: Kike Jarvis MD Follow-up for mutiple problems 48yu6503-6f2h-7j3a-29se-psy9447ij501 09/12/2013 09/12/2013 eCW: Kike Jarvis MD Follow-up for mutiple problems v5h20jkq-965b-7916-u553-06p835c11710 09/12/2013 09/12/2013 eCW: Kike Jarvis MD Follow-up for mutiple problems 4f3ju9q5-4876-196r-ec64-125r58un005y 09/12/2013 09/12/2013 eCW: Kike Jarvis MD Follow-up for mutiple problems 3lr65016-jqt5-018n-a0rl-97965870649c 09/12/2013 09/12/2013 eCW: Kike Jarvis MD Follow-up for mutiple problems ylitn1d6-w134-04ap-9833-011742jy29io 09/12/2013 09/12/2013 2.16.840.1.911179.4.391.11.85850 Kike Jarvis MD Follow-up for mutiple problems 7j614y35-78dh-709d-27bl-d19bgnr53rdt 09/12/2013 09/12/2013 eCW: Kike Jarvis MD Follow-up for mutiple problems 825d631m-13r2-30dt-8iha-8c78yek8r14o 09/12/2013 09/12/2013 eCW: Kike Jarvis MD Follow-up for mutiple problems 19430q3i-9s42-3530-km24-p8z9r6302p43 09/12/2013 09/12/2013 2.16.840.1.475875.4.391.11.55817 Kike Jarvis MD Follow-up for mutiple problems 9un5ao8x-003a-7732-9062-7010sks47n49 09/12/2013 09/12/2013 2.16.840.1.914182.4.391.11.40182 Kike Jarvis MD Follow-up for mutiple problems 47801zv4-s678-983z-p01r-f6s090r20kfp 09/12/2013 09/12/2013 2.16.840.1.779699.4.391.11.00103 Kike Jarvis MD Follow-up for mutiple problems 4wx47wp6-o8d9-0sn5-n918-32q538hlc002 09/12/2013 09/12/2013 2.16.840.1.640251.4.391.11.87570 Kike Jarvis MD Follow-up for mutiple problems l9748wbx-l8f8-9017-41y0-5188m8wv4s86 09/12/2013 09/12/2013 2.16.840.1.911281.4.391.11.31835 Kike Jarvis MD Follow-up for mutiple problems r31is0n8-5m86-07l2-4l5u-231z496t7neh 09/12/2013 09/12/2013 2.16.840.1.377713.4.391.11.69280 Kike Jarvis MD Follow-up for mutiple problems 7d797k9u-267j-8485-zj22-4ht86g45080p 09/12/2013 09/12/2013 2.16.840.1.204703.4.391.11.91291 Kike Jarvis MD Follow-up for mutiple problems 177h515y-upa4-4744-185s-e1vl9ez8021q 09/12/2013 09/12/2013 2.16.840.1.614639.4.391.11.28588 Kike Jarvis MD Follow-up for mutiple problems r8ofo0d8-b36m-68v7-6qh9-gs9iidx3qs93 09/12/2013 09/12/2013 2.16.840.1.904545.4.391.11.78701 Kike Jarvis MD Follow-up for mutiple problems 8554r354-02jk-2rf9-8147-17602rsc7g89 09/12/2013 09/12/2013 eCW: Kike Jarvis MD Follow-up for mutiple problems p72y8u9c-4uu1-5wz9-xx6v-37d62420dw3z 09/12/2013 09/12/2013 eCW: Kike Jarvis MD Follow-up for mutiple problems 59f51089-3r82-9pg3-sv5p-80q64531d979 09/12/2013 09/12/2013 eCW: Kike Jarvis MD Follow-up for mutiple problems e609m029-7ra4-91q0-146j-u17696843is8 09/12/2013 09/12/2013 eCW: Kike Jarvis MD Follow-up for mutiple problems 5l02ntz0-8d1m-2640-ng1g-z9k8y9u9ci8z 09/12/2013 09/12/2013 eCW: Kike Jarvis MD Follow-up for mutiple problems 6h12q98b-411a-4441-l0z6-4063w5h24d8c 09/12/2013 09/12/2013 eCW: Kike Jarvis MD Follow-up for mutiple problems o72a7g45-7n38-78vc-2v85-6ulr2tz8cwrr 09/12/2013 09/12/2013 eCW: Kike Jarvis MD Follow-up for mutiple problems 8rzk7153-r846-33o1-p730-wi81352x8mis 09/12/2013 09/12/2013 eCW: Kike Jarvis MD Follow-up for mutiple problems 428mx188-6oy0-99e8-tav3-613q5b7yv1b1 09/12/2013 09/12/2013 eCW: Kike Jarvis MD Follow-up for mutiple problems l867r9u2-9ki3-59m7-46q2-5sr76995aia9 09/12/2013 09/12/2013 eCW: Kike Jarvis MD Follow-up for mutiple problems jh75y3v6-22y9-3f77-6383-7f70bu607dux 09/12/2013 09/12/2013 2.16.840.1.644171.4.391.11.39348 Kike Jarvis MD Follow-up for mutiple problems 0nn2muhu-bgy3-62l8-698o-937o4a2rf9ku 09/12/2013 09/12/2013 2.16.840.1.720493.4.391.11.95056 Kike Jarvis MD Follow-up for mutiple problems 54858017-5m9k-51l8-obxn-1132j5134159 09/12/2013 09/12/2013 2.16.840.1.745336.4.391.11.67366 Kike Jarvis MD Follow-up for mutiple problems 68ki546i-p10d-4525-65s5-1pys3c156921 09/12/2013 09/12/2013 2.16.840.1.488883.4.391.11.24446 Kike Jarvis MD Follow-up for mutiple problems mmq5g238-49nx-373v-o781-1o40s9e0367y 09/12/2013 09/12/2013 2.16.840.1.613271.4.391.11.73386 Kike Jarvis MD Follow-up for mutiple problems 1l3qd03b-t39a-4146-4364-j0c91357m92t 09/26/2013 09/26/2013 eCW: Kike Jarvis MD Follow-up for mutiple problems 9s8093le-0988-6k6t-f8d4-2tr4s5a6y745 09/26/2013 09/26/2013 eCW: Kike Jarvis MD Follow-up for mutiple problems 038by6za-l05o-3gt2-d201-0998dm0p0tiu 09/26/2013 09/26/2013 eCW: Kike Jarvis MD Follow-up for mutiple problems 0o487udj-470n-65m0-d80e-347ri562s2x6 09/26/2013 09/26/2013 2.16.840.1.352165.4.391.11.40358 Kike Jarvis MD Follow-up for mutiple problems a9lu3nb5-npqb-9d4z-00o7-201b7970490j 09/26/2013 09/26/2013 eCW: Kike Jarvis MD Follow-up for mutiple problems 29dc69r2-0006-8x7o-2bg5-86106p125877 09/26/2013 09/26/2013 eCW: Kike Jarvis MD Follow-up for mutiple problems 94m44fz9-rzv2-8737-98ni-35mo5b78to08 09/26/2013 09/26/2013 2.16.840.1.191284.4.391.11.98135 Kike Jarvis MD Follow-up for mutiple problems m75330nt-ri39-1opu-ofmm-6783250g145g 09/26/2013 09/26/2013 2.16.840.1.173055.4.391.11.72117 Kike Jarvis MD Follow-up for mutiple problems tok07555-8ela-515h-322d-327iv61j9qy4 09/26/2013 09/26/2013 2.16.840.1.935552.4.391.11.16374 Kike Jarvis MD Follow-up for mutiple problems ze2u1g9l-2196-9cg0-m18m-93q5aq2636ee 09/26/2013 09/26/2013 2.16.840.1.072298.4.391..36479 Kike Jarvis MD Follow-up for mutiple problems 66v31p5y-meu6-33m1-ddqn-4d4s025yo4n1 09/26/2013 09/26/2013 2.16.840.1.657185.4.391..27821 Kike Jarvis MD Follow-up for mutiple problems dn9045u6-3q30-1piy-cg4n-05u9lg851706 09/26/2013 09/26/2013 2.16.840.1.170829.4.391..68123 Kike Jarvis MD Follow-up for mutiple problems 7xku0z8d-5845-7g1i-bef7-01b4zqe4m7r8 09/26/2013 09/26/2013 2.16.840.1.844840.4.391.11.76878 Kike Jarvis MD Follow-up for mutiple problems 82u48c97-1h8m-81f2-0l89-e9611902i5u5 09/26/2013 09/26/2013 2.16.840.1.498747.4.391.11.54302 Kike Jarvis MD Follow-up for mutiple problems 87z3qr25-2d66-4370-wm10-8l832v0415gy 09/26/2013 09/26/2013 2.16.840.1.476723.4.391.11.02667 Kike Jarvis MD Follow-up for mutiple problems fn646mcq-n565-2d0l-zw2i-r7341q926194 09/26/2013 09/26/2013 eCW: Kike Jarvis MD Follow-up for mutiple problems [id number]-roav9y3347k1 09/26/2013 09/26/2013 eCW: Kike Jarvis MD Follow-up for mutiple problems ywmu39s4-ixd1-1dvd-s4nd-esp42947s7wh 09/26/2013 09/26/2013 eCW: Kike Jarvis MD Follow-up for mutiple problems x7ev58hn-20xj-9661-q717-245gw8h1l6j2 09/26/2013 09/26/2013 eCW: Kike Jarvis MD Follow-up for mutiple problems 9z56n696-1192-2w8e-yjut-q039w3rl9463 09/26/2013 09/26/2013 eCW: Kike Jarvis MD Follow-up for mutiple problems 2091a13s-rp7s-731s-k70f-702rga3s43a9 09/26/2013 09/26/2013 eCW: Kike Jarvis MD Follow-up for mutiple problems 07xw40td-i2y0-30y0-pw40-ni235235f72v 09/26/2013 09/26/2013 eCW: Kike Jarvis MD Follow-up for mutiple problems [id number]-wlc9-0544-19kt-95quqf3j611d 09/26/2013 09/26/2013 eCW: Kike Jarvis MD Follow-up for mutiple problems jv93062g-o8kh-7zu8-sg68-70oe82t2x8s7 09/26/2013 09/26/2013 eCW: Kike Jarvis MD Follow-up for mutiple problems pu485993-2376-05k3-bc5m-o76qv18h476w 09/26/2013 09/26/2013 eCW: Kike Jarvis MD Follow-up for mutiple problems 288h7fso-h950-0k75-b0m1-567kngyxc766 09/26/2013 09/26/2013 2.16.840.1.391534.4.391.11.41283 Kike Jarvis MD Follow-up for mutiple problems 5dw30808-0nf6-8789-01z0-744997762614 09/26/2013 09/26/2013 2.16.840.1.700143.4.391.11.15195 Kike Jarvis MD Follow-up for mutiple problems 4s56f446-255e-37ve-vnc8-i05n6h16xox0 09/26/2013 09/26/2013 2.16.840.1.172822.4.391.11.51481 Kike Jarvis MD Follow-up for mutiple problems 693843e9-4sqo-3x8w-0194-3xg7w9q38pr4 09/26/2013 09/26/2013 2.16.840.1.111858.4.391.11.67256 Kike Jarvis MD Follow-up for mutiple problems 0b75ay35-8000-175a-zcn3-h5m92x7877xd 09/26/2013 09/26/2013 2.16.840.1.773777.4.391.11.43509 Kike Jarvis MD Follow-up for mutiple problems 64770t18-v667-3275-hry6-921129a16m48 10/11/2013 10/11/2013 eCW: Kike Jarvis MD Follow-up for mutiple problems 403cg0a3-7248-79h0-u4eo-9675m835617h 10/11/2013 10/11/2013 eCW: Kike Jarvis MD Follow-up for mutiple problems 47615r7b-298x-81g9-7hf6-84p36m4y6n83 10/11/2013 10/11/2013 eCW: Kike Jarvis MD Follow-up for mutiple problems s59ehn7a-2707-545a-g668-b1l4b2903376 10/11/2013 10/11/2013 2.16.840.1.201087.4.391.11.52357 Kike Jarvis MD Follow-up for mutiple problems 88250873-576b-3723-wsk4-d5d0u1b4787j 10/11/2013 10/11/2013 eCW: Kike Jarvis MD Follow-up for mutiple problems ac2196ki-ers8-17ww-t39d-16789p7131mo 10/11/2013 10/11/2013 eCW: Kike Jarvis MD Follow-up for mutiple problems q446i7s9-ku03-1523-l513-7ie437f10194 10/11/2013 10/11/2013 2.16.840.1.949696.4.391.11.71493 Kike Jarvis MD Follow-up for mutiple problems kh94a9n1-2f36-36gy-qgj7-5b685s6q8lx8 10/11/2013 10/11/2013 2.16.840.1.745080.4.391.11.10135 Kike Jarvis MD Follow-up for mutiple problems 57jc4426-8z7w-89o6-p94j-y8l805872330 10/11/2013 10/11/2013 2.16.840.1.278448.4.391.11.26404 Kike Jarvis MD Follow-up for mutiple problems lvts5321-bf1p-0897-9y40-7598065v4dlx 10/11/2013 10/11/2013 2.16.840.1.335252.4.391.11.93992 Kike Jarvis MD Follow-up for mutiple problems 502v9032-68of-83oi-cvh1-e2y806ay4gan 10/11/2013 10/11/2013 2.16.840.1.521536.4.391.11.70508 Kike Jarvis MD Follow-up for mutiple problems d97fws49-940f-6ok7-p56x-94oz079rp4c8 10/11/2013 10/11/2013 2.16.840.1.248407.4.391.11.25545 Kike Jarvis MD Follow-up for mutiple problems v0c824v1-1y45-7912-5k5q-38knm5q02j3k 10/11/2013 10/11/2013 2.16.840.1.986396.4.391.11.61463 Kike Jarvis MD Follow-up for mutiple problems mo2a397l-py6j-489b-f0e4-6ek76542a67c 10/11/2013 10/11/2013 2.16.840.1.334102.4.391.11.25213 Kike Jarvis MD Follow-up for mutiple problems j51s5i2o-5547-8548-7h00-4zxx1b607w8o 10/11/2013 10/11/2013 2.16.840.1.772063.4.391.11.25976 Kike Jarvis MD Follow-up for mutiple problems 62o79652-z089-60q5-o365-395n36p3q794 10/11/2013 10/11/2013 eCW: Kike Jarvis MD Follow-up for mutiple problems o8q5h54s-71bm-67hq-000p-k99675681961 10/11/2013 10/11/2013 eCW: Kike Jarvis MD Follow-up for mutiple problems tp566f17-6i14-9p28-n3l3-0407i500629o 10/11/2013 10/11/2013 eCW: Kike Jarvis MD Follow-up for mutiple problems c6g2s60r-44kz-6a66-zc1l-9v64m153828w 10/11/2013 10/11/2013 eCW: Kike Jarvis MD Follow-up for mutiple problems o1x61i78-i2q8-661v-36b8-93813i3vmc32 10/11/2013 10/11/2013 eCW: Kike Jarvis MD Follow-up for mutiple problems 8873e14x-533s-09a8-y1m4-2588v7o62p74 10/11/2013 10/11/2013 eCW: Kike Jarvis MD Follow-up for mutiple problems 054uh487-9y3n-5r8v-1a32-i99j0086thb0 10/11/2013 10/11/2013 eCW: Kike Jarvis MD Follow-up for mutiple problems 248ra571-oi48-7zwa-c939-41451795b8r4 10/11/2013 10/11/2013 eCW: Kike Jarvis MD Follow-up for mutiple problems 9121mk2c-qq99-116m-8g1k-606880h7a2a2 10/11/2013 10/11/2013 eCW: Kike Jarvis MD Follow-up for mutiple problems m07s2swj-7357-697v-7692-96299x92cg8d 10/11/2013 10/11/2013 eCW: Kike Jarvis MD Follow-up for mutiple problems g39qnn49-7061-7l4u-c7sz-08679pgjd37x 10/11/2013 10/11/2013 2.16.840.1.280462.4.391..34814 Kike Jarvis MD Follow-up for mutiple problems e939e158-73t2-44j6-q402-i14rf71c254q 10/11/2013 10/11/2013 2.Nelson.840.1.725571.4.391.11.49751 Kike Jarvis MD Follow-up for mutiple problems 852yzv1y-v664-97c7-i22e-310l8l7r0192 10/11/2013 10/11/2013 2.16.840.1.760861.4.391.11.47357 Kike Jarvis MD Follow-up for mutiple problems 0b82kyi6-u321-03e4-01nc-a26w9556cg99 10/11/2013 10/11/2013 2.16.840.1.230739.4.391.11.11252 Kike Jarvis MD Follow-up for mutiple problems s7gxnc87-75qo-8uxf-1c97-2rkqd5j638t0 10/11/2013 10/11/2013 2.16.840.1.196803.4.391..79953 Kike Jarvis MD Follow-up for mutiple problems w9rdl5j5-9ta3-494g-l7j5-5o231184c650 11/22/2013 11/22/2013 eCW: Kike Jarvis MD Follow-up for mutiple problems oty36nw0-rriz-7x41-449j-8l401z577ni9 11/22/2013 11/22/2013 eCW: Kike Jarvis MD Follow-up for mutiple problems txn9v1i1-4y6m-8394-41a3-a04533807l66 11/22/2013 11/22/2013 2.16.840.1.724725.4.391..63875 Kike Jarvis MD Follow-up for mutiple problems z610328p-5y83-2nvh-8524-783r8123f512 11/22/2013 11/22/2013 eCW: Kike Jarvis MD Follow-up for mutiple problems at3838in-4266-581n-99kj-x514z8od82fs 11/22/2013 11/22/2013 eCW: Kike Jarvis MD Follow-up for mutiple problems 24qmnq0c-03h4-9867-3x0k-8q95k8w6sgi3 11/22/2013 11/22/2013 2.16.840.1.928033.4.391.11.27840 Kike Jarvis MD Follow-up for mutiple problems u7114q58-bai8-5udq-b352-288969b766w9 11/22/2013 11/22/2013 2.16.840.1.702117.4.391..04055 Kike Jarvis MD Follow-up for mutiple problems 3299yqt3-8662-1ean-2tz9-79w80ih6y5t0 11/22/2013 11/22/2013 2.16.840.1.582793.4.391..61236 Kike Jarvis MD Follow-up for mutiple problems 5z2i1449-9073-17y3-jx53-38c6471de281 11/22/2013 11/22/2013 2.16.840.1.036857.4.391.. Kike Jarvis MD Follow-up for mutiple problems 4v4n27t7-c019-9mak-2s04-0o84103u29ug 11/22/2013 11/22/2013 2.16.840.1.013866.4.391..13446 Kike Jarvis MD Follow-up for mutiple problems i72930v3-c167-0866-236w-2379eyxt9360 11/22/2013 11/22/2013 2.16.840.1.619894.4.391..71644 Kike Jarvis MD Follow-up for mutiple problems i0581vk4-6201-5415-5tg8-l9f287j7h532 11/22/2013 11/22/2013 2.16.840.1.007913.4.391..30942 Kike Jarvis MD Follow-up for mutiple problems 49tn2190-82fz-970w-55q8-h01ox07f659e 11/22/2013 11/22/2013 2.16.840.1.633115.4.391.. Kike Jarvis MD Follow-up for mutiple problems 2c54x5o2-78o5-38s4-p76m-d7y761w49b49 11/22/2013 11/22/2013 2.16.840.1.663008.4.391..41653 Kike Jarvis MD Follow-up for mutiple problems 5v8t339u-v14q-4l7i-d5z2-p39t83ws5h55 11/22/2013 11/22/2013 eCW: Kike Jarvis MD Follow-up for mutiple problems 904248f5-lkfs-8429-xmf7-55194k951m6a 11/22/2013 11/22/2013 eCW: Kike Jarvis MD Follow-up for mutiple problems [id number]-y484-34nv-n4fr-w0x945378itd 11/22/2013 11/22/2013 eCW: Kike Jarvis MD Follow-up for mutiple problems 36vp69z0-33r1-2858-dk7y-m74v3v692753 11/22/2013 11/22/2013 eCW: Kike aJrvis MD Follow-up for mutiple problems o694420v-90wo-7724-e5u7-4a54ugy55st4 11/22/2013 11/22/2013 eCW: Kike Jarvis MD Follow-up for mutiple problems 96347b34-s041-2032-m7m7-988u4ea16u7m 11/22/2013 11/22/2013 eCW: Kike Jarvis MD Follow-up for mutiple problems 7374qcu9-a916-8qv7-9203-q7dy91015gnl 11/22/2013 11/22/2013 eCW: Kike Jarvis MD Follow-up for mutiple problems 62787l7k-o5n9-3s53-5o5j-6c5a0y3r6ygr 11/22/2013 11/22/2013 eCW: Kike Jarvis MD Follow-up for mutiple problems 349o2692-5q2n-827c-4358-4338cm471a30 11/22/2013 11/22/2013 eCW: Kike Jarvis MD Follow-up for mutiple problems wuvb4o92-jq53-82yj-00eu-7913yv6274yb 11/22/2013 11/22/2013 eCW: Kike Jarvis MD Follow-up for mutiple problems v36s4g8g-yd24-24rz-t64z-353379tw4060 11/22/2013 11/22/2013 2.16.840.1.605582.4.391.11.95558 Kike Jarvis MD Follow-up for mutiple problems 096iez75-0386-8214-0478-q3r8k1mt35wu 11/22/2013 11/22/2013 2.16.840.1.254126.4.391.11.32532 Kike Jarvis MD Follow-up for mutiple problems io69j9y3-m726-26vd-15z6-rr5w054a1j75 11/22/2013 11/22/2013 2.16.840.1.306023.4.391.11.94628 Kike Jarvis MD Follow-up for mutiple problems 1353ro0s-6194-91pn-05y4-6ex23174552d 11/22/2013 11/22/2013 2.16.840.1.454099.4.391.11.83134 Kike Jarvis MD Follow-up for mutiple problems 3su4490w-d074-0z0g-0937-r8m41sbwj3zz 11/22/2013 11/22/2013 2.16.840.1.853564.4.391.11.58160 Kike Jarvis MD Follow-up for mutiple problems 9std4185-4538-06k1-38tc-a5vy373599c8 12/13/2013 12/13/2013 eCW: Kike Jarvis MD Follow-up for mutiple problems j3p1qn44-619c-4esg-q740-373q5xot4t06 12/13/2013 12/13/2013 eCW: Kike Jarvis MD Follow-up for mutiple problems tofw0g7j-3054-3f71-w64d-3v510ado56u3 12/13/2013 12/13/2013 2.16.840.1.036382.4.391.11.94681 Kike Jarvis MD Follow-up for mutiple problems sc61j239-o518-9506-8s6f-uq3i48hscibn 12/13/2013 12/13/2013 eCW: Kike Jarvis MD Follow-up for mutiple problems 0v35a447-826u-79lb-378j-3mc17hf54uxy 12/13/2013 12/13/2013 eCW: Kike Jarvis MD Follow-up for mutiple problems s72166r9-n23w-6dj9-x961-lt0juu19fr28 12/13/2013 12/13/2013 2.16.840.1.865450.4.391.11.18775 Kike Jarvis MD Follow-up for mutiple problems 7m54nc0v-98u6-6w5u-f55j-103e4ou46975 12/13/2013 12/13/2013 2.16.840.1.910208.4.391.11.93753 Kike Jarvis MD Follow-up for mutiple problems dxck4m47-n1a5-9n48-xp71-62e3x2v381g0 12/13/2013 12/13/2013 2.16.840.1.006888.4.391.11.57271 Kike Jarvis MD Follow-up for mutiple problems 992x0gm4-k8iu-9e2z-4967-788w6t0s9j90 12/13/2013 12/13/2013 2.16.840.1.345656.4.391.11.55242 Kike Jarvis MD Follow-up for mutiple problems a6k9y622-bs37-969z-61gh-yx292qt0cl54 12/13/2013 12/13/2013 2.16.840.1.476014.4.391.11.14723 Kike Jarvis MD Follow-up for mutiple problems 22qahn2k-80n7-5929-98pp-dje60w6t77w3 12/13/2013 12/13/2013 2.16.840.1.670436.4.391.11.11108 Kike Jarvis MD Follow-up for mutiple problems f253e74m-388a-78k6-8f67-0pz488000b77 12/13/2013 12/13/2013 2.16.840.1.174607.4.391.11.18284 Kike Jarvis MD Follow-up for mutiple problems 3g8az93w-2z82-694k-89g0-758h70nz1w13 12/13/2013 12/13/2013 2.16.840.1.134982.4.391.11.42930 Kike Jarvis MD Follow-up for mutiple problems [id number]-5i75-t342-558149140d23 12/13/2013 12/13/2013 2.16.840.1.417514.4.391.11.20174 Kike Jarvis MD Follow-up for mutiple problems [id number]-[id number] 12/13/2013 12/13/2013 eCW: Kike Jarvis MD Follow-up for mutiple problems 45vxn29i-j0xh-99bf-84n7-9196v45qx16c 12/13/2013 12/13/2013 eCW: Kike Jarvis MD Follow-up for mutiple problems [id number]-x41o-8yvg-o765-abwqn0b0o8b1 12/13/2013 12/13/2013 eCW: Kike Jarvis MD Follow-up for mutiple problems 403gmm6x-wrh3-3025-m57l-c61jth3j53yb 12/13/2013 12/13/2013 eCW: Kike Jarvis MD Follow-up for mutiple problems [id number] 12/13/2013 12/13/2013 eCW: Kike Jarvis MD Follow-up for mutiple problems 6092jv46-1206-634m-x1pu-km63d501xl2g 12/13/2013 12/13/2013 eCW: Kike Jarvis MD Follow-up for mutiple problems [id number]-q846-t860q8q131z2 12/13/2013 12/13/2013 eCW: Kike Jarvis MD Follow-up for mutiple problems [id number] 12/13/2013 12/13/2013 eCW: Kike Jarvis MD Follow-up for mutiple problems [id number] 12/13/2013 12/13/2013 eCW: Kike Jarvis MD Follow-up for mutiple problems gpyb72la-6882-45qt-3437-3855dsb2871s 12/13/2013 12/13/2013 eCW: Kike Jarvis MD Follow-up for mutiple problems w9gpez21-u8y4-4mv5-8q73-241p28n4fa6l 12/13/2013 12/13/2013 2.16.840.1.599883.4.391.11.79468 Kike Jarvis MD Follow-up for mutiple problems 8bw2z8vk-n72o-7547-p45n-1qv79cl9ue51 12/13/2013 12/13/2013 2.16.840.1.881612.4.391.11.61765 Kike Jarvis MD Follow-up for mutiple problems qq5y125q-x757-81v4-6lin-vfin49j7619y 12/13/2013 12/13/2013 2.16.840.1.471764.4.391.11.29666 Kike Jarvis MD Follow-up for mutiple problems [id number] 12/13/2013 12/13/2013 2.16.840.1.418308.4.391.11.77507 Kike Jarvis MD Follow-up for mutiple problems g3mx5g61-1vca-658x-lu10-266m233am4cj 12/13/2013 12/13/2013 2.16.840.1.445653.4.391.11.66254 Kike Jarvis MD Follow-up for mutiple problems [id number]-k7k57829qa58 01/10/2014 01/10/2014 eCW: Kike Jarvis MD Follow-up for mutiple problems 3312tqne-e4w2-4t09e2r3-7g41-5z46-o6803gxi3l5u 01/10/2014 01/10/2014 eCW: Kike Jarvis MD Follow-up for mutiple problems g4gibq56-uw05-21t2-pqo2-870p4d857d8k 01/10/2014 01/10/2014 2.16.840.1.211246.4.391.11.48407 Kike Jarvis MD Follow-up for mutiple problems [id number]-ivrked390c2w 01/10/2014 01/10/2014 eCW: Kike Jarvis MD Follow-up for mutiple problems [id number]-yum4-6d9o-45f9-149k1h29eni8 01/10/2014 01/10/2014 eCW: Kike Jarvis MD Follow-up for mutiple problems [id number]-[id number]-477g22li84c8 01/10/2014 01/10/2014 2.16.840.1.273334.4.391.11.03040 Kike Jarvis MD Follow-up for mutiple problems 4a356s14-3778-38dn-395a-9s58pg54918e 01/10/2014 01/10/2014 2.16.840.1.347126.4.391..05499 Kike Jarvis MD Follow-up for mutiple problems 06057jxq-s6vr-17hm-i6k7-5ff2w0g9737e 01/10/2014 01/10/2014 2.16.840.1.358796.4.391..65335 Kike Jarvis MD Follow-up for mutiple problems 7kb37kc9-u762-9r62-ew87-r262r86594v6 01/10/2014 01/10/2014 2.16.840.1.380716.4.391..77322 Kike Jarvis MD Follow-up for mutiple problems q57f30v0-6tn0-1084-xl8j-3mp672u80nhh 01/10/2014 01/10/2014 2.16.840.1.014061.4.391..87068 Kike Jarvis MD Follow-up for mutiple problems 70117c2b-039a-55l9-6u62-h8112v05353l 01/10/2014 01/10/2014 2.16.840.1.568800.4.391..19915 Kike Jarvis MD Follow-up for mutiple problems 136ev26x-g3pg-3004-jc87-go9481861472 01/10/2014 01/10/2014 2.16.840.1.114771.4.391..44615 Kike Jarvis MD Follow-up for mutiple problems o6fcrn1b-3303-8435-98n5-ydx0we0wgt4j 01/10/2014 01/10/2014 2.16.840.1.538303.4.391..86934 Kike Jarvis MD Follow-up for mutiple problems [id number]-845p-226e-nw5r1i60q30t 01/10/2014 01/10/2014 2.16.840.1.784981.4.391..04113 Kike Jarvis MD Follow-up for mutiple problems 314885l6-8w2c-026k-hl9v-g1gog2951e9o 01/10/2014 01/10/2014 eCW: Kike Jarvis MD Follow-up for mutiple problems [id number]-n085-604x-0j5k-16776h681m8q 01/10/2014 01/10/2014 eCW: Kike Jarvis MD Follow-up for mutiple problems 9s7n3e5i-9g8e-074j-j2wt-7a5m7943y8pw 01/10/2014 01/10/2014 eCW: Kike Jarvis MD Follow-up for mutiple problems bk7kx38r-w990-0r9i-0312-4s359s09w525 01/10/2014 01/10/2014 eCW: Kike Jarvis MD Follow-up for mutiple problems [id number] 01/10/2014 01/10/2014 eCW: Kike Jarvis MD Follow-up for mutiple problems 2635e76e-gp97-48h8-3xzg-h1589wj9vw75 01/10/2014 01/10/2014 eCW: Kike Jarvis MD Follow-up for mutiple problems [id number]-e86l-0q78-14d3-46806j3yc390 01/10/2014 01/10/2014 eCW: Kike Jarvis MD Follow-up for mutiple problems [id number]-daj5-8ir7511572vu 01/10/2014 01/10/2014 eCW: Kike Jarvis MD Follow-up for mutiple problems [id number]-57t7-[id number] 01/10/2014 01/10/2014 eCW: Kike Jarvis MD Follow-up for mutiple problems q4k38ptq-3z54-1275-r292-3u510f0717js 01/10/2014 01/10/2014 2.16.840.1.423557.4.391.11.56702 Kike Jarvis MD Follow-up for mutiple problems 4877h65e-otki-55qv-f68e-k36sb7xp8s29 01/10/2014 01/10/2014 2.16.840.1.625436.4.391..03860 Kike Jarvis MD Follow-up for mutiple problems 34qs6t46-7k9i-35wb-4o7z-440049jwsw1o 01/10/2014 01/10/2014 2.16.840.1.728374.4.391..62755 Kike Jarvis MD Follow-up for mutiple problems 4c6d7g0p-km7d-8joz-6s17-7t2060b3f5fl 01/10/2014 01/10/2014 2.16.840.1.908867.4.391.11.19952 Kike Jarvis MD Follow-up for mutiple problems a8r3t12w-p862-9771-ljx6-23s52807r2mq 01/10/2014 01/10/2014 2.16.840.1.402443.4.391..42851 Kike Jarvis MD Follow-up for mutiple problems 3x1987j3-12n8-10t8-akqb-t55u01m5i594 02/10/2014 02/10/2014 eCW: Kike Jarvis MD Follow-up for mutiple problems [id number]-[id number]-t199-9ep8t0uks4d9 02/10/2014 02/10/2014 eCW: Kike Jarvis MD Follow-up for mutiple problems 6oo7k16a-2mtr-28a6-zb2m-t34g268f021n 02/10/2014 02/10/2014 2.16.840.1.493910.4.391.11.34564 Kike Jarvis MD Follow-up for mutiple problems [id number]-5222-2v4s-xjg2uq85j8h4 02/10/2014 02/10/2014 eCW: Kike Jarvis MD Follow-up for mutiple problems p6wa4f25-bg4t-16c1-39uc-r6l0101074g2 02/10/2014 02/10/2014 eCW: Kike Jarvis MD Follow-up for mutiple problems n16cpkbk-eko8-1091-1814-7m3t87w81m02 02/10/2014 02/10/2014 2.16.840.1.920286.4.391..58481 Kike Jarvis MD Follow-up for mutiple problems h384a8n0-n65d-6yp0-m771-uo7073038i60 02/10/2014 02/10/2014 2.16.840.1.455010.4.391..92382 Kike Jarvis MD Follow-up for mutiple problems e70q846t-4e7e-51k9-j9t3-s2hh141r8ev6 02/10/2014 02/10/2014 2.16.840.1.718102.4.391..26967 Kike Jarvis MD Follow-up for mutiple problems 1044y623-o3t1-16zv-ivl2-rm94v2w0024p 02/10/2014 02/10/2014 2.16.840.1.238943.4.391..60249 Kike Jarvis MD Follow-up for mutiple problems h08okn1n-hl21-1d6g-0034-5290969010nh 02/10/2014 02/10/2014 2.16.840.1.362786.4.391..77992 Kike Jarvis MD Follow-up for mutiple problems 07339j24-0xff-9b3v-q385-l812v1jt81ma 02/10/2014 02/10/2014 2.16.840.1.021883.4.391..02890 Kike Jarvis MD Follow-up for mutiple problems 7834u9yy-u400-8fov-x318-7k8g39l97bpq 02/10/2014 02/10/2014 2.16.840.1.265306.4.391.11.85067 Kike Jarvis MD Follow-up for mutiple problems 3c794vsg-h742-8n77-5y1r-0vr720x23uj2 02/10/2014 02/10/2014 2.16.840.1.878825.4.391.11.40936 Kike Jarvis MD Follow-up for mutiple problems 2v7d21t6-kdt7-882m-747a-g3n7y6l4192y 02/10/2014 02/10/2014 2.16.840.1.002938.4.391.11.65770 Kike Jarvis MD Follow-up for mutiple problems 4s194616-q731-8uf4-4lm4-2p1ouf574b33 02/10/2014 02/10/2014 eCW: Kike Jarvis MD Follow-up for mutiple problems pr65280r-rg92-4844-4ut2-291x37362214 02/10/2014 02/10/2014 eCW: Kike Jarvis MD Follow-up for mutiple problems 341t75t8-192l-2v28-g75b-8y0n34tg8c33 02/10/2014 02/10/2014 eCW: Kike Jarvis MD Follow-up for mutiple problems 4104g15y-56so-05gp-7a4k-jq73391g175w 02/10/2014 02/10/2014 eCW: Kike Jarvis MD Follow-up for mutiple problems s5u05z2b-807y-0z51-sd65-8p3x52k8gq35 02/10/2014 02/10/2014 eCW: Kike Jarvis MD Follow-up for mutiple problems ah17627b-6uh0-3p87-s33x-0342s280uoa0 02/10/2014 02/10/2014 eCW: Kike Jarvis MD Follow-up for mutiple problems [id number]-c7n2-4642753ip6ey 02/10/2014 02/10/2014 eCW: Kike Jarvis MD Follow-up for mutiple problems 0cv95f97-50k7-0178-ri72-25s65989424a 02/10/2014 02/10/2014 2.16.840.1.203717.4.391.11.80950 Kike Jarvis MD Follow-up for mutiple problems fi5x9f3l-2220-8ca1-6r01-n891tqt3h40h 02/10/2014 02/10/2014 2.16.840.1.430760.4.391.11.06746 Kike Jarvis MD Follow-up for mutiple problems a96uaw77-2132-2816-863x-3cd4t9410234 02/10/2014 02/10/2014 2.16.840.1.781065.4.391.11.61581 Kike Jarvis MD Follow-up for mutiple problems 1950dl4j-q4f3-93r4-nw1o-89916w7e7984 02/10/2014 02/10/2014 2.16.840.1.337414.4.391.11.25191 Kike Jarvis MD Follow-up for mutiple problems ci761579-3zs0-4879-4y34-li0162pa74h7 02/10/2014 02/10/2014 2.16.840.1.397050.4.391.11.48418 Kike Jarvis MD Unknown m4f31u5v-u58z-0d38-585g-qtr72s3q741y 03/07/2014 03/07/2014 eCW: Kike Jarvis MD Unknown [id number]-t4o5-4p9uj9nf0d0q 03/07/2014 03/07/2014 eCW: Kike Jarvis MD Unknown [id number]-9m1j-z3g1-n74uuh6d4fm5 03/07/2014 03/07/2014 2.16.840.1.142001.4.391. Kike Jarvis MD Unknown [id number]-t92e-5613-kq95-13e69473d7u7 03/07/2014 03/07/2014 eCW: Kike Jarvis MD Unknown [id number]-bddq-[id number]-u66449a18dh1 03/07/2014 03/07/2014 eCW: Kike Jarvis MD Unknown [id number]-[id number] 03/07/2014 03/07/2014 2.16.840.1.329228.4.391. Kike Jarvis MD Unknown n7l8krm2-9x3x-76kj-c6hu-ld34r125284i 03/07/2014 03/07/2014 2.16.840.1.872815.4.391. Kike Jarvis MD Unknown wq45wu4f-0e85-4583-i815-t11r7998yxmp 03/07/2014 03/07/2014 2.16.840.1.389875.4.391. Kike Jarvis MD Unknown [id number]-81c5-4603s1vye006 03/07/2014 03/07/2014 2.16.840.1.936182.4.391. Kike Jarvis MD Unknown [id number] 03/07/2014 03/07/2014 2.16.840.1.702026.4.391. Kike Jarvis MD Unknown [id number]-1966-1a73-30oi-40f19b12bft7 03/07/2014 03/07/2014 2.16.840.1.778321.4.391. Kike Jarvis MD Unknown [id number]-l00b-wp046a212u5z 03/07/2014 03/07/2014 2.16.840.1.888051.4.391..12707 Kike Jarvis MD Unknown [id number]-h96q-8yx3-t2nq-041g219p17dn 03/07/2014 03/07/2014 2.16.840.1.827443.4.391..92783 Kike Jarvis MD Unknown tx1x6e5i-t1fh-6k95-63e2-ob28fbzu0ytz 03/07/2014 03/07/2014 2.16.840.1.197535.4.391.11.37198 Kike Jarvis MD Unknown [id number]-[id number] 03/07/2014 03/07/2014 eCW: Kike Jarvis MD Unknown [id number]-pv37-7x42-577a-31f2crb3696p 03/07/2014 03/07/2014 eCW: Kike Jarvis MD Unknown [id number]-[id number] 03/07/2014 03/07/2014 eCW: Kike Jarvis MD Unknown [id number]-8sqp-6qb1qw21928t 03/07/2014 03/07/2014 eCW: Kike Jarvis MD Unknown [id number] 03/07/2014 03/07/2014 eCW: Kike Jarvis MD Unknown ui6c9e11-a3jp-404i-a535-cnh1532h3378 03/07/2014 03/07/2014 eCW: Kike Jarvis MD Unknown [id number]-2098-0104-sx13-504037wq228s 03/07/2014 03/07/2014 2.16.840.1.010596.4.391.11.65586 Kike Jarvis MD Unknown [id number]-hm7g-1l1n-rbdi-w29298wo84q1 03/07/2014 03/07/2014 2.16.840.1.068832.4.391..56215 Kike Jarvis MD Unknown [id number]-20pr-2001-5721-h8itl91165q0 03/07/2014 03/07/2014 2.16.840.1.002421.4.391..69854 Kike Jarvis MD Unknown [id number]-1n5u5s013b05 03/07/2014 03/07/2014 2.16.840.1.052156.4.391..96616 Kike Jarvis MD Unknown bs31p3i9-7556-88wt-o61e-680k4j30h938 03/07/2014 03/07/2014 2.16.840.1.373019.4.391..16061 Kiek Jarvis MD Follow-up for mutiple problems acq1b62r-9817-2k8k-6573-0yg4s4g03zh9 03/10/2014 03/10/2014 eCW: Kike Jarvis MD Follow-up for mutiple problems wm7a0i5e-483x-8673-j901-tr619goz0z41 03/10/2014 03/10/2014 eCW: Kike Jarvis MD Follow-up for mutiple problems 59195ps4-0351-07v2-t24t-0sq226453i77 03/10/2014 03/10/2014 2.16.840.1.507010.4.391..97290 Kike Jarvis MD Follow-up for mutiple problems 73wdac68-i6k8-0857-0y29-q246p23f5210 03/10/2014 03/10/2014 eCW: Kike Jarvis MD Follow-up for mutiple problems 9s031v2b-2vr3-08qv-tps4-815802623961 03/10/2014 03/10/2014 eCW: Kike Jarvis MD Follow-up for mutiple problems 0753wezv-6tp5-9g8p9jh0-3h1r-vw89-r816927m6941 03/10/2014 03/10/2014 2.16.840.1.963274.4.391..65792 Kike Jarvis MD Follow-up for mutiple problems 2c8op366-y0au-3t75-n81o-ymb52431ivn0 03/10/2014 03/10/2014 2.16.840.1.270277.4.391..84662 Kike Jarvis MD Follow-up for mutiple problems 57gj0400-2z59-7t35-a59l-7np0aae6rgsg 03/10/2014 03/10/2014 2.16.840.1.861590.4.391..05685 Kike Jarvis MD Follow-up for mutiple problems 154i3lmj-ra1k-1h24-2q65-32470187896n 03/10/2014 03/10/2014 2.16.840.1.060389.4.391..36911 Kike Jarvis MD Follow-up for mutiple problems 5dzd4840-yspa-7ik6-8t21-xcz4292n15k3 03/10/2014 03/10/2014 2.16.840.1.569149.4.391..04919 Kike Jarvis MD Follow-up for mutiple problems 96mwf4pl-7n5f-75c4-n09r-c9c6tu801x76 03/10/2014 03/10/2014 2.16.840.1.611535.4.391..90830 Kike Jarvis MD Follow-up for mutiple problems o1tu262w-m3u2-94j5-k540-261619p61b4y 03/10/2014 03/10/2014 2.16.840.1.439446.4.391..74567 Kike Jarvis MD Follow-up for mutiple problems jl93545x-2eiv-7736-9634-3r4ha3c3s4m8 03/10/2014 03/10/2014 2.16.840.1.803270.4.391.11.51507 Kike Jarvis MD Follow-up for mutiple problems 569l5re6-6562-43q4-18d3-o90u2136h2gf 03/10/2014 03/10/2014 2.16.840.1.244396.4.391.11.14373 Kike Jarvis MD Follow-up for mutiple problems 044a92v7-108k-996y-pa38-2kw79c7s7u63 03/10/2014 03/10/2014 eCW: Kike Jarvis MD Follow-up for mutiple problems fo78zkuf-u04v-07u0-j0nt-3613o9t20bli 03/10/2014 03/10/2014 eCW: Kike Jarvis MD Follow-up for mutiple problems [id number]-4a96-u6e5-n8zd6y231383 03/10/2014 03/10/2014 eCW: Kike Jarvis MD Follow-up for mutiple problems 8r81d4s7-45f1-78ms-j72r-jht74er3b3g3 03/10/2014 03/10/2014 eCW: Kike Jarvis MD Follow-up for mutiple problems 2044p992-17rm-286g-y56d-i454192h17b8 03/10/2014 03/10/2014 eCW: Kike Jarvis MD Follow-up for mutiple problems 70k5iv71-16sd-1898-xd90-i653abe3894w 03/10/2014 03/10/2014 eCW: Kike Jarvis MD Follow-up for mutiple problems 9j077s65-001m-7277-t5gy-p0ps425dv903 03/10/2014 03/10/2014 2.16.840.1.601171.4.391.11.77201 Kike Jarvis MD Follow-up for mutiple problems g4t19l78-5swn-1n28-4190-i126i2s85tt0 03/10/2014 03/10/2014 2.16.840.1.593974.4.391.11.48277 Kike Jarvis MD Follow-up for mutiple problems 0o7e64uz-8wpt-7vrw-433x-c234317103ig 03/10/2014 03/10/2014 2.16.840.1.895972.4.391.11.70154 Kike Jarvis MD Follow-up for mutiple problems 4m7627fz-73h4-14v7-lyh7-22821tf540i8 03/10/2014 03/10/2014 2.16.840.1.908632.4.391.11.23485 Kike Jarvis MD Follow-up for mutiple problems v374200s-1989-6270-z8l5-80781e05g66k 03/10/2014 03/10/2014 2.16.840.1.165578.4.391.11.01304 Kike Jarvis MD Follow-up for mutiple problems w66qj5h8-354d-1904-0176-176370j96jm2 04/09/2014 04/09/2014 eCW: Kike Jarvis MD Follow-up for mutiple problems 784bw059-b3yy-4874-x108-pa608p32287l 04/09/2014 04/09/2014 eCW: Kike Jarvis MD Follow-up for mutiple problems 8ad284c9-5131-65v1-3qq1-n931x2j14381 04/09/2014 04/09/2014 2.16.840.1.290648.4.391.11.59587 Kike Jarvis MD Follow-up for mutiple problems 47347565-6254-08et-b44j-g1114vp8vc90 04/09/2014 04/09/2014 eCW: Kike Jarvis MD Follow-up for mutiple problems 5113y0j9-696l-6461-m9wq-5lr0l971db9u 04/09/2014 04/09/2014 eCW: Kike Jarvis MD Follow-up for mutiple problems 9f890w8t-ccdq-4549-fom8-1ph9cmr40oh5 04/09/2014 04/09/2014 2.16.840.1.772601.4.391..21456 Kike Jarvis MD Follow-up for mutiple problems fa031083-s878-57j4-62nd-1hx9y9vw1930 04/09/2014 04/09/2014 2.16.840.1.105882.4.391.11.17565 Kike Jravis MD Follow-up for mutiple problems sa4qxnc6-fdv4-68k6-4uyu-uz134s341859 04/09/2014 04/09/2014 2.16.840.1.900634.4.391..90843 Kike Jarvis MD Follow-up for mutiple problems 8ll7786z-97qk-1884-80pt-9cco83248du9 04/09/2014 04/09/2014 2.16.840.1.427529.4.391..48316 Kike Jarvis MD Follow-up for mutiple problems 13v65905-6pw3-240p-175l-53r82883122s 04/09/2014 04/09/2014 2.16.840.1.610314.4.391..60816 Kike Jarvis MD Follow-up for mutiple problems 945r8228-3sr5-9l5j-vr29-g8k00w457ze7 04/09/2014 04/09/2014 2.16.840.1.268022.4.391..05686 Kike Jarvis MD Follow-up for mutiple problems 5hsz75i1-qdz0-8g65-0776-gd6gk626p701 04/09/2014 04/09/2014 2.16.840.1.145923.4.391..06861 Kike Jarvis MD Follow-up for mutiple problems k632g8n3-1321-73i8-3792-55fs62p48688 04/09/2014 04/09/2014 2.16.840.1.392000.4.391..70847 Kike Jarvis MD Follow-up for mutiple problems 0lt012v8-6805-7142-vr34-d62444s7ni33 04/09/2014 04/09/2014 2.16.840.1.312020.4.391..86267 Kike Jarvis MD Follow-up for mutiple problems 39hn9052-9667-6698-xu21-501f697bp8em 04/09/2014 04/09/2014 eCW: Kike Jarvis MD Follow-up for mutiple problems 68v170r1-s76m-5z4y-95ls-n2234669b8nh 04/09/2014 04/09/2014 eCW: Kike Jarvis MD Follow-up for mutiple problems 8936m679-485n-7931-7b63-077f4eikd42t 04/09/2014 04/09/2014 eCW: Kike Jarvis MD Follow-up for mutiple problems 43xwf4bq-09i1-03y4-fpyo-y82c917z0pg3 04/09/2014 04/09/2014 eCW: Kike Jarvis MD Follow-up for mutiple problems 23p75165-6852-5848-n58e-251bv16n1458 04/09/2014 04/09/2014 2.16.840.1.972764.4.391..11521 Kike Jarvis MD Follow-up for mutiple problems 1a568868-g283-7c6h-o726-u40291d1xn9d 04/09/2014 04/09/2014 2.16.840.1.341062.4.391..72459 Kike Jarvis MD Follow-up for mutiple problems 7p8zgp17-wp6h-0x14-8wil-8v73g5xm882i 04/09/2014 04/09/2014 2.16.840.1.847758.4.391.11.70800 Kike Jarvis MD Follow-up for mutiple problems 33os65e8-59si-24v2-f477-rvu1d017t024 04/09/2014 04/09/2014 2.16.840.1.960889.4.391.11.74109 Kike Jarvis MD Follow-up for mutiple problems 7l408d7h-4547-91us-47j7-sz745c3u46qd 04/09/2014 04/09/2014 2.16.840.1.129208.4.391.11.71385 Kike Jarvis MD Follow-up for mutiple problems 4u284903-0657-8t54-6z31-9sft43xlz8o3 05/08/2014 05/08/2014 eCW: Kike Jarvis MD Follow-up for mutiple problems 78371o94-7vh2-94k1-x6qg-608sa78c7f8h 05/08/2014 05/08/2014 eCW: Kike Jarvis MD Follow-up for mutiple problems 3y426zw5-a776-56j2-w016-4234z90p923n 05/08/2014 05/08/2014 2.16.840.1.451851.4.391.11.64976 Kike Jarvis MD Follow-up for mutiple problems w39240e8-n71m-50oh-7ckc-x99p11706d6z 05/08/2014 05/08/2014 eCW: Kike Jarvis MD Follow-up for mutiple problems o699h9td-ro84-3057-88y1-4v16wl6l7el5 05/08/2014 05/08/2014 eCW: Kike Jarvis MD Follow-up for mutiple problems e46bi862-x607-864m-88md-34z30n3pb7z1 05/08/2014 05/08/2014 2.16.840.1.700803.4.391..49837 Kike Jarvis MD Follow-up for mutiple problems k1b07814-s818-3w96-5125-d1i8737v2525 05/08/2014 05/08/2014 2.16.840.1.871290.4.391..55279 Kike Jarvis MD Follow-up for mutiple problems y91x1em8-03y3-2619-g214-29xgw40y0o81 05/08/2014 05/08/2014 2.16.840.1.536252.4.391..79483 Kike Jarvis MD Follow-up for mutiple problems 1339oh05-4zl6-7yrt-6496-59791s5pmxu1 05/08/2014 05/08/2014 2.16.840.1.825452.4.391..92898 Kike Jarvis MD Follow-up for mutiple problems l03u316p-7736-141l-0068-947094sv5206 05/08/2014 05/08/2014 2.16.840.1.103166.4.391..06141 Kike Jarvis MD Follow-up for mutiple problems 776gdvr3-mn99-4vj4-em50-01x8y443daem 05/08/2014 05/08/2014 2.16.840.1.757762.4.391..33020 Kike Jarvis MD Follow-up for mutiple problems 9804526k-255p-0rd0-o337-40533613934r 05/08/2014 05/08/2014 2.16.840.1.981724.4.391..19127 Kike Jarvis MD Follow-up for mutiple problems 6j715t00-wvnm-1e82-729f-7477093257w2 05/08/2014 05/08/2014 2.16.840.1.065160.4.391.11.09000 Kike Jarvis MD Follow-up for mutiple problems ue81002v-2w2j-3c1t-39v9-917s604vqo46 05/08/2014 05/08/2014 2.16.840.1.966273.4.391.11.79962 Kike Jarvis MD Follow-up for mutiple problems j27pe355-fz82-97as-4w29-i53dwh48b67i 05/08/2014 05/08/2014 eCW: Kike Jarvis MD Follow-up for mutiple problems 1847q5pc-887g-2049-x577-431i561j9294 05/08/2014 05/08/2014 eCW: Kike Jarvis MD Follow-up for mutiple problems 43vogmd8-8t86-2lpx-05qe-q653i103w896 05/08/2014 05/08/2014 eCW: Kike Jarvis MD Follow-up for mutiple problems k65x850h-3647-8826-74s4-2244m3485132 05/08/2014 05/08/2014 eCW: Kike Jarvis MD Follow-up for mutiple problems 53gs6ci0-27ek-08fm-8y9q-z395w6j3kbxr 05/08/2014 05/08/2014 2.16.840.1.618829.4.391.11.51383 Kike Jarvis MD Follow-up for mutiple problems z296e03k-9518-2i21-3o46-2q789ej8c19t 05/08/2014 05/08/2014 2.16.840.1.845835.4.391.11.98821 Kike Jarvis MD Follow-up for mutiple problems m7o20811-t230-5j69-jjh1-i41w0784i5bi 05/08/2014 05/08/2014 2.16.840.1.138989.4.391.11.66786 Kike Jarvis MD Follow-up for mutiple problems 4amkcv10-g4f7-0u34-x07n-gq347193z392 05/08/2014 05/08/2014 2.16.840.1.488383.4.391.11.12873 Kike Jarvis MD Follow-up for mutiple problems 1c60482n-4c18-3vf1-4s21-i2iq4p38c771 05/08/2014 05/08/2014 2.16.840.1.656321.4.391.11.16334 [facility] [id number] 05/12/2014 05/12/2014 [facility] Kike Jarvis MD Follow-up for mutiple problems 5i4e450n-c237-2fbj-w674-esy343ap9296 06/06/2014 06/06/2014 eCW: Kkie Jarvis MD Follow-up for mutiple problems 17985a81-295i-4c9d-q3w0-929w942p13ie 06/06/2014 06/06/2014 eCW: Kike Jarvis MD Follow-up for mutiple problems y7l4791a-xtwm-0073-k1x5-121c7m32t9k9 06/06/2014 06/06/2014 2.16.840.1.090654.4.391.11.14558 Kike Jarvis MD Follow-up for mutiple problems 892c3br9-3zs2-3209-673d-938x36919124 06/06/2014 06/06/2014 eCW: Kike Jarvis MD Follow-up for mutiple problems y1r3y3n2-x589-5z80-2344-3586tqu8033f 06/06/2014 06/06/2014 eCW: Kike Jarvis MD Follow-up for mutiple problems n056976h-u93j-57km-154t-wp53i177t936 06/06/2014 06/06/2014 2.16.840.1.100372.4.391..39386 Kike Jarvis MD Follow-up for mutiple problems b747wm08-9476-6393-o671-xnl98e948cv7 06/06/2014 06/06/2014 2.16.840.1.824601.4.391.11.05876 Kike Jarvis MD Follow-up for mutiple problems o9gksoxn-975q-9yw5-l6d1-7u44u894kvr2 06/06/2014 06/06/2014 2.16.840.1.840306.4.391..69490 Kike Jarvis MD Follow-up for mutiple problems 560e65xv-6920-5gk6-9f2i-cyo0y369r2lk 06/06/2014 06/06/2014 2.16.840.1.024289.4.391.11.19144 Kike Jarvis MD Follow-up for mutiple problems 07018y0h-9099-4h4h-t880-105201p3a0ce 06/06/2014 06/06/2014 2.16.840.1.177866.4.391.11.36639 Kike Jarvis MD Follow-up for mutiple problems r307wd61-f529-6017-49u0-79zp5945474w 06/06/2014 06/06/2014 2.16.840.1.295522.4.391.11.26792 Kike Jarvis MD Follow-up for mutiple problems 862r026t-d627-401b-h3v7-42r7994hak37 06/06/2014 06/06/2014 2.16.840.1.404167.4.391.11.14160 Kike Jarvis MD Follow-up for mutiple problems 38gza413-24q1-71b0-e6j8-dm94sf2248td 06/06/2014 06/06/2014 2.16.840.1.586918.4.391.11.18067 Kike Jarvis MD Follow-up for mutiple problems 26r05xnc-18d3-3663-0et7-498q5vb78529 06/06/2014 06/06/2014 2.16.840.1.599535.4.391.11.95417 Kike Jarvis MD Follow-up for mutiple problems c968k315-1022-5652-kz68-8fu99r465591 06/06/2014 06/06/2014 eCW: Kike Jarvis MD Follow-up for mutiple problems 160r4u89-ltcf-09am-88b8-64qm00ki1g73 06/06/2014 06/06/2014 eCW: Kike Jarvis MD Follow-up for mutiple problems el6269b4-pz0a-0xk7-vh7z-6bv9oh8dx879 06/06/2014 06/06/2014 eCW: Kike Jarvis MD Follow-up for mutiple problems 8b7g368m-1v7g-8iko-8q9r-51i859815cem 06/06/2014 06/06/2014 eCW: Kike Jarvis MD Follow-up for mutiple problems 6734217z-h829-479o-3004-6e59vzxly6r6 06/06/2014 06/06/2014 2.16.840.1.883068.4.391.11.64151 Kike Jarvis MD Follow-up for mutiple problems l45k4ci2-57as-93k3-fd3t-l5g95fpc82li 06/06/2014 06/06/2014 2.16.840.1.346377.4.391.11.95531 Kike Jarvis MD Follow-up for mutiple problems 67g368su-200i-864k-679n-m5d1n61075w2 06/06/2014 06/06/2014 2.16.840.1.642995.4.391.11.43007 Kike Jarvis MD Follow-up for mutiple problems w491639g-1c19-874j-9a6c-85u081p4090f 06/06/2014 06/06/2014 2.16.840.1.880606.4.391..42713 Kike Jarvis MD Follow-up for mutiple problems we01215q-l602-1833-h634-536187w74h51 06/06/2014 06/06/2014 2.16.840.1.636781.4.391..72742 Kike Jarvis MD Unknown [id number] 06/16/2014 06/16/2014 eCW: Kike Jarvis MD Unknown [id number] 06/16/2014 06/16/2014 eCW: Kike Jarvis MD Unknown [id number] 06/16/2014 06/16/2014 2.16.840.1.283400.4.391.68 Kike Jarvis MD Unknown [id number] 06/16/2014 06/16/2014 eCW: Kike Jarvis MD Unknown [id number] 06/16/2014 06/16/2014 eCW: Kike Jarvis MD Unknown [id number] 06/16/2014 06/16/2014 2.16.840.1.568796.4.391. Kike Jarvis MD Unknown [id number] 06/16/2014 06/16/2014 2.16.840.1.895147.4.391. Kike Jarvis MD Unknown [id number] 06/16/2014 06/16/2014 2.16.840.1.931779.4.391. Kike Jarvis MD Unknown [id number] 06/16/2014 06/16/2014 2.16.840.1.474230.4.391. Kike Jarvis MD Unknown [id number] 06/16/2014 06/16/2014 2.16.840.1.624218.4.391. Kike Jarvis MD Unknown [id number] 06/16/2014 06/16/2014 2.16.840.1.189151.4.391.68 Kike Jarvis MD Unknown [id number] 06/16/2014 06/16/2014 2.16.840.1.193998.4.391.68 Kike Jarvis MD Unknown [id number] 06/16/2014 06/16/2014 2.16.840.1.507721.4.391.68 Kike Jarvis MD Unknown [id number] 06/16/2014 06/16/2014 2.16.840.1.938909.4.391.68 Kike Jarvis MD Unknown [id number] 06/16/2014 06/16/2014 eCW: Kike Jarvis MD Unknown [id number] 06/16/2014 06/16/2014 eCW: Kike Jarvis MD Unknown [id number] 06/16/2014 06/16/2014 eCW: Kike Jarvis MD Unknown [id number] 06/16/2014 06/16/2014 eCW: Kike Jarvis MD Unknown [id number] 06/16/2014 06/16/2014 2.16.840.1.401236.4.391.11.86333 Kike Jarvis MD Unknown [id number] 06/16/2014 06/16/2014 2.16.840.1.231255.4.391.11.76328 Kike Jarvis MD Unknown [id number] 06/16/2014 06/16/2014 2.16.840.1.523778.4.391.11.45058 Kike Jarvis MD Unknown [id number] 06/16/2014 06/16/2014 2.16.840.1.383869.4.391.11.13766 Kike Jarvis MD Unknown [id number] 06/16/2014 06/16/2014 2.16.840.1.836971.4.391.11.73887 Kike Jarvis MD Follow-up for mutiple problems [id number] 07/12/2014 07/12/2014 eCW: Kike Jarvis MD Follow-up for mutiple problems [id number] 07/12/2014 07/12/2014 eCW: Kike Jarvis MD Follow-up for mutiple problems [id number] 07/12/2014 07/12/2014 2.16.840.1.427102.4.391.11.84899 Kike Jarvis MD Follow-up for mutiple problems [id number] 07/12/2014 07/12/2014 eCW: Kike Jarvis MD Follow-up for mutiple problems [id number] 07/12/2014 07/12/2014 eCW: Kike Jarvis MD Follow-up for mutiple problems [id number]-3f1j87px5s18 07/12/2014 07/12/2014 2.16.840.1.875468.4.391.11.81451 Kike Jarvis MD Follow-up for mutiple problems [id number]-lrw682y9tv37 07/12/2014 07/12/2014 2.16.840.1.021125.4.391.11.46402 Kike Jarvis MD Follow-up for mutiple problems [id number]-qdud-919r702v4ha0 07/12/2014 07/12/2014 2.16.840.1.656703.4.391.11.44654 Kike Jarvis MD Follow-up for mutiple problems [id number] 07/12/2014 07/12/2014 2.16.840.1.639167.4.391.11.30366 Kike Jarvis MD Follow-up for mutiple problems [id number]-so53-0h69vzqn78o1 07/12/2014 07/12/2014 2.16.840.1.189201.4.391.11.08192 Kike Jarvis MD Follow-up for mutiple problems [id number] 07/12/2014 07/12/2014 2.16.840.1.052250.4.391.11.82191 Kike Jarvis MD Follow-up for mutiple problems [id number] 07/12/2014 07/12/2014 2.16.840.1.492367.4.391.11.80559 Kike Jarvis MD Follow-up for mutiple problems [id number] 07/12/2014 07/12/2014 2.16.840.1.853278.4.391.11.90095 Kike Jarvis MD Follow-up for mutiple problems [id number]-32mc4ghe090z 07/12/2014 07/12/2014 2.16.840.1.500184.4.391.11.22731 Kike Jarvis MD Follow-up for mutiple problems [id number] 07/12/2014 07/12/2014 eCW: Kike Jarvis MD Follow-up for mutiple problems [id number] 07/12/2014 07/12/2014 eCW: Kike Jarvis MD Follow-up for mutiple problems [id number] 07/12/2014 07/12/2014 eCW: Kike Jarvis MD Follow-up for mutiple problems [id number] 07/12/2014 07/12/2014 eCW: Kike Jarvis MD Follow-up for mutiple problems [id number]-[id number]-wapay9653s2c 07/12/2014 07/12/2014 2.16.840.1.952543.4.391.11.38367 Kike Jarvis MD Follow-up for mutiple problems [id number]-7i57-41p113nw60s9 07/12/2014 07/12/2014 2.16.840.1.451057.4.391.11.27080 Kike Jarvis MD Follow-up for mutiple problems [id number]-79vd-ix87-52r420kl3w41 07/12/2014 07/12/2014 2.16.840.1.575235.4.391.11.68606 Kike Jarvis MD Follow-up for mutiple problems [id number] 07/12/2014 07/12/2014 2.16.840.1.567035.4.391.11.65723 Kike Jarvis MD Follow-up for mutiple problems [id number] 07/12/2014 07/12/2014 2.16.840.1.381557.4.391.11.37998 Kike Jarvis MD Follow-up for mutiple problems [id number] 08/11/2014 08/11/2014 eCW: Kike Jarvis MD Follow-up for mutiple problems [id number]-jyx7o5x46g08 08/11/2014 08/11/2014 2.16.840.1.942230.4.391.11.02322 Kike Jarvis MD Follow-up for mutiple problems [id number] 08/11/2014 08/11/2014 eCW: Kike Jarvis MD Follow-up for mutiple problems [id number]-l0w271ht7744 08/11/2014 08/11/2014 eCW: Kike Jarvis MD Follow-up for mutiple problems [id number] 08/11/2014 08/11/2014 2.16.840.1.041469.4.391.11.47501 Kike Jarvis MD Follow-up for mutiple problems [id number] 08/11/2014 08/11/2014 2.16.840.1.999336.4.391.11.95629 Kike Jarvis MD Follow-up for mutiple problems [id number] 08/11/2014 08/11/2014 2.16.840.1.688730.4.391.11.62753 Kike Jarvis MD Follow-up for mutiple problems xrt6kco3-9of7-3g27-2b92-38q4rlg975i4 08/11/2014 08/11/2014 2.16.840.1.483953.4.391.11.61273 Kike Jarvis MD Follow-up for mutiple problems 85co83m1-a1e8-8s5p-z64a-99qn0t6523w6 08/11/2014 08/11/2014 2.16.840.1.032184.4.391.11.75801 Kike Jarvis MD Follow-up for mutiple problems [id number]-yi0q-27c4wy6j4d23 08/11/2014 08/11/2014 2.16.840.1.534994.4.391.11.66846 Kike Jarvis MD Follow-up for mutiple problems ic1jvzyx-6g0h-3902-i47m-s2063k6q3519 08/11/2014 08/11/2014 2.16.840.1.430739.4.391.11.88049 Kike Jarvis MD Follow-up for mutiple problems [id number]-k344-xbt41895c645 08/11/2014 08/11/2014 2.16.840.1.187381.4.391.11.98436 Kike Jarvis MD Follow-up for mutiple problems [id number]-[id number] 08/11/2014 08/11/2014 2.16.840.1.971689.4.391.11.70869 Kike Jarvis MD Follow-up for mutiple problems enb98cuw-2i46-69z2-gp75-knt6599z5h7t 08/11/2014 08/11/2014 eCW: Kike Jarvis MD Follow-up for mutiple problems 56g65966-6383-15j8-2v6p-30z2f2r5i078 08/11/2014 08/11/2014 eCW: Kike Jarvis MD Follow-up for mutiple problems 00boz78z-625h-5y55-n0o5-j13w801n0697 08/11/2014 08/11/2014 eCW: Kike Jarvis MD Follow-up for mutiple problems x9m936gu-fpu7-09f6-9v1a-496ap031hy6w 08/11/2014 08/11/2014 eCW: Kike Jarvis MD Follow-up for mutiple problems l2173k88-8v78-3nf0-2zuw-5w9n971ea6kj 08/11/2014 08/11/2014 2.16.840.1.387693.4.391.11.40141 Kike Jarvis MD Follow-up for mutiple problems f0902k80-727b-3pew-3u91-j5242x3ct802 08/11/2014 08/11/2014 2.16.840.1.513365.4.391.11.44016 Kike Jarvis MD Follow-up for mutiple problems 82d250j4-7x40-1m60-7jrj-13vp08526949 08/11/2014 08/11/2014 2.16.840.1.484231.4.391.11.29051 Kike Jarvis MD Follow-up for mutiple problems m4519dg5-i70e-3251-e663-jf544u561510 08/11/2014 08/11/2014 2.16.840.1.845597.4.391.11.17341 Kike Jarvis MD Follow-up for mutiple problems 8g93p75j-4030-4e51-0awb-5j0i38z2g1f2 08/11/2014 08/11/2014 2.16.840.1.749747.4.391.11.24430 [facility] [id number] Kike Jarvis 08/20/2014 08/21/2014 [facility] Kike Jarvis MD Follow-up for mutiple problems s4im56xu-r9ah-0em4-mdh1-q94ef1594588 09/09/2014 09/09/2014 eCW: Kike Jarvis MD Follow-up for mutiple problems 651lf6lz-6oyp-40f5-l8r7-o4s568534832 09/09/2014 09/09/2014 2.16.840.1.011017.4.391.11.10095 Kike Jarvis MD Follow-up for mutiple problems re84o6q8-143m-4l8s-688j-645uxok6w7pn 09/09/2014 09/09/2014 eCW: Kike Jarvis MD Follow-up for mutiple problems 8j9yz82h-37py-341u-5221-532y4nqfk625 09/09/2014 09/09/2014 eCW: Kike Jarvis MD Follow-up for mutiple problems 1jdf0112-51r2-4476-8n9l-y17ywh9xuv69 09/09/2014 09/09/2014 2.16.840.1.391065.4.391.11.77628 Kike Jarvis MD Follow-up for mutiple problems 67r5h035-a5w2-38pn-vn93-98g800176np9 09/09/2014 09/09/2014 2.16.840.1.080749.4.391..59316 Kike Jarvis MD Follow-up for mutiple problems 8y4ip11k-x433-295x-et40-519gnv839607 09/09/2014 09/09/2014 2.16.840.1.432174.4.391..45571 Kike Jarvis MD Follow-up for mutiple problems 011gy249-03k8-30pv-8k9h-kq4v5l271kw8 09/09/2014 09/09/2014 2.16.840.1.320313.4.391..16328 Kike Jarvis MD Follow-up for mutiple problems 9z5d2904-a910-8p9w-887v-6099nmxs670z 09/09/2014 09/09/2014 2.16.840.1.269885.4.391..68357 Kike Jarvis MD Follow-up for mutiple problems 2p4y89nk-c0v7-1k3h-491h-aprf675489b4 09/09/2014 09/09/2014 2.16.840.1.328572.4.391..05491 Kike Jarvis MD Follow-up for mutiple problems 6v79qv6m-6ycv-31e7-a040-18259510c6ek 09/09/2014 09/09/2014 2.16.840.1.735944.4.391..42357 Kike Jarvis MD Follow-up for mutiple problems 4508eb0v-oi7n-1111-s729-5tm8w0fc90t2 09/09/2014 09/09/2014 2.16.840.1.941094.4.391..66967 Kike Jarvis MD Follow-up for mutiple problems 8x0ji998-9n11-2cu4-p339-107z00456021 09/09/2014 09/09/2014 2.16.840.1.114385.4.391..71958 Kike Jarvis MD Follow-up for mutiple problems 111p0nna-5185-0714-0a8t-76y0up404908 09/09/2014 09/09/2014 eCW: Kike Jarvis MD Follow-up for mutiple problems ox90r7o7-4427-119x-kbo1-1yx4hhhr39fv 09/09/2014 09/09/2014 eCW: Kike Jarvis MD Follow-up for mutiple problems 09l2vprz-9uq2-4e4e-931x-m1q71w9988x4 09/09/2014 09/09/2014 eCW: Kike Jarvis MD Follow-up for mutiple problems pc6lv2t1-847n-6k78-27b3-z481746fv4x8 09/09/2014 09/09/2014 eCW: Kike Jarvis MD Follow-up for mutiple problems 89c433w0-i9b4-7139-5707-il86l55tsk3q 09/09/2014 09/09/2014 2.Nelson.840.1.327897.4.391.11.63721 Kike Jarvis MD Follow-up for mutiple problems 8x50vhez-5414-64lu-r383-6r5v40oap1jt 09/09/2014 09/09/2014 2.16.840.1.539044.4.391.11.17433 Kike Jarvis MD Follow-up for mutiple problems 8s9326j9-5861-7v25-d1w8-4z73y2ud653n 09/09/2014 09/09/2014 2.16.840.1.773397.4.391.11.69938 Kike Jarvis MD Follow-up for mutiple problems 8j3832j0-615v-46f1-15bh-g8r7ila14826 09/09/2014 09/09/2014 2.16.840.1.574852.4.391.11.28110 Kike Jarvis MD Follow-up for mutiple problems 36x8r390-84vi-8vym-67x5-4w655obrua12 09/09/2014 09/09/2014 2.16.840.1.156342.4.391.11.47679 Kike Jarvis MD Follow-up for mutiple problems 929e31v2-1784-13v8-ul82-66t035ij3vv0 10/09/2014 10/09/2014 2.16.840.1.263938.4.391.11.20841 Kike Jarvis MD Follow-up for mutiple problems 8y28w2pw-6447-69ve-v1ji-nj95cs7395l4 10/09/2014 10/09/2014 eCW: Kike Jarvis MD Follow-up for mutiple problems 359ki12o-d72b-9c77-993x-om483tki0m9q 10/09/2014 10/09/2014 eCW: Kike Jarvis MD Follow-up for mutiple problems 3k3srjx6-r53v-4dk2-lfbc-38r241y1085g 10/09/2014 10/09/2014 2.16.840.1.526084.4.391.11.59964 Kike Jarvis MD Follow-up for mutiple problems 809y54zj-a721-411u-0r3b-4lqj1c37v67j 10/09/2014 10/09/2014 2.16.840.1.196126.4.391.11.59814 Kike Jarvis MD Follow-up for mutiple problems 618hv902-t169-978e-6537-tj1ewso238gw 10/09/2014 10/09/2014 2.16.840.1.667775.4.391.11.53613 Kike Jarvis MD Follow-up for mutiple problems ozulg778-b728-98qq-qsy6-ztxu39w3n49l 10/09/2014 10/09/2014 2.16.840.1.090913.4.391.11.28205 Kike Jarvis MD Follow-up for mutiple problems 2499g106-3g43-58s4-0992-rl50705ga827 10/09/2014 10/09/2014 2.16.840.1.569994.4.391.11.68349 Kike Jravis MD Follow-up for mutiple problems 6s5773pu-6x9a-608t-8812-5z4r314453p1 10/09/2014 10/09/2014 2.16.840.1.975448.4.391.11.27286 Kike Jarvis MD Follow-up for mutiple problems 5z87590s-u2zn-1yq2-6n4t-c7vqm5373z60 10/09/2014 10/09/2014 2.16.840.1.477733.4.391.11.18956 Kike Jarvis MD Follow-up for mutiple problems 45bz7n07-2fhe-06ou-78p1-2228e7q42o18 10/09/2014 10/09/2014 2.16.840.1.713824.4.391.11.20438 Kike Jarvis MD Follow-up for mutiple problems 2ia90kuy-84w9-3122-rpq8-1id7859195k9 10/09/2014 10/09/2014 2.16.840.1.651570.4.391.11.50151 Kike Jarvis MD Follow-up for mutiple problems 439b0700-k950-4w82-3r12-71fa4568zh2i 10/09/2014 10/09/2014 eCW: Kike Jarvis MD Follow-up for mutiple problems 37511kg4-9500-1rs8-p861-g543uwr19b1u 10/09/2014 10/09/2014 eCW: Kike Jarvis MD Follow-up for mutiple problems oa35guyq-b465-8qw9-qdk3-7lsm8k7sdka4 10/09/2014 10/09/2014 eCW: Kike Jarvis MD Follow-up for mutiple problems 1c802d65-6sck-6227-ad38-q2cp367q895q 10/09/2014 10/09/2014 eCW: Kike Jarvis MD Follow-up for mutiple problems 798xne85-zors-681e-x749-753z4y93vr6h 10/09/2014 10/09/2014 2.16.840.1.449549.4.391.11.60698 Kike Jarvis MD Follow-up for mutiple problems 6zn6f343-3p2g-2548-o13y-2105r7564083 10/09/2014 10/09/2014 2.16.840.1.886956.4.391.11.12624 Kike Jarvis MD Follow-up for mutiple problems 225r887q-ya8y-266g-v0a9-8lkhyvm0k6ev 10/09/2014 10/09/2014 2.16.840.1.847549.4.391.11.90864 Kike Jarvis MD Follow-up for mutiple problems 858b9162-338l-0h64-s685-2q181544228g 10/09/2014 10/09/2014 2.16.840.1.119247.4.391.11.26520 Kike Jarvis MD Follow-up for mutiple problems 3v9bp1k5-608z-7vz8-9q6s-e432pd971fc7 10/09/2014 10/09/2014 2.16.840.1.457764.4.391..44801 Kike Jarvis MD Follow-up for mutiple problems 2dwj6329-3918-3mfw-7fl9-836mb3d965q1 11/12/2014 11/12/2014 2.16.840.1.691305.4.391.11.98913 Kike Jarvis MD Follow-up for mutiple problems 5x41i442-6s7k-253h-92q0-zk5377rz4lc5 11/12/2014 11/12/2014 eCW: Kike Jarvis MD Follow-up for mutiple problems y7txwacg-i39s-8c58-uipk-uf1w2kf61h64 11/12/2014 11/12/2014 2.16.840.1.240143.4.391.11.35775 Kike Jarvis MD Follow-up for mutiple problems 128xm965-c3ih-336r-02ph-8b629e07wfm5 11/12/2014 11/12/2014 2.16.840.1.913421.4.391.11.89880 Kike Jarvis MD Follow-up for mutiple problems 6922oj6g-459t-17n3-2p40-6b8858044337 11/12/2014 11/12/2014 2.16.840.1.520714.4.391.11.86673 Kike Jarvis MD Follow-up for mutiple problems u44r50bk-541p-9623-n4zj-3yxss386k543 11/12/2014 11/12/2014 2.16.840.1.801438.4.391..58182 Kike Jarvis MD Follow-up for mutiple problems 30s7p725-n289-09ya-8779-g07yph3p423k 11/12/2014 11/12/2014 2.16.840.1.727936.4.391..58828 Kike Jarvis MD Follow-up for mutiple problems 0h85llr7-9h10-4539-2815-51587sg23l8f 11/12/2014 11/12/2014 2.16.840.1.056151.4.391.11.27306 Kike Jarvis MD Follow-up for mutiple problems 9uhk023t-7t79-3256-h6ok-8q2sd79048y4 11/12/2014 11/12/2014 2.16.840.1.191743.4.391.11.89288 Kike Jarvis MD Follow-up for mutiple problems v84179m6-u152-02l4-q88u-1368s3cjq633 11/12/2014 11/12/2014 2.16.840.1.657254.4.391..78003 Kike Jarvis MD Follow-up for mutiple problems 817t20o2-12r3-2zy8-2k0h-4d7n36626958 11/12/2014 11/12/2014 2.16.840.1.769653.4.391..75318 Kike Jarvis MD Follow-up for mutiple problems 873m5263-72ro-03vq-7038-dg9m65807604 11/12/2014 11/12/2014 eCW: Kike Jarvis MD Follow-up for mutiple problems 35e3m59l-y070-0b1c-f328-uz950613767b 11/12/2014 11/12/2014 eCW: Kike Jarvis MD Follow-up for mutiple problems 93p40l56-4j77-395y-351m-26ggc85iuy9t 11/12/2014 11/12/2014 eCW: Kike Jarvis MD Follow-up for mutiple problems 0ndk65nr-l094-808g-4npl-yl3vc1gz7o2n 11/12/2014 11/12/2014 eCW: Kike Jarvis MD Follow-up for mutiple problems l9k189yx-qzp0-9803-v214-qz421i0ui245 11/12/2014 11/12/2014 2.16.840.1.776882.4.391. Kike Jarvis MD Follow-up for mutiple problems 4yf6003i-w6h9-8le9-542f-2216065604z8 11/12/2014 11/12/2014 2.16.840.1.952546.4.391.. Kike Jarvis MD Follow-up for mutiple problems bc06l757-r785-7m94-s4p6-285693td655q 11/12/2014 11/12/2014 2.16.840.1.841603.4.391.11.77283 Kike Jarvis MD Follow-up for mutiple problems aq2f8140-2752-7827-5i7i-h6iz47364121 11/12/2014 11/12/2014 2.16.840.1.586255.4.391.11.77947 Kike Jarvis MD Follow-up for mutiple problems 78k6135j-f50s-1a4b-12qc-78k489t37yml 11/12/2014 11/12/2014 2.16.840.1.488111.4.391.11.41824 Kike Jarvis MD Follow-up for mutiple problems y571ds76-8369-5o9h-t8k6-d330682wja86 12/12/2014 12/12/2014 2.16.840.1.206011.4.391.11.47299 Kike Jarvis MD Follow-up for mutiple problems u7398739-087a-56t1-j138-2eb568o4i8l8 12/12/2014 12/12/2014 2.16.840.1.010090.4.391.11.52052 Kike Jarvis MD Follow-up for mutiple problems tpj85386-2ank-96qt-fa06-z31e4n7058m4 12/12/2014 12/12/2014 2.16.840.1.918782.4.391.11.85908 Kike Jarvis MD Follow-up for mutiple problems 19w70p38-9rx4-6y62-c710-7k3082o23lfj 12/12/2014 12/12/2014 2.16.840.1.137911.4.391.11.54375 Kike Jarvis MD Follow-up for mutiple problems pe3o5q8q-324f-62ia-n5u2-8z259pd0692y 12/12/2014 12/12/2014 2.16.840.1.346343.4.391.11.34466 Kike Jarvis MD Follow-up for mutiple problems 466r32xb-6016-1jx5-k224-9d77m8f52pq6 12/12/2014 12/12/2014 2.16.840.1.753679.4.391.11.21655 Kike Jarvis MD Follow-up for mutiple problems 9h2034c8-3gn2-26wr-1gq6-45ydzcmb56v4 12/12/2014 12/12/2014 2.16.840.1.927004.4.391.11.29419 Kike Jarvis MD Follow-up for mutiple problems 056l2l60-97z2-3956-a776-s1o5562599m6 12/12/2014 12/12/2014 2.16.840.1.769375.4.391.11.04843 Kike Jarvis MD Follow-up for mutiple problems 58zxb0lr-5j64-606p-c958-i81i159zn6t0 12/12/2014 12/12/2014 2.16.840.1.873504.4.391.11.97861 Kike Jarvis MD Follow-up for mutiple problems 47r78p7o-s2p8-0k9c-2g1o-28k89ew4e58q 12/12/2014 12/12/2014 2.16.840.1.316085.4.391.11.56566 Kike Jarvis MD Follow-up for mutiple problems f6fh5ok0-386u-26t8-2769-40519982zwgs 12/12/2014 12/12/2014 eCW: Kike Jarvis MD Follow-up for mutiple problems 1eia69u1-68z2-63u4-691c-2144bd3h5yh2 12/12/2014 12/12/2014 eCW: Kike Jarvis MD Follow-up for mutiple problems 935a9419-5c13-9o48-voro-14ezf4414534 12/12/2014 12/12/2014 eCW: Kike Jarvis MD Follow-up for mutiple problems 9j188b7v-4088-9guk-s76f-rm0p11253ksu 12/12/2014 12/12/2014 eCW: Kike Jarvis MD Follow-up for mutiple problems 4rz366v8-1s5e-4u3e-mg47-916r9h5mw31b 12/12/2014 12/12/2014 2.16.840.1.565217.4.391..77000 Kike Jarvsi MD Follow-up for mutiple problems l18dsobc-01x4-30a7-k603-a92s55ks1799 12/12/2014 12/12/2014 2.16.840.1.236330.4.391.11.78619 Kike Jarvis MD Follow-up for mutiple problems 3y3q95tj-0g0u-0f20-7726-xzl62q09i3s3 12/12/2014 12/12/2014 2.16.840.1.687551.4.391..23440 Kike Jarvis MD Follow-up for mutiple problems qi12whc2-2kxe-1766-992l-c6qc62k21yu7 12/12/2014 12/12/2014 2.16.840.1.000582.4.391..17794 Kike Jarvis MD Follow-up for mutiple problems 17ycb119-7c00-6369-38nk-b285752ed9v6 12/12/2014 12/12/2014 2.16.840.1.789765.4.391.11.24821 Kike Jarvis MD Follow-up for mutiple problems 3ev1914i-9991-7s06-39n6-3b40gk4a522p 01/12/2015 01/12/2015 2.16.840.1.125691.4.391..65648 Kike Jarvis MD Follow-up for mutiple problems 080n1840-858i-3x3c-6562-01n1ntj3c05c 01/12/2015 01/12/2015 2.16.840.1.480429.4.391..80248 Kike Jarvis MD Follow-up for mutiple problems 1gov4u7g-3923-9c51-12m0-5z29e79723j8 01/12/2015 01/12/2015 2.16.840.1.999222.4.391.11.61579 Kike Jarvis MD Follow-up for mutiple problems 86bqk5n4-850q-8qxc-k530-3503r2964v50 01/12/2015 01/12/2015 2.16.840.1.175469.4.391.11.69202 Kike Jarvis MD Follow-up for mutiple problems 3701v711-4447-77y0-o421-o874tz1576jq 01/12/2015 01/12/2015 2.16.840.1.982016.4.391.11.19193 Kike Jarvis MD Follow-up for mutiple problems d1e41t51-9igi-9465-966b-514lsxhmb053 01/12/2015 01/12/2015 2.16.840.1.705611.4.391.11.07916 Kike Jarvis MD Follow-up for mutiple problems a66mx0ru-t617-2685-c5c7-20ym9r25w515 01/12/2015 01/12/2015 2.16.840.1.653628.4.391.11.22507 Kike Jarvis MD Follow-up for mutiple problems 965ebz80-2165-47j2-3k26-e0f60anw8in5 01/12/2015 01/12/2015 2.16.840.1.344712.4.391.11.42950 Kike Jarvis MD Follow-up for mutiple problems 4f3z1237-1em0-4u8v-vjht-r99971131d6b 01/12/2015 01/12/2015 2.16.840.1.979055.4.391.11.48368 Kike Jarvis MD Follow-up for mutiple problems x5w1t552-2jw7-7n91-9e47-io1ar8qbz4pa 01/12/2015 01/12/2015 2.16.840.1.651261.4.391..05121 Kike Jarvis MD Follow-up for mutiple problems 0ob9vow8-n331-6jij-6w81-du1y88377406 01/12/2015 01/12/2015 eCW: Kike Jarvis MD Follow-up for mutiple problems 89k8k7rp-000f-2lij-7r63-12912771th46 01/12/2015 01/12/2015 eCW: Kike Jarvis MD Follow-up for mutiple problems 42s067c2-b1dy-54q9-05x9-d17m078208fo 01/12/2015 01/12/2015 eCW: Kike Jarvis MD Follow-up for mutiple problems q765cbp4-q59c-437t-xaq7-qhmxry32026m 01/12/2015 01/12/2015 eCW: Kike Jarvis MD Follow-up for mutiple problems fm1mqw4j-0957-3966-j716-5gy459r49r33 01/12/2015 01/12/2015 2.Nelson.840.1.972437.4.391..25258 Kike Jarvis MD Follow-up for mutiple problems 67w9844i-02r4-07t4-e612-smp16ed57766 01/12/2015 01/12/2015 2.Nelson.840.1.786839.4.391..35454 Kike Jarvis MD Follow-up for mutiple problems 7699r103-k7pz-57i1-h59t-0342y18k121d 01/12/2015 01/12/2015 2.16.840.1.384142.4.391..36762 Kike Jarvis MD Follow-up for mutiple problems 9a117973-15j4-6025-w255-e293308931t6 01/12/2015 01/12/2015 2.Nelson.840.1.865646.4.391.11.27028 Kike Jarvis MD Follow-up for mutiple problems 3f318a7i-ibig-9277-9oii-80f8u25w2e28 01/12/2015 01/12/2015 2.16.840.1.357066.4.391.11.74816 Kike Jarvis MD Refill Appt. rx413sd1-nju5-7771-2501-550zx357fsmh 02/12/20 15 02/11/2015 2.16.840.1.536309.4.391.11.85145 Kike Jarvis MD Refill Appt. q1451864-br77-7644-n171-4011d48g6e4p 02/12/20 15 02/11/2015 2.16.840.1.886867.4.391.11.99746 Kike Jarvis MD Refill Appt. 2f91b05m-561r-84j3-t680-n8n901992w33 02/12/20 15 02/11/2015 2.16.840.1.460721.4.391..02226 Kike Jarvis MD Refill Appt. 2351k6or-592w-3646-a367-40t34xh5e068 02/12/20 15 02/11/2015 2.16.840.1.509212.4.391..98391 Kike Jarvis MD Refill Appt. 95c4tb3q-69o1-8se9-gn60-65556318322i 02/12/20 15 02/11/2015 2.16.840.1.724304.4.391.11.84383 Kike Jarvis MD Refill Appt. d4f4gz81-h715-4550-a9n1-7320i65zari7 02/12/20 15 02/11/2015 2.16.840.1.080438.4.391.11.93868 Kike Jarvis MD Refill Appt. 8839e24o-8142-2h2u-x79v-t932b7y6czg9 02/12/20 15 02/11/2015 2.16.840.1.161260.4.391..90712 Kike Jarivs MD Refill Appt. c2vbm255-y2mv-16bi-154p-8mf308vll950 02/12/20 15 02/11/2015 2.16.840.1.905966.4.391..69269 Kike Jarvis MD Refill Appt. 9955338i-92er-81l5-e6te-580dg6eplxb6 02/12/20 15 02/11/2015 2.16.840.1.411176.4.391..82407 Kike Jarvis MD Refill Appt. 4x0h04t4-348j-9843-wmz6-y58kv8a6yy26 02/12/20 15 02/11/2015 2.16.840.1.596692.4.391..04208 Kike Jarvis MD Refill Appt. 182336q9-6kv9-7k00-7f7c-c4851a21143m 02/12/20 15 02/11/2015 eCW: Kike Jarvis MD Refill Appt. 70y241c5-8805-6tyb-7tsn-dv6gu6136740 02/12/20 15 02/11/2015 eCW: Kike Jarvis MD Refill Appt. vtk202a1-57ih-8850-57p8-059c8715x30k 02/12/20 15 02/11/2015 eCW: Kike Jarvis MD Refill Appt. 976611gi-z6j4-7489-43gh-680u42a56b4h 02/12/20 15 02/11/2015 2.16.840.1.666089.4.391..36209 Kike Jarvis MD Refill Appt. 1v5wd0b0-y0iy-87ql-m33s-x904zco765d1 02/12/20 15 02/11/2015 2.16.840.1.338067.4.391..62502 Kike Jarvsi MD Refill Appt. 5viq1gl2-23q5-75w5-95bu-b4195e924adg 02/12/20 15 02/11/2015 2.16.840.1.520864.4.391.11.29132 Kike Jarvis MD Refill Appt. 3h978248-9623-54n4-572b-69j8701qk0ar 02/12/20 15 02/11/2015 2.16.840.1.848576.4.391.11.32761 Kike Jarvis MD Refill Appt. fe471905-c346-1lx4-237i-6e9x15lw077n 02/12/20 15 02/11/2015 2.16.840.1.811769.4.391.11.01230 Kike Jarvis MD Refill Appt. 7n3e6677-j055-47i1-nq02-25i5s128zcy3 04/10/19 16 04/10/2015 2.16.840.1.281573.4.391.11.82935 Kike Jarvis MD Refill Appt. h901x2s6-8456-04rn-0s93-ru1yq3i2qhc5 04/10/19 16 04/10/2015 2.16.840.1.328745.4.391.11.25341 Kike Jarvis MD Refill Appt. 8086cu88-875j-75k7-kdh3-48s3zv946g27 04/10/19 16 04/10/2015 2.16.840.1.496943.4.391.11.03927 Kike Jarvis MD Refill Appt. ts9857h0-qa25-65vu-202l-48y0py48j1gk 04/10/19 16 04/10/2015 2.16.840.1.511558.4.391.11.56548 Kike Jarvis MD Refill Appt. 9453f5a7-q27h-30l2-y9xh-05uuxgk9q943 04/10/19 16 04/10/2015 2.16.840.1.910830.4.391.11.26663 Kike Jarvis MD Refill Appt. 828z2071-v9l6-9543-49j8-32p610r33zj2 04/10/19 16 04/10/2015 2.16.840.1.013978.4.391.11.27048 Kike Jarvis MD Refill Appt. 07he252v-7c1t-2hsx-1020-y41ej8663xg6 04/10/19 16 04/10/2015 2.16.840.1.153758.4.391.11.15639 Kike Jarvis MD Refill Appt. 4v127v5h-511r-8rix-n59w-4z9w6nj2a9ox 04/10/19 16 04/10/2015 2.16.840.1.398081.4.391.11.20958 Kike Jarvis MD Refill Appt. 40570c3a-7193-08ij-2ukx-79l0702wueu5 04/10/19 16 04/10/2015 2.16.840.1.673382.4.391.11.51354 Kike Jarvis MD Refill Appt. [id number]dfq 04/10/19 16 04/10/2015 2.16.840.1.320185.4.391.11.96827 Kike Jarvis MD Refill Appt. [id number]-t57i838xt7m8 04/10/19 16 04/10/2015 eCW: Kike Jarvis MD Refill Appt. [id number]-6vk1-l607ykny260l 04/10/19 16 04/10/2015 eCW: Kike Jarvis MD Refill Appt. [id number]-2435-631os6gu2a51 04/10/19 16 04/10/2015 2.16.840.1.215432.4.391.11.25889 Kike Jarvis MD Refill Appt. feb44996-8od6-31nf-1447-6lyc0w696i80 04/10/19 16 04/10/2015 2.16.840.1.053961.4.391.11.20070 Kike Jarvis MD Refill Appt. xrd94816-43d5-6529-xic1-01cucgcz9q7g 04/10/19 16 04/10/2015 2.16.840.1.164356.4.391.11.44025 Kike Jarvis MD Refill Appt. j30w5n88-oe51-619q-o89k-0d2v524khe88 04/10/19 16 04/10/2015 2.16.840.1.328002.4.391.11.36778 Kike Jarvis MD Refill Appt. 291d5554-6400-6xf9-n03g-k418836oymy6 04/10/19 16 04/10/2015 2.16.840.1.033805.4.391.11.40783 Kike Jarvis MD Refill 423rzo50-w944-0e13-1248-1c5584l8rz3f 04/24/2015 04/24/2015 2.16.840.1.466431.4.391.11.24955 Kike Jarvis MD Refill p2q1u1o5-8iuk-6vv3-4dv0-6322a7u195t0 04/24/2015 04/24/2015 2.16.840.1.952744.4.391.11.30893 Kike Jarvis MD Refill uhxj70e6-593b-99t4-7772-n44196m01oo0 04/24/2015 04/24/2015 2.16.840.1.207141.4.391.11.87747 Kike Jarvis MD Refill ikgz644c-px0n-9c48-r160-7y1j59080m00 04/24/2015 04/24/2015 2.16.840.1.185492.4.391..10361 Kike Jarvis MD Refill g1206n4q-3849-3l76-081w-92z5lv32a488 04/24/2015 04/24/2015 2.16.840.1.202914.4.391..06851 Kike Jarvis MD Refill 857m6mu4-y700-7e3r-35i6-3ptvwi8q0800 04/24/2015 04/24/2015 2.16.840.1.761464.4.391..51059 Kike Jarvis MD Refill c9w716k5-01g3-6245-60t8-0kl210q09p46 04/24/2015 04/24/2015 2.16.840.1.212935.4.391..52388 Kike Jarvis MD Refill 942j4265-6l18-3cy8-r922-854003k1pbyh 04/24/2015 04/24/2015 2.16.840.1.291690.4.391..89926 Kike Jarvis MD Refill 951983u1-xz7c-11y0-2316-3x5581634pg8 04/24/2015 04/24/2015 2.16.840.1.655082.4.391..86614 Kike Jarvis MD Refill [id number]-d6h0-1b87u8ic8161 04/24/2015 04/24/2015 2.16.840.1.994674.4.391..62198 Kike Jarvis MD Refill [id number]-[id number] 04/24/2015 04/24/2015 eCW: Kike Jarvis MD Refill [id number]-lc5y181844r8 04/24/2015 04/24/2015 2.16.840.1.621255.4.391..58534 Kike Jarvis MD Refill 7o7i0397-24n9-1730-0850-k1ft951n9in0 04/24/2015 04/24/2015 2.16.840.1.575161.4.391..67768 Kike Jarvis MD Refill 275qz4b5-4b6f-7814-o111-7v7g1b4wf4d2 04/24/2015 04/24/2015 2.16.840.1.956802.4.391..50657 Kike Jarvis MD Refill 4y37z8ka-9291-8znl-pdhq-3e6d7ie1b82p 04/24/2015 04/24/2015 2.16.840.1.226347.4.391..61871 Kike Jarvis MD Refill 2l3ei1f6-040p-8cph-38q2-6428z5s82i07 04/24/2015 04/24/2015 2.16.840.1.565102.4.391..11596 [facility] EST PCP/Dr. Jarvis 2et15h94-7j37-1ij3-094t-t1092trah4u9 06/16/19 16 06/16/2015 2.16.840.1.528828.4.391..79778 [facility] EST PCP/Dr. Jarvis 887236of-s48r-666o-1245-7t6gor407g57 06/16/19 16 06/16/2015 2.16.840.1.751808.4.391..79679 [facility] EST PCP/Dr. Jarvis 043i7orn-0600-49te-ptq0-b4253ez14z09 06/16/19 16 06/16/2015 2.16.840.1.738282.4.391..42567 [facility] EST PCP/Dr. Jarvis 5vn2zj29-ul74-5d7q-f9lk-z53p767w529y 06/16/19 16 06/16/2015 2.16.840.1.608009.4.391..85236 [facility] EST PCP/Dr. Jarvis 24034t6x-1506-9i3z-933r-3o52803d5759 06/16/19 16 06/16/2015 2.16.840.1.006680.4.391.11.21666 [facility] EST PCP/Dr. Jarvis 63rh7l17-5337-2n5e-k99k-2d7t01uver79 06/16/19 16 06/16/2015 2.16.840.1.313048.4.391..16570 [facility] EST PCP/Dr. Jarvis 87m1gcbq-u409-6zp1-8j16-867y0kfx5qd2 06/16/19 16 06/16/2015 2.16.840.1.888194.4.391..00569 [facility] PCP/Dr. Jarvis 78n9mh38-16bn-6p53-4672-wi8062d6s26z 06/16/19 16 06/16/2015 2.16.840.1.124259.4.391..69944 [facility] PCP/Dr. Jarvis 1go9m26l-4zlr-26d2-65ug-2a38uknr31p7 06/16/19 16 06/16/2015 2.16.840.1.075593.4.391..98207 [facility] EST PCP/Dr. Jarvis ic18w93q-y32c-74qk-5062-5h7g9427jl1i 06/16/19 16 06/16/2015 2.16.840.1.110682.4.391..05013 [facility] EST PCP/Dr. Jarvis ck2a4616-8091-5z0r-y7cf-o5t67gb416q3 06/16/19 16 06/16/2015 2.16.840.1.961525.4.391..32254 [facility] EST PCP/Dr. Jarvis 0hm6700h-9w4e-4kj8-w43z-u2571175708j 06/16/19 16 06/16/2015 2.16.840.1.687850.4.391.11.99979 [facility] EST PCP/Dr. Jarvis 126od69x-9ae9-691u-1h3x-63p40j2w18ck 06/16/19 16 06/16/2015 2.16.840.1.681808.4.391.11.30773 [facility] EST PCP/Dr. Jarvis 1lb6072g-u6r3-0ouh-x937-q2186w6k4f07 06/16/19 16 06/16/2015 2.16.840.1.749424.4.391.11.78856 [facility] Unknown [id number] 06/25/19 16 06/25/2015 2.16.840.1.044624.4.391.11.71749 [facility] Unknown xy58a6ky-3968-3483-ldlv-9t8600fzuna6 06/25/19 16 06/25/2015 2.16.840.1.719392.4.391.1109494 [facility] Unknown xyy67r06-420i-7e82-l8k4-e78jn4u8un04 06/25/19 16 06/25/2015 2.16.840.1.982043.4.391..00765 [facility] Unknown 2wq78602-4s03-6v52-e906-s9r717d0yh2y 06/25/19 16 06/25/2015 2.16.840.1.805946.4.391..59438 [facility] Unknown c54ky494-r7d1-55q7-w9qo-mg3va7q13804 06/25/19 16 06/25/2015 2.16.840.1.360852.4.391.1161705 [facility] Unknown [id number]-y4a5478i479l 06/25/19 16 06/25/2015 2.16.840.1.777708.4.391.1183412 [facility] Unknown [id number]6a2 06/25/19 16 06/25/2015 2.16.840.1.639888.4.391.11.44833 [facility] Unknown [id number]-kvz4-22862o3p76bt 06/25/19 16 06/25/2015 2.16.840.1.523883.4.391.11.78883 [facility] Unknown [id number]-wj4j-5t64-5571-220e8830kf7g 06/25/19 16 06/25/2015 2.16.840.1.161553.4.391.11.89255 [facility] Unknown [id number]-v394-644u-94hc-j15jz259201q 06/25/19 16 06/25/2015 2.16.840.1.841012.4.391.11.04424 [facility] Unknown [id number]-2455-8c18-8g9x-7771h950j741 06/25/19 16 06/25/2015 2.16.840.1.210330.4.391.11.85771 [facility] Unknown 03pth426-9059-851q-k7h0-df4909e57cs5 06/25/19 16 06/25/2015 2.16.840.1.798089.4.391.11.36585 [facility] Unknown [id number]-zk86-5fy7-l05c-096228rrin89 06/25/19 16 06/25/2015 2.16.840.1.937003.4.391.11.79038 [facility] Unknown [id number] 06/25/19 16 06/25/2015 2.16.840.1.305838.4.391.11.16569 [facility] Unknown [id number] 06/25/19 16 06/25/2015 2.16.840.1.198015.4.391.11.78690 [facility] REFILLS [id number] 07/24/19 16 07/24/2015 2.16.840.1.970832.4.391.11.62815 [facility] REFILLS [id number]-481g7yt41r2g 07/24/19 16 07/24/2015 2.16.840.1.581763.4.391.11.97593 [facility] REFILLS [id number] 07/24/19 16 07/24/2015 2.16.840.1.955865.4.391.11.19774 [facility] REFILLS [id number] 07/24/19 16 07/24/2015 2.16.840.1.605109.4.391.11.77445 [facility] REFILLS [id number]-6h4x-31wl-yxt6-011g649b4e1i 07/24/19 16 07/24/2015 2.16.840.1.729743.4.391.11.78322 [facility] REFILLS [id number] 07/24/19 16 07/24/2015 2.16.840.1.106376.4.391.11.99031 [facility] REFILLS [id number] 07/24/19 16 07/24/2015 2.16.840.1.025766.4.391.11.61236 [facility] REFILLS [id number]-lu3a-7s8660n4mb2o 07/24/19 16 07/24/2015 2.16.840.1.162981.4.391.11.53248 [facility] REFILLS [id number] 07/24/19 16 07/24/2015 2.16.840.1.591843.4.391.11.06833 [facility] REFILLS [id number]-[id number] 07/24/19 16 07/24/2015 2.16.840.1.902804.4.391.11.78638 [facility] REFILLS [id number]-[id number] 07/24/19 16 07/24/2015 2.16.840.1.545986.4.391.11.75542 [facility] REFILLS [id number]-220y-[id number] 07/24/19 16 07/24/2015 2.16.840.1.470539.4.391.11.80320 [facility] REFILLS [id number] 07/24/19 16 07/24/2015 2.16.840.1.475699.4.391.11.24732 [facility] refill medications [id number] 08/25/19 16 08/25/2015 2.16.840.1.210432.4.391.11.47115 [facility] refill medications [id number] 08/25/19 16 08/25/2015 2.16.840.1.896300.4.391.11.17847 [facility] refill medications [id number]-[id number] 08/25/19 16 08/25/2015 2.16.840.1.395309.4.391.11.82708 [facility] refill medications [id number]-0o23-pd4n7u3uwc23 08/25/19 16 08/25/2015 2.16.840.1.750504.4.391.11.89060 [facility] refill medications [id number] 08/25/19 16 08/25/2015 2.16.840.1.111215.4.391.11.43066 [facility] refill medications [id number]-s9x9-3726-w2bo-[id number] 08/25/19 16 08/25/2015 2.16.840.1.463348.4.391.11.04661 [facility] refill medications [id number]-az3l-h26og77k0033 08/25/19 16 08/25/2015 2.16.840.1.860324.4.391.11.70951 [facility] refill medications [id number]-[id number]-9d4w-e2s4g88i082n 08/25/19 16 08/25/2015 2.16.840.1.618646.4.391.11.39852 [facility] refill medications [id number]-vo42-3w70-dc91-35jp628h6th1 08/25/19 16 08/25/2015 2.16.840.1.174215.4.391.11.73838 [facility] refill medications [id number]-s21d-88l5-ws69-ktbpo41bvjg8 08/25/19 16 08/25/2015 2.16.840.1.314639.4.391.11.82778 [facility] refill medications [id number]-[id number] 08/25/19 16 08/25/2015 2.16.840.1.699938.4.391.11.41457 [facility] refill medications [id number] 08/25/19 16 08/25/2015 2.16.840.1.680755.4.391.11.48922 [facility] [id number] 09/25/19 16 09/25/2015 2.16.840.1.888652.4.391.11.69800 [facility] Unknown [id number] 09/25/19 16 09/25/2015 2.16.840.1.629621.4.391.11.02659 [facility] Unknown [id number] 09/25/19 16 09/25/2015 2.16.840.1.222360.4.391.11.49236 [facility] Unknown [id number] 09/25/19 16 09/25/2015 2.16.840.1.826893.4.391.11.65765 [facility] Unknown [id number] 09/25/19 16 09/25/2015 2.16.840.1.996251.4.391.11.92151 [facility] Unknown [id number] 09/25/19 16 09/25/2015 2.16.840.1.896152.4.391.11.80729 [facility] Unknown [id number] 09/25/19 16 09/25/2015 2.16.840.1.260295.4.391.11.46753 [facility] Unknown [id number] 09/25/19 16 09/25/2015 2.16.840.1.732665.4.391.11.56500 [facility] Unknown [id number]-q06z7f02ldwc 09/25/19 16 09/25/2015 2.16.840.1.935071.4.391.11.31389 [facility] Unknown [id number] 09/25/19 16 09/25/2015 2.16.840.1.316908.4.391.11.01008 [facility] Unknown [id number] 09/25/19 16 09/25/2015 2.16.840.1.424713.4.391.11.31833 [facility] Unknown [id number] 10/12/19 16 10/12/2015 2.16.840.1.667659.4.391.11.26988 [facility] Unknown [id number] 10/12/19 16 10/12/2015 2.16.840.1.159045.4.391.11.38943 [facility] Unknown [id number] 10/12/19 16 10/12/2015 2.16.840.1.240276.4.391.11.42453 [facility] Unknown [id number] 10/12/19 16 10/12/2015 2.16.840.1.018305.4.391.11.27485 [facility] Unknown [id number] 10/12/19 16 10/12/2015 2.16.840.1.214237.4.391.11.02946 [facility] Unknown [id number] 10/12/19 16 10/12/2015 2.16.840.1.397255.4.391.11.96170 [facility] Unknown [id number] 10/12/19 16 10/12/2015 2.16.840.1.557502.4.391.11.24256 [facility] Unknown [id number] 10/12/19 16 10/12/2015 2.16.840.1.589527.4.391.11.77704 [facility] Unknown [id number] 10/12/19 16 10/12/2015 2.16.840.1.862846.4.391.11.04869 [facility] Unknown [id number] 10/12/19 16 10/12/2015 2.16.840.1.648082.4.391.11.34993 [facility] Unknown [id number] 12/10/19 16 12/10/2015 2.16.840.1.669468.4.391.11.25050 [facility] Unknown [id number] 12/10/19 16 12/10/2015 2.16.840.1.187654.4.391.11.60986 [facility] Unknown [id number] 12/10/19 16 12/10/2015 2.16.840.1.612892.4.391.11.27677 [facility] Unknown [id number] 12/10/19 16 12/10/2015 2.16.840.1.616641.4.391.11.69950 [facility] Unknown [id number] 12/10/19 16 12/10/2015 2.16.840.1.136186.4.391.11.38364 [facility] Unknown [id number] 12/10/19 16 12/10/2015 2.16.840.1.891086.4.391.11.14704 [facility] Unknown [id number] 12/10/19 16 12/10/2015 2.16.840.1.507354.4.391.11.69798 [facility] Unknown [id number] 12/10/19 16 12/10/2015 2.16.840.1.025906.4.391.11.43076 [facility] Unknown [id number] 12/11/19 16 12/11/2015 2.16.840.1.380853.4.391.11.30768 [facility] Unknown [id number] 12/11/19 16 12/11/2015 2.16.840.1.667339.4.391.11.29804 [facility] Unknown [id number] 12/11/19 16 12/11/2015 2.16.840.1.948596.4.391.11.17404 [facility] Unknown [id number] 12/11/19 16 12/11/2015 2.16.840.1.935151.4.391.11.76356 [facility] Unknown [id number] 12/11/19 16 12/11/2015 2.16.840.1.827694.4.391.11.06282 [facility] Unknown [id number] 12/11/19 16 12/11/2015 2.16.840.1.525056.4.391.11.69090 [facility] Unknown [id number] 12/11/19 16 12/11/2015 2.16.840.1.081875.4.391.11.84706 [facility] Unknown [id number] 12/11/19 16 12/11/2015 2.16.840.1.688414.4.391.11.59468 [facility] Unknown [id number] 12/11/19 16 12/11/2015 2.16.840.1.077133.4.391.11.97465 [facility] Unknown [id number] 12/30/19 16 12/30/2015 2.16.840.1.602850.4.391.11.18363 [facility] Unknown [id number] 12/30/19 16 12/30/2015 2.16.840.1.583618.4.391.11.40170 [facility] Unknown [id number] 12/30/19 16 12/30/2015 2.16.840.1.115724.4.391.11.82650 [facility] Unknown [id number] 12/30/19 16 12/30/2015 2.16.840.1.969755.4.391.11.09214 [facility] Unknown [id number] 12/30/19 16 12/30/2015 2.16.840.1.842950.4.391.11.14483 [facility] Unknown [id number] 01/05/20 16 01/05/2016 2.16.840.1.300589.4.391.11.18113 [facility] Unknown [id number] 01/05/20 16 01/05/2016 2.16.840.1.916825.4.391.11.26288 [facility] Unknown [id number] 01/05/20 16 01/05/2016 2.16.840.1.365437.4.391.11.99351 [facility] Unknown [id number] 01/05/20 16 01/05/2016 2.16.840.1.164834.4.391.11.58251 [facility] Unknown [id number] 01/05/20 16 01/05/2016 2.16.840.1.526281.4.391.11.51888 [facility] Unknown [id number] 01/05/20 16 01/05/2016 2.16.840.1.705460.4.391.11.30928 [facility] Unknown [id number] 01/05/20 16 01/05/2016 2.16.840.1.733509.4.391.11.34367 [facility] Unknown [id number] 01/05/20 16 01/05/2016 2.16.840.1.915720.4.391.11.63405 [facility] Unknown [id number] 01/05/20 16 01/05/2016 2.16.840.1.252321.4.391.11.76003 [facility] Unknown [id number] 01/05/20 16 01/05/2016 2.16.840.1.947293.4.391.11.05562 [facility] Unknown [id number] 01/05/20 16 01/05/2016 2.16.840.1.215220.4.391.11.75412 [facility] Unknown [id number] 01/05/20 16 01/05/2016 2.16.840.1.561503.4.391.11.00672 [facility] Unknown [id number] 01/05/20 16 01/05/2016 2.16.840.1.002312.4.391.11.09247 [facility] Unknown [id number] 01/05/20 16 01/05/2016 2.16.840.1.234484.4.391.11.64659 [facility] Unknown [id number] 02/26/20 16 02/26/2016 2.16.840.1.197070.4.391.11.23139 [facility] Unknown [id number] 02/26/20 16 02/26/2016 2.16.840.1.615733.4.391.11.43250 [facility] Unknown [id number] 02/26/20 16 02/26/2016 2.16.840.1.741070.4.391.11.71914 [facility] Unknown [id number] 02/26/20 16 02/26/2016 2.16.840.1.116870.4.391.11.51987 [facility] Refill [id number] 03/10/19 17 03/10/2016 2.16.840.1.260016.4.391.11.73837 [facility] Refill [id number] 03/10/19 17 03/10/2016 2.16.840.1.511213.4.391.11.52611 [facility] Refill [id number] 03/10/19 17 03/10/2016 2.16.840.1.259844.4.391.11.32436 [facility] 1 month f/u [id number] 03/28/19 17 03/28/2016 2.16.840.1.140958.4.391.11.18111 [facility] 1 month f/u [id number] 03/28/19 17 03/28/2016 2.16.840.1.622145.4.391.11.21645 [facility] Unknown [id number] 04/28/19 17 04/28/2016 2.16.840.1.904905.4.391.11.66523 [facility] Inpatient [id number] Kayleenchelsea Sharita 04/02/2017 04/04/2017 [facility] Emergency [id number] Carolina Agee 10/25/2017 10/26/2017 [facility] Emergency [id number] Vinnie Clarkeme 03/16/2018 03/17/2018 [facility] Emergency [id number] Cat Aragon 03/27/2018 03/28/2018 [facility] Observation [id number] Shahla Carty 09/05/2018 09/06/2018 [facility] Procedures Procedure Code Date Perfomer Comments Source Cholecystectomy [id number] [facility] Cholecystectomy [id number] [facility] Hernia repair [id number] [facility] Hysterectomy [id number] [facility] Bladder operation [id number] [facility] Assessment and Plan Assessment and Plan Date Source Extracted from:Title: Clinical Document Author: Wm Doyle MD Date: 09/06/18 Cardiology Progress Note Wm Doyle MD [facility] Subjective: Events noted, chart reviewed. She denies chest pain or dyspnea. Telemetry: sinus bradycardia Objective: Vitals and Temp: Vitals Tmp(F) Pulse BP RR SpO2 FIO2 09/06 12:04 97.7 45 179/76 1 8 100 --- 09/06 08:29 ---- --- ----- 1 9 97 --- 09/06 07:17 97.9 48 182/97 1 8 98 --- 09/06 03:56 98.0 48 139/72 1 7 99 --- 09/05 22:49 98.1 48 140/74 1 5 99 --- 24 Hr Tmax: 98.2F (36.78c) at 09/05 15:5 2 Vital Signs are the last 5 in the past 48 hours. Medications: Medications (42) Active Scheduled: (7) aspirin 81 mg ECT 81 mg 1 tab, PO, Daily busPIRone 5 mg TAB 15 mg 3 tab, PO, BID enoxaparin 40 mg/0.4 ml INJ 40 mg 0.4 mL, SUB-Q, [id number] lisinopril 20 mg TAB 40 mg 2 tab, PO, Daily metoclopramide 5 mg TAB 10 mg 2 tab, PO, TID pantoprazole 40 mg ECT 40 mg 1 tab, PO, Daily pregabalin 75mg cap 75 mg 1 cap, PO, Daily Continuous: (0) PRN: (35) acetaminophen 325 mg TABLET 650 mg 2 tab, PO, Q6H acetaminophen-hydrocodone 325 mg-5 mg tab 1 tab, PO, Q6H albuterol-ipratropium 2.5 mg-0.5 mg/3 ml DAVI 3 ml, NEB, PRN benzonatate 100 mg CAP 100 mg 1 cap, PO, TID bisacodyl 10 mg rect SUPP 10 mg 1 supp, CA, Daily Dextrose 50% 50 ml INJ syringe 12.5 gm 25 mL, IVP, PRN Dextrose 50% 50 ml INJ syringe 25 gm 50 mL, IVP, PRN Dextrose 50% 50 ml INJ syringe 12.5 gm 25 mL, IVP, PRN Dextrose 50% 50 ml INJ syringe 25 gm 50 mL, IVP, PRN diphenhydrAMINE 25 mg Tab 25 mg 1 tab, PO, Q6H docusate sodium 100 mg CAP 100 mg 1 cap, PO, BID glucagon recombinant 1 mg PDR 1 mg, IM, PRN glucagon recombinant 1 mg PDR 1 mg, IM, PRN guaiFENesin LA 600 mg ERT 600 mg 1 tab, PO, Q12H guaiFENesin-codeine 100-10mg/5ml LIQ 10 ml, PO, Q4H hydrALAZINE 20 mg/1 ml VL 10 mg 0.5 mL, IVP, Q4H insulin lispro 100 unit/ml 3 ml Vial 2 unit 0.02 mL, SUB-Q, TID-Before Meals insulin lispro 100 unit/ml 3 ml Vial 4 unit 0.04 mL, SUB-Q, TID-Before Meals insulin lispro 100 unit/ml 3 ml Vial 6 unit 0.06 mL, SUB-Q, TID-Before Meals insulin lispro 100 unit/ml 3 ml Vial 8 unit 0.08 mL, SUB-Q, TID-Before Meals insulin lispro 100 unit/ml 3 ml Vial 10 unit 0.1 mL, SUB-Q, TID-Before Meals insulin lispro 100 unit/ml 3 ml Vial 1 unit 0.01 mL, SUB-Q, Bedtime insulin lispro 100 unit/ml 3 ml Vial 2 unit 0.02 mL, SUB-Q, Bedtime insulin lispro 100 unit/ml 3 ml Vial 3 unit 0.03 mL, SUB-Q, Bedtime insulin lispro 100 unit/ml 3 ml Vial 4 unit 0.04 mL, SUB-Q, Bedtime Maalox Advanced Regular 30ml SUSP 30 mL, PO, QID-After Meals melatonin 3 mg TAB 3 mg 1 tab, PO, Bedtime MORPhine sulfate PF 2 mg/ml CARP 2 mg 1 mL, IVP, Q4H nicotine 21 mg/24hr PATCH 21 mg 1 patch, TOP, Daily ondansetron 4 mg/2ml INJ VL 4 mg 2 mL, IVP, Q6H phenol-sodium phenolate 1.4% throat SPR 20 ml 1 spray, TOP, Q6H polyethylene glycol 17 gm packet 17 gm 1 pkt, PO, Daily QUEtiapine 25 mg TAB 25 mg 1 tab, PO, BID simethicone 80 mg CHEW 80 mg 1 tab, CHEW, QID-After Meals trazodone 50 mg TAB 50 mg 1 tab, PO, Bedtime Physical Exam: CV - RRR, normal S1 and S2 Lungs - CTA, no wheezing or rhonchi Abd - soft, nontender, nondistended. Bowel sounds are present Ext - no clubbing, cyanosis or edema Labs, Diagnostic Data and Imaging Studies: 24hr Labs 09/06 1221 POC Performing Locatio See Note Glucose POC 279 H 09/06 0845 POC Performing Locatio See Note Glucose POC 197 H 09/06 0343 Hgb A1C 9.4 H Troponin-I <0.02 Glucose Lvl 211 H BUN 19 Creatinine Lvl 1.06 Sodium Lvl 138 Potassium Lvl 3.4 L Chloride Lvl 102 CO2 29 AGAP 10.4 Calcium Lvl 8.3 L eGFR 60 TSH 2.090 Chol 223 H Trig 460 H HDL 50 L LDL (Calculated) See Note VLDL See Note CHD Risk 4.46 WBC 5.5 RBC 4.10 L Hgb 12.0 Hct 34.9 L MCV 85.1 MCH 29.3 MCHC 34.4 RDW 13.8 Platelet 198 MPV 8.7 09/05 2229 Troponin-I <0.02 09/05 2036 POC Performing Locatio See Note Glucose POC 114 H 09/05 1805 POC Performing Locatio See Note Glucose POC 130 H 09/05 1622 Sodium Lvl 136 Potassium Lvl 3.7 Chloride Lvl 101 CO2 25 AGAP 13.7 Glucose Lvl 177 H Creatinine Lvl 1.30 BUN 17 B/C Ratio 13 Total Protein 7.2 Albumin Lvl 3.4 L Globulin 3.8 A/G Ratio 0.9 Calcium Lvl 8.0 L ALT 34 AST 29 Alk Phos 93 Bili Total <0.1 L eGFR 47 Lipase Lvl 76 Troponin-I <0.02 WBC 5.9 RBC 4.21 Hgb 12.0 Hct 35.9 L MCV 85.1 MCH 28.6 MCHC 33.6 RDW 13.9 Platelet 232 MPV 9.4 Segs 53.2 Monocytes 6.5 Lymphocytes 38.1 Eosinophils 1.4 Basophils 0.8 Neutrophils # 3.2 Lymphocytes # 2.3 Monocytes # 0.4 Eosinophils # 0.1 Assessment: Chest pain, rule out acute coronary syndrome Sinus bradycardia History of chronic pancreatitis HLP Fibromyalgia Hypertension Diabetes mellitus type 2 Plan: Echo with normal LV systolic function with trace TR, trace MR Add Fenofibrate and for elevated triglycerides along with Collins 2 fish oil capsules Discontinue atenolol - bradycardia Add amlodipine and low-dose thiazide diuretic Okay to discharge home from cardiovascular standpoint and obtain outpatient stress test Extracted from:Title: Cardiology Consultation Author: Wm Doyle MD Date: 09/05/18 Impression and Plan Chest pain, rule out acute coronary syndrome Sinus bradycardia History of chronic pancreatitis Fibromyalgia Hypertension Diabetes mellitus type 2 Plan: Admit for observation Serial cardiac enzymes and EKGs to rule out acute coronary syndrome Echocardiogram to assess LV function Hold beta-anderson given the patient's bradycardia A optimize antihypertensive regimen DVT prophylaxis Cardiac stress test which can be done on this admission or as an outpatient based on her clinical course Thank you for this consultation. I will follow her with you. Extracted from:Title: General Admission H&P * Author: Michelle Tsang MD Date: 09/05/18 Impression and Plan 1. Chest pain rule out ACS 2. History of fibromyalgia 3. Type 2 diabetes 4. Hypertension Plan: Trend troponins, cardioprotective meds, aspirin, statin, 2D echo, cardiology consultation Continue with pain control, liver code Insulin sliding scale, Accu-Cheks, A1c Resume same antihypertensive medications, PRN hydralazine Lovenox for DVT prophylaxis dr carty to follow 09/06/2018 [facility] Extracted from:Title: [facility] Hospitalist Service Discharge Summary Author: Slava Villatoro MD Date: 04/03/17 [facility] Hospitalist Service Discharge Summary PATIENT NAME:RADHA BOUDREAUX ATTENDING: SLAVA PARKER JR, MD ADMISSION DATE: 04/02/2017 14:11 DISCHARGE DATE: 04/03/2017 19:55 DISCHARGE DIAGNOSIS: Urinary tract infection, site not specified (N39.0) Elevated lipase without evidence of acute pancreatitis Right hydronephrosis CONSULTING PHYSICIANS/SERVICES: Gary Waite MD Office: Service: Urology Alen Millan MD Office: Service: Medicine Balwinder French MD Office: Service: Urology Tito Aragon MD Office: Service: Urology Isrrael Tamayo MD Office: Service: Gastroenterology DISCHARGE CONDITION: Fair HISTORY OF PRESENT ILLNESS: Please see admission history and physical for presenting details HOSPITAL COURSE: The patient was admitted due to right sided abdominal/flank pain and was found to have hydronephrosis and there was concern for possible ureterolithiasis. Urology was consulted who agreed to perform cystoscopy and placed a stent in the ureter. GI was consulted for an elevated lipase in a patient with history of pancreatitis. This value was not felt to be significant enough to suggest pancreatitis, nor was her imaging congruent with this diagnosis. The patient tolerated cystoscopy well and was found to be suitable for discharge thereafter. I saw and examined the patient on day of discharge. The patient was discharged in fair condition, with appropriate followup and appropriate medications. DISCHARGE INSTRUCTIONS: Please notify your physician if any of the following occur: Bleeding, Fever, Nausea, Pain, Shortness of breath, Signs of infection, Swelling Activity: Activity as tolerated, No strenuous activity DISCHARGE DIET: Home Diet: Diet Carbohydrate Controlled DISCHARGE MEDICATIONS: PLEASE SEE R FOR DETAILS PERTAINING TO DISCHARGE MEDICATIONS DISCHARGE FOLLOWUP: Follow Up With Tito Aragon MD, Call for appointment, within: 1 Week, reason: Post Op Visit A total of 35 minutes was spent planning discharge which included bedside counseling. Extracted from:Title: GI Consult * Author: Isrrael Tamayo MD Date: 04/03/17 Impression and Plan IMPRESSION 1. Abdominal Pain- ? acute pancreatitis - mild elevation in lipase, although no amylase drawn to correlate with and imaging not consisted with acute pancreatitis CBD 8.5 mm, possilby related to post cholecystecomy changes, no clear evidence of biliary obstruction 2. H/o chronic pancreatits 3. Nausea 4. mildly elevated lipase 5. Fatty liver per CT 6. Constipation per CT 7. Right hydronephrosisurology followin g Plan for cystoscopy likely later today RECOMMENDATIONS 1. LR @ 250 ml/hr 2. Monitor abd pain 3. Antiemetics PRN 4. NPO until pain begins to improve 5. Consider outpatient EUS? 6. Possible clear liquids in am. Extracted from:Title: Clinical Document Author: Alen Millan MD Date: 04/03/17 full H&P dictated, #[id number] date/time: 04/02/2017 22:45 04/04/2017 [facility] Plan of Care No Data Provided for This Section Social History Social History Date Source Social History TypeResponse Alcohol Never Smoking Status Never smoker; Exposure to Tobacco Smoke None; Cigarette Smoking Last 365 Days No; Reg Smoking Cessation Counseling No entered on: 09/05/18 04/03/2017 [facility] Social History ElementQualifiersDate Rep orted Do you take Aspirin, or a blood thinner . Yes I do take aspirin/ or a blood thi nner SUE NIETO 06/01/2015 10:23:49 AM > Apr 28, 2016 Tobacco Use: . Are you a: never smoker Apr 28, 2016 Marital Status: . SUE NIETO 06/01/2015 1 0:24:19 AM > Apr 28, 2016 Caffeine intake? . Status: Yes, What type: Coffee, Tea, Soft Drinks Apr 28, 2016 Do you exercise? . Answer: No Apr 28, 2016 Do you drink alcohol? . Status: No Apr 28, 2016 Travel outside [place]: . no Apr 28, 2016 04/28/2016 [id number] Social History ElementQualifiersDate Rep orted Do you take aspirin or a blood thinner drug? . NO FroylanSue 09/05/2013 2:54:17 PM > Apr 10, 2015 Tobacco Use: . Status: Never smoker Apr 10, 2015 Marital Status: . Sue Nieto 09/05/2013 2: 47:31 PM > Apr 10, 2015 Caffeine intake? . Status: Yes, What type: Coffee, Soft Drinks, Chocolate Apr 10, 2015 Do you exercise? . Answer: No Apr 10, 2015 Do you drink alcohol? . Status: No Apr 10, 2015 04/10/2015 eCW: Kike Jarvis Family History Value Date S ource QualifierDescriptionCommentDate Reported Maternal Grandmother Comment not available August 25, 2015 Paternal Grandmother Comment not available August 25, 2015 Siblings Comment not available August 25, 2015 Maternal Grandfather Comment not available August 25, 2015 Children Comment not available August 25, 2015 Father heart disease, diabetes August 25, 2015 Paternal Grandfather Comment not available August 25, 2015 Mother diabetes, heart disease, high blood pressure, arthritis August 25, 2015 Other: Comment not available August 25, 2015 09/22/2015 [id number] QualifierDescriptionCommentDate Reported Maternal Grandmother Comment not available Apr 10, 2015 Paternal Grandmother Comment not available Apr 10, 2015 Siblings Comment not available Apr 10, 2015 Maternal Grandfather Comment not available Apr 10, 2015 Father diabetes, heart disease Apr 10, 2015 Mother diabetes, heart disease, high blood pressure, arthritis Apr 10, 2015 Paternal Grandfather Comment not available Apr 10, 2015 Other: Comment not available Apr 10, 2015 04/14/2015 eCW: Kike Jarvis QualifierDescriptionCommentDate Reported Mother diabetes, heart disease, high blood pressure, arthritis Jan 10, 2014 Father diabetes, heart disease Jan 10, 2014 01/22/2014 eCW: Kike Jarvis QualifierDescriptionCommentDate Reported Mother diabetes, heart disease, high blood pressure, arthritis Jan 10, 2014 Father diabetes, heart disease Jan 10, 2014 01/22/2014 eCW: Kike Jarvis Advance Directives No Data Provided for This Section Functional Status No Data Provided for This Section
[2019-11-05 23:29] LABS: INR 0.91; PROTHROMBIN TIME 12.7 seconds (11.9-14.5)
--- NOTE | 2019-11-05 23:29 | Emergency Department Note ---
History of Present Illnes History of Present Illness Chief Complaint: Skin Rash or Abscess History of Present Illness This is a 54 year old female PRESENTS TO ED AAOX3 WITH APPROX 7CM X 8CM ABSCESS TO LEFT AXILLA X1 WEEK; PT STATES, "IT STARTED DRAINING ABOUT AN HOUR AGO." SITE HARD TO TOUCH, RED IN COLOR, PURULENT DRAINAGE NOTED TO SITE; . Historian: Patient Arrival Mode: Car Onset (how long ago): day(s) (7) Location: LEFT AXILLA Quality: PAIN, DRAINAGE Radiation: Reports non-radiation Severity: moderate Onset quality: gradual Duration (how long): day(s) (7) Timing of current episode: constant Progression: worsening Chronicity: new Context: Denies recent illness, Denies recent surgery, Denies trauma/injury Relieving factors: none Exacerbating factors: movement Associated symptoms: Reports fever/chills Past Medical/Family History Physician Review I have reviewed the patient's past medical and family history. Any updates have been documented here. Past Medical History Recent Fever: Yes Clinical Suspicion of Infectio: Yes New/Unexplained Change in Ment: No Past Medical History: Hypertension, Diabetes, TIA, CAD, Anxiety, Depression, GERD, Hyperlipedemia Other Medical History: GASTROPARESIS POLYNEUROPATHY DEPRESSION CHRONIC PANCREATITIS CHRONIC HEADACHES (PER H&P) FIBROMYALGIA Past Surgical History: Cholecysctectomy, Hysterectomy, Tubal Ligation, C- Section Other Surgery: X2 BLADDER SUSPENSION HERNIA REPAIR Social History Smoking Cessation: Never Smoker Counseling Performed: No Alcohol Use: None Any Illegal Drug Use: No Family History Family history of heart diseas: No Other Last Tetanus: UTD Any Pre-Existing Lines (PICC,: No Review of Systems Review of Systems Constitutional: Reports no symptoms EENTM: Reports no symptoms Cardiovascular: Reports no symptoms Respiratory: Reports no symptoms Gastrointestinal: Reports no symptoms Genitourinary: Reports no symptoms Musculoskeletal: Reports no symptoms Integumentary: Reports as per HPI Neurological: Reports no symptoms Psychological: Reports no symptoms Endocrine: Reports no symptoms Hematological/Lymphatic: Reports no symptoms Physical Exam Related Data Allergies: Coded Allergies: amitriptyline (Verified Allergy, Unknown, RASH, 02/06/16) metaxalone (Verified Allergy, Unknown, RASH, 02/06/16) naproxen (Verified Allergy, Unknown, RASH, 02/06/16) Triage Vital Signs Vital Signs Date Time Temp Pulse Resp B/P (MAP) Pulse Ox O2 Delivery O2 Flow Rate FiO2 11/05/19 22:56 97.9 87 16 108/69 100 Room Air Vital signs reviewed: Yes Physical Exam CONSTITUTIONAL Constitutional: Present well-developed, Present well-nourished, Present distressed (MILD) HENT HENT: Present normocephalic, Present atraumatic, Present oropharynx clear/moist, Present nose normal HENT L/R: Present left ext ear normal, Present right ext ear normal EYES Eyes: Reports PERRL, Reports conjunctivae normal NECK Neck: Present ROM normal PULMONARY Pulmonary: Present effort normal, Present breath sounds normal CARDIOVASCULAR Cardiovascular: Present regular rhythm, Present heart sounds normal, Present capillary refill normal, Present normal rate GASTROINTESTINAL Abdominal: Present soft, Present nontender, Present bowel sounds normal GENITOURINARY Genitourinary: Present exam deferred SKIN LARGE 8X7CM ABSCESS TO LEFT AXILLA WITH PURULENT DRAINAGE NOTED WITH A 0.5 CM OPENING NEAR CENTER, I EXPRESSED APPROXIMATELY 40 CC OF PURULENT MATERIAL FROM THE ABSCESS MUSCULOSKELETAL Musculoskeletal: Present ROM normal NEUROLOGICAL Neurological: Present alert, Present oriented x 3, Present no gross motor or sensory deficits PSYCHOLOGICAL Psychological: Present mood/affect normal, Present judgement normal Results Laboratory Result Diagram: 11/05/19 2300 Laboratory Laboratory Tests Test 11/05/19 23:00 White Blood Count 12.02 x10e3/uL (4.8-10.8) Red Blood Count 3.45 x10e6/uL (3.6-5.1) Hemoglobin 9.5 g/dL (12.0-16.0) Hematocrit 29.1 % (34.2-44.1) Mean Corpuscular Volume 84.3 fL (81-99) Mean Corpuscular Hemoglobin 27.5 pg (28-32) Mean Corpuscular Hemoglobin Concent 32.6 g/dL (31-35) Red Cell Distribution Width 13.3 % (11.7-14.4) Platelet Count 492 x10e3/uL (140-360) Neutrophils (%) (Auto) 68.6 % (38.7-80.0) Lymphocytes (%) (Auto) 21.0 % (18.0-39.1) Monocytes (%) (Auto) 6.0 % (4.4-11.3) Eosinophils (%) (Auto) 1.7 % (0.0-6.0) Basophils (%) (Auto) 0.5 % (0.0-1.0) Neutrophils # (Auto) 8.2 (2.1-6.9) Lymphocytes # (Auto) 2.5 (1.0-3.2) Monocytes # (Auto) 0.7 (0.2-0.8) Eosinophils # (Auto) 0.2 (0.0-0.4) Basophils # (Auto) 0.1 (0.0-0.1) Absolute Immature Granulocyte (auto 0.27 x10e3/uL (0-0.1) Prothrombin Time 12.7 seconds (11.9-14.5) Prothromb Time International Ratio 0.91 Activated Partial Thromboplast Time 31.4 seconds (23.8-35.5) Sodium Level 137 mmol/L (136-145) Potassium Level 4.1 mmol/L (3.5-5.1) Chloride Level 101 mmol/L (98-107) Carbon Dioxide Level 20 mmol/L (22-29) Anion Gap 20.1 mmol/L (8-16) Blood Urea Nitrogen 30 mg/dL (7-26) Creatinine 1.29 mg/dL (0.57-1.11) Estimat Glomerular Filtration Rate 43 ML/MIN (60-) BUN/Creatinine Ratio 23 (6-25) Glucose Level 144 mg/dL (74-118) Calcium Level 8.5 mg/dL (8.4-10.2) Total Bilirubin 0.3 mg/dL (0.2-1.2) Aspartate Amino Transf (AST/SGOT) 72 IU/L (5-34) Alanine Aminotransferase (ALT/SGPT) 52 IU/L (0-55) Alkaline Phosphatase 280 IU/L (40-150) Total Protein 6.7 g/dL (6.5-8.1) Albumin 3.4 g/dL (3.5-5.0) Globulin 3.3 g/dL (2.3-3.5) Albumin/Globulin Ratio 1.0 (0.8-2.0) Laboratory Tests Test 11/05/19 23:00 White Blood Count 12.02 x10e3/uL (4.8-10.8) Red Blood Count 3.45 x10e6/uL (3.6-5.1) Hemoglobin 9.5 g/dL (12.0-16.0) Hematocrit 29.1 % (34.2-44.1) Mean Corpuscular Volume 84.3 fL (81-99) Mean Corpuscular Hemoglobin 27.5 pg (28-32) Mean Corpuscular Hemoglobin Concent 32.6 g/dL (31-35) Red Cell Distribution Width 13.3 % (11.7-14.4) Platelet Count 492 x10e3/uL (140-360) Neutrophils (%) (Auto) 68.6 % (38.7-80.0) Lymphocytes (%) (Auto) 21.0 % (18.0-39.1) Monocytes (%) (Auto) 6.0 % (4.4-11.3) Eosinophils (%) (Auto) 1.7 % (0.0-6.0) Basophils (%) (Auto) 0.5 % (0.0-1.0) Neutrophils # (Auto) 8.2 (2.1-6.9) Lymphocytes # (Auto) 2.5 (1.0-3.2) Monocytes # (Auto) 0.7 (0.2-0.8) Eosinophils # (Auto) 0.2 (0.0-0.4) Basophils # (Auto) 0.1 (0.0-0.1) Absolute Immature Granulocyte (auto 0.27 x10e3/uL (0-0.1) Lab results reviewed: Yes Assessment & Plan Medical Decision Making MDM PT WITH LARGE ABSCESS LEFT AXILLA CBC, CMP, BLOOD CULTURES ORDERED, ORDRED TO EVAL FOR LEUKOCYTOSIS, ELECTROLYTE ABNORMALITY. ZOSYN 3.375 GRAMS IV ORDERED VANCOMYCIN 1 GRAM IV ORDERED I SPOKE WITH DR ANDRADE AND DR ELLIOTT, PLACE IN OBS Assessment & Plan Final Impression: (1) Suppurative hidradenitis (2) Abscess of left axilla Depart Disposition: ADMITTED Last Vital Signs Date Time Temp Pulse Resp B/P (MAP) Pulse Ox O2 Delivery O2 Flow Rate FiO2 11/05/19 22:56 97.9 87 16 108/69 100 Room Air Home Meds Reported Medications Potassium Chloride (POTASSIUM CHLORIDE) 20 Meq Tab.er.prt, 20 MEQ PO BID 05/05/16 Pantoprazole Sodium* (PROTONIX) 40 Mg Tablet.dr, 40 MG PO BID, TAB 05/05/16 Duloxetine Hcl (CYMBALTA) 30 Mg Capsule.dr, 30 MG PO BID, #30 CAP 05/05/16 Amylas/Cellu/Lipas/Protea/Bile (CREON 6,000 UNITS CAPSULE) 1 Ea Cap, 40987 UNITS PO TID 05/05/16 Metoclopramide Hcl (METOCLOPRAMIDE HCL) 10 Mg Tablet, 10 MG PO QID, TAB 05/05/16 Metformin Hcl (METFORMIN HCL) 500 Mg Tablet, 1000 MG PO BID, #60 TAB 05/05/16 Atenolol (ATENOLOL) 50 Mg Tablet, 50 MG PO DAILY 05/05/16 Insulin Aspart (NOVOLOG MIX 70-30 VIAL) 100 Units/Ml Ml, 15 UNIT SQ DAILY 02/06/16 Insulin Npl/Insulin Lispro (HUMALOG MIX 75-25 KWIKPEN) 100 Unit/1 Ml Insuln.pen, 30 UNITS SQ BID 02/06/16 Hydrocodone Bit/Acetaminophen (NORCO 10-325 TABLET) 1 Each Tablet, 30 MG PO PRN 02/06/16 Morphine Sulfate (MORPHINE SULFATE ER) 30 Mg Tablet.er, 30 MG PO PRN, TAB 02/06/16 Clonazepam (KLONOPIN) 1 Mg Tablet, 1 MG PO BID 02/06/16 Promethazine Hcl (PROMETHAZINE HCL) 25 Mg Tablet, 25 MG PO PRN, TAB 02/06/16 Lisinopril (LISINOPRIL) 10 Mg Tablet, 40 MG PO DAILY, #30 TAB 02/06/16 Buspirone Hcl (BUSPIRONE HCL) 5 Mg Tablet, 15 MG PO BID, #60 TAB 02/06/16 Furosemide (LASIX) 40 Mg Tablet, 40 MG PO DAILY, #30 TAB 02/06/16 Pregabalin (LYRICA) 75 Mg Cap, 75 MG PO BID, #30 CAP 02/06/16 Medications in the ED Vancomycin HCl 250 ml @ 200 mls/hr Q12H IV ; Start 11/05/19 at 23:15; Stop 11/12/19 at 23:14; Status UNGOKUL DOCKERY MD Nov 05, 2019 23:29
[2019-11-05 23:30] LABS: PARTIAL THROMBOPLASTIN TIME 31.4 seconds (23.8-35.5)
[2019-11-05] MEDS: SODIUM CHLORIDE 0.9% 1000ML 1,000 ML IV SCH (23:30)
[2019-11-05] MEDS ORDERED: PIPER-TAZ 3.375 GM 50 ML IV ONE (23:30)
[2019-11-05] MEDS ORDERED: VANCOMYCIN 1GM/NS 250 ML 250 ML ONE (23:30)
[2019-11-05 23:36] LABS: ALBUMIN 3.4 g/dL (3.5-5.0)
[2019-11-05 23:45] LABS: ANION GAP 20.1 mmol/L (8-16); CALCIUM 8.5 mg/dL (8.4-10.2); CREATININE, SERUM 1.29 mg/dL (0.57-1.11); POTASSIUM 4.1 mmol/L (3.5-5.1)
[2019-11-06] VITALS (9 sets, daily range): BP systolic 89–138; BP diastolic 54–71
[2019-11-06] MEDS ORDERED: DEXTROSE 50% SYRINGE 50 ML IV PRN
[2019-11-06] MEDS ORDERED: ONDANSETRON HCL INJ 2MG/ML 2ML 2 MG/ML VIAL IV PRN
[2019-11-06] MEDS ORDERED: VANCOMYCIN 1GM/NS 250 ML 250 ML IV SCH
--- OUTSIDE RECORDS SUMMARY | 2019-11-06 00:03 | XMS REPORT | Continuity of Care Document ---
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 Phone [employer] Unavailable Un available Problems Problem Status Onset Date Classification Date Reported Comments Source SOB Active 0 09/05/2018 [facility] ACUTE CHEST PAIN, SINUS BRADYCARDIA Active 09/05/2018 [facility] Pain in left knee 04/03/2018 10/15/2018 [facility] Acute pain due to trauma 03/28/2018 10/15/2018 [facility],[id number] KNEE PAIN Active 03/27/2018 [facility] Pain in left shoulder 03/23/2018 10/03/2018 [facility] Unspecified fall, initial encounter 03/16/2018 10/03/2018 [facility] KNEE INJURY Active 03/16/2018 [facility] Left upper quadrant pain 11/03/2017 05/14/2018 [facility] ABD PAIN Active 10/25/2017 [facility] Unspecified hydronephrosis 04/09/2017 07/10/2017 [facility] ABDOMINAL PAIN Active 04/02/2017 [facility] ACUTE LOWER UTI, ACUTE PANCREATITIS Active 04/02/2017 [facility] 789.00 ABD PAINGALLBLADDER REMOVED 2 Active 08/18/2014 [facility] Discharge Diagnosis: Diabetic gastroparesis 05/12/2014 05/14/2014 [facility] Discharge Diagnosis: Acute gastritis 05/12/2014 05/14/2014 [facility] FALL Active 02/23/2013 [facility] ABD CRAMPING Active 01/07/2013 [facility] RECTAL PAIN Active 01/06/2013 [facility] NAUSEA Active 08/02/2012 [facility] SHORTNESS OF BREATH Active 07/20/2012 [facility] FLANK PAIN Active 05/15/2012 [facility] Abdominal pain Active Problem 10/04/2018 [id number]1.2 2568 Chronic headache Active Problem 10/04/2018 2.16.840.1.620729.4.391.11.2 2568 Chronic pancreatitis Active Diagnosis 10/04/2018 eCW: Kike Jarvis,[id number]1.16357 Type 2 diabetes mellitus with diabetic n europathy, unspecified Active Prob sonia 10/04/2018 eCW: Kike Jarvis,[id number] half-way current use of insulin Active Problem 03/2018 2.16.840.1.977205.4.391.11.2 2568 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 826629.4.391.11.12301 Lisa infection Active Diagnosis 01/04/2018 2.16.840.1.323720.4.391.11.2 2568 Reactive depression Active Problem 10/04/2018 2.16.840.1.380487.4.391.11.2 2568 HTN (hypertension), benign Act gio Problem 03/2018 2.16.840.1.515061.4.391.11.2 2568 Memory loss Active Problem 10/04/2018 2.16.840.1.909783.4.391.11.26852 Acute bronchitis, unspecified organism Active Diagnosis 06/07/2017 2.16.840.1.127559.4.391.11.54591 Acute non-recurrent maxillary sinusitis Active Diagnosis 05/11/2018 2.16.840.1.223205.4.391.11.65398 Ureteral stone Active Diagnosis 08/22/2017 2.16.840.1.084726.4.391.11.2 2568 Idiopathic chronic pancreatitis Active Diagnosis 0 05/11/2017 2.16.840.1.474288.4.391.11.2 2568 Right upper quadrant abdominal pain Active Diagnosis 0 05/11/2017 2.16.840.1.557250.4.391.11.2 2568 Status post laser lithotripsy of ureteral calculus Active Diagnosis 05/11/2017 2.16.840.1.093476.4.391.11.14989 Drug induced constipation Acti ve Diagnosis 0 08/22/2017 2.16.840.1.570096.4.391.11.2 2568 Abscess of leg without foot, right Active Diagnosis 1 04/10/2017 2.16.840.1.111151.4.391.11.2 2568 Syncope and collapse Active Diagnosis 08/10/2018 2.16.840.1.728013.4.391.11.2 2568 Chronic pancreatitis Active Problem 2015 eCW: [...] vaginitis and vulvovaginitis Active Problem 2015 eCW: Kike Jarvis Diabetes with ophthalmic manifestations, type II [...] pain, unspecified site Active Problem eCW: Kike Jarvis Chronic pain syndrome Active Problem 2015 eCW: [...] of the groin Active Diagnosis 0 08/10/2015 2.16.840.1.534750.4.391.11.2 2568 Chronic pain Active Diagnosis 09/22/2015 eCW: Kike Jarvis,2.16.840.1. 258066.4.391.11.00024 Chronic pain disorder Active Problem 10/04/2018 2.16.840.1.005002.4.391.11.2 2568 Anterior shoulder pain Active Diagnosis 04/28/2018 2.16.840.1.542048.4.391.11.2 2568 Left medial knee pain Active Diagnosis 04/28/2018 2.16.840.1.688851.4.391.11.2 2568 Non-recurrent acute suppurative otitis m edia of right ear without spontaneous rupture of tympanic membrane Active Diagnosis 0 06/01/2018 2.16.840.1.725892.4.391.11.2 2568 Abscess of leg without foot, left Active Diagnosis 1 04/10/2017 2.16.840.1.456423.4.391.11.2 2568 Onychomycosis Active Diagnosis 02/07/2018 2.16.840.1.395634.4.391.11.2 2568 Encounter for immunization Act gio Diagnosis 0 03/06/2018 [facility],2.16.840.1.285241.4.391.11.45288 [D]Chest pain Active Problem 08/04/2012 [facility] Anxiety Active Problem 08/04/2012 [facility] AP - Abdominal pain Active Problem 08/04/2012 [facility] CHF - Congestive heart failure Active Problem 03/2012 [facility] Depression Active Problem 08/04/2012 [facility] Diabetes mellitus Active Problem 08/04/2012 [facility] DM - Diabetes mellitus Active Problem 08/04/2012 [facility] HTN - Hypertension Active Problem 08/04/2012 [facility] Hypertension Active Problem 08/04/2012 [facility] Nausea Active Problem 08/04/2012 [facility] Pancreatitis Active Problem 08/04/2012 [facility] SOB - Shortness of breath Acti ve Problem 03/2012 [facility] Urinary tract infection, site not specified 07/10/2017 [facility] Fatty (change of) liver, not elsewhere classified 07/10/2017 [facility] Type 2 diabetes mellitus without complications 10/15/2018 [facility] Essential (primary) hypertension 10/03/2018 [facility] Fibromyalgia 10/15/2018 [facility],2.16.840.1.000748.4.391.11. 32550 Constipation, unspecified 07/10/2017 [facility] Other specified anxiety disorders 07/10/2017 [facility] [D]Chest pain (context-dependent category) Active Problem 10/15/2018 [facility] Anxiety (finding) Active Problem 10/15/2018 [facility] Abdominal pain (finding) Active Problem 10/15/2018 [facility] Congestive heart failure (disorder) Active Problem 02/2019 [facility] Cholecystectomy (procedure) Re solved Problem 02/2019 [facility] Depressive disorder (disorder) Active Problem 02/2019 [facility] Diabetes mellitus (disorder) A ctive Problem 02/2019 [facility] Hypertensive disorder, systemic arterial (disorder) Active Problem 10/15/2018 [facility] Nausea (finding) Active Problem 10/15/2018 [facility] Pancarditis (disorder) Resolved Problem 10/15/2018 [facility] Pancreatitis (disorder) Active Problem 10/15/2018 [facility] Dyspnea (finding) Active Problem 10/15/2018 [facility] Pancarditis Resolved Problem 08/04/2012 [facility] Sprain of unspecified ligament of left a nkle, initial encounter 10/03/2018 [facility] Pain in left hip 10/03/2018 [facility] Other chronic pancreatitis 10/15/2018 [facility] Other chronic pain 10/03/2018 [facility] half-way (current) use of insulin 10/15/2018 [facility] Other supervisor intermediates (current) drug therapy 10/15/2018 [facility] Allergy status to penicillin 10/03/2018 [facility] Fall on same level from slipping, trippi ng and stumbling without subsequent striking against object, initial encounter 10/03/2018 [facility] Heart failure, unspecified 10/15/2018 [facility] Hypertensive heart disease with heart failure 10/15/2018 [facility] Major depressive disorder, single episode, unspecified 10/15/2018 [facility] Anxiety disorder, unspecified 10/15/2018 [facility] Pain in right knee 10/15/2018 [facility] Localized edema 10/15/2018 [facility] Gastroparesis 10/15/2018 [facility],2.16.840.1.808673.4.391.11. 97130 URINARY TRACT INFECTION, SITE NOT SPECIF Active [facility] ACUTE PANCREATITIS WITHOUT NECROSIS OR I Active [facility] CHEST PAIN, UNSPECIFIED Active [facility] BRADYCARDIA, UNSPECIFIED Active [facility] Medications Medication Details Route Status Patient Instructions Ordering Provider Order Date Source MS Contin 1 tablet Orally Active 30 mg Orally every 8 hr s Carloz 10/03/2018 [id number] [place] 1 tablet as needed Orally Active 10-325 MG Orally every 6 hrs [facility] 09/12/2018 2.16.840.1.910417.4.391.11.28409 MS Contin 1 tablet Orally Active 30 mg Orally every 8 ho urs [facility] 09/12/2018 2.[id number] Fenofibrate 145 MG Oral Tablet Notes: (Same as: Tricor) No Longer Active 09/07/2018 [facility] Hydralazine Hydrochloride 25 MG Oral Tablet 25 mg = 1 tab, PO, TID, # 90 tab, 0 Refill(s) Active 09/06/2018 [facility] amLODIPine 10 mg oral tablet 1 0 mg = 1 tab, PO, Daily, # 30 tab, 0 Refill(s) Active 09/06/2018 [facility] Amlodipine Notes: (Same as: No rvasc) Inactive 09/06/2018 [facility] Metoclopramide Notes: (Same as : Reglan) Take 30 min before meals Inactive 09/06/2018 [facility] Lisinopril Notes: (Same as: Pr inivil, Zestril) Inactive 09/06/2018 [facility] Aspirin Notes: Do not crush or chew. (Same As: Ecotrin) Inactive 09/06/2018 [facility] Protonix Notes: Tablet should not be chewed or crushed. (Same as: Protonix) Inactive 09/06/2018 [facility] Buspirone Notes: (Same As: BuS par) Inactive 09/06/2018 [facility] Atenolol Notes: (Same As:Tenor min) Inactive 09/06/2018 [facility] Lyrica Notes: (Same as: Lyrica) Inactive 09/06/2018 [facility] Hydralazine Hydrochloride 25 MG Oral Tablet 50 mg = 2 tab, PO, TID, 0 Refill(s) Inactive 09/06/2018 [facility] Escitalopram 10 MG Oral Tablet [Lexapro] 10 mg = 1 tab, PO, Daily, 0 Refill(s) Active 09/06/2018 [facility] Hydralazine 25 mg, PO, QID, 0 Refill(s) Inactive 09/06/2018 [facility] Clonidine See Instructions, CO N Hypertension, 0.1 mg PO, 0 Refill(s) Active 09/06/2018 [facility] gabapentin 300 mg, PO, TID, 0 Refill(s) Active 09/06/2018 [facility] Promethazine 25 mg, PO, BID, P RN as needed for nausea/vomiting, 0 Refill(s) Active 09/06/2018 [facility] Alprazolam 1 MG Oral Tablet [Xanax] 1 mg = 1 tab, PO, BID, 0 Refill(s) Active 09/06/2018 [facility] Trulicity Pen See Instructions , 1.5 mg SUB-Q, 0 Refill(s), takes once a week Active 09/06/2018 [facility] Levemir 15 unit, SUB-Q, Daily, 0 Refill(s) Active 09/06/2018 [facility] Lovenox Notes: (Same as: Loven ox) No Longer Active 09/06/2018 [facility] Insulin Lispro Notes: (Same as : Humalog) Roll in palms of hands gently; Do not shake vigorously. WASTE: F/P - Black; E - Municipal Trash Bin Stable for 28 days at room temperature. Expires in days from Date No Longer Active 09/06/2018 [facility] Dextrose 50% Syringe 25 gm, 50 mL, Route: IVP, Drug Form: INJ, Dosing Weight 77.273, kg, PRN, PRN Blood Glucose Results, Start date: 09/05/18 21:26:00 CDT, Duration: 30 day, Stop date: 10/05/18 21:25:00 CDT, 0 No Longer Active 09/06/2018 [facility] Glucagon 1 mg, Route: IM, Drug form: PDR/INJ, PRN, Dosing Weight 77.273, kg, PRN Blood Glucose Results, Start date: 09/05/18 21:26:00 CDT, Duration: 30 day, Stop date: 10/05/18 21:25:00 CDT, 0 No Longer Active 09/06/2018 [facility] Furosemide 20 MG Oral Tablet [Lasix] See Instructions, 1 tab PO Daily, 0 Refill(s) Active 09/05/2018 [facility] Trazodone Notes: (Same As: Po yrel) No Longer Active 09/05/2018 [facility] Albuterol 0.833 MG/ML / Ipratropium Brom fabricio 0.167 MG/ML Inhalant Solution [DuoNeb] Notes: (Same as: Duoneb) No Longer Active 09/05/2018 [facility] phenol Notes: WASTE: F/P - Raghav ck; E - Municipal Trash Bin No Longer Active 09/05/2018 [facility] Mucinex Notes: (Same as: Coyf enesin LA, Humibid LA, Mucinex) "Do Not Crush" Take medication with plenty of water. No Longer Active 09/05/2018 [facility] Robitussin-AC oral syrup Notes : (Same As: Robitussin AC) No Longer Active 09/05/2018 [facility] Tessalon Perles Notes: (Same A s: Gelasalon Perles) "Do Not Crush" No Longer Active 09/05/2018 [facility] Simethicone Notes: (Same as: Cece ylicon) No Longer Active 09/05/2018 [facility] Maalox Advanced Regular Strength SUSP Notes: (aluminum hydroxide-magnesium hyd-simethicone 224-228-15cz/5ml 30 ml ud NAVEEN) No Longer Active 09/05/2018 [facility] Acetaminophen 325 MG / Hydrocodone Julio trate 5 MG Oral Tablet [[place]idan 5/325] Notes: (Same as: [place] 325/5) Do not ex ceed 4gm/day of acetaminophen. No Longer Activ e 09/05/2018 [facility] Hydralazine Notes: (Same as: A presoline) Push over 5 minutes No Longer Active 09/05/2018 [facility] Nicotine Notes: (Same as: Leo ramos) "Remove old patch before application of new patch" WASTE: F/P - P Waste Black; E - P Waste Black No Longer Active 09/05/2018 [facility] Morphine Notes: (Same as:MORPh ine Sulfate) No Longer Active 09/05/2018 [facility] Seroquel Notes: (Same as: SERO quel) No Longer Active 09/05/2018 [facility] Acetaminophen Notes: Do not ex ceed 4 gm/day. (Same as: Tylenol) No Longer Active 09/05/2018 [facility] Melatonin Notes: (Same as: Jalyn atonin) No Longer Active 09/05/2018 [facility] POLYETHYLENE GLYCOL 3350 Notes : Dissolve in 8 oz of water or juice. (Same as: Miralax) No Longer Active 09/05/2018 [facility] Docusate Notes: (Same as: Cola ce) (Do Not Crush) No Longer Active 09/05/2018 [facility] Bisacodyl Notes: (Same As: Dul colax, Bisco-Lax) No Longer Active 09/05/2018 [facility] Ondansetron Notes: (Same as: Ankit deras) MEDICATION WASTE Product Size: 4 mg Product Wasted: ___ mg No Longer Active 09/05/2018 [facility] Diphenhydramine 25 mg, 1 tab, Route: PO, Drug form: TAB, Q6H, Dosing Weight 77.273, kg, PRN as needed for allergy symptoms, Start date: 09/05/18 17:49:00 CDT, Duration: 30 day, Stop date: 10/05/18 17:48:00 CDT, 0 No Longer Active 09/05/2018 [facility] Dextrose 50% Syringe 12.5 gm, 25 mL, Route: IVP, Drug Form: INJ, Dosing Weight 77.273, kg, PRN, PRN Blood Glucose Results, Start date: 09/05/18 17:49:00 CDT, Duration: 30 day, Stop date: 10/05/18 17:48:00 CDT, 0 No Longer Active 09/05/2018 [facility] Glucagon 1 mg, Route: IM, Drug form: PDR/INJ, PRN, Dosing Weight 77.273, kg, PRN Blood Glucose Results, Start date: 09/05/18 17:49:00 CDT, Duration: 30 day, Stop date: 10/05/18 17:48:00 CDT, 0 No Longer Active 09/05/2018 [facility] Hydralazine Notes: (Same as: A presoline) Push over 5 minutes Inactive 09/05/2018 [facility] Aspirin Notes: Take with food. Inactive 09/05/2018 [facility] Morphine Notes: (Same as:MORPh ine Sulfate) Inactive 09/05/2018 [facility] Zofran Notes: (Same as: Zofran ) MEDICATION WASTE Product Size: 4 mg Product Wasted: ___ mg Inactive 09/05/2018 [facility] MS Contin 1 tablet Orally Active 30 mg Orally every 8 ho urs [facility] 08/21/2018 [id number] [place] 1 tablet as needed Orally Active 10-325 MG Orally every 6 hrs [facility] 08/09/2018 2.16.840.1.810222.4.391.. MS Contin 1 tablet Orally Active 30 mg Orally every 8 ho urs [facility] 06/08/2018 2.16.840.1.403086.4.391.11. [place] 1 tablet as needed Orally Active 10-325 MG Orally every 6 hrs [facility] 06/08/2018 2.16.840.1.681514.4.391.11. [place] 1 tablet as needed Orally Active 10-325 MG Orally every 6 hrs [facility] 05/10/2018 2.16.840.1.231515.4.391.11.25320 Promethazine-DM 5 ml as needed Orally Active 6.25-15 MG/5ML Orally every 6 hrs [facility] 05/10/2018 2.16.840.1.980009.4.391.. Levofloxacin 1 tablet Orally Active 500 mg Orally Once a da y [facility] 05/10/2018 2.16.840.1.917888.4.391.11.41698 Nalfon 1 capsule Orally Active 400 MG Orally Three padilla es a day [facility] 05/10/2018 2.16.840.1.920599.4.391.11.68076 MS Contin 1 tablet Orally Active 30 mg Orally every 8 ho urs [facility] 05/10/2018 2.16.840.1.684147.4.391..38265 MS Contin 1 tablet Orally Active 30 mg Orally every 8 ho urs [facility] 04/09/2018 2.16.840.1.440278.4.391.11.81202 [place] 1 tablet as needed Orally Active 10-325 MG Orally every 6 hrs [facility] 04/09/2018 2.16.840.1.370020.4.391.11.89942 tramadol hydrochloride 50 MG Oral Tablet 50 mg = 1 tab, PO, Q4H, X 5 day, # 20 tab, 0 Refill(s) No Longer Active 03/28/2018 [facility] Acetaminophen 325 MG / Hydrocodone Julio trate 7.5 MG Oral Tablet [[place] 7.5/325] 1 tab, Route: PO, Drug Form: TAB, Dosing Weight 76.818, kg, ONCE, STAT, Start date: 03/28/18 1:20:00 MANAGER ASSESSMENT, Stop date: 03/28/18 1:20:00 MANAGER ASSESSMENT Inactive 03/28/2018 [facility] Zofran 4 mg, Route: IVP, Drug form: INJ, ONCE, Dosing Weight 76.818, kg, Priority: STAT, Start date: 03/27/18 23:34:00 MANAGER ASSESSMENT, Stop date: 03/27/18 23:34:00 MANAGER ASSESSMENT Inactive 03/28/2018 [facility] Morphine 4 mg, Route: IVP, ONC E, Dosing Weight 76.818, kg, Priority: STAT, Start date: 03/27/18 23:34:00 MANAGER ASSESSMENT, Stop date: 03/27/18 23:34:00 MANAGER ASSESSMENT Inactive 03/28/2018 [facility] Zofran ODT 4 mg, Route: PO, Dr ug form: TABDIS, ONCE, Dosing Weight 76.818, kg, Priority: STAT, Start date: 03/27/18 23:31:00 MANAGER ASSESSMENT, Stop date: 03/27/18 23:31:00 MANAGER ASSESSMENT Inactive 03/28/2018 [facility] Morphine 4 mg, Route: IM, ONCE , Dosing Weight 76.818, kg, Priority: STAT, Start date: 03/27/18 23:31:00 MANAGER ASSESSMENT, Stop date: 03/27/18 23:31:00 MANAGER ASSESSMENT Inactive 03/28/2018 [facility] Ketorolac 4 days MEDICA TION WASTE Product Size: 30 mg Product Wasted: ___ mg Inactive 03/17/2018 [facility] Acetaminophen 325 MG / Hydrocodone Julio trate 10 MG Oral Tablet [[place] 10/325] Notes: Do not exceed 4gm/day of acetamin ophen. (Same as: [place] 325/10) Inactive 03/17/2018 [facility] Acetaminophen 325 MG / Hydrocodone Julio trate 10 MG Oral Tablet [[place] 10/325] 1 tab, Route: PO, Drug Form: TAB, Dosing Weight 71.364, kg, ONCE, STAT, Start date: 03/16/18 16:01:00 MANAGER ASSESSMENT, Stop date: 03/16/18 16:01:00 MANAGER ASSESSMENT Inactive 03/16/2018 [facility] [place]idan 1 tablet as needed Orally Active 10-325 MG Orally every 6 hrs [facility] 03/14/2018 2.16.840.1.149146.4.391.11.85775 MS Contin 1 tablet Orally Active 30 mg Orally every 8 ho urs [facility] 03/14/2018 2.16.840.1.770319.4.391.11.56724 Tylenol/Codeine #3 1 tablet as needed Orally Active 300-30 MG Orally every 6 hrs [facility] 03/07/2018 2.16.840.1.298593.4.391.11.48227 Trulicity one injection pen subcutaneous Active 1.5mg/0.5mL subcutaneous once a week [facility] 01/29/2018 2.16.840.1.006418.4.391.11.16327 Doxycycline Monohydrate 1 tabl et Orally Active 100 MG Orally twice a day [facility] 11/20/2017 2.16.840.1.398689.4.391.11.93420 Saline Flush 0.9% Notes: (Same as: BD Posiflush) No Longer Active 10/26/2017 [facility] Ondansetron Notes: (Same as: Z ofran) MEDICATION WASTE Product Size: 4 mg Product Wasted: ___ mg No Longer Active 10/26/2017 [facility] Morphine Notes: (Same as:MORPh ine Sulfate) No Longer Active 10/26/2017 [facility] Clonidine HCl 1 tablet Orally Active 0.2 MG Orally twice a d ay (bid) as needed (prn) when SBP is over 160 [facility] 08/29/2017 2.16.840.1.793611.4.391.11.41531 Xanax 1 tablet Orally Active 1 MG Orally Twice a day [facility] 08/28/2017 2.16.840.1.636729.4.391.11.91787 HydrALAZINE HCl 1 tablet intravenously Active 100 mg intravenously twice a day (bid) [facility] 08/28/2017 2.16.840.1.993261.4 .391.11.68776 Wellbutrin XL 1 tablet in the morning Orally Active 300 MG Orally Once a day [facility] 05/31/2017 2.16.840.1.980379.4.391.11.17109 Levaquin 1 tablet Orally Active 500 mg Orally Once a da y [facility] 05/02/2017 2.16.840.1.614715.4.391.11.22277 Levaquin 1 tablet Orally Active 500 mg Orally Once a da y [facility] 05/02/2017 2.16.840.1.083449.4.391.11.82726 Promethazine-DM 5 ml as needed Orally Active 6.25-15 MG/5ML Orally every 6 hrs [facility] 04/28/2017 2.16.840.1.119705.4.391.11.90815 Famotidine Notes: (Same as: Dylan pcid) Inactive 04/04/2017 [facility] Ciprofloxacin 400 mg, Route: I VPB, Drug form: INJ, Q12H, Dosing Weight 75, kg, Start date: 04/03/17 21:00:00 MANAGER ASSESSMENT, Duration: 1 doses or times, Stop date: 04/03/17 21:00:00 MANAGER ASSESSMENT, ABX Indication: Surgical Prophylaxis Inactive 04/04/2017 [facility] influenza virus vaccine, inactivated Notes: (Same as: Fluzone Quadrivalent, Fluarix Quadrivalent) For 3 years of age and older (0.5 mL IM) Shake well before use Inactive 04/04/2017 [facility] pneumococcal capsular polysaccharide typ e 1 vaccine / pneumococcal capsular polysaccharide type 10A vaccine / pneumococcal capsular polysaccharide type 11A vaccine / pneumococcal capsular polysaccharide type 12F vaccine / pneumococcal capsular polysacchar Notes: (Same as: Pneumovax 23) Refrigerate Inactive 04/04/2017 [facility] Wellbutrin XL 1 tablet in the morning Orally Active 150 MG Orally Once a day [facility] 04/04/2017 [id number] Dilaudid Notes: (Same as: Dila udid) Inactive 04/03/2017 [facility] phenylephrine (ANES) Route: IV , Drug form: INJ, ONCE, Stop date: 04/03/17 14:56:00 MANAGER ASSESSMENT Inactive 04/03/2017 [facility] glycopyrrolate (ANES) Route: I V, Drug form: INJ, ONCE, Stop date: 04/03/17 14:56:00 MANAGER ASSESSMENT Inactive 04/03/2017 [facility] propofol (ANES) Route: IV, Jordin g form: INJ, ONCE, Stop date: 04/03/17 14:38:00 MANAGER ASSESSMENT Inactive 04/03/2017 [facility] ondansetron (ANES) Route: IV, Drug form: INJ, ONCE, Stop date: 04/03/17 14:38:00 MANAGER ASSESSMENT Inactive 04/03/2017 [facility] fentaNYL (ANES) Route: IV, Jordin g form: INJ, ONCE, Stop date: 04/03/17 14:38:00 MANAGER ASSESSMENT Inactive 04/03/2017 [facility] lidocaine (ANES) Route: IV, Dr ug form: INJ, ONCE, Stop date: 04/03/17 14:38:00 MANAGER ASSESSMENT Inactive 04/03/2017 [facility] midazolam (ANES) Route: IV, Dr ug form: SOLN, ONCE, Stop date: 04/03/17 14:32:00 MANAGER ASSESSMENT Inactive 04/03/2017 [facility] Docusate Sodium 100 MG Oral Capsule [Colace] 100 mg = 1 cap, PO, BID, PRN Constipation, # 20 cap, 0 Refill(s) Active 04/03/2017 [facility] Phenazopyridine hydrochloride 100 MG Ora l Tablet [Pyridium] 100 mg = 1 tab, PO, TID, PRN Dysuria, X 7 day, # 21 cap, 0 Refill(s) No Longer Active 04/03/2017 [facility] Ciprofloxacin 500 MG Oral Tablet [Cipro] 500 mg = 1 tab, PO, Q12H, X 7 day, # 14 tab, 0 Refill(s) No Longer Active 04/03/2017 [facility] oxybutynin 5 mg oral tablet 5 mg = 1 tab, PO, BID, PRN Other-See Comments, # 14 tab, 0 Refill(s) Active 04/03/2017 [facility] oxybutynin Notes: Same as: Zeeshan dutta) Inactive 04/03/2017 [facility] Ondansetron Notes: (Same as: Ankit deras) MEDICATION WASTE Product Size: 4 mg Product Wasted: ___ mg Inactive 04/03/2017 [facility] Hydromorphone 0.3 mg, 0.3 mL, Route: IVP, Drug form: INJ, Q3H, Dosing Weight 75, kg, PRN Pain Score 4-6, Start date: 04/03/17 14:30:00 MANAGER ASSESSMENT, Duration: 30 day, Stop date: 05/03/17 14:29:00 MANAGER ASSESSMENT Inactive 04/03/2017 [facility] Calcium Chloride 0.0014 MEQ/ML / Potassi um Chloride 0.004 MEQ/ML / Sodium Chloride 0.103 MEQ/ML / Sodium Lactate 0.028 MEQ/ML Injectable Solution 1,000 mL, Rate: 125 ml/hr, Infuse over: 8 hr, Route: IV, Dosing Weight 75 kg, Total Volume: 1,000, Start date: 04/03/17 14:30:00 MANAGER ASSESSMENT, Duration: 30 day, Stop date: 05/03/17 14:29:00 MANAGER ASSESSMENT, 1.8, m2 Inactive 04/03/2017 [facility] Calcium Chloride 0.0014 MEQ/ML / Potassi um Chloride 0.004 MEQ/ML / Sodium Chloride 0.103 MEQ/ML / Sodium Lactate 0.028 MEQ/ML Injectable Solution 1,000 mL, Rate: 25 ml/hr, Infuse over: 4 0 hr, Route: IV, Dosing Weight 75 kg, Total Volume: 1,000, Start date: 04/03/17 13:48:00 MANAGER ASSESSMENT, Duration: 30 day, Stop date: 05/03/17 13:47:00 MANAGER ASSESSMENT, 1.8, m2 Inactive 04/03/2017 [facility] Lactated Ringers Injection IV (ANES) 1000 mL Route: IV, Total Volume: 1,000, Start date: 04/03/17 13:47:00 MANAGER ASSESSMENT, Stop date: 04/03/17 14:47:00 MANAGER ASSESSMENT Inactive 04/03/2017 [facility] Lactated Ringers IV 1,000 mL 1 ,000 mL, Rate: 250 ml/hr, Infuse over: 4 hr, Route: IV, Dosing Weight 75 kg, Total Volume: 1,000, Start date: 04/03/17 9:25:00 MANAGER ASSESSMENT, Duration: 30 day, Stop date: 05/03/17 9:24:00 MANAGER ASSESSMENT, 1.8, m2 Inactive 04/03/2017 [facility] Lyrica Notes: (Same as: Lyrica) Inactive 04/03/2017 [facility] Metoclopramide Notes: (Same as : Reglan) Take 30 min before meals Inactive 04/03/2017 [facility] Cipro Notes: Do not refrigerate Inactive 04/03/2017 [facility] Metformin 500 mg, Route: PO, Q ID, Dosing Weight 75, kg, Start date: 04/03/17 9:00:00 MANAGER ASSESSMENT, Duration: 30 day, Stop date: 05/02/17 21:00:00 MANAGER ASSESSMENT Inactive 04/03/2017 [facility] Lisinopril Notes: (Same as: Pr inivil, Zestril) Inactive 04/03/2017 [facility] Insulin, Aspart, Human 15 unit , Route: SUB-Q, Daily, Dosing Weight 75, kg, Start date: 04/03/17 9:00:00 MANAGER ASSESSMENT, Duration: 30 day, Stop date: 05/02/17 9:00:00 MANAGER ASSESSMENT Inactive 04/03/2017 [facility] Buspirone Notes: (Same As: BuS par) Inactive 04/03/2017 [facility] Atenolol Notes: (Same As:Tenor min) Inactive 04/03/2017 [facility] Nurse pls clarify home meds dosing for m etformin and insulin Nurse pls clarify home meds dosing for m etformin and insulin, reminder, Drug form: MISC, Route: MISC, QSHIFT, 04/03/17 8:00:00 MANAGER ASSESSMENT, Duration: 30 day, Stop date: 05/03/17 0:00:00 MANAGER ASSESSMENT Inactive 04/03/2017 [facility] Morphine Notes: Do not crush ( Same as:Oramorph SR, MS Contin) Inactive 04/03/2017 [facility] Rocephin Notes: (Same As: Zeus phin). Use with 100 mL NS and infuse over 30 min MEDICATION WASTE Product Size: 1000 mg Product Wasted: ___ mg Inactive 04/03/2017 [facility] Sodium Chloride 0.9% IV 1,000 mL 1,000 mL, Rate: 125 ml/hr, Infuse over: 8 hr, Route: IV, Dosing Weight 75 kg, Total Volume: 1,000, Start date: 04/02/17 23:40:00 MANAGER ASSESSMENT, Duration: 30 day, Stop date: 05/02/17 23:39:00 MANAGER ASSESSMENT, 1.8, m2 No Longe r Active 04/03/2017 [facility] Ondansetron Notes: (Same as: Ankit deras) MEDICATION WASTE Product Size: 4 mg Product Wasted: ___ mg No Longer Active 04/03/2017 [facility] Saline Flush 0.9% Notes: (Same as: BD Posiflush) No Longer Active 04/03/2017 [facility] Acetaminophen 325 MG / Hydrocodone Julio trate 10 MG Oral Tablet [Sheridan 10/325] Notes: Do not exceed 4gm/day of acetamin ophen. (Same as: Sheridan 325/10) No Longer Active 04/03/2017 [facility] Acetaminophen 325 MG / Hydrocodone Julio trate 10 MG Oral Tablet [Sheridan 10/325] 1 tab, PO, TID, PRN Pain, # 60 tab, 0 Re fill(s) Active 04/03/2017 [facility] Morphine 30 mg, PO, TID, 0 Ref ill(s) Active 04/03/2017 [facility] Metoclopramide 10 mg, TID, 0 R efill(s) Active 04/03/2017 [facility] Insulin, Aspart, Human 15 unit , SUB-Q, Daily, 0 Refill(s) Active 04/03/2017 [facility] Atenolol 50 mg, PO, Daily, 0 R efill(s) Active 04/03/2017 [facility] Buspirone 15 mg, PO, BID, 0 Re fill(s) Active 04/03/2017 [facility] Lyrica 75 mg, PO, Daily, 0 Ref ill(s) Active 04/03/2017 [facility] Metformin 500 mg, PO, QID, 0 R efill(s) Active 04/03/2017 [facility] Lisinopril 40 mg, PO, Daily, 0 Refill(s) Active 04/03/2017 [facility] Zofran Notes: (Same as: Zofran ) MEDICATION WASTE Product Size: 4 mg Product Wasted: ___ mg No Longer Active 04/03/2017 [facility] Ketorolac 4 days MEDICA TION WASTE Product Size: 30 mg Product Wasted: ___ mg Inactive 04/03/2017 [facility] Fentanyl 50 microgram, Route: IVP, ONCE, Dosing Weight 68.182, kg, Priority: STAT, Start date: 04/02/17 20:32:00 MANAGER ASSESSMENT, Stop date: 04/02/17 20:32:00 MANAGER ASSESSMENT Inactive 04/03/2017 [facility] Cipro 400 mg, Route: IVPB, ONC E, Dosing Weight 68.182, kg, Priority: STAT, Start date: 04/02/17 19:56:00 MANAGER ASSESSMENT, Stop date: 04/02/17 19:56:00 MANAGER ASSESSMENT, ABX Indication: Urinary Tract Infection Inactive 04/03/2017 [facility] Sodium Chloride 0.9% (Bolus) IV 1,000 mL, 1000 ml/hr, Infuse Over: 1 hr, Route: IV, 1,000, Drug form: INJ, ONCE, Priority: STAT, Dosing Weight 68.182 kg, Start date: 04/02/17 18:20:00 MANAGER ASSESSMENT, Stop date: 04/02/17 18:20:00 MANAGER ASSESSMENT Inactive 04/03/2017 [facility] Fentanyl Notes: (Same as: Subl imaze) Preservative free. Inactive 04/02/2017 [facility] Saline Flush 0.9% Notes: (Same as: BD Posiflush) No Longer Active 04/02/2017 [facility] Lyrica 1 capsule Orally Active 150 MG Orally Twice a d [facility] 03/02/2017 [id number] Zithromax Z-Eric 2 tablets on the first day, then 1 tablet daily for 4 days Orally Active 250 MG Orally Once a day [facility] 02/28/2017 [id number] Diflucan 1 tablet Orally Active 100 mg Orally daily [facility] 02/02/2017 [id number] MS Contin 1 tablet by mouth Active 30 MG by mouth three ti mes a day [facility] 10/27/2016 [id number] MS Contin 1 tablet by mouth Active 30 mg by mouth three ti mes a day [facility] 10/27/2016 [id number] Fenofibrate 1 tablet Orally Active 48 MG Orally Once a day [facility] 09/26/2016 [id number] Fenofibrate 1 tablet Orally Active 48 MG Orally Once a day [facility] 09/26/2016 [id number] Fluconazole 1 tablet Orally Active 100 MG Orally daily [facility] 08/25/2016 [id number] HydrALAZINE HCl 1 tablet with food Orally Active 50 MG Orally twice a day (bid) [facility] 07/25/2016 [id number] HydrALAZINE HCl 1 tablet with food Orally Active 50 mg Orally twice a day (bid) [facility] 07/25/2016 [id number] HydrALAZINE HCl 3 tablet with food Orally Active 50 mg Orally twice a day (bid) [facility] 07/25/2016 [id number] MS Contin 1 tablet by mouth Active 30 MG by mouth three ti mes a day [facility] 07/24/2016 [id number] Diflucan 1 tablet Orally Active 200 MG Orally Once a da y [facility] 07/14/2016 [id number] Promethazine HCl 1 tablet as n eeded Orally Active 25 MG Orally twice a day (bid) [facility] 07/14/2016 [id number] Cipro 1 tablet Orally Active 500 MG Orally Twice a d ay [facility] 07/12/2016 [id number] Nitroglycerin as directed Sublingual Active 0.3 MG Sublingual as needed (prn) [facility] 06/24/2016 [id number] Nitroglycerin as directed Sublingual Active 0.3 MG Sublingual as needed (prn) [facility] 06/24/2016 [id number] Promethazine HCl 1 tablet as n eeded Orally Active 25 MG Orally four times a day (qid) [facility] 03/28/2016 [id number] Clonazepam 1 tablet by mouth Active 1 MG by mouth Twice a d ay [facility] 02/26/2016 [id number] BusPIRone HCl 1 tablet Orally Active 15 MG Orally Twice a da y [facility] 02/26/2016 [id number] Clonazepam 1 tablet by mouth Active 1 MG by mouth Twice a d ay [facility] 02/26/2016 [id number] BusPIRone HCl 1 tablet Orally Active 15 MG Orally Twice a da y [facility] 02/26/2016 [id number] Lactulose 15 ml Orally Active 10 GM/15ML Orally Once a day [facility] 02/26/2016 [id number] Phenergan 1 tablet as needed Orally Active 25 MG Orally every 12 hrs [facility] 02/04/2016 [id number] NovoLog Flexpen as directed Subcutaneous Active 100 UNIT/ML Subcutaneous 15u daily [facility] 12/30/2015 [id number] NovoLog Flexpen as directed Subcutaneous Active 100 UNIT/ML Subcutaneous 15u daily [facility] 12/30/2015 [id number] Diflucan 1 tablet Orally Active 200 MG Orally Once a da y [facility] 12/11/2015 [id number] Atenolol 1 tablet Orally Active 50 MG Orally Once a day [facility] 09/29/2015 [id number] Atenolol 1 tablet Orally Active 50 mg Orally Once a day [facility] 09/29/2015 [id number] Zithromax Z-Eric 2 tablets on the first day, then 1 tablet daily for 4 days Orally Active 250 MG Orally Once a day [facility] 06/25/2015 [id number] Promethazine-DM 5 ml as needed Orally Active 6.25-15 MG/5ML Orally every 6 hrs [facility] 06/25/2015 [id number] Creon as directed Orally Active 39587 UNIT Orally three times a day (tid) [facility] 06/16/2015 [id number] Diflucan 1 tablet Orally Active 200 MG Orally Once a da y [facility] 06/16/2015 [id number] Ciprofloxacin 1 tablet Orally Active 250 MG Orally Twice a d ay [facility] 04/10/2015 eCW: Kike Jarvis Lotrimin AF 1 application to a ffected area Externally Active 1 % Externally Twice a day [facility] 04/10/2015 eCW: Kike Jarvis Pyridium 1 tablet after meals Orally Active 100 mg Orally Three times a day [facility] 04/10/2015 eCW: Kike Jarvis MS Contin 1 tablet Orally Active 30 mg Orally three time s a day (tid) [facility] 03/13/2015 eCW: Kike Jarvis Sheridan 1 tablet as needed Orally Active 10-325 MG Orally every 6 hrs [facility] 03/13/2015 eCW: Kike Javris Sheridan 1 tablet as needed Orally Active 10-325 MG Orally every 6 hrs [facility] 02/11/2015 eCW: Kike Jarvis MS Contin 1 tablet Orally Active 30 mg Orally three time s a day (tid) [facility] 02/11/2015 eCW: Kike Jarvis Clonazepam 1 tablet Orally Active 1 MG Orally Twice a day [facility] 11/12/2014 eCW: Kike Jarvis Duloxetine HCl 1 capsule Orally Active 30 mg Orally Twice a da y [facility] 11/12/2014 eCW: Kike Jarvis Clonazepam 1 tablet Orally Active 1 MG Orally Twice a day [facility] 11/12/2014 eCW: Kike Jarvis Citalopram Hydrobromide 2 tabl ets Orally No Longer Active 10 mg Orally Once a day [facility] 10/09/2014 eCW: Kike Jarvis Pyridium 1 tablet after meals Orally Active 200 MG Orally Three times a day [facility] 09/09/2014 eCW: Kike Jarvis Lotrimin AF 1 application to a ffected area Externally Active 1 % Externally Twice a day [facility] 09/09/2014 eCW: Kike Jarvis Trulicity 1.5 mg dose Subcutaneous injection Active 1.5mg/0.5 ml Subcutaneous injection Once a week [facility] 06/16/2014 eCW: Kike Jarvis Gabapentin 1 tablet Orally Active 600 MG Orally Three padilla es a day [facility] 06/06/2014 eCW: Kike Jarvis Topamax 1 tablet at bedtime Orally Active 50 mg Orally once every night [facility] 06/06/2014 eCW: Kike Jarvis Morphine 4 mg, Route: IVP, ONC E, Dosing Weight 79.545, kg, Priority: STAT, Start date: 05/12/14 3:32:00, Stop date: 05/12/14 3:32:00 Inactive 05/12/2014 [facility] Bent[facility] 20 mg, Route: IM, ONCE, Dosing Weight 79.545, kg, Start date: 05/12/14 3:31:00, Stop date: 05/12/14 3:31:00 Inactive 05/12/2014 [facility] Ondansetron 4 mg, Route: IVP, Drug form: INJ, ONCE, Dosing Weight 79.545, kg, Priority: STAT, Start date: 05/12/14 2:04:00, Stop date: 05/12/14 2:04:00 Inactiv e 05/12/2014 [facility] Morphine 4 mg, Route: IVP, ONC E, Dosing Weight 79.545, kg, Priority: STAT, Start date: 05/12/14 2:04:00, Stop date: 05/12/14 2:04:00 Inactive 05/12/2014 [facility] GI cocktail 30 mL, Route: PO, Dosing Weight 79.545, kg, ONCE, STAT, Start date: 05/12/14 1:55:00, Stop date: 05/12/14 1:55:00 Inactive 05/12/2014 [facility] Humalog Mix 75/25 Pen 0.30 ml in am Subcutaneous Active (75-25) 100 UNIT/ML Subcutaneous twice a day (bid) [facility] 03/10/2014 eCW: Kike Jarvis Levemir Flexpen 0.5 ml in am a nd 0.4 ml at bedtime Subcutaneous Active 100 UNIT/ML Subcutaneous twice a day (bid) [facility] 02/10/2014 eCW: Kike Jarvis Promethazine-Codeine 5 ml as n eeded Orally Active 6.25-10 MG/5ML Orally every 6 hrs [facility] 02/10/2014 eCW: Kike Jarvis Doxycycline Hyclate 1 capsule Orally Active 100 mg Orally Once a day [facility] 02/10/2014 eCW: Kike Jarvis BusPIRone HCl 1 tablet Orally Active 10 mg Orally Twice a da y [facility] 01/10/2014 eCW: Kike Jarvis Lactulose 30 ml Orally Active 20 GM/30ML Orally three times a day (tid) [facility] 12/13/2013 eCW: Kike Jarvis Colace 1 capsule as needed Orally Active 100 mg Orally three times a day (tid) [facility] 12/13/2013 eCW: Kike Jarvis Metamucil as directed Orally Active 30.9 % Orally three padilla es a day (tid) [facility] 12/13/2013 eCW: Kike Jarvis MS Contin 1 tablet Orally Active 30 mg Orally three time s a day (tid) [facility] 11/22/2013 eCW: Kike Jarvis Lasix 1 tablet Orally Active 40 MG Orally Once a day [facility] 10/16/2013 eCW: Kike Jarvis MS Contin 1 tablet Orally Active 30 mg Orally every 8 hr s [facility] 10/11/2013 eCW: Kike Jarvis Anusol-HC 1 suppository Rectal Active 25 MG Rectal Twice a da y [facility] 10/11/2013 eCW: Kike Jarvis Sheridan 1 tablet as needed Orally Active 10-325 MG Orally every 6 hrs [facility] 10/11/2013 eCW: Kike Jarvis Lyrica 1 capsule Orally Active 50 mg Orally Three time s a day [facility] 10/11/2013 eCW: Kike Jarvis Lidocaine (Anorectal) as direc chio Externally Active 5 % Externally four times a day (qid) as needed (prn) [facility] 10/11/2013 eCW: Kike Jarvis Levemir Flexpen 0.4 ml Subcutaneous No Longer Active 100 UNIT/ML Subcutaneous twice a day (bid) [facility] 09/26/2013 eCW: Kike Jarvis Nystatin 1 application to affe cted area Externally Active 063725 UNIT/GM Externally Twice a day [facility] 09/26/2013 eCW: Kike Jarvis Metformin HCl 1 tablet with me als Orally Active 1000 mg Orally Twice a day [facility] 09/26/2013 eCW: Kike Jarvis Lisinopril 1 tablet Orally Active 40 mg Orally Once a day [facility] 09/26/2013 eCW: Kike Jarvis Diflucan 1 tablet Orally Active 200 MG Orally Once a da y [facility] 09/26/2013 eCW: Kike Jarvis MS Contin 1 tablet Orally No Longer Active 30 mg Orally every 8 hrs [facility] 09/12/2013 eCW: Kike Jarvis Gabapentin 1 capsule Orally Active 300 MG Orally Three padilla es a day [facility] 09/12/2013 eCW: Kike Jarvis Potassium Chloride 1 tablet Orally Active 20 MEQ Orally Once a day [facility] 09/12/2013 eCW: Kike Jarvis Levemir Flexpen 0.5 ml Subcutaneous No Longer Active 100 UNIT/ML Subcutaneous once every night [facility] 09/12/2013 eCW: Kike Jarvis Lasix 1 tablet Orally Active 40 MG Orally Once a day [facility] 09/12/2013 eCW: Kike Cagleg Protonix 1 tablet Orally Active 40 mg Orally Once a day [facility] 09/05/2013 eCW: Rodericktoshia Jarvis Lidoderm 1 patch to intact ski n remove after 12 hours Externally Active 5 % Externally Once a day [facility] 09/05/2013 eCW: Kike Cagleelijah Reglan 1 tablet 30 minutes bef ore meals and at bedtime as needed Orally Active 10 mg Orally Four times a day [facility] 09/05/2013 eCW: Kike Simona Sheridan 1 tablet as needed Orally Active 10-325 MG Orally three times a day (tid) [facility] 09/05/2013 eCW: Kike Simona Gabapentin 1 capsule Orally No Longer Active 300 MG Orally once every night [facility] 09/05/2013 eCW: Rodericktoshia Jarvis Zofran ODT 4 mg oral tablet, disintegrating 4 mg = 1 tab, PO, Q8H, Nausea and Vomiting, Dissolve tab under tongue, # 10 tab, 0 Refill(s)Dissolve tab under tongue Active Fatimah fine 02/24/2013 [facility] Zofran ODT 4 mg, Route: PO, Dr ug form: TABDIS, ONCE, Dosing Weight 93.636, kg, Priority: STAT, Start date: 02/24/13 10:35:00, Stop date: 02/24/13 10:35:00 Inactive Anant 02/24/2013 [facility] Pin-X 50 mg/mL oral suspension 1,000 mg, 20 ml, PO, ONCE, 30 ml, Substitution Allowed, SUSP Active Mitali an 01/08/2013 [facility] morphine Sulfate 4 mg, 2 mL, R oute: IVP, Drug form: INJ, ONCE, Dosing Weight 95, kg, Priority: STAT, Start date: 01/08/13 3:50:00, Stop date: 01/08/13 3:50:00(Same as:MORPhine Sulfate) Inactive Alyson 01/08/2013 [facility] ondansetron 4 mg, 2 mL, Route: IVP, Drug form: INJ, ONCE, Dosing Weight 95, kg, Priority: STAT, Start date: 01/08/13 3:50:00, Stop date: 01/08/13 3:50:00(Same as: Zofran) Inactive Sara lorenzo 01/08/2013 [facility] Saline Flush 0.9% 5 mL, Route: IVP, Drug Form: INJ, Dosing Weight 95, kg, PRN, PRN Line Flush, Start date: 01/08/13 3:50:00, Duration: 24 hr, Stop date: 01/09/13 3:49:00(Same as: BD Posiflush) [facility] Ultram 50 mg oral tablet 50 mg , 1 tab, PO, Q4H, PRN, 10 tab, pain, Substitution Allowed PO Active Flora fritz 07/21/2012 [facility] Sheridan 5/325 oral tablet 1 tab, Route: PO, Dosing Weight 109.091, kg, ONCE, Start date: 07/21/12 2:33:00, Stop date: 07/21/12 2:33:00 PO No Longer Active [facility] potassium chloride 40 mEq, Rou te: PO, Drug form: ERTAB, ONCE, Dosing Weight 109.091, kg, Priority: STAT, Start date: 07/21/12 1:53:00, Stop date: 07/21/12 1:53:00 PO No Longer Active [facility] 07/21/2012 [facility] Insulin regular 8 unit, Route: IVP, ONCE, Dosing Weight 109.091, kg, Priority: STAT, Start date: 07/21/12 1:53:00, Stop date: 07/21/12 1:53:00 IVP No Longer Active [facility] 07/21/2012 [facility] morphine Sulfate 4 mg, Route: IVP, Drug form: INJ, ONCE, Dosing Weight 109.091, kg, Priority: STAT, Start date: 07/21/12 1:01:00, Stop date: 07/21/12 1:01:00 IVP No Longer Active [facility] 07/21/2012 [facility] Sodium Chloride 0.9% (Bolus) IV 2000 mL 2,000 mL, Rate: 2,000 ml/hr, Infuse over: 1 hr, Route: IV, Dosing Weight 109.091 kg, Total Volume: 2,000, Priority: STAT, Start date: 07/21/12 1:01:00, Duration: 1 doses or times, Stop date: 07/21/12 2:00:00 IV No Longer Active [facility] 07/21/2012 [facility] Saline Flush 0.9% 5 mL, Route: IVP, Drug Form: INJ, Dosing Weight 109.091, kg, PRN, PRN Line Flush, Start date: 07/21/12 1:01:00, Duration: 30 day, Stop date: 08/20/12 1:00:00 IVP No Longer Active [facility] 07/21/2012 [facility] ondansetron 4 mg, Route: IVP, ONCE, Dosing Weight 109.091, kg, Priority: STAT, Start date: 07/21/12 1:01:00, Stop date: 07/21/12 1:01:00 IVP No Longer Active [facility] 07/21/2012 [facility] Dextrose 50% Syringe 12.5 gm, 25 mL, Route: IVP, Drug Form: INJ, Dosing Weight 109.091, kg, PRN, PRN Blood Glucose Results, Start date: 07/21/12 1:01:00, Duration: 30 day, Stop date: 08/20/12 1:00:00, If Blood Glucose is 40 - 60 mg/dL. For patients that are Unconscious or... IVP No Longer Active [facility] 07/21/2012 [facility] glucagon 1 mg, Route: IM, Drug form: PDR/INJ, PRN, Dosing Weight 109.091, kg, PRN Blood Glucose Results, Start date: 07/21/12 1:01:00, Duration: 30 day, Stop date: 08/20/12 1:00:00, For BG < 60 mg/dL if no IV access and patient is either Unconscious or Unable... IM No Longer Active [facility] 07/21/2012 [facility] Zofran ODT 4 mg oral tablet, disintegrating 4 mg, 1 tab, PO, Q8H, PRN, Dissolve tab under tongue, 10 tab, Nausea and Vomiting, Substitution AllowedDissolve tab under tongue PO Active [facility] 05/16/2012 [facility] Protonix 40 mg oral enteric coated tablet 40 mg, 1 tab, PO, Daily, 15 tab, Substitution Allowed, ECTAB PO Active [facility] 05/16/2012 [facility] Dilaudid 1 mg, Route: IV, ONCE , Dosing Weight 98.182, kg, Priority: STAT, Start date: 05/16/12 5:57:00, Stop date: 05/16/12 5:57:00 IV No Longer Active [facility] 05/04 [facility] Sodium Chloride 0.9% IV 1,000 mL 1,000 mL, Rate: 125 ml/hr, Infuse over: 8 hr, Route: IV, kg, Total Volume: 1,000, Start date: 05/16/12 3:55:00, Duration: 30 day, Stop date: 06/15/12 3:54:00 IV No Longer Active [facility] 05/16/2012 [facility] Zofran 4 mg, Route: IVP, Drug form: INJ, ONCE, Dosing Weight 98.182, kg, PRN Nausea, Priority: STAT, Start date: 05/16/12 3:54:00 IVP No Longer Active [facility] 05/04 [facility] morphine Sulfate 4 mg, Route: IVP, ONCE, Dosing Weight 98.182, kg, Start date: 05/16/12 3:54:00, Stop date: 05/16/12 3:54:00 IVP No Longer Active [facility] 05/04 [facility] Protonix 40 mg, Route: IVP, ON CE, Dosing Weight 98.182, kg, Priority: STAT, Start date: 05/16/12 3:54:00, Stop date: 05/16/12 3:54:00 IVP No Longer Active [facility] 05/04 [facility] NovoLog Flexpen as directed Subcutaneous Active 100 UNIT/ML Subcutaneous three times a day [facility] 01/26/2011 eCW: Kike Jarvis Famotidine 1 tablet at bedtime Orally Active 40 MG Orally Once a day [facility] 11/23/2010 eCW: Kike Jarvis Gabapentin 1 capsule Orally Active 300 MG Orally Three padilla es a day [facility] 11/23/2010 eCW: Kike Jarvis Lasix 1 tablet Orally No Longer Active 20 mg Orally Once a day [facility] 11/23/2010 eCW: Kike Jarvis pneumococcal 23-valent vaccine 0.5 ml, Route: IM, Drug Form: INJ, Start date: 11/25/09 9:00:00, Stop date: 11/25/09 9:00:00 Inactive SYSTEM 11/25/2009 [facility] Lisinopril 1 tablet by mouth Active 40 MG by mouth Once a d ay [facility] eCW: Kike Jarvis,[id number] Lasix 1 tablet by mouth Active 40 mg by mouth Once a d ay [facility] [id number] Lidocaine 1 patch Externally Active 5 % Externally every tw elve hours [facility] [id number] Pantoprazole Sodium 1 tablet by mouth Active 40 MG by mouth twice a day [facility] eCW: Kike Jarvis,[id number] .11. Humalog Mix 75/[address] 30 units Subcutaneous Active (75-25) 100 UNIT/ML Subcutaneous twice a day [facility] [id number] 2568 Metformin HCl 1 tablet by mouth Active 1000 mg by mouth Twice a day [facility] eCW: Rodericktoshia Jarvis,[id number] . [place]idan 1 tablet Orally Active 10-325 MG Orally four t imes a day (qid) as needed (prn) [facility] eCW: Kike Simona,[id number] . Lyrica 1 capsule Orally Active 75 MG Orally Twice a da y [facility] [id number]. Potassium Chloride 1 tablet Orally Active 20 MEQ Orally Twice a day [facility] [id number]. Metoclopramide HCl one tablet by mouth Active 10 MG by mouth four times a day [facility] [id number] Duloxetine HCl 1 capsule by mouth Active 30 MG by mouth Twice a day [facility] [id number]. Atenolol TAKE ONE TABLET BY MO [facility] DAILY NA Active 50 MG [facility] [id number] Lisinopril 1 tablet by mouth Active 40MG by mouth daily [facility] [id number]. Humalog Mix 75/[address] 30 units Subcutaneous Active (75-25) 100 UNIT/ML Subcutaneous twice a day [facility] [id number] 2568 [place] 1 tablet Orally Active 10-325 MG Orally four t imes a day (qid) as needed (prn) [facility] [id number]. Pantoprazole Sodium 1 tablet by mouth Active 40 MG by mouth twice a day [facility] [id number]. Metformin HCl TAKE ONE TABLET BY MOUTH TWICE A DAY NA Active 1,000 [facility] [id number]. Lidocaine 1 patch Externally Active 5 % Externally every tw elve hours [facility] [id number]. Potassium Chloride 1 tablet Orally Active 20 MEQ Orally Twice a day [facility] [id number] Lyrica 1 capsule Orally Active 75 MG Orally Twice a da y [facility] 840.1.869955.4.391. Lasix 1 tablet by mouth Active 40 mg by mouth Once a d ay [facility] [id number]. Metformin HCl 1 tablet by mouth Active 1000 mg by mouth Twice a day [facility] [id number]. Metoclopramide HCl one tablet by mouth Active 10 MG by mouth four times a day [facility] 840.1.787917.4.391. Gabapentin 1 tablet Orally Active 300 MG Orally Three padilla es a day [facility] [id number]. Lisinopril TAKE ONE TABLET BY MOUTH DAILY NA Active 40 [facility] 840.1.903775.4. Gabapentin 1 tablet Orally Active 300 MG Orally Three padilla es a day [facility] [id number]. Gabapentin TAKE ONE CAPSULE BY MOUTH THREE TIMES A DAY orally Active 300 orally [facility] [id number]. Metformin HCl 1 tablet with me als Orally No Longer Active 500 mg Orally Twice a day [facility] eCW: Kike Jarvis Atenolol 1 tablet by mouth Active 100 [...] T wice a day [facility] eCW: Kike Jarvis Potassium Chloride 1 tablet [...] ti mes a day [facility] eCW: Kike Jarvis,[id number]. Topamax 1 tablet by mouth Active 50 MG by mouth once at night [facility] [id number]. Gabapentin 1 tablet by mouth No Longer Active 600 MG by jada th Three times a day [facility] [id number].. Metoclopramide HCl one tablet by mouth Active 10 mg by mouth four times a day [facility] eCW: Kike Jarvis,[id number] .. Phenergan 1 tablet as needed Orally Active 25 MG Orally every 12 hrs [facility] eCW: Rodericktoshia Jarvis,[id number] . Clonazepam 1 tablet by mouth Active 1 MG by mouth Twice a d ay [facility] [id number].. Metoclopramide HCl TAKE ONE TA BLET BY MOUTH FOUR TIMES A DAY NA Active 10 MG [facility] [id number].. Wellbutrin XL TAKE ONE TABLET BY MOUTH EVERY MORNING NA Active 300 MG [facility] [id number].. Atenolol TAKE ONE TABLET BY MO UTH DAILY Orally Active 50 mg Orally Once a day [facility] [id number].. HydrALAZINE HCl 2 tablet with food Orally Active 50 mg Orally twice a day (bid) [facility] [id number].. Allergies, Adverse Reactions, Alerts Substance Category Reaction Severity Reaction type Status Date Reported Comments Source skelaxin Adverse Reaction diarrhea Adverse Reaction Active 04/10/2015 eCW: Kike Jarvis naprosyn Adverse Reaction dizziness Adverse Reaction Active 04/10/2015 eCW: Kike Jarvis Zocor Adverse Reaction rash Adverse Reaction Active 06/08/2018 [id number]. Lyrica Adverse Reaction swelling Adverse Reaction Active 06/08/2018 [id number] Celexa Adverse Reaction depression Adverse Reaction Active 06/08/2018 [id number] 2568 Amoxicillin Adverse Reaction itch Adverse Reaction Active 06/08/2018 [id number] Amlodipine Besylate Adverse Re action leg swelling Adverse Reaction Active 06/08/2018 [id number] 2568 Amitriptyline HCl Adverse Reac tion Mood Changes Adverse Reaction Active 06/08/2018 [id number] 2568 amoxicillin Assertion Drug allergy Active [facility] Skelaxin Assertion Drug allergy Active [facility] Naprosyn Assertion Drug allergy Active [facility] penicillins Assertion Drug allergy Active [facility] amitriptyline Assertion Drug allergy Active [facility] Immunizations Immunization Date Given Site Status Last Updated Comments Source INFLUENZA II Multi 1 completed [id number] 2568 pneumococcal 23-valent vaccine 04/04/2017 Right deltoid completed [facility] So ut[place] influenza virus vaccine, inactivated 04/04/2017 Left deltoid completed [facility] So [place] pneumococcal 23-valent vaccine 11/25/2009 Not Given H mike [facility] Results Order Name Results Value Reference Range Date Interpretation Comments Source CARDIAC ENZYMES Troponin-I <0.02 0.00 - 0.40 09/06/2018 [facility] ELECTROLYTES AGAP 10.4 10.0 - 20.0 09/06/2018 [facility] ELECTROLYTES Calcium Lvl 8.3 8.5 - 10.5 09/06/2018 [facility] ELECTROLYTES eGFR 60 09/06/2018 Result Comment: [...] should be multiplied by the estimated BMI. [facility] ELECTROLYTES CO2 29 24 - 32 09/06/2018 [facility] ELECTROLYTES Chloride Lvl 102 95 - 109 09/06/2018 [facility] ELECTROLYTES Potassium Lvl 3.4 3.5 - 5.1 09/06/2018 [facility] ELECTROLYTES BUN 19 7 - 22 09/06/2018 [facility] ELECTROLYTES Glucose Lvl 211 70 - 99 09/06/2018 [facility] ELECTROLYTES Sodium Lvl 138 135 - 145 09/06/2018 [facility] ELECTROLYTES Creatinine Lvl 1.0 6 0.50 - 1.40 09/06/2018 [facility] HEMATOLOGY MPV 8.7 7.4 - 10.4 09/06/2018 [facility] HEMATOLOGY RDW 13.8 11.5 - 14.5 09/06/2018 [facility] HEMATOLOGY Platelet 198 133 - 450 09/06/2018 [facility] HEMATOLOGY MCHC 34.4 32.0 - 36.0 09/06/2018 [facility] HEMATOLOGY Hct 34.9 36.0 - 48.0 09/06/2018 [facility] HEMATOLOGY Hgb 12.0 12.0 - 16.0 09/06/2018 [facility] HEMATOLOGY RBC 4.10 4.20 - 5.40 09/06/2018 [facility] MCH 29.3 27.0 - 31.0 09/06/2018 [facility] HEMATOLOGY WBC 5.5 3.7 - 10.4 09/06/2018 [facility] MCV 85.1 80.0 - 98.0 09/06/2018 [facility] LDL (Calculated) See Note mg/dL <=99 mg/dL 09/06/2018 Result Comment: LDL cholesterol cannot b e calculated due to very high triglycerides (>400 mg/dL). Recommend Direct LDL if clinically indicated. [facility] LIPIDS VLDL See Note 4 *NA* (09/06/18 3:43 AM) 09/06/2018 Result Comment: VLDL - Heather sterol level cannot be accurately calculated due to very high triglycerides (>400 mg/dL). [facility] LIPIDS Trig 460 <=149 mg/dL 09/06/2018 [facility] HDL 50 >=61 mg/dL 09/06/2018 [facility] LIPIDS Chol 223 <=199 mg/dL 09/06/2018 [facility] LIPIDS CHD Risk 4.46 3.90 - 5.80 09/06/2018 [facility] SPECIAL CHEMISTRY Hgb A1C 9.4 <=5.6 % 09/06/2018 [facility] CARDIAC ENZYMES Troponin-I <0.02 0.00 - 0.40 09/06/2018 [facility] CARDIAC ENZYMES Troponin-I <0.02 0.00 - 0.40 09/05/2018 [facility] CHEM PANEL Lipase Lvl 76 73 - 393 09/05/2018 [facility] CHEM PANEL A/G Ratio 0.9 0.7 - 1.6 09/05/2018 [facility] CHEM PANEL Globulin 3.8 2.7 - 4.2 09/05/2018 [facility] CHEM PANEL B/C Ratio 13 6 - 25 09/05/2018 [facility] CHEM PANEL AGAP 13.7 10.0 - 20.0 09/05/2018 [facility] CHEM PANEL eGFR 47 09/05/2018 Result [...] should be multiplied by the estimated BMI. [facility] CHEM PANEL ALT 34 0 - 65 09/05/2018 [facility] CHEM PANEL Albumin Lvl 3.4 3.5 - 5.0 09/05/2018 [facility] CHEM PANEL Bili Total <0.1 0.2 - 1.3 09/05/2018 [facility] CHEM PANEL Alk Phos 93 39 - 136 09/05/2018 [facility] CHEM PANEL AST 29 0 - 37 09/05/2018 [facility] CHEM PANEL Calcium Lvl 8.0 8.5 - 10.5 09/05/2018 [facility] CHEM PANEL CO2 25 24 - 32 09/05/2018 [facility] CHEM PANEL Chloride Lvl 101 95 - 109 09/05/2018 [facility] CHEM PANEL Glucose Lvl 177 70 - 99 09/05/2018 [facility] CHEM PANEL Sodium Lvl 136 135 - 145 09/05/2018 [facility] CHEM PANEL Total Protein 7.2 6.4 - 8.4 09/05/2018 [facility] CHEM PANEL Potassium Lvl 3.7 3.5 - 5.1 09/05/2018 [facility] CHEM PANEL Creatinine Lvl 1.30 0.50 - 1.40 09/05/2018 [facility] CHEM PANEL BUN 17 7 - 22 09/05/2018 [facility] HEMATOLOGY MCH 28.6 27.0 - 31.0 09/05/2018 [facility] HEMATOLOGY Platelet 232 133 - 450 09/05/2018 [facility] HEMATOLOGY MPV 9.4 7.4 - 10.4 09/05/2018 [facility] MCHC 33.6 32.0 - 36.0 09/05/2018 [facility] HEMATOLOGY RDW 13.9 11.5 - 14.5 09/05/2018 [facility] HEMATOLOGY Hct 35.9 36.0 - 48.0 09/05/2018 [facility] HEMATOLOGY RBC 4.21 4.20 - 5.40 09/05/2018 [facility] HEMATOLOGY Hgb 12.0 12.0 - 16.0 09/05/2018 [facility] HEMATOLOGY MCV 85.1 80.0 - 98.0 09/05/2018 [facility] HEMATOLOGY WBC 5.9 3.7 - 10.4 09/05/2018 [facility] HEMATOLOGY Monocytes # 0.4 0.0 - 0.8 09/05/2018 [facility] HEMATOLOGY Eosinophils # 0.1 0.0 - 0.5 09/05/2018 [facility] HEMATOLOGY Lymphocytes 38.1 20.0 - 40.0 09/05/2018 [facility] HEMATOLOGY Neutrophils # 3.2 1.5 - 8.1 09/05/2018 [facility] HEMATOLOGY Lymphocytes # 2.3 1.0 - 5.5 09/05/2018 [facility] HEMATOLOGY Segs 53.2 45.0 - 75.0 09/05/2018 [facility] HEMATOLOGY Basophils 0.8 0.0 - 1.0 09/05/2018 [facility] HEMATOLOGY Monocytes 6.5 2.0 - 12.0 09/05/2018 [facility] HEMATOLOGY Eosinophils 1.4 0.0 - 4.0 09/05/2018 [facility] CARDIAC ENZYMES BNP 56 <=100 pg/mL 03/28/2018 [facility] URINE AND STOOL UA pH 5.0 5.0 - 8.0 03/28/2018 [facility] URINE AND STOOL UA Protein Negative (03/27/18 6:29 PM) Negative 03/28/2018 [facility] URINE AND STOOL UA Spec Grav 1.011 <=1.030 03/28/2018 [facility] URINE AND STOOL UA Sq Epi Occasional /LPF Few /LPF 03/28/2018 [facility] URINE AND STOOL UA Nitrite Negative (03/27/18 6:29 PM) Negative 03/28/2018 [facility] URINE AND STOOL UA Leuk Est Negative (03/27/18 6:29 PM) Negative 03/28/2018 [facility] URINE AND STOOL UA Urobilinogen <=1.0 mg/dL 0.1 - 1.0 03/28/2018 [facility] URINE AND STOOL UA Blood Negative (03/27/18 6:29 PM) Negative 03/28/2018 [facility] URINE AND STOOL UA Ketones Negative *NA* (03/27/18 6:29 PM) Negative 03/28/2018 [facility] URINE AND STOOL UA Bili Negative *NA* (03/27/18 6:29 PM) Negative 03/28/2018 [facility] URINE AND STOOL UA Glucose 150 mg/dL Negative mg/dL 03/28/2018 [facility] URINE AND STOOL UA WBC <1 0 - 5 03/28/2018 [facility] URINE AND STOOL UA Bacteria Occasional /HPF None Seen /HPF 03/28/2018 [facility] URINE AND STOOL UA Turbidity Clear (03/27/18 6:29 PM) Clear 03/28/2018 [facility] URINE AND STOOL UA Color Ltyellow 03/28/2018 [facility] CHEM PANEL Lipase Lvl 171 73 - 393 03/27/2018 [facility] CHEM PANEL eGFR 61 03/27/2018 Result [...] should be multiplied by the estimated BMI. [facility] CHEM PANEL Glucose Lvl 276 70 - 99 03/27/2018 [facility] CHEM PANEL Bili Total 0.2 0.2 - 1.3 03/27/2018 [facility] CHEM PANEL Alk Phos 122 39 - 136 03/27/2018 [facility] CHEM PANEL AST 21 0 - 37 03/27/2018 [facility] CHEM PANEL ALT 30 0 - 65 03/27/2018 [facility] CHEM PANEL Creatinine Lvl 1.05 0.50 - 1.40 03/27/2018 [facility] CHEM PANEL BUN 22 7 - 22 03/27/2018 [facility] CHEM PANEL Potassium Lvl 3.9 3.5 - 5.1 03/27/2018 [facility] CHEM PANEL Sodium Lvl 134 135 - 145 03/27/2018 [facility] CHEM PANEL Total Protein 7.2 6.4 - 8.4 03/27/2018 [facility] CHEM PANEL Calcium Lvl 8.9 8.5 - 10.5 03/27/2018 [facility] CHEM PANEL CO2 29 24 - 32 03/27/2018 [facility] CHEM PANEL Chloride Lvl 97 95 - 109 03/27/2018 [facility] CHEM PANEL Albumin Lvl 3.5 3.5 - 5.0 03/27/2018 [facility] CHEM PANEL Globulin 3.7 2.7 - 4.2 03/27/2018 [facility] CHEM PANEL B/C Ratio 21 6 - 25 03/27/2018 [facility] CHEM PANEL A/G Ratio 0.9 0.7 - 1.6 03/27/2018 [facility] CHEM PANEL AGAP 11.9 10.0 - 20.0 03/27/2018 [facility] ENDOCRINOLOGY S Preg Ne gative *NA* (03/27/18 5:12 PM) Negative 03/27/2018 [facility] HEMATOLOGY MCH 27.9 27.0 - 31.0 03/27/2018 [facility] HEMATOLOGY MCHC 33.4 32.0 - 36.0 03/27/2018 [facility] HEMATOLOGY RDW 13.0 11.5 - 14.5 03/27/2018 [facility] HEMATOLOGY Platelet 225 133 - 450 03/27/2018 [facility] MPV 8.1 7.4 - 10.4 03/27/2018 [facility] MCV 83.6 80.0 - 98.0 03/27/2018 [facility] Hct 34.7 36.0 - 48.0 03/27/2018 [facility] WBC 5.2 3.7 - 10.4 03/27/2018 [facility] Hgb 11.6 12.0 - 16.0 03/27/2018 [facility] RBC 4.15 4.20 - 5.40 03/27/2018 [facility] HEMATOLOGY Basophils 0.7 0.0 - 1.0 03/27/2018 [facility] Lymphocytes # 2.1 1.0 - 5.5 03/27/2018 [facility] Neutrophils # 2.5 1.5 - 8.1 03/27/2018 [facility] Monocytes # 0.5 0.0 - 0.8 03/27/2018 [facility] Eosinophils # 0.2 0.0 - 0.5 03/27/2018 [facility] Segs 47.4 45.0 - 75.0 03/27/2018 [facility] Lymphocytes 39.6 20.0 - 40.0 03/27/2018 [facility] Eosinophils 3.0 0.0 - 4.0 03/27/2018 [facility] Monocytes 9.3 2.0 - 12.0 03/27/2018 [facility] ELECTROLYTES AGAP 10.1 10.0 - 20.0 04/03/2017 [facility] ELECTROLYTES eGFR 87 04/03/2017 Result Comment: [...] should be multiplied by the estimated BMI. [facility] ELECTROLYTES CO2 30 24 - 32 04/03/2017 [facility] ELECTROLYTES Chloride Lvl 103 95 - 109 04/03/2017 [facility] ELECTROLYTES Calcium Lvl 8.3 8.5 - 10.5 04/03/2017 [facility] ELECTROLYTES Potassium Lvl 4.1 3.5 - 5.1 04/03/2017 [facility] ELECTROLYTES Creatinine Lvl 0.7 9 0.50 - 1.40 04/03/2017 [facility] ELECTROLYTES Sodium Lvl 139 135 - 145 04/03/2017 [facility] ELECTROLYTES BUN 12 7 - 22 04/03/2017 [facility] ELECTROLYTES Glucose Lvl 137 70 - 99 04/03/2017 [facility] HEMATOLOGY Monocytes 8.7 2.0 - 12.0 04/03/2017 [facility] HEMATOLOGY Lymphocytes 41.7 20.0 - 40.0 04/03/2017 [facility] HEMATOLOGY Segs 46.5 45.0 - 75.0 04/03/2017 [facility] HEMATOLOGY Monocytes # 0.6 0.0 - 0.8 04/03/2017 [facility] HEMATOLOGY Segs-Bands # 3.3 1.5 - 8.1 04/03/2017 [facility] HEMATOLOGY Basophils 0.6 0.0 - 1.0 04/03/2017 [facility] HEMATOLOGY Eosinophils 2.5 0.0 - 4.0 04/03/2017 [facility] HEMATOLOGY Lymphocytes # 2.9 1.0 - 5.5 04/03/2017 [facility] HEMATOLOGY Eosinophils # 0.2 0.0 - 0.5 04/03/2017 [facility] HEMATOLOGY Platelet 183 133 - 450 04/03/2017 [facility] HEMATOLOGY MPV 8.3 7.4 - 10.4 04/03/2017 [facility] HEMATOLOGY RDW 14.6 11.5 - 14.5 04/03/2017 [facility] HEMATOLOGY Hct 37.0 36.0 - 48.0 04/03/2017 [facility] HEMATOLOGY MCV 82.7 80.0 - 98.0 04/03/2017 [facility] HEMATOLOGY MCH 28.4 27.0 - 31.0 04/03/2017 [facility] MCHC 34.4 32.0 - 36.0 04/03/2017 [facility] Hgb 12.7 12.0 - 16.0 04/03/2017 [facility] WBC 7.0 3.7 - 10.4 04/03/2017 [facility] RBC 4.48 4.20 - 5.40 04/03/2017 [facility] URINE AND STOOL UA Urobilinogen <=1.0 mg/dL 0.1 - 1.0 04/02/2017 [facility] URINE AND STOOL UA Color Ltyellow 04/02/2017 [facility] URINE AND STOOL UA Protein 100 mg/dL Negative mg/dL 04/02/2017 [facility] URINE AND STOOL UA Trans Epi 3 <=0 /LPF 04/02/2017 [facility] URINE AND STOOL UA Bacteria Many /HPF None Seen /HPF 04/02/2017 [facility] URINE AND STOOL UA RBC 19 0 - 2 04/02/2017 [facility] URINE AND STOOL UA Leuk Est Large *ABN* (04/02/17 4:15 PM) Negative 04/02/2017 [facility] URINE AND STOOL UA WBC 131 0 - 5 04/02/2017 [facility] URINE AND STOOL UA Sq Epi Occasional /LPF Few /LPF 04/02/2017 [facility] URINE AND STOOL UA Bili Negative *NA* (04/02/17 4:15 PM) Negative 04/02/2017 [facility] URINE AND STOOL UA Ketones Negative mg/dL Negative mg/dL 04/02/[address] [facility] [address] URINE AND STOOL UA Blood Large *ABN* (04/02/17 4:15 PM) Negative 04/02/2017 [facility] URINE AND STOOL UA Glucose Negative mg/dL Negative mg/dL 04/02/2017 [facility] [address] URINE AND STOOL UA Spec Grav 1.006 <=1.030 04/02/2017 [facility] URINE AND STOOL UA Turbidity Marked *ABN* (04/02/17 4:15 PM) Clear 04/02/2017 [facility] URINE AND STOOL UA pH 6.0 5.0 - 8.0 04/02/2017 [facility] URINE AND STOOL UA Nitrite Negative (04/02/17 4:15 PM) Negative 04/02/2017 [facility] CARDIAC ENZYMES Troponin-I <0.02 0.00 - 0.40 04/02/2017 [facility] CHEM PANEL A/G Ratio 1.0 0.7 - 1.6 04/02/2017 [facility] CHEM PANEL Globulin 4.0 2.7 - 4.2 04/02/2017 [facility] CHEM PANEL Bili Indirect 0.5 0.0 - 1.0 04/02/2017 [facility] CHEM PANEL Total Protein 7.8 6.4 - 8.4 04/02/2017 [facility] CHEM PANEL Albumin Lvl 3.8 3.5 - 5.0 04/02/2017 [facility] CHEM PANEL ALT 55 0 - 65 04/02/2017 [facility] CHEM PANEL Alk Phos 106 39 - 136 04/02/2017 [facility] CHEM PANEL AST 34 0 - 37 04/02/2017 [facility] CHEM PANEL Bili Total 0.6 0.2 - 1.3 04/02/2017 [facility] CHEM PANEL Bili Direct 0.1 0.0 - 0.3 04/02/2017 [facility] CHEM PANEL Lipase Lvl 721 73 - 393 04/02/2017 [facility] ELECTROLYTES Chloride Lvl 101 95 - 109 04/02/2017 [facility] ELECTROLYTES Calcium Lvl 8.6 8.5 - 10.5 04/02/2017 [facility] ELECTROLYTES CO2 25 24 - 32 04/02/2017 [facility] ELECTROLYTES Sodium Lvl 137 135 - 145 04/02/2017 [facility] ELECTROLYTES Potassium Lvl 4.3 3.5 - 5.1 04/02/2017 [facility] ELECTROLYTES eGFR 72 04/02/2017 Result Comment: [...] should be multiplied by the estimated BMI. [facility] ELECTROLYTES BUN 13 7 - 22 04/02/2017 [facility] ELECTROLYTES Creatinine Lvl 0.9 2 0.50 - 1.40 04/02/2017 [facility] ELECTROLYTES Glucose Lvl 188 70 - 99 04/02/2017 [facility] ELECTROLYTES AGAP 15.3 10.0 - 20.0 04/02/2017 [facility] ENDOCRINOLOGY hCG Tot 3 04/02/2017 [facility] HEMATOLOGY Eosinophils # 0.2 0.0 - 0.5 04/02/2017 [facility] Lymphocytes # 2.8 1.0 - 5.5 04/02/2017 [facility] HEMATOLOGY Monocytes # 0.7 0.0 - 0.8 04/02/2017 [facility] HEMATOLOGY Eosinophils 2.0 0.0 - 4.0 04/02/2017 [facility] Basophils 0.5 0.0 - 1.0 04/02/2017 [facility] Segs-Bands # 6.7 1.5 - 8.1 04/02/2017 [facility] Segs 64.1 45.0 - 75.0 04/02/2017 [facility] Monocytes 6.6 2.0 - 12.0 04/02/2017 [facility] Lymphocytes 26.8 20.0 - 40.0 04/02/2017 [facility] MPV 8.0 7.4 - 10.4 04/02/2017 [facility] Hct 39.3 36.0 - 48.0 04/02/2017 [facility] Hgb 13.3 12.0 - 16.0 04/02/2017 [facility] RBC 4.79 4.20 - 5.40 04/02/2017 [facility] WBC 10.4 3.7 - 10.4 04/02/2017 [facility] RDW 14.7 11.5 - 14.5 04/02/2017 [facility] MCHC 33.9 32.0 - 36.0 04/02/2017 [facility] MCH 27.8 27.0 - 31.0 04/02/2017 [facility] MCV 82.1 80.0 - 98.0 04/02/2017 [facility] Platelet 204 133 - 450 04/02/2017 [facility] CHEM PANEL Lipase Lvl 183 73 - 393 05/12/2014 [facility] CHEM PANEL B/C Ratio 17 6 - 25 05/12/2014 [facility] CHEM PANEL AGAP 11.9 10.0 - 20.0 05/12/2014 [facility] CHEM PANEL A/G Ratio 0.9 0.7 - 1.6 05/12/2014 [facility] CHEM PANEL Globulin 4.2 2.0 - 4.0 05/12/2014 [facility] CHEM PANEL eGFR 75 05/12/2014 <sup>1</sup>Result [...] should be multiplied by the estimated BMI. [facility] CHEM PANEL Calcium Lvl 8.7 8.5 - 10.5 05/12/2014 [facility] CHEM PANEL Albumin Lvl 3.6 3.5 - 5.0 05/12/2014 [facility] CHEM PANEL Creatinine Lvl 0.9 0.5 - 1.4 05/12/2014 [facility] CHEM PANEL Sodium Lvl 139 135 - 145 05/12/2014 [facility] CHEM PANEL Potassium Lvl 3.9 3.5 - 5.1 05/12/2014 [facility] CHEM PANEL Chloride Lvl 105 95 - 109 05/12/2014 [facility] CHEM PANEL ALT 104 0 - 65 05/12/2014 [facility] CHEM PANEL Total Protein 7.8 6.4 - 8.4 05/12/2014 [facility] CHEM PANEL AST 52 0 - 37 05/12/2014 [facility] CHEM PANEL Alk Phos 122 39 - 136 05/12/2014 [facility] CHEM PANEL CO2 26 24 - 32 05/12/2014 [facility] CHEM PANEL Bili Total 0.3 0.2 - 1.3 05/12/2014 [facility] CHEM PANEL BUN 15 7 - 22 05/12/2014 [facility] CHEM PANEL Glucose Lvl 97 70 - 99 05/12/2014 <sup>2</sup>Interpretive Data: Adult ref erence range values reflect the clinical guidelines
of the [place] [employer]. [facility] HEMATOLOGY Platelet 222 133 - 450 05/12/2014 [facility] HEMATOLOGY RDW 13.7 11.5 - 14.5 05/12/2014 [facility] HEMATOLOGY MCHC 33.0 32.0 - 36.0 05/12/2014 [facility] HEMATOLOGY MCH 27.4 27.0 - 31.0 05/12/2014 [facility] HEMATOLOGY MCV 83.2 80.0 - 98.0 05/12/2014 [facility] MPV 8.6 7.4 - 10.4 05/12/2014 [facility] WBC 6.6 3.7 - 10.4 05/12/2014 [facility] Hct 39.5 36.0 - 48.0 05/12/2014 [facility] Hgb 13.0 12.0 - 16.0 05/12/2014 [facility] HEMATOLOGY RBC 4.74 4.20 - 5.40 05/12/2014 [facility] Lymphocytes 31.6 20.0 - 40.0 05/12/2014 [facility] Segs 61.3 45.0 - 75.0 05/12/2014 [facility] HEMATOLOGY Lymphocytes # 2.1 1.0 - 5.5 05/12/2014 [facility] Segs-Bands # 4.1 1.5 - 8.1 05/12/2014 [facility] HEMATOLOGY Basophils 0.8 0.0 - 1.0 05/12/2014 [facility] HEMATOLOGY Basophils # 0.1 0.0 - 0.2 05/12/2014 [facility] HEMATOLOGY Eosinophils # 0.1 0.0 - 0.5 05/12/2014 [facility] HEMATOLOGY Monocytes # 0.3 0.0 - 0.8 05/12/2014 [facility] HEMATOLOGY Eosinophils 1.4 0.0 - 4.0 05/12/2014 [facility] Monocytes 4.9 2.0 - 12.0 05/12/2014 [facility] CHEMISTRY Lipase Lvl 170 73 - 393 01/08/2013 Normal [facility] CHEMISTRY Sodium Lvl 142 135 - 145 01/08/2013 Normal [facility] CHEMISTRY Potassium Lvl 3.9 3.5 - 5.1 01/08/2013 Normal [facility] CHEMISTRY Chloride Lvl 105 95 - 109 01/08/2013 Normal [facility] CHEMISTRY eGFR 76 01/08/2013 <sup>1</sup>Result Comment: [...] should be multiplied by the estimated BMI. [facility] CHEMISTRY Creatinine Lvl 0.9 0.5 - 1.4 01/08/2013 Normal [facility] CHEMISTRY BUN 19 7 - 22 01/08/2013 Normal [facility] CHEMISTRY Albumin Lvl 3.6 3.5 - 5.0 01/08/2013 Normal [facility] CHEMISTRY Total Protein 7.3 6.4 - 8.4 01/08/2013 Normal [facility] CHEMISTRY ASPARTATE TRANSAMINASE 17 0 - 37 01/08/2013 Normal [facility] CHEMISTRY Glucose Lvl 96 70 - 99 01/08/2013 Normal <sup>2</sup>Interpretive Data: Adult ref erence range values reflect the clinical guidelines
of the [place] [employer]. [facility] CHEMISTRY ALANINE AMINOTRANSFERASE 2 8 0 - 65 01/08/2013 Normal [facility] CHEMISTRY Bili Total 0.2 0.2 - 1.3 01/08/2013 Normal [facility] CHEMISTRY Alk Phos 97 39 - 136 01/08/2013 Normal [facility] CHEMISTRY Calcium Lvl 8.9 8.5 - 10.5 01/08/2013 Normal [facility] CHEMISTRY CO2 26 24 - 32 01/08/2013 Normal [facility] CHEMISTRY A/G Ratio 1.0 0.7 - 1.6 01/08/2013 Normal [facility] CHEMISTRY Globulin 3.7 2.0 - 4.0 01/08/2013 Normal [facility] CHEMISTRY B/C Ratio 21 6 - 25 01/08/2013 Normal [facility] CHEMISTRY AGAP 14.9 10.0 - 20.0 01/08/2013 Normal [facility] HEMATOLOGY MCHC 32.8 32.0 - 36.0 01/08/2013 Normal [facility] HEMATOLOGY RDW 13.1 11.5 - 14.5 01/08/2013 Normal [facility] HEMATOLOGY Platelet 275 133 - 450 01/08/2013 Normal [facility] HEMATOLOGY MPV 8.4 7.4 - 10.4 01/08/2013 Normal [facility] HEMATOLOGY Hct 34.3 36.0 - 48.0 01/08/2013 [facility] HEMATOLOGY MCV 83.4 81.0 - 99.0 01/08/2013 Normal [facility] HEMATOLOGY MCH 27.3 27.0 - 31.0 01/08/2013 Normal [facility] HEMATOLOGY RBC X 10x6 4.12 4.20 - 5.40 01/08/2013 [facility] HEMATOLOGY WBC X 10x3 7.4 3.7 - 10.4 01/08/2013 Normal [facility] HEMATOLOGY Hgb 11.3 12.0 - 16.0 [...] # 0.0 0.0 - 0.2 01/08/2013 Normal [facility] CHEMISTRY U Preg Negati ve (01/07/2013 22:30:00) Negati ve 01/08/2013 Normal [facility] URINALYSIS UA Color Colorless 01/08/2013 [facility] URINALYSIS UA Urobilinogen <=1.0 mg/dL 0.1 - 1.0 01/08/2013 [facility] URINALYSIS UA Sq Epi Occas ional /LPF Few 01/08/2013 [facility] URINALYSIS UA Glucose Negat gio mg/dL Negative 01/08/2013 [facility] URINALYSIS UA Bacteria Occas ional /HPF None Seen 01/08/2013 [facility] URINALYSIS UA WBC 1 0 - 5 01/08/2013 Normal [facility] URINALYSIS UA RBC <1 0 - [...] *NA* (08/02/2012 15:06:00) Negati ve 08/02/2012 NA [facility] URINALYSIS UA Blood Negat gio (08/02/2012 15:06:00) Negati ve 08/02/2012 Normal [facility] URINALYSIS UA Glucose 500 m g/dL *ABN* (08/02/2012 15:06:00) Negati ve 08/02/2012 ABN [facility] URINALYSIS UA Protein Negat gio mg/dL (08/02/2012 15:06:00) Negati ve 08/02/2012 Normal [facility] URINALYSIS UA Sq Epi Moder ate /LPF *ABN* (08/02/2012 15:06:00) Few 08/02/2012 ABN [facility] URINALYSIS UA Leuk Est Negat gio (08/02/2012 15:06:00) Negati ve 08/02/2012 Normal [facility] URINALYSIS UA Nitrite Negat gio (08/02/2012 15:06:00) Negati ve 08/02/2012 Normal [facility] URINALYSIS UA Color Ltyellow 08/02/2012 NA [facility] URINALYSIS UA Urobilinogen 0.1 - 1.0 08/02/2012 [facility] BEDSIDE GLUCOSE TESTING Comment1 Notify RN/ 07/21/2012 [facility] BEDSIDE GLUCOSE TESTING Gluc POC Lif scn 83 70 - 99 07/21/2012 Normal <sup>1</sup>Interpretive Data: Upper Reportable Limit: 200 mg/dL. [facility] CHEMISTRY Lipase Lvl 145 73 - 393 07/21/2012 Normal [facility] CHEMISTRY Ketone Quantitative 0.09 <=0.27 07/21/2012 Normal [facility] CHEMISTRY Magnesium Lvl 1.8 1.8 - 2.4 07/21/2012 Normal [facility] CHEMISTRY Sodium Lvl 136 135 - 145 07/21/2012 Normal [facility] CHEMISTRY Chloride Lvl 100 95 - 109 07/21/2012 Normal [facility] CHEMISTRY Potassium Lvl 3.8 3.5 - 5.1 07/21/2012 Normal [facility] CHEMISTRY eGFR 76 07/21/2012 NA <sup>3</sup>Result [...] should be multiplied by the estimated BMI. [facility] CHEMISTRY Glucose Lvl 319 70 - 99 07/21/2012 HI <sup>4</sup>Interpretive Data: Adult ref erence range values reflect the clinical guidelines
of the [place] [employer]. [facility] CHEMISTRY BUN 15 7 - 22 07/21/2012 Normal [facility] CHEMISTRY Creatinine Lvl 0.9 0.5 - 1.4 07/21/2012 Normal [facility] CHEMISTRY CO2 27 24 - 32 07/21/2012 Normal [facility] CHEMISTRY Alk Phos 120 39 - 136 07/21/2012 Normal [facility] CHEMISTRY Bili Total 0.2 0.2 - 1.3 07/21/2012 Normal [facility] CHEMISTRY AST 21 0 - 37 07/21/2012 Normal [facility] CHEMISTRY Calcium Lvl 8.6 8.5 - 10.5 07/21/2012 Normal [facility] CHEMISTRY Total Protein 7.7 6.4 - 8.4 07/21/2012 Normal [facility] CHEMISTRY Albumin Lvl 3.5 3.5 - 5.0 07/21/2012 Normal [facility] CHEMISTRY ALT 31 0 - 65 07/21/2012 Normal [facility] CHEMISTRY AGAP 12.8 10.0 - 20.0 07/21/2012 Normal [facility] CHEMISTRY B/C Ratio 17 6 - 25 07/21/2012 Normal [facility] CHEMISTRY A/G Ratio 0.8 0.7 - 1.6 07/21/2012 Normal [facility] CHEMISTRY Globulin 4.2 2.0 - 4.0 07/21/2012 HI [facility] HEMATOLOGY MPV 8.2 7.4 - 10.4 07/21/2012 Normal [facility] HEMATOLOGY MCV 84.2 81.0 - 99.0 07/21/2012 Normal [facility] HEMATOLOGY Hct 36.9 36.0 - 48.0 [...] UA Spec Grav 1.028 <=1.030 07/21/2012 Normal [facility] URINALYSIS UA RBC 1 0 - 2 07/21/2012 Normal [facility] URINALYSIS UA Leuk Est Negat gio (07/21/2012 00:40:00) Negati ve 07/21/2012 Normal [facility] URINALYSIS UA Sq Epi Occas ional /LPF *NA* (07/21/2012 00:40:00) Few 07/21/2012 NA [facility] URINALYSIS UA Blood Negat gio (07/21/2012 00:40:00) Negati ve 07/21/2012 Normal [facility] URINALYSIS UA Nitrite Negat gio (07/21/2012 00:40:00) Negati ve 07/21/2012 Normal [facility] URINALYSIS UA Ketones Negat gio mg/dL *NA* (07/21/2012 00:40:00) Negati ve 07/21/2012 NA [facility] URINALYSIS UA Color Ltyellow 07/21/2012 NA [facility] URINALYSIS UA Urobilinogen 0.1 - 1.0 07/21/2012 NA [facility] Microbiology Culture: Urine 07/21/2012 [facility] BEDSIDE GLUCOSE TESTING Comment1 Notify RN/ 07/21/2012 NA [facility] BEDSIDE GLUCOSE TESTING Gluc POC Lif scn >400 70 - 99 07/21/2012 CRIT <sup>2</sup>Interpretive Data: Upper Reportable Limit: 200 mg/dL. [facility] CHEMISTRY U Preg Negati ve (05/16/2012 01:22:00) Negati ve 05/16/2012 Normal [facility] CHEMISTRY Lipase Lvl 154 73 - 393 05/16/2012 Normal [facility] CHEMISTRY Amylase Lvl 53 25 - 115 05/16/2012 Normal [facility] CHEMISTRY AST 20 0 - 37 05/16/2012 Normal [facility] CHEMISTRY Alk Phos 107 39 - 136 05/16/2012 Normal [facility] CHEMISTRY ALT 30 0 - 65 05/16/2012 Normal [facility] CHEMISTRY Total Protein 7.9 6.4 - 8.4 05/16/2012 Normal [facility] CHEMISTRY Bili Total 0.2 0.2 - 1.3 05/16/2012 Normal [facility] CHEMISTRY eGFR 76 05/16/2012 NA <sup>1</sup>Result [...] should be multiplied by the estimated BMI. [facility] CHEMISTRY Chloride Lvl 101 95 - 109 05/16/2012 Normal [facility] CHEMISTRY Calcium Lvl 8.8 8.5 - 10.5 05/16/2012 Normal [facility] CHEMISTRY CO2 27 24 - 32 05/16/2012 Normal [facility] CHEMISTRY Albumin Lvl 3.7 3.5 - 5.0 05/16/2012 Normal [facility] CHEMISTRY Glucose Lvl 278 70 - 99 05/16/2012 HI <sup>2</sup>Interpretive Data: Adult ref erence range values reflect the clinical guidelines
of the [place] [employer]. [facility] CHEMISTRY Sodium Lvl 137 135 - 145 05/16/2012 Normal [facility] CHEMISTRY Creatinine Lvl 0.9 0.5 - 1.4 05/16/2012 Normal [facility] CHEMISTRY BUN 23 7 - 22 05/16/2012 [facility] CHEMISTRY Potassium Lvl 3.8 3.5 - 5.1 05/16/2012 Normal [facility] CHEMISTRY Globulin 4.2 2.0 - 4.0 05/16/2012 [facility] CHEMISTRY A/G Ratio 0.9 0.7 - 1.6 05/16/2012 Normal [facility] CHEMISTRY B/C Ratio 26 6 - 25 05/16/2012 [facility] CHEMISTRY AGAP 12.8 10.0 - 20.0 05/16/2012 Normal [facility] HEMATOLOGY INR 0.90 0.85 - 1.17 05/16/2012 Normal <sup>3</sup>Interpretive Data: RECOMMEND ED RANGES FOR PROTIME INR:
2.0-3.0 for most medical and surgical thromboembolic states.
2.5-3.5 for artificial heart valves and recurrent embolism.

INR SHOULD BE USED ONLY FOR PATIENTS ON STABLE ANTICOAGULANT THERAPY. [facility] HEMATOLOGY PTT 30.2 22.9 - 35.8 05/16/2012 Normal <sup>4</sup>Interpretive Data: Heparin T herapeutic Range: 57 - 92 Seconds [facility] HEMATOLOGY PT 12.4 12.0 - 14.7 05/16/2012 Normal [facility] HEMATOLOGY RDW 14.4 11.5 - 14.5 05/16/2012 Normal [facility] HEMATOLOGY Platelet 257 133 - 450 05/16/2012 Normal [facility] HEMATOLOGY MPV 9.3 7.4 - 10.4 05/16/2012 Normal [facility] HEMATOLOGY MCV 82.4 81.0 - 99.0 05/16/2012 Normal [facility] HEMATOLOGY Hgb 11.8 12.0 - 16.0 05/16/2012 LOW [facility] HEMATOLOGY RBC 4.35 4.20 - 5.40 05/16/2012 Normal [facility] HEMATOLOGY Hct 35.8 36.0 - 48.0 05/16/2012 LOW [facility] HEMATOLOGY WBC 6.7 3.7 - 10.4 05/16/2012 Normal [facility] HEMATOLOGY MCHC 33.0 32.0 - 36.0 05/16/2012 Normal [facility] HEMATOLOGY MCH 27.2 27.0 - 31.0 05/16/2012 Normal [facility] HEMATOLOGY Monocytes # 0.4 0.0 - 0.8 05/16/2012 Normal [facility] HEMATOLOGY Basophils # 0.0 0.0 - 0.2 05/16/2012 Normal [facility] HEMATOLOGY Eosinophils # 0.1 0.0 - 0.5 05/16/2012 Normal [facility] HEMATOLOGY Lymphocytes 43.9 20.0 - 40.0 05/16/2012 HI [facility] HEMATOLOGY Segs 48.2 45.0 - 75.0 05/16/2012 Normal [facility] HEMATOLOGY Monocytes 5.9 2.0 - 12.0 05/16/2012 Normal [facility] HEMATOLOGY Lymphocytes # 2.9 1.0 - 5.5 05/16/2012 Normal [facility] HEMATOLOGY Segs-Bands # 3.2 1.5 - 8.1 05/16/2012 Normal [facility] HEMATOLOGY Basophils 0.4 0.0 - 1.0 05/16/2012 Normal [facility] HEMATOLOGY Eosinophils 1.6 0.0 - 4.0 05/16/2012 Normal [facility] URINALYSIS UA WBC <1 0 - 5 05/16/2012 Normal [facility] URINALYSIS UA Glucose 150 m g/dL *ABN* (05/16/2012 01:22:00) Negati ve 05/16/2012 ABN [facility] URINALYSIS UA Ketones Negat gio mg/dL *NA* (05/16/2012 01:22:00) Negati ve 05/16/2012 NA [facility] URINALYSIS UA Color Ltyellow 05/16/2012 NA [facility] URINALYSIS UA Urobilinogen 0.1 - 1.0 05/16/2012 NA [facility] URINALYSIS UA Nitrite Negat gio (05/16/2012 01:22:00) Negati ve 05/16/2012 Normal [facility] URINALYSIS UA Leuk Est Negat gio (05/16/2012 01:22:00) Negati ve 05/16/2012 Normal [facility] URINALYSIS UA Bili Negat gio *NA* (05/16/2012 01:22:00) Negati ve 05/16/2012 NA [facility] URINALYSIS UA Blood Negat gio (05/16/2012 01:22:00) Negati ve 05/16/2012 Normal [facility] URINALYSIS UA Turbidity Clear (05/16/2012 01:22:00) Clear 05/16/2012 Normal [facility] URINALYSIS UA pH 5.0 5.0 - 8.0 05/16/2012 Normal [facility] URINALYSIS UA Protein Negat gio mg/dL (05/16/2012 01:22:00) Negati ve 05/16/2012 Normal [facility] URINALYSIS UA Spec Grav 1.024 <=1.030 05/16/2012 Normal [facility] URINALYSIS UA Sq Epi Occas ional /LPF *NA* (05/16/2012 01:22:00) Few 05/16/2012 NA [facility] Pathology Reports No Data Provided for [...] IMPRESSION: 1. No acute cardiopulmonary process. SL: [id number] 09/05/2018 [facility] Chest 1view DX Clinical Indica tion: - lower extremity edema Comparison: 10/25/2010 FINDINGS: Single frontal radiograph of the chest is performed. Heart size is within normal limits. Mediastinal contours are unremarkable. Lungs are clear without infiltrate or mass. No pleural effusion or pneumothorax. No acute osseous abnormality. IMPRESSION: 1. No radiographic evidence for acute pr ocess in the chest. SL: [id number] 03/27/2018 [facility] Spine cervical 2 or 3 view [...] 1. Unremarkable cervical spine examinati on. SL: [id number] 03/27/2018 [facility] Knee 3 Views Bilateral DX Clin [...] of the t he bilateral knees. SL: [id number] 03/27/2018 [facility] Tibia fibula series DX Study: Tibia fibula series DX, Knee 3 views DX, Ankle 3 views DX 03/16/2018 4:06 PM MANAGER ASSESSMENT Clinical Indication: - fall; left leg pain [...] metatarsal bone is intact. SL: AUNG 03/16/2018 [facility] Shoulder series DX Left should er 3 views 03/16/2018 HISTORY: Left shoulder pain after fall FINDINGS: There are osteophytes in the acromioclavicular joint. No fracture or dislocation is present. No aggressive lytic or blastic lesion is present. IMPRESSION: 1. No acute fracture or dislocation invo lving left shoulder. 2. Mild degenerative changes. SL: BEE 03/16/2018 [facility] Ankle 3 views DX Study: Tibia fibula series DX, Knee 3 views DX, Ankle 3 views DX 03/16/2018 4:06 PM MANAGER ASSESSMENT Clinical Indication: - fall; left leg pain [...] metatarsal bone is intact. SL: AUNG 03/16/2018 [facility] Knee 3 views DX Study: Tibia f ibula series DX, Knee 3 views DX, Ankle 3 views DX 03/16/2018 4:06 PM MANAGER ASSESSMENT Clinical Indication: - fall; left leg pain [...] metatarsal bone is intact. SL: AUNG 03/16/2018 [facility] Femur series DX Patient Name: RADHA BOUDREAUX : 1965 Age: 52 years, Female MR: [id number] Study: Femur series DX 03/16/2018 14:56 MANAGER ASSESSMENT Indication: - fall. Technique: Femur, left, 2 views Comparison: None Findings: Bones: No acute displaced fracture. No expansile lytic or sclerotic lesion. Joints: The joint spaces are well-maintained. No dislocation. No effusion. Soft tissues: No soft tissue swelling is present. No radiopaque foreign body. No subcutaneous air is visualized. IMPRESSION: No acute radiographic abnormality. SL: [id number] 03/16/2018 [facility] Hip 2/3 views uni w pelvis DX Patient Name: RADHA BOUDREAUX : 1965 Age: 52 years, Female MR: [id number] Study: Hip 2/3 views uni w pelvis DX 03/16/2018 14:33 MANAGER ASSESSMENT Indication: - fall, hip pain. Technique: Pelvis, AP. Hip, left, 2 views Comparison: None Findings: Bones: No acute displaced fracture. No expansile lytic or sclerotic lesion. Joints: The joint spaces are well-maintained. No dislocation. No effusion. Soft tissues: No soft tissue swelling is present. No radiopaque foreign body. No subcutaneous air is visualized. IMPRESSION: No acute radiographic abnormality. SL: [id number] 03/16/2018 [facility] Renal pyelogram retrograde DX Renal pyelogram retrograde DX CLINICAL HX: right stent placement - Fluoro time 1.22 min Dose 17.58 mgy [facility] #4 OR 8 COMPARISON: 04/02/2017 FINDINGS/IMPRESSION: The submitted images demonstrate contrast within the right collecting system. There is no significant blunting of the calyces. A ureteral stent extends from the right renal pelvis inferiorly towards the bladder. No images of the bladder are visualized. SL: [id number] 04/03/2017 [facility] Abdomen AP DX KUB: There is co ntrast in the urinary tract without evidence of obstruction. The contrast obscures evaluation for small ureteral stones. There is moderate fecal material throughout the colon. The gas pattern is otherwise normal. Cholecystectomy clips in the right upper quadrant are seen. There are no acute osseous abnormalities. DEDE BRANDT-PC 04/02/2017 [facility] Abdomen/Pelvis w IV contrast CT Patient Name: RADHA BOUDREAUX : 1965; Age: 51 years y/o Female MR: [id number] * I. COMPUTED TOMOGRAPHY SCAN OF THE [...] no herniation of bowel. SL: RIGOBERTO 04/02/2017 [facility] complete US PROCEDURE: ABDOMEN ULTRASOUND INDICATION: 789.00 [...] unremarkable abdominal ultr asound. SL: 15 08/20/2014 [facility] Knee series Right knee 4 views : Small calcifications are seen adjacent to the head of the fibula, probably soft tissue related. There are no other significant osseous, articular or soft tissue abnormalities. IMPRESSION: No acute radiographic abnormality of the right knee. SL:13 02/24/2013 [facility] Brain wo contrast CT CT BRAIN WITHOUT CONTRAST: TECHNIQUE: Axial images were done without contrast. FINDINGS: There is no significant parenchymal abnormality, hemorrhage, infarct, mass, or shift. The ventricles and extra-axial spaces are within normal limits. There is no significant osseous abnormality. There is no significant change compared to 10/25/2010. IMPRESSION: No acute CT abnormality of the brain. SL:13 02/24/2013 [facility] Renal Stone CT HISTORY: Right flank [...] IMPRESSION: No specific acute findings. SL:12 01/08/2013 [facility] Consultation Notes No Data Provided for This Section Discharge Summaries No Data Provided for This Section History and Physicals No Data Provided for This Section Vital Signs Vital Sign Value Date Comments Source Systolic (mm Hg) 183 09/06/2018 [facility] Diastolic (mm Hg) 84 09/06/2018 [facility] Respitory Rate 18 09/06/2018 [facility] Heart Rate 55 09/06/2018 [facility] Temperature Oral (F) 97.9 F 09/06/2018 [facility] Temperature Oral (F) 97.7 F 09/06/2018 [facility] Heart Rate 45 09/06/2018 [facility] Systolic (mm Hg) 179 09/06/2018 [facility] Diastolic (mm Hg) 76 09/06/2018 [facility] Respitory Rate 18 09/06/2018 [facility] Respitory Rate 19 09/06/2018 [facility] Systolic (mm Hg) 182 09/06/2018 [facility] Diastolic (mm Hg) 97 09/06/2018 [facility] Heart Rate 48 09/06/2018 [facility] Temperature Oral (F) 97.9 F 09/06/2018 [facility] Weight 77.273 09/05/2018 [facility] BMI Calculated 34.41 09/05/2018 [facility] Height 149.86 cm 09/05/2018 [facility] Weight 77.273 09/05/2018 [facility] BMI Calculated 34.41 09/05/2018 [facility] Height 149.86 cm 09/05/2018 [facility] Weight 181.9 06/08/2018 2.16.840.1.408887.4.391.11.2 2568 Height 59.1 06/08/2018 2.16.840.1.540197.4.391.11.2 2568 Temperature Oral (F) 97.1 F 06/08/2018 2.16.840.1.193209.4.391.11.78998 Heart Rate 60 06/08/2018 2.16.840.1.510295.4.391.11.2 2568 Diastolic (mm Hg) 102 06/08/2018 2.16.840.1.476256.4.391.11.06785 Systolic (mm Hg) 188 06/08/2018 2.16.840.1.740530.4.391.11.55151 Weight 172.3 05/10/2018 2.16.840.1.009404.4.391.11.2 2568 Height 59.1 05/10/2018 2.16.840.1.989774.4.391.11.2 2568 Temperature Oral (F) 97.8 F 05/10/2018 2.16.840.1.174610.4.391.11.01656 Heart Rate 72 05/10/2018 2.16.840.1.622559.4.391.11.2 2568 Diastolic (mm Hg) 67 05/10/2018 2.16.840.1.517612.4.391.11.80021 Systolic (mm Hg) 152 05/10/2018 2.16.840.1.567534.4.391.11.02888 Weight 170.9 04/09/2018 2.16.840.1.344922.4.391.11.2 2568 Height 59.1 04/09/2018 2.16.840.1.859028.4.391.11.2 2568 Temperature Oral (F) 98.1 F 04/09/2018 2.16.840.1.483649.4.391.11.06381 Heart Rate 60 04/09/2018 2.16.840.1.352575.4.391.11.2 2568 Diastolic (mm Hg) 77 04/09/2018 2.16.840.1.671470.4.391.11.68994 Systolic (mm Hg) 173 04/09/2018 2.16.840.1.197612.4.391.11.18052 Temperature Oral (F) 98.1 F 03/28/2018 [facility] Systolic (mm Hg) 151 03/28/2018 [facility] Diastolic (mm Hg) 96 03/28/2018 [facility] Respitory Rate 18 03/28/2018 [facility] Heart Rate 77 03/28/2018 [facility] Respitory Rate 19 03/28/2018 [facility] Heart Rate 72 03/28/2018 [facility] Systolic (mm Hg) 119 03/28/2018 [facility] Diastolic (mm Hg) 109 03/28/2018 [facility] Respitory Rate 18 03/28/2018 [facility] Heart Rate 71 03/28/2018 [facility] Systolic (mm Hg) 169 03/28/2018 [facility] Diastolic (mm Hg) 76 03/28/2018 [facility] Weight 76.818 03/27/2018 [facility] Height 150.86 cm 03/27/2018 [facility] BMI Calculated 33.75 03/27/2018 [facility] Temperature Oral (F) 98.1 F 03/27/2018 [facility] Temperature Oral (F) 98 F 03/17/2018 [facility] Heart Rate 90 03/17/2018 [facility] Systolic (mm Hg) 144 03/17/2018 [facility] Diastolic (mm Hg) 76 03/17/2018 [facility] Respitory Rate 18 03/17/2018 [facility] Temperature Oral (F) 98.6 F 03/16/2018 [facility] Respitory Rate 24 03/16/2018 [facility] Systolic (mm Hg) 154 03/16/2018 [facility] Diastolic (mm Hg) 98 03/16/2018 [facility] Heart Rate 111 03/16/2018 [facility] Weight 173.6 03/05/2018 2.16.840.1.444670.4.391.11.2 2568 Height 59.1 03/05/2018 2.16.840.1.800741.4.391.11.2 2568 Temperature Oral (F) 98.7 F 03/05/2018 2.16.840.1.242346.4.391.11.50832 Heart Rate 64 03/05/2018 2.16.840.1.807574.4.391.11.2 2568 Diastolic (mm Hg) 70 03/05/2018 2.16.840.1.344736.4.391.11.41718 Systolic (mm Hg) 113 03/05/2018 2.16.840.1.923129.4.391.11.71321 Weight 172.0 01/29/2018 2.16.840.1.898266.4.391.11.2 2568 Height 59.1 01/29/2018 2.16.840.1.639932.4.391.11.2 2568 Temperature Oral (F) 95.9 F 01/29/2018 2.16.840.1.416963.4.391.11.71258 Heart Rate 69 01/29/2018 2.16.840.1.291693.4.391.11.2 2568 Diastolic (mm Hg) 78 01/29/2018 2.16.840.1.864163.4.391.11.31394 Systolic (mm Hg) 128 01/29/2018 2.16.840.1.315780.4.391.11.12770 Weight 170.4 01/01/2018 2.16.840.1.558653.4.391.11.2 2568 Height 59.1 01/01/2018 2.16.840.1.384667.4.391.11.2 2568 Temperature Oral (F) 97.4 F 01/01/2018 2.16.840.1.550563.4.391.11.85087 Heart Rate 75 01/01/2018 2.16.840.1.510267.4.391.11.2 2568 Diastolic (mm Hg) 96 01/01/2018 2.16.840.1.429739.4.391.11.43196 Systolic (mm Hg) 178 01/01/2018 2.16.840.1.897520.4.391.11.76010 Weight 173.0 11/20/2017 2.16.840.1.103016.4.391.11.2 2568 Height 59.1 11/20/2017 2.16.840.1.419564.4.391.11.2 2568 Temperature Oral (F) 97.3 F 11/20/2017 2.16.840.1.261318.4.391.11.24694 Heart Rate 77 11/20/2017 2.16.840.1.575641.4.391.11.2 2568 Diastolic (mm Hg) 98 11/20/2017 2.16.840.1.695817.4.391.11.63185 Systolic (mm Hg) 175 11/20/2017 2.16.840.1.979610.4.391.11.58861 Systolic (mm Hg) 156 10/26/2017 [facility] Diastolic (mm Hg) 94 10/26/2017 [facility] Temperature Oral (F) 98.2 F 10/26/2017 [facility] Respitory Rate 18 10/26/2017 [facility] Heart Rate 66 10/26/2017 [facility] BMI Calculated 31.78 10/26/2017 [facility] Height 149.86 cm 10/26/2017 [facility] Weight 71.364 10/26/2017 [facility] Weight 170.2 10/02/2017 2.16.840.1.731027.4.391.11.2 2568 Height 59.1 10/02/2017 2.16.840.1.017564.4.391.11.2 2568 Temperature Oral (F) 96.3 F 10/02/2017 2.16.840.1.195429.4.391.11.49551 Heart Rate 75 10/02/2017 2.16.840.1.357334.4.391.11.2 2568 Diastolic (mm Hg) 85 10/02/2017 2.16.840.1.739338.4.391.11.49485 Systolic (mm Hg) 146 10/02/2017 2.16.840.1.683646.4.391.11.40800 Weight 175.5 08/28/2017 2.16.840.1.760623.4.391.11.2 2568 Height 59.1 08/28/2017 2.16.840.1.320655.4.391.11.2 2568 Temperature Oral (F) 98.5 F 08/28/2017 2.16.840.1.095374.4.391.11.69473 Heart Rate 80 08/28/2017 2.16.840.1.648765.4.391.11.2 2568 Diastolic (mm Hg) 126 08/28/2017 2.16.840.1.664731.4.391.11.48852 Systolic (mm Hg) 150 08/28/2017 2.16.840.1.218966.4.391.11.47316 Weight 170.6 08/01/2017 2.16.840.1.384647.4.391.11.2 2568 Height 59.1 08/01/2017 2.16.840.1.585096.4.391.11.2 2568 Temperature Oral (F) 98.3 F 08/01/2017 2.16.840.1.877220.4.391.11.96527 Heart Rate 79 08/01/2017 2.16.840.1.632452.4.391.11.2 2568 Diastolic (mm Hg) 98 08/01/2017 2.16.840.1.197150.4.391.11.13534 Systolic (mm Hg) 160 08/01/2017 2.16.840.1.471721.4.391.11.99744 Weight 169.3 07/03/2017 2.16.840.1.962490.4.391.11.2 2568 Height 59.1 07/03/2017 2.16.840.1.105552.4.391.11.2 2568 Temperature Oral (F) 98.4 F 07/03/2017 2.16.840.1.653746.4.391.11.77471 Heart Rate 60 07/03/2017 2.16.840.1.702671.4.391.11.2 2568 Diastolic (mm Hg) 97 07/03/2017 2.16.840.1.565310.4.391.11.15836 Systolic (mm Hg) 184 07/03/2017 2.16.840.1.170066.4.391.11.52741 Weight 157.1 05/31/2017 2.16.840.1.284125.4.391.11.2 2568 Height 59.1 05/31/2017 2.16.840.1.740127.4.391.11.2 2568 Temperature Oral (F) 97.7 F 05/31/2017 2.16.840.1.764771.4.391.11.04169 Heart Rate 75 05/31/2017 2.16.840.1.662338.4.391.11.2 2568 Diastolic (mm Hg) 71 05/31/2017 2.16.840.1.566065.4.391.11.29808 Systolic (mm Hg) 138 05/31/2017 2.16.840.1.148230.4.391.11.62819 Weight 161.0 05/02/2017 2.16.840.1.008088.4.391.11.2 2568 Height 59.1 05/02/2017 2.16.840.1.404093.4.391.11.2 2568 Temperature Oral (F) 98.1 F 05/02/2017 2.16.840.1.371401.4.391.11.12335 Heart Rate 75 05/02/2017 2.16.840.1.958193.4.391.11.2 2568 Diastolic (mm Hg) 97 05/02/2017 2.16.840.1.636818.4.391.11.54040 Systolic (mm Hg) 187 05/02/2017 2.16.840.1.636753.4.391.11.01116 Weight 57.7 04/04/2017 2.16.840.1.909969.4.391.11.2 2568 Height 59.1 04/04/2017 2.16.840.1.741372.4.391.11.2 2568 Temperature Oral (F) 95.6 F 04/04/2017 2.16.840.1.507932.4.391.11.11502 Heart Rate 71 04/04/2017 2.16.840.1.403541.4.391.11.2 2568 Diastolic (mm Hg) 73 04/04/2017 2.16.840.1.932454.4.391.11.03373 Systolic (mm Hg) 151 04/04/2017 2.16.840.1.608841.4.391.11.91900 Respitory Rate 16 04/03/2017 [facility] Systolic (mm Hg) 118 04/03/2017 [facility] Diastolic (mm Hg) 75 04/03/2017 [facility] Respitory Rate 15 04/03/2017 [facility] Respitory Rate 12 04/03/2017 [facility] Systolic (mm Hg) 117 04/03/2017 [facility] Diastolic (mm Hg) 74 04/03/2017 [facility] Systolic (mm Hg) 124 04/03/2017 [facility] Diastolic (mm Hg) 77 04/03/2017 [facility] Heart Rate 65 04/03/2017 [facility] Temperature Oral (F) 98.2 F 04/03/2017 [facility] Heart Rate 74 04/03/2017 [facility] Heart Rate 69 04/03/2017 [facility] Temperature Oral (F) 97.9 F 04/03/2017 [facility] Temperature Oral (F) 97.4 F 04/03/2017 [facility] Height 149.86 cm 04/03/2017 [facility] BMI Calculated 33.4 04/03/2017 [facility] Weight 75 0 04/03/2017 [facility] BMI Calculated 30.36 04/02/2017 [facility] Weight 68.182 04/02/2017 [facility] Height 149.86 cm 04/02/2017 [facility] Weight 150.6 03/02/2017 2.16.840.1.795960.4.391.11.2 2568 Height 59.1 03/02/2017 2.16.840.1.712419.4.391.11.2 2568 Temperature Oral (F) 97.3 F 03/02/2017 2.16.840.1.926479.4.391.11.78516 Heart Rate 84 03/02/2017 2.16.840.1.165311.4.391.11.2 2568 Diastolic (mm Hg) 103 03/02/2017 2.16.840.1.187510.4.391.11.66353 Systolic (mm Hg) 147 03/02/2017 2.16.840.1.113014.4.391.11.46580 Weight 153.0 02/02/2017 2.16.840.1.543147.4.391.11.2 2568 Height 59.1 02/02/2017 2.16.840.1.521763.4.391.11.2 2568 Temperature Oral (F) 97.9 F 02/02/2017 2.16.840.1.737718.4.391.11.10055 Heart Rate 72 02/02/2017 2.16.840.1.325822.4.391.11.2 2568 Diastolic (mm Hg) 84 02/02/2017 2.16.840.1.617859.4.391.11.74778 Systolic (mm Hg) 146 02/02/2017 2.16.840.1.929468.4.391.11.18055 Weight 156.1 12/28/2016 2.16.840.1.055973.4.391.11.2 2568 Height 59.1 12/28/2016 2.16.840.1.210692.4.391.11.2 2568 Temperature Oral (F) 98.7 F 12/28/2016 2.16.840.1.643749.4.391.11.93082 Heart Rate 56 12/28/2016 2.16.840.1.020998.4.391.11.2 2568 Diastolic (mm Hg) 83 12/28/2016 2.16.840.1.920591.4.391.11.94188 Systolic (mm Hg) 151 12/28/2016 2.16.840.1.995709.4.391.11.53799 Weight 167.3 11/24/2016 2.16.840.1.004411.4.391.11.2 2568 Height 59.1 11/24/2016 2.16.840.1.058625.4.391.11.2 2568 Temperature Oral (F) 97.9 F 11/24/2016 2.16.840.1.159092.4.391.11.65394 Heart Rate 58 11/24/2016 2.16.840.1.937474.4.391.11.2 2568 Diastolic (mm Hg) 87 11/24/2016 2.16.840.1.172988.4.391.11.89742 Systolic (mm Hg) 181 11/24/2016 2.16.840.1.078592.4.391.11.16103 Weight 164 10/27/2016 2.16.840.1.462464.4.391.11.2 2568 Height 59 0 10/27/2016 2.16.840.1.608919.4.391.11.2 2568 Temperature Oral (F) 98.8 F 10/27/2016 2.16.840.1.845101.4.391.11.17436 Heart Rate 64 10/27/2016 2.16.840.1.965615.4.391.11.2 2568 Diastolic (mm Hg) 60 10/27/2016 2.16.840.1.139229.4.391.11.57923 Systolic (mm Hg) 131 10/27/2016 2.16.840.1.991491.4.391.11.34754 Weight 165.3 09/26/2016 2.16.840.1.591085.4.391.11.2 2568 Height 59.1 09/26/2016 2.16.840.1.616799.4.391.11.2 2568 Temperature Oral (F) 97.5 F 09/26/2016 2.16.840.1.910736.4.391.11.03150 Heart Rate 75 09/26/2016 2.16.840.1.816128.4.391.11.2 2568 Diastolic (mm Hg) 89 09/26/2016 2.16.840.1.751826.4.391.11.41754 Systolic (mm Hg) 148 09/26/2016 2.16.840.1.904451.4.391.11.17374 Weight 176 08/25/2016 2.16.840.1.476463.4.391.11.2 2568 Height 59.1 08/25/2016 2.16.840.1.895234.4.391.11.2 2568 Temperature Oral (F) 97.6 F 08/25/2016 2.16.840.1.947997.4.391.11.63396 Heart Rate 76 08/25/2016 2.16.840.1.953302.4.391.11.2 2568 Diastolic (mm Hg) 74 08/25/2016 2.16.840.1.458196.4.391.11.02421 Systolic (mm Hg) 104 08/25/2016 2.16.840.1.478123.4.391.11.29974 Weight 163 07/25/2016 2.16.840.1.899720.4.391.11.2 2568 Height 59.1 07/25/2016 2.16.840.1.354893.4.391.11.2 2568 Temperature Oral (F) 97.8 F 07/25/2016 2.16.840.1.777082.4.391.11.08507 Heart Rate 67 07/25/2016 2.16.840.1.175820.4.391.11.2 2568 Diastolic (mm Hg) 98 07/25/2016 2.16.840.1.935748.4.391.11.81771 Systolic (mm Hg) 173 07/25/2016 2.16.840.1.984112.4.391.11.32512 Weight 162 06/24/2016 2.16.840.1.506924.4.391.11.2 2568 Height 59.1 06/24/2016 2.16.840.1.611065.4.391.11.2 2568 Temperature Oral (F) 97.6 F 06/24/2016 2.16.840.1.598950.4.391.11.50633 Heart Rate 58 06/24/2016 2.16.840.1.864350.4.391.11.2 2568 Diastolic (mm Hg) 89 06/24/2016 2.16.840.1.185801.4.391.11.41692 Systolic (mm Hg) 203 06/24/2016 2.16.840.1.086357.4.391.11.19879 Weight 164 05/23/2016 2.16.840.1.085675.4.391.11.2 2568 Height 59.1 05/23/2016 2.16.840.1.707753.4.391.11.2 2568 Temperature Oral (F) 97.8 F 05/23/2016 2.16.840.1.233608.4.391.11.70922 Heart Rate 68 05/23/2016 2.16.840.1.082989.4.391.11.2 2568 Diastolic (mm Hg) 89 05/23/2016 2.16.840.1.873033.4.391.11.53275 Systolic (mm Hg) 145 05/23/2016 2.16.840.1.487866.4.391.11.16724 Weight 164 04/28/2016 2.16.840.1.498557.4.391.11.2 2568 Height 59.1 04/28/2016 2.16.840.1.631033.4.391.11.2 2568 Temperature Oral (F) 97.7 F 04/28/2016 2.16.840.1.873555.4.391.11.83996 Heart Rate 64 04/28/2016 2.16.840.1.477547.4.391.11.2 2568 Diastolic (mm Hg) 101 04/28/2016 2.16.840.1.250994.4.391.11.70570 Systolic (mm Hg) 194 04/28/2016 2.16.840.1.246926.4.391.11.99079 Weight 167 03/28/2016 2.16.840.1.920872.4.391.11.2 2568 Height 59.1 03/28/2016 2.16.840.1.480944.4.391.11.2 2568 Temperature Oral (F) 97.6 F 03/28/2016 2.16.840.1.327034.4.391.11.49411 Heart Rate 72 03/28/2016 2.16.840.1.899579.4.391.11.2 2568 Diastolic (mm Hg) 97 03/28/2016 2.16.840.1.578739.4.391.11.50082 Systolic (mm Hg) 155 03/28/2016 2.16.840.1.409482.4.391.11.73319 Weight 163 12/30/2015 2.16.840.1.353980.4.391.11.2 2568 Height 59.1 12/30/2015 2.16.840.1.977728.4.391.11.2 2568 Temperature Oral (F) 97.7 F 12/30/2015 2.16.840.1.422822.4.391.11.76861 Heart Rate 79 12/30/2015 2.16.840.1.872364.4.391.11.2 2568 Diastolic (mm Hg) 73 12/30/2015 2.16.840.1.460442.4.391.11.68306 Systolic (mm Hg) 128 12/30/2015 2.16.840.1.489302.4.391.11.99296 Weight 165 08/25/2015 2.16.840.1.880415.4.391.11.2 2568 Height 59.1 08/25/2015 2.16.840.1.327049.4.391.11.2 2568 Temperature Oral (F) 97.8 F 08/25/2015 2.16.840.1.510398.4.391.11.53267 Heart Rate 59 08/25/2015 2.16.840.1.142613.4.391.11.2 2568 Diastolic (mm Hg) 64 08/25/2015 2.16.840.1.583810.4.391.11.66583 Systolic (mm Hg) 132 08/25/2015 2.16.840.1.013158.4.391.11.06664 Weight 164 07/24/2015 2.16.840.1.732153.4.391.11.2 2568 Height 59.1 07/24/2015 2.16.840.1.839761.4.391.11.2 2568 Temperature Oral (F) 98.2 F 07/24/2015 2.16.840.1.875106.4.391.11.81569 Heart Rate 69 07/24/2015 2.16.840.1.656393.4.391.11.2 2568 Diastolic (mm Hg) 82 07/24/2015 2.16.840.1.003209.4.391.11.52473 Systolic (mm Hg) 141 07/24/2015 2.16.840.1.523667.4.391.11.10838 Weight 165.1 06/16/2015 2.16.840.1.309772.4.391.11.2 2568 Height 59.1 06/16/2015 2.16.840.1.514359.4.391.11.2 2568 Temperature Oral (F) 97.5 F 06/16/2015 2.16.840.1.433376.4.391.11.03196 Heart Rate 71 06/16/2015 2.16.840.1.943603.4.391.11.2 2568 Diastolic (mm Hg) 99 06/16/2015 2.16.840.1.517436.4.391.11.96971 Systolic (mm Hg) 161 06/16/2015 2.16.840.1.992478.4.391.11.20265 Weight 168.5 04/10/2015 eCW: Kaisen Fang Height [...] Kaisen Fang Systolic (mm Hg) 145 05/12/2014 [facility] Diastolic (mm Hg) 72 05/12/2014 [facility] Temperature Oral (F) 98.2 F 05/12/2014 [facility] Heart Rate 60 05/12/2014 [facility] Respitory Rate 18 05/12/2014 [facility] Heart Rate 68 05/12/2014 [facility] Respitory Rate 18 05/12/2014 [facility] Systolic (mm Hg) 155 05/12/2014 [facility] Diastolic (mm Hg) 84 05/12/2014 [facility] Systolic (mm Hg) 175 05/12/2014 [facility] Diastolic (mm Hg) 83 05/12/2014 [facility] Heart Rate 69 05/12/2014 [facility] Respitory Rate 18 05/12/2014 [facility] Temperature Oral (F) 98.0 F 05/12/2014 [facility] Height 149.86 cm 05/12/2014 [facility] BMI Calculated 35.42 05/12/2014 [facility] Weight 79.545 05/12/2014 [facility] Weight 189.9 03/10/2014 eCW: Kaisen Fang [...] 02/24/2013 [facility] Systolic (mm Hg) 123 02/24/2013 [facility] Weight 93.636 02/24/2013 [facility] Height 149.86 cm 02/24/2013 [facility] Heart Rate 101 02/24/2013 [facility] Respitory Rate 16 02/24/2013 [facility] Systolic (mm Hg) 153 02/24/2013 [facility] Diastolic (mm Hg) 97 02/24/2013 [facility] Temperature Oral (F) 98.4 F 02/24/2013 [facility] Temperature Oral (F) 97.9 F 01/08/2013 [facility] Diastolic (mm Hg) 63 01/08/2013 [facility] Respitory Rate 18 01/08/2013 [facility] Systolic (mm Hg) 154 01/08/2013 [facility] Heart Rate 60 01/08/2013 [facility] Systolic (mm Hg) 161 01/08/2013 [facility] Heart Rate 72 01/08/2013 [facility] Respitory Rate 20 01/08/2013 [facility] Diastolic (mm Hg) 76 01/08/2013 [facility] Temperature Oral (F) 97.9 F 01/08/2013 [facility] Heart Rate 65 01/08/2013 [facility] Respitory Rate 20 01/08/2013 [facility] Systolic (mm Hg) 173 01/08/2013 [facility] Diastolic (mm Hg) 89 01/08/2013 [facility] Weight 95 1 03/10/2012 [facility] Height 149.86 cm 01/08/2013 [facility] Temperature Oral (F) 98.1 F 01/08/2013 [facility] Height 149.86 cm 08/02/2012 [facility] Weight 100.455 08/02/2012 [facility] Weight 109.091 07/21/2012 [facility] Encounters Location Location Details Encounter Type Encounter Number Reason For Visit Attending Provider ADM Date DC Date Status Source [facility] Emergency [id number] TERI BRYSON 05/16/2012 05/16/2012 Discharged [facility] Emergency [id number] ETHAN ANA 07/21/2012 07/21/2012 Discharged [facility] Emergency [id number] LULA BYRON 08/02/2012 08/02/2012 Discharged [facility] Emergency [id number] VAMSHI HICKMANBALL 01/06/2013 01/06/2013 Discharged [facility] Emergency [id number] TERI BRYSON 01/07/2013 01/08/2013 Discharged [facility] Emergency [id number] HUONG NAIDU 02/24/2013 02/24/2013 Discharged [facility] Kike Jarvis MD Follow-up for mutiple problems [id number] 09/05/2013 09/05/2013 eCW: Kike Jarvis MD Follow-up for mutiple problems [id number] 09/05/2013 09/05/2013 eCW: Kike Jarvis MD Follow-up for mutiple problems [id number] 09/05/2013 09/05/2013 eCW: Kike Jarvis MD Follow-up for mutiple problems [id number] 09/05/2013 09/05/2013 eCW: Kike Jarvis MD Follow-up for mutiple problems [id number] 09/05/2013 09/05/2013 eCW: Kike Jarvis MD Follow-up for mutiple problems [id number] 09/05/2013 09/05/2013 [id number] Kike Jarvis MD Follow-up for mutiple problems [id number] 09/05/2013 09/05/2013 eCW: Kike Jarvis MD Follow-up for mutiple problems 5574il5h-0s9d-4v93-ft97-9b9929c71l80 09/05/2013 09/05/2013 eCW: Kike Jarvis MD Follow-up for mutiple problems 5u64j8fp-3972-2862-qs26-z03317a2gaef 09/05/2013 09/05/2013 2.16.840.1.517740.4.391.11.74298 Kike Jarvis MD Follow-up for mutiple problems k7u3ewfg-0757-31i3-sf4g-566696b3z3c5 09/05/2013 09/05/2013 2.16.840.1.339056.4.391.11.22369 Kike Jarvis MD Follow-up for mutiple problems 1ozo978w-l552-3p7r-2pl2-0ldt218u0mdf 09/05/2013 09/05/2013 2.16.840.1.993832.4.391.11.70325 Kike Jarvis MD Follow-up for mutiple problems 53xh9299-4l62-05gd-bbyq-g51j7fy1337h 09/05/2013 09/05/2013 2.16.840.1.279735.4.391.11.45218 Kike Jarvis MD Follow-up for mutiple problems z7158t16-f106-63gy-duk2-6lgx0ea67sj3 09/05/2013 09/05/2013 2.16.840.1.054627.4.391.11.82082 Kike Jarvis MD Follow-up for mutiple problems h3z839pv-1e2b-0502-yi6q-avsi16228839 09/05/2013 09/05/2013 2.16.840.1.114820.4.391.11.72043 Kike Jarvis MD Follow-up for mutiple problems 970881e4-9334-4un3-7v37-7053sx279mj4 09/05/2013 09/05/2013 2.16.840.1.949437.4.391.11.97979 Kike Jarvis MD Follow-up for mutiple problems u440785f-8mfd-04u8-q085-90r39522r6jc 09/05/2013 09/05/2013 2.16.840.1.079130.4.391.11.01784 Kike Jarvis MD Follow-up for mutiple problems 1q25oifd-e2e9-48z9-5641-44eu0ugx0e77 09/05/2013 09/05/2013 2.16.840.1.800746.4.391.11.00000 Kike Jarvis MD Follow-up for mutiple problems yqi43jf0-k0e3-1l99-89pk-6z058te95417 09/05/2013 09/05/2013 eCW: Kike Jarvis MD Follow-up for mutiple problems lq5b56r5-t4e2-09n4-0446-43g54tk485t2 09/05/2013 09/05/2013 eCW: Kike Jarvis MD Follow-up for mutiple problems 77aig6pk-969e-7l48-pl38-w17w45511cv3 09/05/2013 09/05/2013 eCW: Kike Jarvis MD Follow-up for mutiple problems t8k3k694-y925-6g09-1wle-n188sch78081 09/05/2013 09/05/2013 eCW: Kike Jarvis MD Follow-up for mutiple problems 22905933-i7w4-58ro-2214-85u92469elm8 09/05/2013 09/05/2013 eCW: Kike Jarvis MD Follow-up for mutiple problems mgq5g635-dq2w-64h2-ulg4-ysjbf9v5l86x 09/05/2013 09/05/2013 eCW: Kike Jarvis MD Follow-up for mutiple problems 1358dqfe-833h-83j899c9-agdz-7gtm701fh819 09/05/2013 09/05/2013 eCW: Kike Jarvis MD Follow-up for mutiple problems 7la322w2-07t7-2i0f-3104-8q42k9i7j72k 09/05/2013 09/05/2013 eCW: Kike Jarvis MD Follow-up for mutiple problems qhl83x4m-yp3d-3528-d04a-3z882381841y 09/05/2013 09/05/2013 eCW: Kike Jarvis MD Follow-up for mutiple problems 4n76d573-gh95-0a79-5951-ea2k8i939662 09/05/2013 09/05/2013 eCW: Kike Jarvis MD Follow-up for mutiple problems en20wv44-2882-2833-57m2-517k31656419 09/05/2013 09/05/2013 2.16.840.1.269638.4.391.11.76218 Kike Jarvis MD Follow-up for mutiple problems 9y1f914s-9m62-9943-499x-77g2738yj39v 09/05/2013 09/05/2013 2.Nelson.840.1.990310.4.391.11.78455 Kike Jarvis MD Follow-up for mutiple problems 7o3v919i-j0t2-34yy-6178-6181b375r21a 09/05/2013 09/05/2013 2.16.840.1.980435.4.391.11.09984 Kike Jarvis MD Follow-up for mutiple problems j169t3wy-v113-5243-1fm1-qr87b8v23914 09/05/2013 09/05/2013 2.16.840.1.616504.4.391.11.07178 Kike Jarvis MD Follow-up for mutiple problems 0eb44044-s7pv-932v-5763-5d3u04l9970r 09/05/2013 09/05/2013 2.16.840.1.688567.4.391.11.20093 Kike Jarvis MD Follow-up for mutiple problems 1b9zpgr8-6o9b-8947-84sd-a876tnh28218 09/12/2013 09/12/2013 eCW: Kike Jarvis MD Follow-up for mutiple problems 60yo9010-8z3a-6g6x-74ss-ccr1556hv336 09/12/2013 09/12/2013 eCW: Kike Jarvis MD Follow-up for mutiple problems d4g82duu-853z-1499-r309-86y288f16432 09/12/2013 09/12/2013 eCW: Kike Jarvis MD Follow-up for mutiple problems 8q4rg9e1-1733-725g-ux11-764h96ei844n 09/12/2013 09/12/2013 eCW: Kike Jarvis MD Follow-up for mutiple problems 5jv03982-szc0-571k-d0xk-29245705652w 09/12/2013 09/12/2013 eCW: Kike Jarvis MD Follow-up for mutiple problems bpyvx8n8-n989-16ss-5564-839008sa52wh 09/12/2013 09/12/2013 2.16.840.1.777137.4.391.11.94722 Kike Jarvis MD Follow-up for mutiple problems 0g161o22-21kk-348k-61cc-b83hmvq57mts 09/12/2013 09/12/2013 eCW: Kike Jarvis MD Follow-up for mutiple problems 693p635i-33x8-07de-9mes-5m63lyx3v25m 09/12/2013 09/12/2013 eCW: Kike Jarvis MD Follow-up for mutiple problems 32956g2c-4x26-8015-be13-p7g1d5664u30 09/12/2013 09/12/2013 2.16.840.1.196023.4.391.11.38719 Kike Jarvis MD Follow-up for mutiple problems 4sd9jm5k-346v-1060-5247-1008veq90g70 09/12/2013 09/12/2013 2.16.840.1.842803.4.391.11.99256 Kike Jarvis MD Follow-up for mutiple problems 37177sq8-q091-939h-c75b-l2a806s18qkc 09/12/2013 09/12/2013 2.16.840.1.242305.4.391.11.93233 Kike Jarvis MD Follow-up for mutiple problems 4is89gs6-h1x1-0ws5-q159-35c060cts111 09/12/2013 09/12/2013 2.16.840.1.465803.4.391.11.48382 Kike Jarvis MD Follow-up for mutiple problems h6657kyn-z2w6-2615-62n0-4190s3hs5x15 09/12/2013 09/12/2013 2.16.840.1.750564.4.391.11.28575 Kike Jarvis MD Follow-up for mutiple problems t44lf4n2-4s31-08c7-0u3u-467z636l3tqs 09/12/2013 09/12/2013 2.16.840.1.951189.4.391.11.90365 Kike Jarvis MD Follow-up for mutiple problems 9k527k3h-016b-3797-lk39-0oq88g48314b 09/12/2013 09/12/2013 2.16.840.1.125845.4.391.11.22941 Kike Jarvis MD Follow-up for mutiple problems 404i409y-hpw6-5067-204w-q8eq7ck0180a 09/12/2013 09/12/2013 2.16.840.1.454870.4.391.11.09414 Kike Jarvis MD Follow-up for mutiple problems e9mdj0g7-u30r-92c1-5fl4-nq7fucw4yl71 09/12/2013 09/12/2013 2.16.840.1.002259.4.391.11.64252 Kike Jarvis MD Follow-up for mutiple problems 6830h463-31jb-3el4-8914-03761qna3o25 09/12/2013 09/12/2013 eCW: Kike Jarvis MD Follow-up for mutiple problems p38o2z3k-8rw5-8on2-ag6k-32g44519wl9r 09/12/2013 09/12/2013 eCW: Kike Jarvis MD Follow-up for mutiple problems 48d92951-8i50-3ho7-qk6n-56w05733w783 09/12/2013 09/12/2013 eCW: Kike Jarvis MD Follow-up for mutiple problems p934a612-1bw7-98v5-341z-n82527159wt8 09/12/2013 09/12/2013 eCW: Kike Jarvis MD Follow-up for mutiple problems 1u80msq7-5o9s-9818-is9m-c6h0k1p5ht3u 09/12/2013 09/12/2013 eCW: Kike Jarvis MD Follow-up for mutiple problems 8j93m80o-829q-4327-j9u4-2899j9u01y5z 09/12/2013 09/12/2013 eCW: Kike Jarvis MD Follow-up for mutiple problems n57d0m44-1q40-83mw-8q46-2aiz2pe9ehnl 09/12/2013 09/12/2013 eCW: Kike Jarvis MD Follow-up for mutiple problems 3dvj7597-x775-88e1-l420-fw13078j6caw 09/12/2013 09/12/2013 eCW: Kike Jarvis MD Follow-up for mutiple problems 963jz914-7az9-82x9-iai1-127q9f2db7u0 09/12/2013 09/12/2013 eCW: Kike Jarvis MD Follow-up for mutiple problems m657p5r4-6uy6-31y6-58w7-2ot60908zwa0 09/12/2013 09/12/2013 eCW: Kike Jarvis MD Follow-up for mutiple problems wq82z4s8-80y6-5e26-4263-2r75zy179dvw 09/12/2013 09/12/2013 2.16.840.1.940054.4.391.11.42367 Kike Jarvis MD Follow-up for mutiple problems 5va7thgl-gey2-77k6-489c-018r2y4ly5hh 09/12/2013 09/12/2013 2.16.840.1.688887.4.391.11.29885 Kike Jarvis MD Follow-up for mutiple problems 70082629-2s4y-54i5-gqba-3717w9210048 09/12/2013 09/12/2013 2.16.840.1.114499.4.391.11.74585 Kike Jarvis MD Follow-up for mutiple problems 91uz020j-h62j-7652-56l2-8vrg4n972674 09/12/2013 09/12/2013 2.16.840.1.818027.4.391.11.65878 Kike Jarvis MD Follow-up for mutiple problems wau8q138-97ye-796b-b720-1o43l7g9740x 09/12/2013 09/12/2013 2.16.840.1.688082.4.391.11.91755 Kike Jarvis MD Follow-up for mutiple problems 7g9aq50k-d62h-4485-4862-d5b14243k51h 09/26/2013 09/26/2013 eCW: Kike Jarvis MD Follow-up for mutiple problems 2d2339no-6372-0i0w-g9s4-9xf8o5k1g300 09/26/2013 09/26/2013 eCW: Kike Jarvis MD Follow-up for mutiple problems 457xa2sz-j75p-0jj7-x023-1574jg5q7ulu 09/26/2013 09/26/2013 eCW: Kike Jarvis MD Follow-up for mutiple problems 8n106yre-886n-93m7-k21k-016hn818v4k4 09/26/2013 09/26/2013 2.16.840.1.450487.4.391.11.82109 Kike Jarvis MD Follow-up for mutiple problems k2jp3cf6-drlr-9w4b-09w3-448e7261949d 09/26/2013 09/26/2013 eCW: Kike Jarvis MD Follow-up for mutiple problems 51ge42y0-3365-6s2c-8hc3-64321w072647 09/26/2013 09/26/2013 eCW: Kike Jarvis MD Follow-up for mutiple problems 86o94yd1-idh0-8712-32yx-16ck8o95om74 09/26/2013 09/26/2013 2.16.840.1.114083.4.391.11.49616 Kike Jarvis MD Follow-up for mutiple problems b24127ca-sf10-9olw-xkiw-4062361m915f 09/26/2013 09/26/2013 2.16.840.1.865000.4.391.11.71020 Kike Jarvis MD Follow-up for mutiple problems rkp18212-3yol-751z-346u-345bu60d0sf9 09/26/2013 09/26/2013 2.16.840.1.621084.4.391.11.30984 Kike Jarvis MD Follow-up for mutiple problems nj9o5x1a-1189-9ns1-x73l-34u0wv6182fs 09/26/2013 09/26/2013 2.16.840.1.914944.4.391..03325 Kike Jarvis MD Follow-up for mutiple problems 50o08q4x-wsh7-61u2-ploo-5d0h198cl9f4 09/26/2013 09/26/2013 2.16.840.1.505878.4.391..46794 Kike Jarvis MD Follow-up for mutiple problems tj7479b7-9a96-0xdp-zy5v-62b8qo828096 09/26/2013 09/26/2013 2.16.840.1.184952.4.391..71895 Kike Jarvis MD Follow-up for mutiple problems 6aii8s3v-4215-5u6h-bpb5-67o0ioa8a2i2 09/26/2013 09/26/2013 2.16.840.1.544323.4.391.11.70205 Kike Jarvis MD Follow-up for mutiple problems 40z80y48-1k2c-08c0-6u05-e7662947h1a0 09/26/2013 09/26/2013 2.16.840.1.129916.4.391.11.05946 Kike Jarvis MD Follow-up for mutiple problems 59r5zf72-2b42-9777-dr72-6c281b7812dt 09/26/2013 09/26/2013 2.16.840.1.252795.4.391.11.11396 Kike Jarvis MD Follow-up for mutiple problems zk169nse-j104-7b3a-gj8u-g3185j968712 09/26/2013 09/26/2013 eCW: Kike Jarvis MD Follow-up for mutiple problems cz520105-8043-45m1-863n-jnih6y4459g7 09/26/2013 09/26/2013 eCW: Kike Jarvis MD Follow-up for mutiple problems fbfp60z9-umg2-1jlj-w2iz-jpe66171b3jk 09/26/2013 09/26/2013 eCW: Kike Jarvis MD Follow-up for mutiple problems d4rn41hf-64ct-8836-s457-903mm3e9g9g1 09/26/2013 09/26/2013 eCW: Kike Jarvis MD Follow-up for mutiple problems 7i64y415-7805-8m1j-gljo-d862a1ez2619 09/26/2013 09/26/2013 eCW: Kike Jarvis MD Follow-up for mutiple problems 4168q30d-xl5a-371q-x82g-718zbx0p00p3 09/26/2013 09/26/2013 eCW: Kike Jarvis MD Follow-up for mutiple problems 27ba54ds-b4g0-32u4-fl46-qm329974u63c 09/26/2013 09/26/2013 eCW: Kike Jarvis MD Follow-up for mutiple problems 9r498250-xik1-2280-13as-76iqyq4u529b 09/26/2013 09/26/2013 eCW: Kike Jarvis MD Follow-up for mutiple problems um66044i-b1bd-1wu2-ln05-89gi91m2a9r7 09/26/2013 09/26/2013 eCW: Kike Jarvis MD Follow-up for mutiple problems xs140309-6592-69d6-ue6b-b08lo62m285e 09/26/2013 09/26/2013 eCW: Kike Jarvis MD Follow-up for mutiple problems 065p4aqq-j338-3c31-v2j1-251qaigyg977 09/26/2013 09/26/2013 2.16.840.1.872611.4.391.11.29038 Kike Jarvis MD Follow-up for mutiple problems 2vc38478-6hb9-0096-80d1-094977296013 09/26/2013 09/26/2013 2.16.840.1.696544.4.391.11.49636 Kike Jarvis MD Follow-up for mutiple problems 8l56a736-218d-20hk-blu1-w85w6n21aag1 09/26/2013 09/26/2013 2.16.840.1.583331.4.391.11.57259 Kike Jarvis MD Follow-up for mutiple problems 345965r5-5nqq-0p1j-6736-1ca2o5d36rg3 09/26/2013 09/26/2013 2.16.840.1.314473.4.391.11.67174 Kike Jarvis MD Follow-up for mutiple problems 5f92er67-2895-078x-mzr3-r5c33n5499nb 09/26/2013 09/26/2013 2.16.840.1.526903.4.391.11.05896 Kike Jarvis MD Follow-up for mutiple problems 12531f36-a667-2424-eda8-976677d58z77 10/11/2013 10/11/2013 eCW: Kike Jarvis MD Follow-up for mutiple problems 938ik0y0-2194-92f1-t5nr-8055x175695j 10/11/2013 10/11/2013 eCW: Kike Jarvis MD Follow-up for mutiple problems 33769p1b-085v-88n6-1dx9-88a48u2u7i68 10/11/2013 10/11/2013 eCW: Kike Jarvis MD Follow-up for mutiple problems s64kqx2u-2501-748r-y235-v4g0r0425680 10/11/2013 10/11/2013 2.16.840.1.023575.4.391.11.23736 Kike Jarvis MD Follow-up for mutiple problems 95693534-199d-7348-xyg9-y3g9a3x2383q 10/11/2013 10/11/2013 eCW: Kike Jarvis MD Follow-up for mutiple problems zi5450og-jfv1-77rq-v58q-21394d5661mu 10/11/2013 10/11/2013 eCW: Kike Jarvis MD Follow-up for mutiple problems l433a9s3-le68-9921-d682-4ox664a81832 10/11/2013 10/11/2013 2.16.840.1.194092.4.391.11.03968 Kike Jarvis MD Follow-up for mutiple problems aj93i7t8-9v02-96kd-gwr0-6q496o6j5ie0 10/11/2013 10/11/2013 2.16.840.1.828481.4.391.11.26630 Kike Jarvis MD Follow-up for mutiple problems 88yn8454-2u5r-28u1-d07g-m6r042159988 10/11/2013 10/11/2013 2.16.840.1.483350.4.391.11.89607 Kike Jarvis MD Follow-up for mutiple problems wayb3307-qw2d-3101-1l75-1974222j4ryc 10/11/2013 10/11/2013 2.16.840.1.834730.4.391.11.68398 Kike Jarvis MD Follow-up for mutiple problems 221t0425-52bw-99sa-yyh4-e2i323mv2rek 10/11/2013 10/11/2013 2.16.840.1.407844.4.391.11.67766 Kike Jarvis MD Follow-up for mutiple problems y53vwi55-764a-7ph7-p45c-96wm503ic5l9 10/11/2013 10/11/2013 2.16.840.1.998537.4.391.11.82911 Kike Jarvis MD Follow-up for mutiple problems u6i937d9-5i60-5174-7w3a-86phn0l25r3i 10/11/2013 10/11/2013 2.16.840.1.230676.4.391.11.68286 Kike Jarvis MD Follow-up for mutiple problems ib9i565h-jx4o-775x-n6j0-0ff02783n22d 10/11/2013 10/11/2013 2.16.840.1.856380.4.391.11.06121 Kike Jarvis MD Follow-up for mutiple problems x92a3x9v-8814-4080-2y34-4jmm0f608f0y 10/11/2013 10/11/2013 2.16.840.1.268350.4.391.11.01579 Kike Jarvis MD Follow-up for mutiple problems 10q56774-r342-88e1-l265-976w47n0t782 10/11/2013 10/11/2013 eCW: Kike Jarvis MD Follow-up for mutiple problems j5d6e58m-44ex-75gc-327s-a82454382901 10/11/2013 10/11/2013 eCW: Kike Jarvis MD Follow-up for mutiple problems ol326x36-0a57-2r98-q3x4-9312m192891d 10/11/2013 10/11/2013 eCW: Kike Jarvis MD Follow-up for mutiple problems h3i8n36s-07qr-6k89-uq1t-6a41n823948z 10/11/2013 10/11/2013 eCW: Kike Jarvis MD Follow-up for mutiple problems g0o75k35-g2l6-089g-64o5-02580x7bow36 10/11/2013 10/11/2013 eCW: Kike Jarvis MD Follow-up for mutiple problems 0406s50q-922i-82a6-h6w2-1607d5h82r85 10/11/2013 10/11/2013 eCW: Kike Jarvis MD Follow-up for mutiple problems 829xh535-3t0r-3a0r-3j51-f23z2242wbu6 10/11/2013 10/11/2013 eCW: Kike Jarvis MD Follow-up for mutiple problems 910xt552-es93-0vhr-n226-65364380m0k0 10/11/2013 10/11/2013 eCW: Kike Jarvis MD Follow-up for mutiple problems 5872lt7w-ti25-162n-1e1l-580635h5f7x8 10/11/2013 10/11/2013 eCW: Kike Jarvis MD Follow-up for mutiple problems t14c9xpe-5828-874e-6351-81196a76ha1c 10/11/2013 10/11/2013 eCW: Kike Jarvis MD Follow-up for mutiple problems n70swt49-1384-5c5a-z9od-61164lfkf97v 10/11/2013 10/11/2013 2.16.840.1.005279.4.391..66576 Kike Jarvis MD Follow-up for mutiple problems o186m028-73s8-93c3-y449-t92hk52g498b 10/11/2013 10/11/2013 2.Nelson.840.1.257379.4.391.11.28284 Kike Jarvis MD Follow-up for mutiple problems 388mug6p-n872-89r4-f88u-017x3r2f2093 10/11/2013 10/11/2013 2.16.840.1.287218.4.391.11.70347 Kike Jarvis MD Follow-up for mutiple problems 3n92jwn6-o682-26h3-34km-m12t3231oi06 10/11/2013 10/11/2013 2.16.840.1.031069.4.391.11.96181 Kike Jarvis MD Follow-up for mutiple problems k2bekc26-69tl-0mzy-4x43-7jhtl3s881i9 10/11/2013 10/11/2013 2.16.840.1.343751.4.391..81605 Kike Jarvis MD Follow-up for mutiple problems b9apg4m3-2wz2-848c-l4v3-3v885491r773 11/22/2013 11/22/2013 eCW: Kike Jarvis MD Follow-up for mutiple problems dxg41sx9-hipk-3x73-925d-9i041f675bc5 11/22/2013 11/22/2013 eCW: Kike Jarvis MD Follow-up for mutiple problems eyk7u4j7-8e8u-6362-52e0-a28937876r04 11/22/2013 11/22/2013 2.16.840.1.105066.4.391..04023 Kike Jarvis MD Follow-up for mutiple problems i732059v-0b56-8irv-3271-452j6805q201 11/22/2013 11/22/2013 eCW: Kike Jarvis MD Follow-up for mutiple problems iz1525az-8198-013t-02tv-x722h3ch07tr 11/22/2013 11/22/2013 eCW: Kike Jarvis MD Follow-up for mutiple problems 13doyt2t-27r7-8308-6u1o-9g03r4p0tkx6 11/22/2013 11/22/2013 2.16.840.1.105282.4.391.11.62610 Kike Jarvis MD Follow-up for mutiple problems m5359h15-udg7-4xjm-e280-215620j961l1 11/22/2013 11/22/2013 2.16.840.1.259627.4.391..38544 Kike Jarvis MD Follow-up for mutiple problems 5106ouq2-2462-3edc-7cz7-06j13ni6r1v6 11/22/2013 11/22/2013 2.16.840.1.960722.4.391..06575 Kike Jarvis MD Follow-up for mutiple problems 5y2p0979-3773-03q6-zr47-29u7743kc585 11/22/2013 11/22/2013 2.16.840.1.759351.4.391.. Kike Jarvis MD Follow-up for mutiple problems 8l9x39a3-b217-4eba-2l81-8s44954m69az 11/22/2013 11/22/2013 2.16.840.1.532253.4.391..88213 Kike Jarvis MD Follow-up for mutiple problems m79463w6-u440-8588-357z-3473jweq7962 11/22/2013 11/22/2013 2.16.840.1.013507.4.391..69753 Kike Jarvis MD Follow-up for mutiple problems c9449uz6-7338-8695-1sz8-b4e890i3c302 11/22/2013 11/22/2013 2.16.840.1.558832.4.391..59570 Kike Jarvis MD Follow-up for mutiple problems 95bz2184-53de-793j-97v0-k85bw53u290e 11/22/2013 11/22/2013 2.16.840.1.091145.4.391.. Kike Jarvis MD Follow-up for mutiple problems 7p30p2f0-54s8-90f8-n75n-l9t473z64x26 11/22/2013 11/22/2013 2.16.840.1.416108.4.391..34961 Kike Jarvis MD Follow-up for mutiple problems 6z0d034r-p82q-2k0h-e8j0-a80t05ht4q29 11/22/2013 11/22/2013 eCW: Kike Jarvis MD Follow-up for mutiple problems 040291z4-pkiy-2824-cjq1-34277z536c3o 11/22/2013 11/22/2013 eCW: Kike Jarvis MD Follow-up for mutiple problems [id number]-y8fq-j6s341143omq 11/22/2013 11/22/2013 eCW: Kike Jarvis MD Follow-up for mutiple problems 78jt51z2-63j3-7724-ts7r-d28v1t112442 11/22/2013 11/22/2013 eCW: Kike Jarvis MD Follow-up for mutiple problems k263259c-32hw-7415-e2v8-4r76rrl33ig2 11/22/2013 11/22/2013 eCW: Kike Jarvis MD Follow-up for mutiple problems 79428a10-w823-3708-l8a0-204y5wr08b7c 11/22/2013 11/22/2013 eCW: Kike Jarvis MD Follow-up for mutiple problems 0414pqp2-j033-6px0-8499-m3wh68364xpi 11/22/2013 11/22/2013 eCW: Kike Jarvis MD Follow-up for mutiple problems 44804o8w-i7x0-5s98-6p6f-0k7i7u6t7nrs 11/22/2013 11/22/2013 eCW: Kike Jarvis MD Follow-up for mutiple problems [id number] 11/22/2013 11/22/2013 eCW: Kike Jarvis MD Follow-up for mutiple problems [id number]-[id number] 11/22/2013 11/22/2013 eCW: Kike Jarvis MD Follow-up for mutiple problems [id number]-[id number] 11/22/2013 11/22/2013 2.16.840.1.085506.4.391.11.00309 Kike Jarvis MD Follow-up for mutiple problems [id number] 11/22/2013 11/22/2013 2.16.840.1.319698.4.391.11.18509 Kike Jarvis MD Follow-up for mutiple problems wr99e2g5-v061-77ml-57y4-hh4s900y1s04 11/22/2013 11/22/2013 2.16.840.1.852558.4.391.11.84806 Kike Jarvis MD Follow-up for mutiple problems 3784zb0s-[id number]-29d3-3kq25071087q 11/22/2013 11/22/2013 2.16.840.1.015955.4.391.11.16848 Kike Jarvis MD Follow-up for mutiple problems 6qs1639p-n695-6m8q-7293-k8a75cljd0ew 11/22/2013 11/22/2013 2.16.840.1.867290.4.391.11.02389 Kike Jarvis MD Follow-up for mutiple problems [id number]-z2qa193449n6 12/13/2013 12/13/2013 eCW: Kike Jarvis MD Follow-up for mutiple problems [id number]-4uzc-m500-336l2xxs5j82 12/13/2013 12/13/2013 eCW: Kike Jarvis MD Follow-up for mutiple problems rcfo2f0q-[id number]-d78v-8j176vvw71e3 12/13/2013 12/13/2013 2.16.840.1.816178.4.391.11.56542 Kike Jarvis MD Follow-up for mutiple problems [id number]-rs8n98bgdjjw 12/13/2013 12/13/2013 eCW: Kike Jarvis MD Follow-up for mutiple problems [id number] 12/13/2013 12/13/2013 eCW: Kike Jarvis MD Follow-up for mutiple problems [id number]-j445-ff2mnh21hy23 12/13/2013 12/13/2013 2.16.840.1.318925.4.391.11.87746 Kike Jarvis MD Follow-up for mutiple problems 4d89xa9k-33d4-3p0x-q34k-366v9so71525 12/13/2013 12/13/2013 2.16.840.1.186602.4.391.11.06078 Kike Jarvis MD Follow-up for mutiple problems aaix7d36-q5z6-0b84-rc56-15e0p8f211z5 12/13/2013 12/13/2013 2.16.840.1.076297.4.391.11.90989 Kike Jarvis MD Follow-up for mutiple problems 038u0su3-x0sk-6x4o-8831-103r2v1p8r47 12/13/2013 12/13/2013 2.16.840.1.395323.4.391.11.58024 Kike Jarvis MD Follow-up for mutiple problems j3s8c659-vo49-991f-12zi-ua564ki9fy12 12/13/2013 12/13/2013 2.16.840.1.882860.4.391.11.74596 Kike Jarvis MD Follow-up for mutiple problems 37bamo6g-01n6-0350-49aq-kdv72h7n62s5 12/13/2013 12/13/2013 2.16.840.1.760928.4.391.11.25878 Kike Jarvis MD Follow-up for mutiple problems i323o20p-541s-96c5-9y24-3nb104515w75 12/13/2013 12/13/2013 2.16.840.1.052224.4.391.11.82957 Kike Jarvis MD Follow-up for mutiple problems 6y0oz04m-2l23-561u-50u1-111w89or2p10 12/13/2013 12/13/2013 2.16.840.1.072799.4.391.11.71133 Kike Jarvis MD Follow-up for mutiple problems [id number]-2m62-[id number] 12/13/2013 12/13/2013 2.16.840.1.625134.4.391.11.15076 Kike Jarvis MD Follow-up for mutiple problems [id number]-162x-x8ag-10902927pm17 12/13/2013 12/13/2013 eCW: Kike Jarvis MD Follow-up for mutiple problems 39sxa23w-b9yp-55yx-26n4-8409m33wg67k 12/13/2013 12/13/2013 eCW: Kike Jarvis MD Follow-up for mutiple problems [id number]-e43w-1xsk-n210-fdelg3a9b9a6 12/13/2013 12/13/2013 eCW: Kike Jarvis MD Follow-up for mutiple problems 254cgj8m-bll5-4796-z23d-s07drc9n53eq 12/13/2013 12/13/2013 eCW: Kike Jarvis MD Follow-up for mutiple problems [id number]-011g26642v9b 12/13/2013 12/13/2013 eCW: Kike Jarvis MD Follow-up for mutiple problems [id number]-jp32o479rd8l 12/13/2013 12/13/2013 eCW: Kike Jarvis MD Follow-up for mutiple problems [id number]-v877-o475j5m591r7 12/13/2013 12/13/2013 eCW: Kike Jarvis MD Follow-up for mutiple problems [id number] 12/13/2013 12/13/2013 eCW: Kike Jarvis MD Follow-up for mutiple problems [id number] 12/13/2013 12/13/2013 eCW: Kike Jarvis MD Follow-up for mutiple problems tsmw92rs-[id number]-7076-5637sxo1823d 12/13/2013 12/13/2013 eCW: Kike Jarvis MD Follow-up for mutiple problems r8dvgw18-c3r3-0mm5-8v41-102s36r3ml7h 12/13/2013 12/13/2013 2.16.840.1.319908.4.391.11.63698 Kike Jarvis MD Follow-up for mutiple problems 8gq8v8ft-a33t-2295-k41v-9zu21je4xd35 12/13/2013 12/13/2013 2.16.840.1.270077.4.391.11.42963 Kike Jarvis MD Follow-up for mutiple problems zq7l380v-i730-94s2-4ctt-uhcd13x4031v 12/13/2013 12/13/2013 2.16.840.1.879579.4.391.11.10106 Kike Jarvis MD Follow-up for mutiple problems [id number] 12/13/2013 12/13/2013 2.16.840.1.769209.4.391.11.26400 Kike Jarvis MD Follow-up for mutiple problems j6ve3x77-7bcq-121z-oa78-720q037rn4st 12/13/2013 12/13/2013 2.16.840.1.540332.4.391.11.04779 Kike Jarvis MD Follow-up for mutiple problems [id number]-j0t35814tk84 01/10/2014 01/10/2014 eCW: Kike Jarvis MD Follow-up for mutiple problems 9723vbsd-d1d2-3w13p8k0-4j23-1k96-g9686wbi2k3j 01/10/2014 01/10/2014 eCW: Kike Jarvis MD Follow-up for mutiple problems l1ocil49-tq50-12z8-nxg5-605v4d405j4g 01/10/2014 01/10/2014 2.16.840.1.836917.4.391.11.92657 Kike Jarvis MD Follow-up for mutiple problems [id number]-ifurnp555u9n 01/10/2014 01/10/2014 eCW: Kike Jarvis MD Follow-up for mutiple problems [id number]-rni8-9l9i-71k0-018g4d73zfw4 01/10/2014 01/10/2014 eCW: Kike Jarvis MD Follow-up for mutiple problems [id number]-[id number]-080u80uu85g8 01/10/2014 01/10/2014 2.16.840.1.441902.4.391.11.60265 Kike Jarvis MD Follow-up for mutiple problems [id number]-429b-4e77sz49927z 01/10/2014 01/10/2014 2.16.840.1.858412.4.391..22836 Kike Jarvis MD Follow-up for mutiple problems 50179drg-d1uz-46zg-h5l9-7nk5h7e3197o 01/10/2014 01/10/2014 2.16.840.1.856351.4.391..52591 Kike Jarvis MD Follow-up for mutiple problems 4ah71ct5-k368-7w21-hn15-q022z46138f6 01/10/2014 01/10/2014 2.16.840.1.226699.4.391..34614 Kike Jarvis MD Follow-up for mutiple problems [id number]-tg4e-3lf518n56eoh 01/10/2014 01/10/2014 2.16.840.1.144288.4.391..71725 Kike Jarvis MD Follow-up for mutiple problems 59836o3i-591s-67s2-3n72-u2548h57262o 01/10/2014 01/10/2014 2.16.840.1.290295.4.391..09016 Kike Jarvis MD Follow-up for mutiple problems 566um56j-v6gh-8203-du05-ze7158060000 01/10/2014 01/10/2014 2.16.840.1.349825.4.391..86979 Kike Jarvis MD Follow-up for mutiple problems m0yeyr3e-[id number]-vzb8oo9doh4z 01/10/2014 01/10/2014 2.16.840.1.017556.4.391..00248 Kike Jarvis MD Follow-up for mutiple problems [id number]-671x-fs2d7i40x83s 01/10/2014 01/10/2014 2.16.840.1.551888.4.391..20429 Kike Jarvis MD Follow-up for mutiple problems [id number]-101m-lb5h-f6sbh7139v4m 01/10/2014 01/10/2014 eCW: Kike Jarvis MD Follow-up for mutiple problems [id number]-10155g166z4o 01/10/2014 01/10/2014 eCW: Kike Jarvis MD Follow-up for mutiple problems 5a3u1m4p-2n8m-584y-k5uk-4s5e7933m0xo 01/10/2014 01/10/2014 eCW: Kike Jarvis MD Follow-up for mutiple problems iu2kq08n-l197-0c4t-7747-3k927v63g937 01/10/2014 01/10/2014 eCW: Kike Jarvis MD Follow-up for mutiple problems [id number]-2374-56633070839p 01/10/2014 01/10/2014 eCW: Kike Jarvis MD Follow-up for mutiple problems [id number]-i7556xr4pm52 01/10/2014 01/10/2014 eCW: Kike Jarvis MD Follow-up for mutiple problems 745jxj50-n57l-8b12-16y9-04883r2gq101 01/10/2014 01/10/2014 eCW: Kike Jarvis MD Follow-up for mutiple problems [id number]-apd7-5gt4926196zc 01/10/2014 01/10/2014 eCW: Kike Jarvis MD Follow-up for mutiple problems yw7r15fj-k8dj-80p9-qt53-127893273u62 01/10/2014 01/10/2014 eCW: Kike Jarvis MD Follow-up for mutiple problems v2d64gsr-0m70-4205-t052-4r918k3849ie 01/10/2014 01/10/2014 2.16.840.1.687242.4.391.11.99612 Kike Jarvis MD Follow-up for mutiple problems 6059m06h-kmnq-81qc-s21r-r80ci9iq5n17 01/10/2014 01/10/2014 2.16.840.1.299141.4.391..06897 Kike Jarvis MD Follow-up for mutiple problems 28sn8s85-6a9k-15kg-7u5o-539319cgfb0j 01/10/2014 01/10/2014 2.16.840.1.084977.4.391..83362 Kike Jarvis MD Follow-up for mutiple problems 9s3u3z0c-hh6g-7cmc-8m98-0t8360k6i3gw 01/10/2014 01/10/2014 2.16.840.1.538994.4.391.11.13755 Kike Jarvis MD Follow-up for mutiple problems s5a8d03b-u248-3243-aeg6-07s22817j7so 01/10/2014 01/10/2014 2.16.840.1.817856.4.391..61736 Kike Jarvis MD Follow-up for mutiple problems 6m5792s9-00z2-03e8-vgax-b83l53k3z743 02/10/2014 02/10/2014 eCW: Kike Jarvis MD Follow-up for mutiple problems 603208a3-z407-7452-k623-0mk1l7xog6s4 02/10/2014 02/10/2014 eCW: Kike Jarvis MD Follow-up for mutiple problems 0dk7y48p-9mzm-64h9-al9y-s06o217d968l 02/10/2014 02/10/2014 2.16.840.1.763042.4.391.11.12685 Kike Jarvis MD Follow-up for mutiple problems 9fv7v819-194b-3503-3z1l-omf0pu19o0i3 02/10/2014 02/10/2014 eCW: Kike Jarvis MD Follow-up for mutiple problems p2uf0w03-fq7m-37g7-71mh-f7q3822943k1 02/10/2014 02/10/2014 eCW: Kike Jarvis MD Follow-up for mutiple problems t95zjbee-ais9-7399-7390-6f6u90e42z50 02/10/2014 02/10/2014 2.16.840.1.448579.4.391..44803 Kike Jarvis MD Follow-up for mutiple problems x166w0p4-d43e-1ft6-x179-uf5464977v81 02/10/2014 02/10/2014 2.16.840.1.910103.4.391..62138 Kike Jarvis MD Follow-up for mutiple problems w88u693c-6t7m-44z3-t2i7-v6rk720d8gf0 02/10/2014 02/10/2014 2.16.840.1.101311.4.391..72673 Kike Jarvsi MD Follow-up for mutiple problems 9114e584-i0o6-78zx-bie3-lg92x0z6899y 02/10/2014 02/10/2014 2.16.840.1.741848.4.391..12064 Kike Jarvis MD Follow-up for mutiple problems x86puo2x-jv23-1l2p-0681-6996238297yw 02/10/2014 02/10/2014 2.16.840.1.092022.4.391..59842 Kike Jarvis MD Follow-up for mutiple problems 60025r93-1hao-3t4i-j329-i636v8fk59zy 02/10/2014 02/10/2014 2.16.840.1.150142.4.391..73506 Kike Jarvis MD Follow-up for mutiple problems 1937s5fn-c663-1brq-k004-7l1b42y74jwk 02/10/2014 02/10/2014 2.16.840.1.112856.4.391.11.21568 Kike Jarvis MD Follow-up for mutiple problems 9k515trf-u049-1j65-1f0f-4jv887d25bn9 02/10/2014 02/10/2014 2.16.840.1.424847.4.391.11.16215 Kike Jarvis MD Follow-up for mutiple problems 3o7o86r9-bqk6-303f-829d-f1b8x4y7287r 02/10/2014 02/10/2014 2.16.840.1.369502.4.391.11.00408 Kike Jarvis MD Follow-up for mutiple problems [id number]-z021-6ad2-0xe7-6q0tvc435a03 02/10/2014 02/10/2014 eCW: Kike Jarvis MD Follow-up for mutiple problems [id number]-rv32-3246-0iy6-247q50138579 02/10/2014 02/10/2014 eCW: Kike Jarvis MD Follow-up for mutiple problems 771c25j5-091x-4w33-h76u-5p7q05xo9h23 02/10/2014 02/10/2014 eCW: Kike Jarvis MD Follow-up for mutiple problems 3673b71j-57ub-46ck-3i0d-hv40442f894h 02/10/2014 02/10/2014 eCW: Kike Jarvis MD Follow-up for mutiple problems o5v67i3x-761w-6e94-hm44-9o3m99x3bv04 02/10/2014 02/10/2014 eCW: Kike Jarvis MD Follow-up for mutiple problems mw54286c-2ws5-8a91-m66m-3268t835yvh9 02/10/2014 02/10/2014 eCW: Kike Jarvis MD Follow-up for mutiple problems 3ez58787-4u88-26m9-f8n9-8100707br8gj 02/10/2014 02/10/2014 eCW: Kike Jarvis MD Follow-up for mutiple problems 5ci93b28-21a5-3147-dy31-59z66983970f 02/10/2014 02/10/2014 2.16.840.1.443839.4.391.11.16068 Kike Jarvis MD Follow-up for mutiple problems tm1e9q9k-4551-1ls7-7k11-e053wpi5p23j 02/10/2014 02/10/2014 2.16.840.1.272829.4.391.11.90756 Kike Jarvis MD Follow-up for mutiple problems d19snn19-7611-0764-638p-6eq0v8898299 02/10/2014 02/10/2014 2.16.840.1.605297.4.391.11.29613 Kike Jarvis MD Follow-up for mutiple problems 7859he4d-w9t1-60r5-ts3l-01712e4y0941 02/10/2014 02/10/2014 2.16.840.1.465657.4.391.11.48126 Kike Jarvis MD Follow-up for mutiple problems km410238-2rj4-4330-2w30-kd4317jb50j7 02/10/2014 02/10/2014 2.16.840.1.802536.4.391.11.67222 Kike Jarvis MD Unknown k9x72h3l-f84m-3f25-841y-etw33x4j123s 03/07/2014 03/07/2014 eCW: Kike Jarvis MD Unknown [id number] 03/07/2014 03/07/2014 eCW: Kike Jarvis MD Unknown [id number]-5q2x-y4g4-u79syb5l9gc2 03/07/2014 03/07/2014 2.16.840.1.623709.4.391. Kike Jarvis MD Unknown [id number]-k27l-1326-xl81-54l43093l9k4 03/07/2014 03/07/2014 eCW: Kike Jarvis MD Unknown [id number]-brrp-1509-2371-f07332u48eq3 03/07/2014 03/07/2014 eCW: Kike Jarvis MD Unknown [id number] 03/07/2014 03/07/2014 2.16.840.1.757712.4.391. Kike Jarvis MD Unknown l2a5gol2-1n6s-38sq-w3tq-yv53k015251c 03/07/2014 03/07/2014 2.16.840.1.455889.4.391. Kike Jarvis MD Unknown be08ld9x-6h39-1742-e859-z12v1376kcvd 03/07/2014 03/07/2014 2.16.840.1.126516.4.391. Kike Jarvis MD Unknown d04a3v50-2452-877d-70g9-7022c1cqy201 03/07/2014 03/07/2014 2.16.840.1.529392.4.391. Kike Jarvis MD Unknown [id number] 03/07/2014 03/07/2014 2.16.840.1.631573.4.391. Kike Jarvis MD Unknown g9i06w7p-0572-0s50-23yv-25c01y49ngv3 03/07/2014 03/07/2014 2.16.840.1.580242.4.391. Kike Jarvis MD Unknown [id number] 03/07/2014 03/07/2014 2.16.840.1.777577.4.391..02342 Kike Jarvis MD Unknown [id number]-[id number]-m1hq-360z751y91fv 03/07/2014 03/07/2014 2.16.840.1.396843.4.391..30066 Kike Jarvis MD Unknown gf2w3b9m-g9pv-9a57-11c1-dl49ivvu2ker 03/07/2014 03/07/2014 2.16.840.1.447389.4.391.11.37279 Kike Jarvis MD Unknown [id number]-h4q5-76iu-7741-550988t6545o 03/07/2014 03/07/2014 eCW: Kike Jarvis MD Unknown [id number]-81u9ajp6087i 03/07/2014 03/07/2014 eCW: Kike Jarvis MD Unknown [id number] 03/07/2014 03/07/2014 eCW: Kike Jarvis MD Unknown [id number] 03/07/2014 03/07/2014 eCW: Kike Jarvis MD Unknown [id number] 03/07/2014 03/07/2014 eCW: Kike Jarvis MD Unknown ht3h8f10-m7rl-938m-w693-gqu8120v1996 03/07/2014 03/07/2014 eCW: Kike Jarvis MD Unknown [id number] 03/07/2014 03/07/2014 2.16.840.1.945422.4.391.11.88793 Kike Jarvis MD Unknown [id number]-br8s-0p3x-kzgk-d42783ke43x4 03/07/2014 03/07/2014 2.16.840.1.170180.4.391..28926 Kike Jarvis MD Unknown r2w6lgkq-28zo-7042-8975-f2zel07467w6 03/07/2014 03/07/2014 2.16.840.1.584158.4.391..93322 Kike Jarvis MD Unknown [id number] 03/07/2014 03/07/2014 2.16.840.1.477071.4.391..59952 Kike Jarvis MD Unknown qr21k8m2-4229-50nr-x19n-442t4a22y759 03/07/2014 03/07/2014 2.16.840.1.399991.4.391..15087 Kike Jarvis MD Follow-up for mutiple problems ezr5x10m-8079-8i3b-4739-8yq0t1j88kj9 03/10/2014 03/10/2014 eCW: Kike Jarvis MD Follow-up for mutiple problems vr7g4o4l-875b-9357-n429-po569rfn0r72 03/10/2014 03/10/2014 eCW: Kike Jarvis MD Follow-up for mutiple problems [id number]-i36v-0oo797191z10 03/10/2014 03/10/2014 2.16.840.1.870616.4.391..39127 Kike Jarvis MD Follow-up for mutiple problems 87sbbs80-s4w1-2873-6x63-p019d31t2224 03/10/2014 03/10/2014 eCW: Kike Jarvis MD Follow-up for mutiple problems 6b567b1n-0pd9-49by-fvm5-353564777435 03/10/2014 03/10/2014 eCW: Kike Jarvis MD Follow-up for mutiple problems 6995jgfn-2ln6-3i4t6hq3-9g6g-ru43-y891295a3419 03/10/2014 03/10/2014 2.16.840.1.349038.4.391..93457 Kike Jarvis MD Follow-up for mutiple problems 3q7nb721-y4hp-7l79-c54r-iwl59700jfg7 03/10/2014 03/10/2014 2.16.840.1.528984.4.391..62508 Kike Jarvis MD Follow-up for mutiple problems 95jt5746-5l11-0m10-k93x-0av6huq4sxcp 03/10/2014 03/10/2014 2.16.840.1.457845.4.391..99359 Kike Jarvis MD Follow-up for mutiple problems 257o0ien-pc3a-0z26-1h20-82228803729g 03/10/2014 03/10/2014 2.16.840.1.892640.4.391..55513 Kike Jarvis MD Follow-up for mutiple problems 2njx0083-zgdc-2ab1-5m40-fik1638m90q0 03/10/2014 03/10/2014 2.16.840.1.612362.4.391..37704 Kike Jarvis MD Follow-up for mutiple problems 60pxi1as-6u2n-56g8-p61r-d8y6cn629e64 03/10/2014 03/10/2014 2.16.840.1.840503.4.391..49780 Kike Jarvis MD Follow-up for mutiple problems u0rk785s-k2t3-90w5-g228-675843p56t6k 03/10/2014 03/10/2014 2.16.840.1.105965.4.391..71742 Kike Jarvis MD Follow-up for mutiple problems vi08996d-8cav-5281-9716-5n4cx1t3v1o3 03/10/2014 03/10/2014 2.16.840.1.096239.4.391.11.47431 Kike Jarvis MD Follow-up for mutiple problems 786s3pf7-1613-35a2-88b8-k89a2036m0ag 03/10/2014 03/10/2014 2.16.840.1.981016.4.391.11.07933 Kike Jarvis MD Follow-up for mutiple problems 014h58f8-629l-299x-ny89-0ar55z9f5y64 03/10/2014 03/10/2014 eCW: Kike Jarvis MD Follow-up for mutiple problems cs53fatn-v20c-75m5-d7rz-4738w0m13ixl 03/10/2014 03/10/2014 eCW: Kike Jarvis MD Follow-up for mutiple problems [id number]-5p30-y8y6-i4lj8o254012 03/10/2014 03/10/2014 eCW: Kike Jarvis MD Follow-up for mutiple problems 8h98p6n7-69m5-99bf-v61c-itx75gy6k8g9 03/10/2014 03/10/2014 eCW: Kike Jarvis MD Follow-up for mutiple problems 4474o176-21lc-256p-v53c-b700033j60w2 03/10/2014 03/10/2014 eCW: Kike Jarvis MD Follow-up for mutiple problems 73y9ot89-86ne-5015-lz08-v689ojx9402q 03/10/2014 03/10/2014 eCW: Kike Jarvis MD Follow-up for mutiple problems 3g813e50-215q-5474-e9vp-w4ee242ax986 03/10/2014 03/10/2014 2.16.840.1.776761.4.391.11.48781 Kike Jarvis MD Follow-up for mutiple problems g3y25g75-1axn-7m64-0114-b997l6m69bs4 03/10/2014 03/10/2014 2.16.840.1.656030.4.391.11.29053 Kike Jarvis MD Follow-up for mutiple problems 8c2j98qs-0dui-0oqo-914s-i620451726pz 03/10/2014 03/10/2014 2.16.840.1.180593.4.391.11.54175 Kike Jarvis MD Follow-up for mutiple problems 4z3653xd-53b9-12g5-kth2-69388ep627y7 03/10/2014 03/10/2014 2.16.840.1.835150.4.391.11.65011 Kike Jarvis MD Follow-up for mutiple problems j433635v-7848-7533-y2c9-07095b15h48p 03/10/2014 03/10/2014 2.16.840.1.030831.4.391.11.36519 Kike Jarvis MD Follow-up for mutiple problems e95th4v0-923s-9234-1998-778824k31ym2 04/09/2014 04/09/2014 eCW: Kike Jarvis MD Follow-up for mutiple problems 804ir445-k7wq-7096-s489-rq650i59337i 04/09/2014 04/09/2014 eCW: Kike Jarvis MD Follow-up for mutiple problems 7km983l3-9492-35h7-4jn9-j919m9o18965 04/09/2014 04/09/2014 2.16.840.1.108496.4.391.11.48137 Kike Jarvis MD Follow-up for mutiple problems [id number]-r57c-a6531sy2mm76 04/09/2014 04/09/2014 eCW: Kike Jarvis MD Follow-up for mutiple problems 3261j8s4-506f-4239-i0vt-1hd5e416wb8s 04/09/2014 04/09/2014 eCW: Kike Jarvis MD Follow-up for mutiple problems 0r463m1x-zfmh-0879-nqa7-9yt5hhj80fm0 04/09/2014 04/09/2014 2.16.840.1.471755.4.391..21060 Kike Jarvis MD Follow-up for mutiple problems uo411421-z915-29q2-52xl-7rz5a1pa9420 04/09/2014 04/09/2014 2.16.840.1.543770.4.391.11.81722 Kike Jarvis MD Follow-up for mutiple problems bq8mgwy5-wqj7-97a2-1vjl-xo170a262146 04/09/2014 04/09/2014 2.16.840.1.914536.4.391..20788 Kike Jarvis MD Follow-up for mutiple problems 1so2669h-83rs-4501-23ue-4oxx46395vl1 04/09/2014 04/09/2014 2.16.840.1.134442.4.391..81816 Kike Jarvis MD Follow-up for mutiple problems 05s44083-5yt4-793s-791u-43d11578236z 04/09/2014 04/09/2014 2.16.840.1.217183.4.391..27037 Kike Jarvis MD Follow-up for mutiple problems 748e8761-1by3-0z6i-ee55-n1s86l638tg3 04/09/2014 04/09/2014 2.16.840.1.112187.4.391..91668 Kike Jarvis MD Follow-up for mutiple problems 7oix75c5-fva1-9w63-4876-rc9qp661v749 04/09/2014 04/09/2014 2.16.840.1.442219.4.391..39080 Kike Jarvis MD Follow-up for mutiple problems p963b2w4-3582-18q5-6985-10nc70j27500 04/09/2014 04/09/2014 2.16.840.1.548213.4.391..26744 Kike Jarvis MD Follow-up for mutiple problems 9oo285o8-4807-1689-ju04-m26315x6op27 04/09/2014 04/09/2014 2.16.840.1.263551.4.391..73603 Kike Jarvis MD Follow-up for mutiple problems 50va7632-9656-3798-gv97-612m220jj6il 04/09/2014 04/09/2014 eCW: Kike Jarvis MD Follow-up for mutiple problems 77m381w0-g40r-1b6t-83bn-o7246205s3bd 04/09/2014 04/09/2014 eCW: Kike Jarvis MD Follow-up for mutiple problems 1907k664-348c-3320-0h71-440d5hvwy82g 04/09/2014 04/09/2014 eCW: Kike Jarvis MD Follow-up for mutiple problems 78ata0bd-92a0-65h7-vafw-v91d636l5hq0 04/09/2014 04/09/2014 eCW: Kike Jarvis MD Follow-up for mutiple problems 98h34895-8080-4448-u72g-218sk00h2825 04/09/2014 04/09/2014 2.16.840.1.139466.4.391..80676 Kike Jarvis MD Follow-up for mutiple problems 5v136993-h776-7m9i-u259-x89014v5uq8x 04/09/2014 04/09/2014 2.16.840.1.153065.4.391..52132 Kike Jarvis MD Follow-up for mutiple problems 9i1mgk13-ra1o-6z86-6xmm-6f25j6jp429l 04/09/2014 04/09/2014 2.16.840.1.105891.4.391.11.69192 Kike Jarvis MD Follow-up for mutiple problems 01cd31x7-11jn-26q8-k031-umm1f106d075 04/09/2014 04/09/2014 2.16.840.1.473066.4.391.11.82206 Kike Jarvis MD Follow-up for mutiple problems 3f128r0r-2453-97wi-23z2-di674y3o56xy 04/09/2014 04/09/2014 2.16.840.1.545011.4.391.11.04854 Kike Jarvis MD Follow-up for mutiple problems 7j630588-5394-1b01-9h95-6gsp92ycc2t6 05/08/2014 05/08/2014 eCW: Kike Jarvis MD Follow-up for mutiple problems 75708h24-6je5-93b4-g6nk-064nv15a4x2j 05/08/2014 05/08/2014 eCW: Kike Jarvis MD Follow-up for mutiple problems 1k850xz3-g611-69i9-t575-1528e15a236m 05/08/2014 05/08/2014 2.16.840.1.527578.4.391.11.64269 Kike Jarvis MD Follow-up for mutiple problems i78876p4-p71a-33ai-6xwu-h64z81717t9p 05/08/2014 05/08/2014 eCW: Kike Jarvis MD Follow-up for mutiple problems y784z1xv-yn76-6525-49k5-5v44cg7t7wh3 05/08/2014 05/08/2014 eCW: Kike Jarvis MD Follow-up for mutiple problems w83bj715-f057-886x-45ed-11q24y1sc1m7 05/08/2014 05/08/2014 2.16.840.1.982514.4.391..38110 Kike Jarvis MD Follow-up for mutiple problems v3g50506-u886-8h24-6957-u0a9188s0701 05/08/2014 05/08/2014 2.16.840.1.759419.4.391..70244 Kike Jarvis MD Follow-up for mutiple problems j76x9gt3-50q0-9750-l235-72ruh58r9x91 05/08/2014 05/08/2014 2.16.840.1.035387.4.391..51682 Kike Jarvis MD Follow-up for mutiple problems 7463jw28-3tj5-1upi-7022-12130k7lnou6 05/08/2014 05/08/2014 2.16.840.1.025640.4.391..49095 Kike Jarvis MD Follow-up for mutiple problems e63k480a-7724-620d-9508-577764hb0036 05/08/2014 05/08/2014 2.16.840.1.982704.4.391..18365 Kike Jarvis MD Follow-up for mutiple problems 999kjvm7-ku32-5fo2-ko83-32z6j777rnre 05/08/2014 05/08/2014 2.16.840.1.342045.4.391..39976 Kike Jarvis MD Follow-up for mutiple problems 8904649i-802m-4iy1-g137-14286710073l 05/08/2014 05/08/2014 2.16.840.1.846418.4.391..14662 Kike Jarvis MD Follow-up for mutiple problems 8c024f80-kvyb-5g22-089j-0262032018a1 05/08/2014 05/08/2014 2.16.840.1.977165.4.391.11.13204 Kike Jarvis MD Follow-up for mutiple problems vl92802c-0l2u-1s1s-08r0-741r201zxx49 05/08/2014 05/08/2014 2.16.840.1.891767.4.391.11.65485 Kike Jarvis MD Follow-up for mutiple problems o76pr314-uc71-16cr-1w52-a95xor91u17v 05/08/2014 05/08/2014 eCW: Kike Jarvis MD Follow-up for mutiple problems 3070u5wk-370y-7300-r694-426i865l9940 05/08/2014 05/08/2014 eCW: Kike Jarvis MD Follow-up for mutiple problems 21uhqwb2-0e43-9spp-49oq-h286e042g567 05/08/2014 05/08/2014 eCW: Kike Jarvis MD Follow-up for mutiple problems r48z351j-[id number] 05/08/2014 05/08/2014 eCW: Kike Jarvis MD Follow-up for mutiple problems 43go0no7-55xt-25yh-9v4m-b034y9x5wlfp 05/08/2014 05/08/2014 2.16.840.1.273399.4.391.11.48759 Kike Jarvis MD Follow-up for mutiple problems v046x66m-9766-8z26-3g78-7g728vf8f78j 05/08/2014 05/08/2014 2.16.840.1.481480.4.391.11.71855 Kike Jarvis MD Follow-up for mutiple problems u3q76229-i243-3w40-ndb4-l47u1076m8ca 05/08/2014 05/08/2014 2.16.840.1.154170.4.391.11.29751 Kike Jarvis MD Follow-up for mutiple problems 6ikdkr21-b7g6-3d61-n85g-bo928123x725 05/08/2014 05/08/2014 2.16.840.1.557072.4.391.11.84964 Kike Jarvis MD Follow-up for mutiple problems 5g32054e-8y23-8bn6-0h09-h9sp0w58x291 05/08/2014 05/08/2014 2.16.840.1.584414.4.391.11.00296 [facility] [id number] 05/12/2014 05/12/2014 [facility] Kike Jarvis MD Follow-up for mutiple problems 6n8p019o-e844-0lgl-g595-qnj182td4219 06/06/2014 06/06/2014 eCW: Kike Jarvis MD Follow-up for mutiple problems 14799w70-393g-5t4q-d7g9-879v158s32zh 06/06/2014 06/06/2014 eCW: Kike Jarvis MD Follow-up for mutiple problems m5q0729a-qzxn-8009-w6j5-946z4c14m9s0 06/06/2014 06/06/2014 2.16.840.1.954835.4.391.11.23981 Kike Jarvis MD Follow-up for mutiple problems 386a7ep5-5js8-2794-426l-348j36642816 06/06/2014 06/06/2014 eCW: Kike Jarvis MD Follow-up for mutiple problems g8n7p7u3-a014-7k48-1476-1577dre2850i 06/06/2014 06/06/2014 eCW: Kike Jarvis MD Follow-up for mutiple problems x712602q-d29y-02kj-035p-hx25u312y164 06/06/2014 06/06/2014 2.16.840.1.683842.4.391..37644 Kike Jarvis MD Follow-up for mutiple problems v189yo74-8548-7673-n133-jbf24n886yi3 06/06/2014 06/06/2014 2.16.840.1.896179.4.391.11.29788 Kike Jarvis MD Follow-up for mutiple problems [id number]-e8o9-0w75x070qqa4 06/06/2014 06/06/2014 2.16.840.1.535911.4.391..06910 Kike Jarvis MD Follow-up for mutiple problems [id number]-gwx1c187a8jq 06/06/2014 06/06/2014 2.16.840.1.669426.4.391.11.39942 Kike Jarvis MD Follow-up for mutiple problems [id number] 06/06/2014 06/06/2014 2.16.840.1.971954.4.391.11.33244 Kike Jarvis MD Follow-up for mutiple problems [id number] 06/06/2014 06/06/2014 2.16.840.1.927974.4.391.11.23676 Kike Jarvis MD Follow-up for mutiple problems [id number] 06/06/2014 06/06/2014 2.16.840.1.828599.4.391.11.41294 Kike Jarvis MD Follow-up for mutiple problems [id number] 06/06/2014 06/06/2014 2.16.840.1.623599.4.391.11.07010 Kike Jarvis MD Follow-up for mutiple problems [id number] 06/06/2014 06/06/2014 2.16.840.1.133643.4.391.11.06931 Kike Jarvis MD Follow-up for mutiple problems [id number] 06/06/2014 06/06/2014 eCW: Kike Jarvis MD Follow-up for mutiple problems [id number] 06/06/2014 06/06/2014 eCW: Kike Jarvis MD Follow-up for mutiple problems [id number] 06/06/2014 06/06/2014 eCW: Kike Jarvis MD Follow-up for mutiple problems [id number] 06/06/2014 06/06/2014 eCW: Kike Jarvis MD Follow-up for mutiple problems [id number] 06/06/2014 06/06/2014 2.16.840.1.122155.4.391.11.61105 Kike Jarvis MD Follow-up for mutiple problems [id number]-m8y52doj46oi 06/06/2014 06/06/2014 2.16.840.1.040280.4.391.11.74060 Kike Jarvis MD Follow-up for mutiple problems [id number] 06/06/2014 06/06/2014 2.16.840.1.639515.4.391.11.09058 Kike Jarvis MD Follow-up for mutiple problems [id number] 06/06/2014 06/06/2014 2.16.840.1.513383.4.391..93417 Kike Jarvis MD Follow-up for mutiple problems [id number] 06/06/2014 06/06/2014 2.16.840.1.307491.4.391..58101 Kike Jarvis MD Unknown [id number] 06/16/2014 06/16/2014 eCW: Kike Jarvis MD Unknown [id number] 06/16/2014 06/16/2014 eCW: Kike Jarvis MD Unknown [id number] 06/16/2014 06/16/2014 2.16.840.1.824919.4.391.68 Kike Jarvis MD Unknown [id number] 06/16/2014 06/16/2014 eCW: Kike Jarvis MD Unknown [id number] 06/16/2014 06/16/2014 eCW: Kike Jarvis MD Unknown [id number] 06/16/2014 06/16/2014 2.16.840.1.413851.4.391. Kike Jarvis MD Unknown [id number] 06/16/2014 06/16/2014 2.16.840.1.261272.4.391. Kike Jarvis MD Unknown [id number] 06/16/2014 06/16/2014 2.16.840.1.474153.4.391. Kike Jarvis MD Unknown [id number] 06/16/2014 06/16/2014 2.16.840.1.935689.4.391. Kike Jarvis MD Unknown [id number] 06/16/2014 06/16/2014 2.16.840.1.729693.4.391. Kike Jarvis MD Unknown [id number] 06/16/2014 06/16/2014 2.16.840.1.984387.4.391.68 Kike Jarvis MD Unknown [id number] 06/16/2014 06/16/2014 2.16.840.1.053770.4.391.68 Kike Jarvis MD Unknown [id number] 06/16/2014 06/16/2014 2.16.840.1.993651.4.391.68 Kike Jarvis MD Unknown [id number] 06/16/2014 06/16/2014 2.16.840.1.509664.4.391.68 Kike Jarvis MD Unknown [id number] 06/16/2014 06/16/2014 eCW: Kike Jarvis MD Unknown [id number] 06/16/2014 06/16/2014 eCW: Kike Jarvis MD Unknown [id number] 06/16/2014 06/16/2014 eCW: Kike Jarvis MD Unknown [id number] 06/16/2014 06/16/2014 eCW: Kike Jarvis MD Unknown [id number] 06/16/2014 06/16/2014 2.16.840.1.405084.4.391.11.77439 Kike Jarvis MD Unknown [id number] 06/16/2014 06/16/2014 2.16.840.1.232059.4.391.11.49669 Kike Jarvis MD Unknown [id number] 06/16/2014 06/16/2014 2.16.840.1.868172.4.391.11.22980 Kike Jarvis MD Unknown [id number] 06/16/2014 06/16/2014 2.16.840.1.510311.4.391.11.04753 Kike Jarvis MD Unknown [id number] 06/16/2014 06/16/2014 2.16.840.1.058701.4.391.11.73287 Kike Jarvis MD Follow-up for mutiple problems [id number] 07/12/2014 07/12/2014 eCW: Kike Jarvis MD Follow-up for mutiple problems [id number] 07/12/2014 07/12/2014 eCW: Kike Jarvis MD Follow-up for mutiple problems [id number] 07/12/2014 07/12/2014 2.16.840.1.152716.4.391.11.13189 Kike Jarvis MD Follow-up for mutiple problems [id number] 07/12/2014 07/12/2014 eCW: Kike Jarvis MD Follow-up for mutiple problems [id number] 07/12/2014 07/12/2014 eCW: Kike Jarvis MD Follow-up for mutiple problems [id number] 07/12/2014 07/12/2014 2.16.840.1.364673.4.391.11.05548 Kike Jarvis MD Follow-up for mutiple problems [id number]-f3gg-bqt353x1kd71 07/12/2014 07/12/2014 2.16.840.1.059801.4.391.11.82752 Kike Jarvis MD Follow-up for mutiple problems [id number]-ymkl-093p994n5zy8 07/12/2014 07/12/2014 2.16.840.1.797928.4.391.11.67782 Kike Jarvis MD Follow-up for mutiple problems [id number] 07/12/2014 07/12/2014 2.16.840.1.033072.4.391.11.96722 Kike Jarvis MD Follow-up for mutiple problems [id number] 07/12/2014 07/12/2014 2.16.840.1.762941.4.391.11.81399 Kike Jarvis MD Follow-up for mutiple problems [id number] 07/12/2014 07/12/2014 2.16.840.1.046035.4.391.11.02233 Kike Jarvis MD Follow-up for mutiple problems [id number] 07/12/2014 07/12/2014 2.16.840.1.550670.4.391.11.87340 Kike Jarvis MD Follow-up for mutiple problems [id number] 07/12/2014 07/12/2014 2.16.840.1.780033.4.391.11.47091 Kike Jarvis MD Follow-up for mutiple problems [id number] 07/12/2014 07/12/2014 2.16.840.1.923122.4.391.11.56590 Kike Jarvis MD Follow-up for mutiple problems [id number] 07/12/2014 07/12/2014 eCW: Kike Jarvis MD Follow-up for mutiple problems [id number] 07/12/2014 07/12/2014 eCW: Kike Jarvis MD Follow-up for mutiple problems [id number] 07/12/2014 07/12/2014 eCW: Kike Jarvis MD Follow-up for mutiple problems [id number] 07/12/2014 07/12/2014 eCW: Kike Jarvis MD Follow-up for mutiple problems [id number] 07/12/2014 07/12/2014 2.16.840.1.126599.4.391.11.81049 Kike Jarvis MD Follow-up for mutiple problems [id number] 07/12/2014 07/12/2014 2.16.840.1.625493.4.391.11.45589 Kike Jarvis MD Follow-up for mutiple problems 3jsy3u57-8uzj-52nj-qq74-99r131gt4o55 07/12/2014 07/12/2014 2.16.840.1.575850.4.391.11.51395 Kike Jarvis MD Follow-up for mutiple problems z3927s4r-13ai-5456-pi9o-9479p0f811qv 07/12/2014 07/12/2014 2.16.840.1.622344.4.391.11.24132 Kike Jarvis MD Follow-up for mutiple problems 98a40rj8-sn33-0u48-966g-1o4976875vm1 07/12/2014 07/12/2014 2.16.840.1.607783.4.391.11.18007 Kike Jarvis MD Follow-up for mutiple problems 953643u1-1992-979d-m4c1-ds048rh58v4z 08/11/2014 08/11/2014 eCW: Kike Jarvis MD Follow-up for mutiple problems p8168v2j-3yx4-9671-u9xq-uup3s4f61j48 08/11/2014 08/11/2014 2.16.840.1.564994.4.391.11.59956 Kike Jarvis MD Follow-up for mutiple problems 72bl044x-9k7z-3214-3jk5-1x96p8516f27 08/11/2014 08/11/2014 eCW: Kike Jarvis MD Follow-up for mutiple problems db74k71b-6if0-161e-78gb-a1d413xm0000 08/11/2014 08/11/2014 eCW: Kike Jarvis MD Follow-up for mutiple problems 5lt33047-y86q-3472-9t87-35705b4087x5 08/11/2014 08/11/2014 2.16.840.1.022609.4.391.11.72773 Kike Jarvis MD Follow-up for mutiple problems 7ry79w14-t108-0j48-3z34-0390ng181443 08/11/2014 08/11/2014 2.16.840.1.469406.4.391.11.41396 Kike Jarvis MD Follow-up for mutiple problems 759990u3-svat-80a5-8m93-f4l5574018sq 08/11/2014 08/11/2014 2.16.840.1.424193.4.391.11.09951 Kike Jarvis MD Follow-up for mutiple problems xvt3kbp5-9cy7-7t06-3d15-56i6dsk642k6 08/11/2014 08/11/2014 2.16.840.1.161653.4.391.11.20440 Kike Jarvis MD Follow-up for mutiple problems 07rb28e2-c2f7-8e6r-w81t-16az1f7693o4 08/11/2014 08/11/2014 2.16.840.1.660995.4.391.11.41542 Kike Jarvis MD Follow-up for mutiple problems 473m7124-92d9-023n-ce6l-62o0at2z7x59 08/11/2014 08/11/2014 2.16.840.1.317551.4.391.11.59055 Kike Jarvis MD Follow-up for mutiple problems jj6njvvt-7y2w-4914-k63r-t3713n2x2143 08/11/2014 08/11/2014 2.16.840.1.611539.4.391.11.55247 Kike Jarvis MD Follow-up for mutiple problems 685j3000-170k-2wej-a085-viq91089x031 08/11/2014 08/11/2014 2.16.840.1.637438.4.391.11.93455 Kike Jarvis MD Follow-up for mutiple problems 374r731y-8ft5-3m52-4985-m25211u9x297 08/11/2014 08/11/2014 2.16.840.1.067948.4.391.11.06038 Kike Jarvis MD Follow-up for mutiple problems tcm38zjq-7s79-28g4-xw10-qdm0091f5c1q 08/11/2014 08/11/2014 eCW: Kike Jarvis MD Follow-up for mutiple problems 36p70514-4524-79c4-0u3n-76r2d0t4f804 08/11/2014 08/11/2014 eCW: Kike Jarvis MD Follow-up for mutiple problems 88gwn76w-275x-2l62-y8q3-w55i137y3187 08/11/2014 08/11/2014 eCW: Kike Jarvis MD Follow-up for mutiple problems p5g576uh-owr0-29z9-8q0c-557xi481ni1s 08/11/2014 08/11/2014 eCW: Kike Jarvis MD Follow-up for mutiple problems h0586z61-7d37-1gk1-1mlb-9w0f550ta8fd 08/11/2014 08/11/2014 2.16.840.1.858588.4.391.11.93252 Kike Jarvis MD Follow-up for mutiple problems x4382u77-235p-1wau-5h75-x7671i8hb495 08/11/2014 08/11/2014 2.16.840.1.334806.4.391.11.83423 Kike Jarvis MD Follow-up for mutiple problems 21e788n4-7c40-2s79-4irg-99qa80279858 08/11/2014 08/11/2014 2.16.840.1.273371.4.391.11.16396 Kike Jarvis MD Follow-up for mutiple problems l1793ls8-g48v-2994-l974-th969c008340 08/11/2014 08/11/2014 2.16.840.1.953816.4.391.11.82706 Kike Jarvis MD Follow-up for mutiple problems 3u66q19r-0415-8o15-3hkx-5l6a78p9t4f9 08/11/2014 08/11/2014 2.16.840.1.937818.4.391.11.07220 [facility] [phone] Kike Jarvis 08/20/2014 08/21/2014 [facility] Kike Jarvis MD Follow-up for mutiple problems j3sa12ok-v4sp-6he9-ryr0-z93ez9624984 09/09/2014 09/09/2014 eCW: Kike Jarvis MD Follow-up for mutiple problems 668wu3py-2gud-56b1-j9d8-b4m602436324 09/09/2014 09/09/2014 2.16.840.1.001641.4.391.11.67764 Kike Jarvis MD Follow-up for mutiple problems pr50m3u7-489d-7w2r-219o-319njjj9i2vn 09/09/2014 09/09/2014 eCW: Kike Jarvis MD Follow-up for mutiple problems 2n0jl88t-38an-528w-2271-508e7tknz074 09/09/2014 09/09/2014 eCW: Kike Jarvis MD Follow-up for mutiple problems 4mwg8931-57a0-2034-2s6w-l64nya9nrd61 09/09/2014 09/09/2014 2.16.840.1.944452.4.391.11.33168 Kike Jarvis MD Follow-up for mutiple problems 89y5b011-c4g3-56zd-hs69-77p214026mk8 09/09/2014 09/09/2014 2.16.840.1.764324.4.391..60074 Kike Jarvis MD Follow-up for mutiple problems 3t9wu95s-n707-860l-qj61-170lyx282216 09/09/2014 09/09/2014 2.16.840.1.469563.4.391..72439 Kike Jarvis MD Follow-up for mutiple problems 931zg317-54g0-48sz-8b9c-zh3a4j123mw8 09/09/2014 09/09/2014 2.16.840.1.099654.4.391..38543 Kike Jarvis MD Follow-up for mutiple problems 8f3a6498-h199-9w5n-198q-2397zpvq223g 09/09/2014 09/09/2014 2.16.840.1.046672.4.391..13115 Kike Jarvis MD Follow-up for mutiple problems 8h2a12eb-g7f0-0b4o-404v-dduu657668q9 09/09/2014 09/09/2014 2.16.840.1.999427.4.391..84630 Kike Javris MD Follow-up for mutiple problems 5o58tt0r-1jub-33y9-g309-37125677x4qd 09/09/2014 09/09/2014 2.16.840.1.346964.4.391..65961 Kike Jarvis MD Follow-up for mutiple problems 3321lr6w-li0j-7185-j600-1wi7x8bs44e8 09/09/2014 09/09/2014 2.16.840.1.656353.4.391..57946 Kike Jarvis MD Follow-up for mutiple problems 7x6wo349-6l52-6vf9-k197-813i17700577 09/09/2014 09/09/2014 2.16.840.1.485769.4.391..52207 Kike Jarvis MD Follow-up for mutiple problems 958q8nji-0119-3165-7u3j-53x1yt560844 09/09/2014 09/09/2014 eCW: Kike Jarvis MD Follow-up for mutiple problems mf00d9n5-1483-644p-lkr6-5la7ihif55ik 09/09/2014 09/09/2014 eCW: Kike Jarvis MD Follow-up for mutiple problems 41j9epnt-1cc1-7p3d-889w-o0s33c8971t0 09/09/2014 09/09/2014 eCW: Kike Jarvis MD Follow-up for mutiple problems ru1fy2a6-529g-4v06-27l1-j116860kl6m5 09/09/2014 09/09/2014 eCW: Kike Jarvis MD Follow-up for mutiple problems 62s897t3-y0g1-2228-9159-dm59o55dcg6k 09/09/2014 09/09/2014 2.Nelson.840.1.957290.4.391.11.27922 Kike Jarvis MD Follow-up for mutiple problems 7s55ayxt-5812-37ax-d310-2v0m86zvy2py 09/09/2014 09/09/2014 2.16.840.1.831239.4.391.11.29387 Kike Jarvis MD Follow-up for mutiple problems 7l2787f5-6000-9p97-a2s4-7a67t6mj914z 09/09/2014 09/09/2014 2.16.840.1.195499.4.391.11.55494 Kike Jarvis MD Follow-up for mutiple problems 4d2485z2-092k-32n9-60vr-v4h6zid30236 09/09/2014 09/09/2014 2.16.840.1.355025.4.391.11.75272 Kike Jarvis MD Follow-up for mutiple problems 56y0t124-29tg-3lck-73t5-0n143jqpvd49 09/09/2014 09/09/2014 2.16.840.1.390092.4.391.11.40303 Kike Jarvis MD Follow-up for mutiple problems 940u73v9-4105-44l8-qk92-22f761qf5ib4 10/09/2014 10/09/2014 2.16.840.1.592392.4.391.11.38427 Kike Jarvis MD Follow-up for mutiple problems 7k31b2gk-2405-61gh-y1fd-cm80jn0808y6 10/09/2014 10/09/2014 eCW: Kike Jarvis MD Follow-up for mutiple problems 926kd93v-h81o-7t91-275x-dg388dgf1f0c 10/09/2014 10/09/2014 eCW: Kike Jarvis MD Follow-up for mutiple problems 0i3tfen3-m56g-3ox0-srfo-94a303a7923f 10/09/2014 10/09/2014 2.16.840.1.111832.4.391.11.19208 Kike Jarvis MD Follow-up for mutiple problems 592u28an-b628-240p-0k8m-0ggo8i33x75h 10/09/2014 10/09/2014 2.16.840.1.095740.4.391.11.52822 Kike Jarvis MD Follow-up for mutiple problems 598pt904-y446-861x-0183-op5yqws752oy 10/09/2014 10/09/2014 2.16.840.1.497888.4.391.11.46091 Kike Jarvis MD Follow-up for mutiple problems hnhov306-x298-17lm-zcg7-fmis01o9r27p 10/09/2014 10/09/2014 2.16.840.1.056892.4.391.11.57605 Kike Jarvis MD Follow-up for mutiple problems 0899l084-5y07-10j9-1842-vt75604un882 10/09/2014 10/09/2014 2.16.840.1.907322.4.391.11.79523 Kike Jarvis MD Follow-up for mutiple problems 8m3565pj-8x6h-847j-0422-9h3o953068z3 10/09/2014 10/09/2014 2.16.840.1.314138.4.391.11.58512 Kike Jarvis MD Follow-up for mutiple problems 1j92789x-h9gu-0qa0-3o2q-t4dqi5951g71 10/09/2014 10/09/2014 2.16.840.1.588364.4.391.11.07663 Kike Jarvis MD Follow-up for mutiple problems 15hx5y21-0ocf-66cp-14c5-1964p4w83e63 10/09/2014 10/09/2014 2.16.840.1.648462.4.391.11.52302 Kike Jarvis MD Follow-up for mutiple problems 3ji25iub-59f3-6803-vhb6-4ba5064026n9 10/09/2014 10/09/2014 2.16.840.1.842307.4.391.11.32851 Kike Jarvis MD Follow-up for mutiple problems 768u2111-w565-2x42-1n72-57es7392tt4p 10/09/2014 10/09/2014 eCW: Kike Jarvis MD Follow-up for mutiple problems 33479gf7-4718-2te0-z299-e876oim04b4u 10/09/2014 10/09/2014 eCW: Kike Jarvis MD Follow-up for mutiple problems gc47gucd-l224-1wu6-bws3-3ken7n1iouk2 10/09/2014 10/09/2014 eCW: Kike Jarvis MD Follow-up for mutiple problems 3j666h92-3lsj-2664-sz66-l4qx949j324d 10/09/2014 10/09/2014 eCW: Kike Jarvis MD Follow-up for mutiple problems 391ebj41-xojs-583q-e792-030u8u61mn5w 10/09/2014 10/09/2014 2.16.840.1.346037.4.391.11.85697 Kike Jarvis MD Follow-up for mutiple problems 1ad6w612-8i8o-9452-u83t-3151p5643594 10/09/2014 10/09/2014 2.16.840.1.375580.4.391.11.06791 Kike Jarvis MD Follow-up for mutiple problems 106x810u-tc8m-740g-w2h0-4wggbbz6f6ua 10/09/2014 10/09/2014 2.16.840.1.817067.4.391.11.79130 Kike Jarvis MD Follow-up for mutiple problems 745x0455-593q-2q59-c076-7b872112583u 10/09/2014 10/09/2014 2.16.840.1.134999.4.391.11.38685 Kike Jarvis MD Follow-up for mutiple problems 8m3tj2f2-260b-6uo1-2g2x-v060ht504rf5 10/09/2014 10/09/2014 2.16.840.1.130555.4.391..47503 Kike Jarvis MD Follow-up for mutiple problems 6gxo3422-5361-8vzq-1ew3-453my8g107t1 11/12/2014 11/12/2014 2.16.840.1.616362.4.391.11.12503 Kike Jarvis MD Follow-up for mutiple problems 9i81t719-7u7k-316m-34v0-zv6469qh7iy8 11/12/2014 11/12/2014 eCW: Kike Jarvis MD Follow-up for mutiple problems o0usridv-t21r-9x31-bvtx-rs0i7hp85l27 11/12/2014 11/12/2014 2.16.840.1.972873.4.391.11.37936 Kike Jarvis MD Follow-up for mutiple problems 982kb040-t4hv-374i-63ky-4z885x30lwk6 11/12/2014 11/12/2014 2.16.840.1.671154.4.391.11.58099 Kike Jarvis MD Follow-up for mutiple problems 8125pn5h-489y-31x9-1v89-4s8788472896 11/12/2014 11/12/2014 2.16.840.1.326588.4.391.11.46864 Kike Jarvis MD Follow-up for mutiple problems v26s00ni-915v-6920-x8wj-4vjou413a992 11/12/2014 11/12/2014 2.16.840.1.973494.4.391..08172 Kike Jarvis MD Follow-up for mutiple problems 87e6m649-m004-78mn-7151-v97vev2d690i 11/12/2014 11/12/2014 2.16.840.1.506159.4.391..22652 Kike Jarvis MD Follow-up for mutiple problems 3g29qyc5-5f25-3812-8233-77189iv39a5t 11/12/2014 11/12/2014 2.16.840.1.275116.4.391.11.42545 Kike Jarvis MD Follow-up for mutiple problems 8jya404i-5g48-1070-z9ug-0z3ju57150g6 11/12/2014 11/12/2014 2.16.840.1.887818.4.391.11.31507 Kike Jarvis MD Follow-up for mutiple problems u17667e4-r073-80g8-h05p-9442j8uyx401 11/12/2014 11/12/2014 2.16.840.1.553861.4.391..25292 Kike Jarvis MD Follow-up for mutiple problems 107m69w2-03s8-9ma9-9x0s-2h2v72956909 11/12/2014 11/12/2014 2.16.840.1.280729.4.391..98972 Kike Jarvis MD Follow-up for mutiple problems 373x8200-69ms-84zn-4643-ia3o23778432 11/12/2014 11/12/2014 eCW: Kike Jarvis MD Follow-up for mutiple problems 06k4j47q-h949-4t5a-t147-sf034353556n 11/12/2014 11/12/2014 eCW: Kike Jarvis MD Follow-up for mutiple problems 24k53a17-8v39-140k-610r-45vpx47rne9z 11/12/2014 11/12/2014 eCW: Kike Jarvis MD Follow-up for mutiple problems 8rjd53ev-l582-021t-7dif-ye5gs9pm6v7d 11/12/2014 11/12/2014 eCW: Kike Jarvis MD Follow-up for mutiple problems e1r042fk-bze0-5515-x536-rv368e0fs345 11/12/2014 11/12/2014 2.16.840.1.588535.4.391. Kike Jarvis MD Follow-up for mutiple problems 4go3008m-s6b2-1ti2-071n-7874744741h7 11/12/2014 11/12/2014 2.16.840.1.536298.4.391.. Kike Jarvis MD Follow-up for mutiple problems tw55e468-p429-0g83-q7u3-166985fr757r 11/12/2014 11/12/2014 2.16.840.1.840255.4.391.11.67794 Kike Jarvis MD Follow-up for mutiple problems pl7n8788-3864-6167-2e7b-w2tl48448683 11/12/2014 11/12/2014 2.16.840.1.632591.4.391.11.09884 Kike Jarvis MD Follow-up for mutiple problems 57p8072u-y17y-4x3s-05ov-24l043m00qfe 11/12/2014 11/12/2014 2.16.840.1.476869.4.391.11.59017 Kike Jarvis MD Follow-up for mutiple problems f264za75-8548-5h6q-t2p2-r413517hvm13 12/12/2014 12/12/2014 2.16.840.1.798038.4.391.11.94725 Kike Jarvis MD Follow-up for mutiple problems r2838067-382z-28n6-u842-4bl645z9n3q3 12/12/2014 12/12/2014 2.16.840.1.624668.4.391.11.34054 Kike Jarvis MD Follow-up for mutiple problems hjq27544-0nph-56rq-ag29-i97d9u1455r2 12/12/2014 12/12/2014 2.16.840.1.871244.4.391.11.41182 Kike Jarvis MD Follow-up for mutiple problems 84e83u12-4ln4-6f15-e062-5n7931y77oal 12/12/2014 12/12/2014 2.16.840.1.181499.4.391.11.67765 Kike Jarvis MD Follow-up for mutiple problems tr5c5d2t-139r-52xy-f0o6-6u097gg2296n 12/12/2014 12/12/2014 2.16.840.1.849043.4.391.11.26080 Kike Jarvis MD Follow-up for mutiple problems 869i56cs-3979-0xm8-x276-8q13s8a72ne0 12/12/2014 12/12/2014 2.16.840.1.837126.4.391.11.74664 Kike Jarvis MD Follow-up for mutiple problems 4k7152n7-3jg8-04af-3dx4-68jhciud18m9 12/12/2014 12/12/2014 2.16.840.1.723072.4.391.11.20402 Kike Jarvis MD Follow-up for mutiple problems 711h5u67-23s8-2616-z540-l3f8829326n6 12/12/2014 12/12/2014 2.16.840.1.139256.4.391.11.98138 Kike Jarvis MD Follow-up for mutiple problems 35nro6to-4u15-033t-x806-r08g603hh3a0 12/12/2014 12/12/2014 2.16.840.1.507567.4.391.11.15038 Kike Jarvis MD Follow-up for mutiple problems 85d29q9a-b4g8-1b5j-0d0v-28r25so8j72d 12/12/2014 12/12/2014 2.16.840.1.558718.4.391.11.71903 Kike Jarvis MD Follow-up for mutiple problems z7ai4dt2-142p-98z9-2751-94708566rphq 12/12/2014 12/12/2014 eCW: Kike Jarvis MD Follow-up for mutiple problems 8svc04k2-32f4-38g0-483q-8125tg6z0et0 12/12/2014 12/12/2014 eCW: Kike Jarvis MD Follow-up for mutiple problems 313a8683-0n19-3k79-fsji-02nom4111721 12/12/2014 12/12/2014 eCW: Kike Jarvis MD Follow-up for mutiple problems 0f313r8u-4686-6obu-u73z-en1l71537doq 12/12/2014 12/12/2014 eCW: Kike Jarvis MD Follow-up for mutiple problems 2ch055q5-8f6k-1v3c-oq26-901h9n3tw24w 12/12/2014 12/12/2014 2.16.840.1.203496.4.391..05787 Kike Jarvis MD Follow-up for mutiple problems t59rfmis-94m4-97h9-p360-o13a31jr1923 12/12/2014 12/12/2014 2.16.840.1.964777.4.391.11.34660 Kike Jarvis MD Follow-up for mutiple problems 1r2j79oy-9r9w-2o29-6905-ski41u50w2v5 12/12/2014 12/12/2014 2.16.840.1.797767.4.391..83366 Kike Jarvis MD Follow-up for mutiple problems bx87qnq2-0vcc-0709-819w-i7ps00s73vi3 12/12/2014 12/12/2014 2.16.840.1.638485.4.391..31423 Kike Jarvis MD Follow-up for mutiple problems 15cdv216-5s43-3713-09kw-a695387fa1u7 12/12/2014 12/12/2014 2.16.840.1.460390.4.391.11.19222 Kike Jarvis MD Follow-up for mutiple problems 6ky1988s-2953-5t00-56d5-1c55nj3v240i 01/12/2015 01/12/2015 2.16.840.1.409059.4.391..71579 Kike Jarvis MD Follow-up for mutiple problems 505p6551-569p-3e0w-1509-62q7gti3z74m 01/12/2015 01/12/2015 2.16.840.1.047369.4.391..27698 Kike Jarvis MD Follow-up for mutiple problems 6fof7j5m-0236-5m35-07r8-3a91z22181c6 01/12/2015 01/12/2015 2.16.840.1.906101.4.391.11.17099 Kike Jarvis MD Follow-up for mutiple problems 30ezg7v8-868f-0bub-d303-4060o1637p05 01/12/2015 01/12/2015 2.16.840.1.915936.4.391.11.45951 Kike Jarvis MD Follow-up for mutiple problems 1299p419-3758-04s0-j642-t513ch4954vr 01/12/2015 01/12/2015 2.16.840.1.837590.4.391.11.97061 Kike Jarvis MD Follow-up for mutiple problems j1s64h77-5mrm-6867-466n-661zcgaaf818 01/12/2015 01/12/2015 2.16.840.1.600410.4.391.11.38146 Kike Jarvis MD Follow-up for mutiple problems y39jz9sb-x568-8255-q0q5-62ce1s08u887 01/12/2015 01/12/2015 2.16.840.1.888738.4.391.11.71977 Kike Jarvis MD Follow-up for mutiple problems 793pmx67-3760-26a2-0n59-a4t74syz9bc3 01/12/2015 01/12/2015 2.16.840.1.600226.4.391.11.42851 Kike Jarvis MD Follow-up for mutiple problems 7z6z4021-9kx5-2y6m-terr-t19032037k3d 01/12/2015 01/12/2015 2.16.840.1.234616.4.391.11.49627 Kike Jarvis MD Follow-up for mutiple problems i2n7q466-3ex9-5d17-1m90-fq5jb6alc0ai 01/12/2015 01/12/2015 2.16.840.1.126584.4.391..02819 Kike Jarvis MD Follow-up for mutiple problems 6cm3hff0-k663-0mke-7n25-mi1r40458076 01/12/2015 01/12/2015 eCW: Kike Jarvis MD Follow-up for mutiple problems 64n6r8az-733n-9pkg-4u79-31706324gg18 01/12/2015 01/12/2015 eCW: Kike Jarvis MD Follow-up for mutiple problems 02w000f8-b2wg-55y9-66w9-m17v344139id 01/12/2015 01/12/2015 eCW: Kike Jarvis MD Follow-up for mutiple problems k029adp8-v08u-688q-dyh7-zxiusb49676v 01/12/2015 01/12/2015 eCW: Kike Jarvis MD Follow-up for mutiple problems zy5jjf5m-6040-5939-r747-4id421x33y85 01/12/2015 01/12/2015 2.Nelson.840.1.154855.4.391..74364 Kike Jarvis MD Follow-up for mutiple problems 49y2118u-62n3-82n7-f563-fhu41xf14928 01/12/2015 01/12/2015 2.Nelson.840.1.206713.4.391..28117 Kike Jarvis MD Follow-up for mutiple problems 2019c755-s7lo-35g5-j26p-9477w55q707z 01/12/2015 01/12/2015 2.16.840.1.753829.4.391..89201 Kike Jarvis MD Follow-up for mutiple problems 0l106867-96v0-8933-g093-n953291745e1 01/12/2015 01/12/2015 2.Nelson.840.1.292188.4.391.11.41973 Kike Jarvis MD Follow-up for mutiple problems 1f387g6v-speh-8657-3bjw-23r5k31b4f86 01/12/2015 01/12/2015 2.16.840.1.303014.4.391.11.50218 Kike Jarvis MD Refill Appt. vq420xd8-qkx5-4201-6596-790bn727luok 02/12/20 15 02/11/2015 2.16.840.1.663209.4.391.11.45371 Kike Jarvis MD Refill Appt. u3588604-pa36-9731-t417-6952q04k5c7b 02/12/20 15 02/11/2015 2.16.840.1.421707.4.391.11.06808 Kike Jarvis MD Refill Appt. 9x59f65m-431n-44n4-i236-g9y229439r04 02/12/20 15 02/11/2015 2.16.840.1.602611.4.391..03819 Kike Jarvis MD Refill Appt. 0614r5mp-902v-1323-d639-69m10zx1q928 02/12/20 15 02/11/2015 2.16.840.1.218557.4.391..03260 Kike Jarvis MD Refill Appt. 20e5wp3a-19i1-7zc2-on02-60318836840r 02/12/20 15 02/11/2015 2.16.840.1.841056.4.391.11.49022 Kike Jarvis MD Refill Appt. h0p7mu47-b978-3873-b2y3-8819v14mvgo1 02/12/20 15 02/11/2015 2.16.840.1.701952.4.391.11.72223 Kike Jarvis MD Refill Appt. 5551q21j-0038-8s3w-o06z-t609e0l7mup7 02/12/20 15 02/11/2015 2.16.840.1.220372.4.391..48556 Kike Jarvis MD Refill Appt. f2kmj194-e1so-42pb-621y-2yn828qgw902 02/12/20 15 02/11/2015 2.16.840.1.303635.4.391..03448 Kike Jarvis MD Refill Appt. 7312500v-48md-38f3-x0gb-684pw5vxgxl2 02/12/20 15 02/11/2015 2.16.840.1.864075.4.391..60566 Kike Jarvis MD Refill Appt. 4n2w54e1-712t-1650-xvz0-f91re3j2ad43 02/12/20 15 02/11/2015 2.16.840.1.852301.4.391..64375 Kike Jarvis MD Refill Appt. 318643q5-2gf3-3i95-8s3z-q0513f45371n 02/12/20 15 02/11/2015 eCW: Kike Jarvis MD Refill Appt. 96v569u6-6099-8fwg-3fxl-bx0jd6223704 02/12/20 15 02/11/2015 eCW: Kike Jarvis MD Refill Appt. dps952e5-20do-0688-03o2-672c4861l96m 02/12/20 15 02/11/2015 eCW: Kike Jarvis MD Refill Appt. 251284ls-y3v1-0554-56ts-295c66h16d6i 02/12/20 15 02/11/2015 2.16.840.1.322537.4.391..78178 Kike Jarvis MD Refill Appt. 9m3jq9d1-d5cw-82up-y67b-s635iux125w3 02/12/20 15 02/11/2015 2.16.840.1.907805.4.391..89453 Kike Jarvis MD Refill Appt. 5dac3rx1-99l1-81c6-37bd-s5025w508qhk 02/12/20 15 02/11/2015 2.16.840.1.642352.4.391.11.57857 Kike Jarvis MD Refill Appt. 2w530445-2795-44m8-873f-93l4088ks5dm 02/12/20 15 02/11/2015 2.16.840.1.165472.4.391.11.63132 Kike Jarvis MD Refill Appt. wo882874-h927-7ux4-656h-6b2z97bq242d 02/12/20 15 02/11/2015 2.16.840.1.754735.4.391.11.05173 Kike Jarvis MD Refill Appt. 3x2z4246-m066-08b1-fi05-29s5j593vhw4 04/10/19 16 04/10/2015 2.16.840.1.508013.4.391.11.07202 Kike Jarvis MD Refill Appt. e563x7d8-0042-13pn-0g37-tg2cg2w9vxn9 04/10/19 16 04/10/2015 2.16.840.1.864755.4.391.11.42497 Kike Jarvis MD Refill Appt. 2160rk05-196c-29t0-wyz1-56q2bm418r91 04/10/19 16 04/10/2015 2.16.840.1.801477.4.391.11.50779 Kike Jarvis MD Refill Appt. kb5839n0-ao91-32ob-553k-86u4ig04p9tu 04/10/19 16 04/10/2015 2.16.840.1.211717.4.391.11.42592 Kike Jarvis MD Refill Appt. 3937m4x1-h92y-16p6-p0we-89wxiat7n033 04/10/19 16 04/10/2015 2.16.840.1.933074.4.391.11.58648 Kike Jarvis MD Refill Appt. 347t0026-r3i4-9002-73e2-33c853j59mi8 04/10/19 16 04/10/2015 2.16.840.1.402769.4.391.11.76899 Kike Jarvis MD Refill Appt. 65av893i-5n5r-9rbo-9833-k39vf8056bk8 04/10/19 16 04/10/2015 2.16.840.1.171088.4.391.11.94982 Kike Jarvis MD Refill Appt. 1c621v7f-831w-1cjf-z92n-2y0h6rn5l1tu 04/10/19 16 04/10/2015 2.16.840.1.464303.4.391.11.78378 Kike Jarvis MD Refill Appt. 43323p0d-6395-70yl-6caw-73s1591ltzv1 04/10/19 16 04/10/2015 2.16.840.1.533671.4.391.11.99838 Kike Jarvis MD Refill Appt. s1185586-u007-9vp6-8t73-08g08474svsk 04/10/19 16 04/10/2015 2.16.840.1.002292.4.391.11.73083 Kike Jarvis MD Refill Appt. pv5u9380-3030-9e86-49c3-f50v884rh9a5 04/10/19 16 04/10/2015 eCW: Kike Jarvis MD Refill Appt. d744a084-04k9-56lq-5tm8-u449adyx221n 04/10/19 16 04/10/2015 eCW: Kike Jarvis MD Refill Appt. h48r7660-gy69-2o1c-8159-713jm5tu7b95 04/10/19 16 04/10/2015 2.16.840.1.245914.4.391.11.55808 Kike Jarvis MD Refill Appt. qar49979-5pb7-65av-9966-0rlp4g615l53 04/10/19 16 04/10/2015 2.16.840.1.130714.4.391.11.45380 Kike Jarvis MD Refill Appt. xlu87882-58f2-7864-qkn5-80osdozq2v9y 04/10/19 16 04/10/2015 2.16.840.1.012279.4.391.11.68811 Kike Jarvis MD Refill Appt. n63q5k52-hv72-044e-p62d-5f1k048hwn61 04/10/19 16 04/10/2015 2.16.840.1.196346.4.391.11.57546 Kike Jarvis MD Refill Appt. 886t8942-2377-1gs3-l61c-p137012wayi8 04/10/19 16 04/10/2015 2.16.840.1.891898.4.391.11.23568 Kike Jarvis MD Refill 750vkn54-h980-5o38-4711-1g8325a2ut5g 04/24/2015 04/24/2015 2.16.840.1.796002.4.391.11.39600 Kike Jarvis MD Refill d7t3z0q4-8uwr-7ez6-2bi7-8288s7i681q2 04/24/2015 04/24/2015 2.16.840.1.418505.4.391.11.09891 Kike Jarvis MD Refill zafb58p6-034z-77m9-8884-e04842o77jk9 04/24/2015 04/24/2015 2.16.840.1.107527.4.391.11.18746 Kike Jarvis MD Refill gkjs272e-pq5d-0b27-d952-3i9k75871q33 04/24/2015 04/24/2015 2.16.840.1.912894.4.391..73759 Kike Jarvis MD Refill p2846f4u-9248-9k15-196b-67c5le47x097 04/24/2015 04/24/2015 2.16.840.1.482063.4.391..39095 Kike Jarvis MD Refill 592y8nt5-p602-1b0x-58u9-3tfhas3x0808 04/24/2015 04/24/2015 2.16.840.1.527421.4.391..92812 Kike Jarvis MD Refill u8s717z9-53u9-6047-10x1-0ar071q33m97 04/24/2015 04/24/2015 2.16.840.1.666469.4.391..01447 Kike Jarvis MD Refill 472u4864-7j22-8ip5-x502-489337b3nqwf 04/24/2015 04/24/2015 2.16.840.1.618971.4.391..64718 Kike Jarvis MD Refill 012609f2-ys6t-86k8-5260-8c6058696kt1 04/24/2015 04/24/2015 2.16.840.1.160107.4.391..29361 Kike Jarvis MD Refill fdo46528-3s10-2m4t-i9v7-6l16w1jj7777 04/24/2015 04/24/2015 2.16.840.1.446269.4.391..35129 Kike Jarvis MD Refill 721719tu-78a0-8253-4628-38bvs7mj2s4y 04/24/2015 04/24/2015 eCW: Kike Jarvis MD Refill q3d842m2-o212-55p7-wk7y-jd3t877158h9 04/24/2015 04/24/2015 2.16.840.1.164816.4.391..31503 Kike Jarvis MD Refill 9y6m6957-48l2-6023-0039-n0zw871j2mx9 04/24/2015 04/24/2015 2.16.840.1.905554.4.391..39756 Kike Jarvis MD Refill 768kt2e8-5y4k-2381-l791-7z0j5z8zs0b4 04/24/2015 04/24/2015 2.16.840.1.037745.4.391..11289 Kike Jarvis MD Refill 7d56x4qp-7103-3gaa-gkex-3x9j6yv2h14t 04/24/2015 04/24/2015 2.16.840.1.526661.4.391..65558 Kike Jarvis MD Refill 7t0xr5n0-213n-1cxw-72h3-6705w0c18m11 04/24/2015 04/24/2015 2.16.840.1.324131.4.391..08617 [facility] EST PCP/Dr. Jarvis 8od28f13-3d98-6fl4-982s-o8904yqol8o3 06/16/19 16 06/16/2015 2.16.840.1.088453.4.391..78330 [facility] EST PCP/Dr. Jarvis 542761kf-t22f-233c-4513-0h6uwe244n41 06/16/19 16 06/16/2015 2.16.840.1.017619.4.391..31468 [facility] EST PCP/Dr. Jarvis 004a2fcp-5311-12zu-zcj2-a8925vi84q94 06/16/19 16 06/16/2015 2.16.840.1.450544.4.391..31404 [facility] EST PCP/Dr. Jarvis 4pr0vw36-fz39-0i7n-i9nd-j24y998p777m 06/16/19 16 06/16/2015 2.16.840.1.882411.4.391..99590 [facility] EST PCP/Dr. Jarvis 43735s0n-8697-5q5h-599j-9h62080g9392 06/16/19 16 06/16/2015 2.16.840.1.121347.4.391.11.18379 [facility] EST PCP/Dr. Jarvis 99ud4q01-0760-8p8k-b70s-1w1z92krln28 06/16/19 16 06/16/2015 2.16.840.1.019362.4.391..68826 [facility] EST PCP/Dr. Jarvis 14w7fpla-u021-4in2-0l42-200j6buv3jh1 06/16/19 16 06/16/2015 2.16.840.1.146647.4.391..76576 [facility] PCP/Dr. Jarvis 06f6yn69-60lp-0a79-4896-dk5688i4y40a 06/16/19 16 06/16/2015 2.16.840.1.188558.4.391..84847 [facility] PCP/Dr. Jarvis 9hl3d42c-1qde-86n8-24tl-9c33rctj51f3 06/16/19 16 06/16/2015 2.16.840.1.871126.4.391..14118 [facility] EST PCP/Dr. Jarvis ld66i31a-k40o-68ic-1272-9z8g2383uc2x 06/16/19 16 06/16/2015 2.16.840.1.486491.4.391..54515 [facility] EST PCP/Dr. Jarvis eh6j4964-4083-2o3j-d8ln-d9f98tx781s4 06/16/19 16 06/16/2015 2.16.840.1.254657.4.391..91117 [facility] EST PCP/Dr. Jarvis 2le8803y-5a0y-7qm3-m02r-b7780788906w 06/16/19 16 06/16/2015 2.16.840.1.306186.4.391.11.93358 [facility] [facility]Dr[facility] Jarvis [id number]-3as9-643p-1l7x-53u63e0l26rv 06/16/19 16 06/16/2015 2.16.840.1.111670.4.391.11.95995 [facility] EST PCP/Dr. Jarvis [id number]-l3a3-9zrs-j016-g4759l9t8q62 06/16/19 16 06/16/2015 2.16.840.1.772255.4.391.11.11660 [facility] Unknown [id number] 06/25/19 16 06/25/2015 2.16.840.1.517155.4.391.11.94058 [facility] Unknown [id number]-wanx-3f0183gudzd4 06/25/19 16 06/25/2015 2.16.840.1.261301.4.391.1140238 [facility] Unknown [id number]-0m61-m1e4-m89au4a4pe42 06/25/19 16 06/25/2015 2.16.840.1.267997.4.391..48010 [facility] Unknown [id number]-d091-q9a697i7zz8c 06/25/19 16 06/25/2015 2.16.840.1.999602.4.391..43445 [facility] Unknown [id number]-g9uc-[id number] 06/25/19 16 06/25/2015 2.16.840.1.768176.4.391.1119334 [facility] Unknown [id number] 06/25/19 16 06/25/2015 2.16.840.1.588980.4.391.1132800 [facility] Unknown [id number] 06/25/19 16 06/25/2015 2.16.840.1.643785.4.391.11.61931 [facility] Unknown [id number]-[id number] 06/25/19 16 06/25/2015 2.16.840.1.672613.4.391.11.39426 [facility] Unknown [id number]-vw3t-2c61-1254-824r4720fu8i 06/25/19 16 06/25/2015 2.16.840.1.779043.4.391.11.66284 [facility] Unknown [id number]-37wi-[id number] 06/25/19 16 06/25/2015 2.16.840.1.118100.4.391.11.11652 [facility] Unknown [id number]-[id number]-1221a719z266 06/25/19 16 06/25/2015 2.16.840.1.908019.4.391.11.06078 [facility] Unknown [id number]-i7k3-mh0790t25ze5 06/25/19 16 06/25/2015 2.16.840.1.687943.4.391.11.93229 [facility] Unknown [id number]-b58k-062348soyx13 06/25/19 16 06/25/2015 2.16.840.1.316742.4.391.11.76156 [facility] Unknown [id number]-xos2-20c3-4vv3-tv8sf89625o6 06/25/19 16 06/25/2015 2.16.840.1.746744.4.391.11.58545 [facility] Unknown [id number]-xz5k-706812q56p6g 06/25/19 16 06/25/2015 2.16.840.1.276415.4.391.11.80181 [facility] REFILLS [id number]-pktf-44mu-8n05-c211y1v75083 07/24/19 16 07/24/2015 2.16.840.1.043879.4.391.11.49674 [facility] REFILLS 243p2a5j-069w-147u-4f8b-104l6iz66o8e 07/24/19 16 07/24/2015 2.16.840.1.186321.4.391.11.21693 [facility] REFILLS [id number]-ds3e-7edk-m024-66hp0224043r 07/24/19 16 07/24/2015 2.16.840.1.235451.4.391.11.13264 [facility] REFILLS [id number]-4717-8z91-52n0-08vjl4z40hw3 07/24/19 16 07/24/2015 2.16.840.1.025377.4.391.11.16453 [facility] REFILLS 908gt0yw-1f1y-01mr-lbi7-311h764p4s1o 07/24/19 16 07/24/2015 2.16.840.1.524944.4.391.11.96671 [facility] REFILLS 3w5zh44n-0ni9-2446-97r6-14bsz0k4669o 07/24/19 16 07/24/2015 2.16.840.1.227218.4.391.11.89053 [facility] REFILLS [id number]-3pna1s9nbd8p 07/24/19 16 07/24/2015 2.16.840.1.947789.4.391.11.97235 [facility] REFILLS 45so4yd6-4vi4-1ji4-tc3m-4o3911g9un6v 07/24/19 16 07/24/2015 2.16.840.1.770923.4.391.11.15429 [facility] REFILLS [id number]-k168-7c30-of98-62lz669bfp4b 07/24/19 16 07/24/2015 2.16.840.1.810495.4.391.11.58533 [facility] REFILLS s61x86u4-g7ep-9ldd-56zr-8nxd4m468z57 07/24/19 16 07/24/2015 2.16.840.1.441684.4.391.11.21030 [facility] REFILLS 680xdv20-1m8v-032p-ynr3-q254423efcv3 07/24/19 16 07/24/2015 2.16.840.1.239185.4.391.11.40916 [facility] REFILLS 21jnh60q-7tfm-539m-s232-39y1tm7920o0 07/24/19 16 07/24/2015 2.16.840.1.424553.4.391.11.63112 [facility] REFILLS up1tbb98-8412-1w55-73uh-70r06976f6y3 07/24/19 16 07/24/2015 2.16.840.1.029347.4.391.11.99880 [facility] refill medications [id number]-ummb-5282-8755-h9xos028613z 08/25/19 16 08/25/2015 2.16.840.1.880773.4.391.11.04770 [facility] refill medications [id number]-77w8-o2j6m2tqt3v6 08/25/19 16 08/25/2015 2.16.840.1.195729.4.391.11.04952 [facility] refill medications [id number]-r858-805v-lj93-uw5g48544c85 08/25/19 16 08/25/2015 2.16.840.1.991254.4.391.11.39571 [facility] refill medications 39w768zc-38l1-7wqz-5o88-ze8o8k7sqz40 08/25/19 16 08/25/2015 2.16.840.1.516480.4.391.11.31772 [facility] refill medications i7a96u7r-5q1k-7wh8-5117-59mxth779534 08/25/19 16 08/25/2015 2.16.840.1.537044.4.391.11.98532 [facility] refill medications 5k785toh-u9b7-4445-y6qp-x98yr77z8244 08/25/19 16 08/25/2015 2.16.840.1.482758.4.391.11.80026 [facility] refill medications 68ka04s0-78p6-240z-qu2a-y08di86v6837 08/25/19 16 08/25/2015 2.16.840.1.735675.4.391.11.94094 [facility] refill medications 30qd035v-z646-90tx-0v0u-c7m2k05m079u 08/25/19 16 08/25/2015 2.16.840.1.150931.4.391.11.11846 [facility] refill medications 69m5231w-ym66-6s17-bc46-91ko860w7uc9 08/25/19 16 08/25/2015 2.16.840.1.266372.4.391.11.05535 [facility] refill medications 28sm97dt-g45m-31h8-mb06-xakgy11lhxk5 08/25/19 16 08/25/2015 2.16.840.1.978309.4.391.11.69055 [facility] refill medications ua1qbvul-90j3-2925-3mq0-0p4334e26ht9 08/25/19 16 08/25/2015 2.16.840.1.850263.4.391.11.21955 [facility] refill medications [id number]-a90r-39di-h855-g2w372970e07 08/25/19 16 08/25/2015 2.16.840.1.656178.4.391.11.45675 [facility] [id number]-2ds1-w248-3fc56c67o1y1 09/25/19 16 09/25/2015 2.16.840.1.618228.4.391.11.44547 [facility] Unknown [id number]-0y79-620m-312u-8hdi574v5017 09/25/19 16 09/25/2015 2.16.840.1.687968.4.391.11.59288 [facility] Unknown [id number]-q85q-62rs-4287-t6h54na59b2d 09/25/19 16 09/25/2015 2.16.840.1.282760.4.391.11.24451 [facility] Unknown [id number]-g5np-118t-7d38-6pv1g4dz4025 09/25/19 16 09/25/2015 2.16.840.1.690670.4.391.11.90704 [facility] Unknown [id number]-8l0j-32bv5wf3554i 09/25/19 16 09/25/2015 2.16.840.1.063111.4.391.11.15636 [facility] Unknown [id number]-i309-2iy6-bc51-jssi1d7u5b78 09/25/19 16 09/25/2015 2.16.840.1.633896.4.391.11.40434 [facility] Unknown [id number]-604x-617u-0f99-63d4h5gn6324 09/25/19 16 09/25/2015 2.16.840.1.619602.4.391.11.31253 [facility] Unknown [id number]-2387-5yvw-d27p-0tq94o842z9m 09/25/19 16 09/25/2015 2.16.840.1.070792.4.391.11.25800 [facility] Unknown [id number]-1947-0459-3cnt-s23v9c50wcwm 09/25/19 16 09/25/2015 2.16.840.1.948244.4.391.11.83784 [facility] Unknown [id number]-b3pm-6c7t466177i0 09/25/19 16 09/25/2015 2.16.840.1.280848.4.391.11.30333 [facility] Unknown [id number]-7570-dl25-9d48dy671l9l 09/25/19 16 09/25/2015 2.16.840.1.623029.4.391.11.72658 [facility] Unknown [id number]-0nh3-32gw-fr4a-22xffg9220f0 10/12/19 16 10/12/2015 2.16.840.1.767860.4.391.11.55263 [facility] Unknown [id number]-1095-3s65-732981m3m350 10/12/19 16 10/12/2015 2.16.840.1.529741.4.391.11.12140 [facility] Unknown [id number]-69ik-q955-2641zk3d67u2 10/12/19 16 10/12/2015 2.16.840.1.150890.4.391.11.27007 [facility] Unknown [id number]-02p5-ek0o-7uov1x0h52kl 10/12/19 16 10/12/2015 2.16.840.1.339461.4.391.11.42501 [facility] Unknown [id number]-4q75-y73g-in2xb21te2kj 10/12/19 16 10/12/2015 2.16.840.1.713436.4.391.11.10429 [facility] Unknown [id number]-552r-78z9-3zbg-92x5f29k512g 10/12/19 16 10/12/2015 2.16.840.1.720775.4.391.11.30427 [facility] Unknown [id number]-dsto-9434-1964-2m8969f1z6e0 10/12/19 16 10/12/2015 2.16.840.1.309244.4.391.11.63282 [facility] Unknown [id number]-5q8c-y50k-b6g670nv541h 10/12/19 16 10/12/2015 2.16.840.1.940185.4.391.11.02519 [facility] Unknown [id number] 10/12/19 16 10/12/2015 2.16.840.1.762909.4.391.11.81278 [facility] Unknown [id number]-872r-[id number] 10/12/19 16 10/12/2015 2.16.840.1.269774.4.391.11.83941 [facility] Unknown [id number]-xi32637nnba8 12/10/19 16 12/10/2015 2.16.840.1.203165.4.391.11.04448 [facility] Unknown [id number]-r601-66c3d104vvci 12/10/19 16 12/10/2015 2.16.840.1.492113.4.391.11.72741 [facility] Unknown [id number]-[id number] 12/10/19 16 12/10/2015 2.16.840.1.681111.4.391.11.40324 [facility] Unknown [id number]-394f-1nk5-e0hl395r4z89 12/10/19 16 12/10/2015 2.16.840.1.183874.4.391.11.88797 [facility] Unknown [id number]-6f23-7629-29i6-61n010xxe51y 12/10/19 16 12/10/2015 2.16.840.1.895528.4.391.11.07801 [facility] Unknown [id number]-m74c-[id number] 12/10/19 16 12/10/2015 2.16.840.1.383859.4.391.11.30567 [facility] Unknown [id number]-asc8-0m26-n87f-92hui8rhe919 12/10/19 16 12/10/2015 2.16.840.1.232912.4.391.11.03003 [facility] Unknown [id number]-7995-7qi2-ar6y-oz7p931dj8ol 12/10/19 16 12/10/2015 2.16.840.1.519433.4.391.11.16238 [facility] Unknown [id number]-[id number]-6pqs425ch3l3 12/11/19 16 12/11/2015 2.16.840.1.840788.4.391.11.50198 [facility] Unknown [id number]-1g9p-179r-e374-c6411phss4ee 12/11/19 16 12/11/2015 2.16.840.1.790096.4.391.11.70964 [facility] Unknown [id number]-02ta-6l4c-9858-16yv3401p1z8 12/11/19 16 12/11/2015 2.16.840.1.403378.4.391.11.79471 [facility] Unknown [id number]-qyks-692k-w036-044402g1k034 12/11/19 16 12/11/2015 2.16.840.1.687529.4.391.11.38650 [facility] Unknown [id number]-icjk-3xv3-ly35-t23x80tmr5hf 12/11/19 16 12/11/2015 2.16.840.1.874563.4.391.11.58059 [facility] Unknown [id number]-38n7-25c4-xi10-834dmto675hr 12/11/19 16 12/11/2015 2.16.840.1.811045.4.391.11.22323 [facility] Unknown [id number]-[id number] 12/11/19 16 12/11/2015 2.16.840.1.720110.4.391.11.91854 [facility] Unknown [id number]-u6jr-8b1r61r02i9s 12/11/19 16 12/11/2015 2.16.840.1.520831.4.391.11.39226 [facility] Unknown [id number]-50ru-5nio-86q3-43518p7d29i7 12/11/19 16 12/11/2015 2.16.840.1.098875.4.391.11.36630 [facility] Unknown [id number]-188n-04z2-2by2250y0853 12/30/19 16 12/30/2015 2.16.840.1.231164.4.391.11.89027 [facility] Unknown [id number]-3gt1-2rjk-856s-peba57auqkgw 12/30/19 16 12/30/2015 2.16.840.1.750552.4.391.11.95886 [facility] Unknown [id number]-o8q9-5s9o-390u-v54113z5k785 12/30/19 16 12/30/2015 2.16.840.1.513674.4.391.11.10850 [facility] Unknown [id number]-3rb8-i383-r9n90y1jr4b9 12/30/19 16 12/30/2015 2.16.840.1.443461.4.391.11.20920 [facility] Unknown [id number]-13h0-t432-u87l3y21r396 12/30/19 16 12/30/2015 2.16.840.1.764524.4.391.11.10709 [facility] Unknown [id number]-k644-5212-7ukq-646424z90f46 01/05/20 16 01/05/2016 2.16.840.1.636963.4.391.11.17269 [facility] Unknown [id number]-qy21-6669-h9uf-794s1c53701x 01/05/20 16 01/05/2016 2.16.840.1.517618.4.391.11.58903 [facility] Unknown [id number]-gx2c-2206-o266-5y33i04660q8 01/05/20 16 01/05/2016 2.16.840.1.634080.4.391.11.07035 [facility] Unknown [id number]-21r5-9z16-t9e7cv4z9o39 01/05/20 16 01/05/2016 2.16.840.1.506228.4.391.11.86232 [facility] Unknown [id number] 01/05/20 16 01/05/2016 2.16.840.1.180927.4.391.11.89285 [facility] Unknown [id number] 01/05/20 16 01/05/2016 2.16.840.1.086266.4.391.11.73715 [facility] Unknown [id number]-c6l6-4b1649vjq691 01/05/20 16 01/05/2016 2.16.840.1.209363.4.391.11.19043 [facility] Unknown [id number]-vugp-26p4-6m0j-7134650j807h 01/05/20 16 01/05/2016 2.16.840.1.890206.4.391.11.13246 [facility] Unknown [id number]-283k-8082-[id number] 01/05/20 16 01/05/2016 2.16.840.1.728336.4.391.11.84808 [facility] Unknown [id number]-4y77-2545-wssgpiyy1667 01/05/20 16 01/05/2016 2.16.840.1.395374.4.391.11.37839 [facility] Unknown [id number]-s88i-5u41-2gfa-43plw0xtsv19 01/05/20 16 01/05/2016 2.16.840.1.650305.4.391.11.81868 [facility] Unknown [id number]-e0pi-8420n4g58y69 01/05/20 16 01/05/2016 2.16.840.1.729013.4.391.11.68669 [facility] Unknown [id number]-5140l9jk7453 01/05/20 16 01/05/2016 2.16.840.1.832458.4.391.11.57586 [facility] Unknown [id number]-[id number] 01/05/20 16 01/05/2016 2.16.840.1.186653.4.391.11.95508 [facility] Unknown [id number]-[id number]-26ea38vte9q4 02/26/20 16 02/26/2016 2.16.840.1.529997.4.391.11.63806 [facility] Unknown [id number]-446y-91f7-76o6-k72572k3t2a1 02/26/20 16 02/26/2016 2.16.840.1.205189.4.391.11.43672 [facility] Unknown [id number] 02/26/20 16 02/26/2016 2.16.840.1.768240.4.391.11.78355 [facility] Unknown [id number]-aot4-19t9-p963-ggt04l4uh206 02/26/20 16 02/26/2016 2.16.840.1.014564.4.391.11.55816 [facility] Refill [id number] 03/10/19 17 03/10/2016 2.16.840.1.592057.4.391.11.76599 [facility] Refill [id number]-[id number]-lxa8-v0a078291w02 03/10/19 17 03/10/2016 2.16.840.1.071100.4.391.11.62101 [facility] Refill [id number]nw9947fcmt 03/10/19 17 03/10/2016 2.16.840.1.613118.4.391.11.66400 [facility] 1 month f/u [id number]-8sv5-b636-srgpp12l7p64 03/28/19 17 03/28/2016 2.16.840.1.011627.4.391.11.06956 [facility] 1 month f/u [id number]-i04a-4fi0-z006-7v6z997j85w7 03/28/19 17 03/28/2016 2.16.840.1.805628.4.391.11.85528 [facility] Unknown [id number] 04/28/19 17 04/28/2016 2.16.840.1.907846.4.391.11.54644 [facility] Inpatient [id number] Kayleenchelsea Sharita 04/02/2017 04/04/2017 [facility] Emergency [id number] Carolina Agee 10/25/2017 10/26/2017 [facility] Emergency [id number] Vinnie Clarkeme 03/16/2018 03/17/2018 [facility] Emergency [id number] Cat Aragon 03/27/2018 03/28/2018 [facility] Observation [id number] Shahla Carty 09/05/2018 09/06/2018 [facility] Procedures Procedure Code Date Perfomer Comments Source Cholecystectomy 44879307 [facility] Cholecystectomy [id number] [facility] Hernia repair [id number] [facility] Hysterectomy [id number] [facility] Bladder operation [id number] [facility] Assessment and Plan Assessment and Plan Date Source Extracted from:Title: Clinical Document Author: Wm Doyle MD Date: 09/06/18 Cardiology Progress Note Wm Doyle MD [facility] Subjective: Events noted, chart reviewed. [...] ml INJ 40 mg 0.4 mL, SUB-Q, [id number] lisinopril 20 mg TAB 40 mg 2 [...] mg rect SUPP 10 mg 1 supp, CO, Daily Dextrose 50% 50 ml INJ syringe [...] Fenofibrate and for elevated triglycerides along with [place] 2 fish oil capsules Discontinue atenolol - [...] DVT prophylaxis dr carty to follow 09/06/2018 [facility] Extracted from:Title: [facility] Hospitalist Service Discharge Summary Author: Slava Villatoro MD Date: 04/03/17 [facility] Hospitalist Service Discharge Summary PATIENT NAME:RADHA [...] Millan MD Date: 04/03/17 full H&P dictated, #[id number] date/time: 04/02/2017 22:45 04/04/2017 [facility] Plan of Care No Data Provided for This Section Social History Social History Date Source Social History TypeResponse Alcohol Never Smoking Status Never smoker; Exposure to Tobacco Smoke None; Cigarette Smoking Last 365 Days No; Reg Smoking Cessation Counseling No entered on: 09/05/18 04/03/2017 [facility] Social History ElementQualifiersDate Rep orted Do [...] US: . no Apr 28, 2016 04/28/2016 2.16.840.1.252305.4.391.11.72173 Social History ElementQualifiersDate Rep orted Do you take aspirin or a blood thinner drug? . NO FroylanSeu 09/05/2013 2:54:17 PM > Apr 10, 2015 [...] Comment not available August 25, 2015 09/22/2015 2.16.840.1.527839.4.391.11.72661 QualifierDescriptionCommentDate Reported Maternal Grandmother Comment not available [...] available Apr 10, 2015 04/14/2015 eCW: Kike Javris QualifierDescriptionCommentDate Reported Mother diabetes, heart disease, high [...]
--- OUTSIDE RECORDS SUMMARY | 2019-11-06 00:03 | XMS REPORT | Continuity of Care Document ---
Author Author [facility] t Organization [facility] Address [address] [place] [address] Phone Unavailable Care Team Providers Care Senior Automation Engineer Name Role Phone PRABHU ARCE MD PCP Harinder PEREZ Attphys Unavailable Payers Payer Name Policy Type Policy Number Effective Date Expiration Date Adrienne Kennedy [facility] [id number] 2016 00:00:00 [facility] Problems Condition Name Condition Details Condition Category Status Onset Date Resolution Date Last Treatment Date Treating Clinician Comments Source Chest pain Chest pain Problem Active [facility] Diabetes mellitus Diabetes Problem Active [facility] Hypertension Hypertension Problem Active [facility] Allergies, Adverse Reactions, Alerts Allergy Name Allergy Type Status Severity Reaction(s) Onset Date Inacti ve Date Treating Clinician Comments Source Metaxalone Allergy to Substance Active RASH 2016-02-06 00:00:00 [facility] Naproxen Allergy to Substance Active RASH 2016-02-06 00:00:00 [facility] Amoxicillin Allergy to Substance Active RASH 2016-02-06 00:00:00 [facility] Amitriptyline Allergy to Substance Active RASH 2016-02-06 00:00: 00 [facility] Medications Ordered Medication Name Filled Medication Name Start Date Stop Da te Current Medication? Ordering Clinician Indication Dosage Frequency Signature (SIG) Comments Components Source Amylas/Cellu/Lipas/Protea/Bile (Christiano Saleem 6,000 Units C apsule) 1 Ea Cap Amylas/Cellu/Lipas/Protea/Bile (Christiano Saleem 6,000 Units Capsule) 1 Ea Cap Yes 75919 Three Times A Day [facility] Atenolol 50 Mg Tablet Atenolol 50 Mg Tablet Yes 50 Daily [facility] Buspirone Hcl 5 Mg Tablet Buspirone Hcl 5 Mg Tablet Yes 15 Twice A Day [facility] Clonazepam (Klonopin) 1 Mg Tablet Clonazepam (Klonopin) 1 Mg Tablet Yes 1 Twice A Day [facility] Duloxetine Hcl (Cymbalta) 30 Mg Capsule. Duloxetine Hcl (Cymbalta) 30 Mg Capsule. Yes 30 Twice A Day [facility] Furosemide (Lasix) 40 Mg Tablet Furosemide (Lasix) 40 Mg Tablet Yes 40 Daily [facility] Hydrocodone Bit/Acetaminophen ([place] 10-325 Tablet) 1 Each Tablet Hydrocodone Bit/Acetaminophen ([place] 10-325 Tablet) 1 Each Tablet Yes 30 As Needed [facility] Insulin Aspart (Novolog Mix 70-30 Vial) 100 Units/Ml M l Insulin Aspart (Novolog Mix 70-30 Vial) 100 Units/Ml Ml Yes 15 Daily [facility] Insulin Npl/Insulin Lispro (Humalog Mix 75-25 Kwikpen) 100 Unit/1 Ml Insuln.pen Insulin Npl/Insulin Lispro (Humalog Mix 75-25 Kwikpen) 100 Unit/1 Ml Insuln.pen Yes 30 Twice A Day [facility] Lisinopril 10 Mg Tablet Lisinopril 10 Mg Tablet Yes 40 Daily [facility] Metformin Hcl 500 Mg Tablet Metformin Hcl 500 Mg Tablet Yes 1000 Twice A Day [facility] Metoclopramide Hcl 10 Mg Tablet Metoclopramide Hcl 10 Mg Tablet Yes 10 Four Times Daily [facility] Morphine Sulfate (Morphine Sulfate Er) 30 Mg Tablet.er Morphine Sulfate (Morphine Sulfate Er) 30 Mg Tablet.er Yes 30 As Needed [facility] Pantoprazole Sodium (Protonix) 40 Mg Tablet. Pantopr azole Sodium (Protonix) 40 Mg Tablet. Yes 40 Twice A Day [facility] Potassium Chloride 20 Meq Tab.er.prt Potassium Chloride 20 Meq Tab. er.prt Yes 20 Tw[address] A [address] [facility] Pregabalin (Lyrica) 75 Mg Cap Pregabalin (Lyrica) 75 Mg Cap Yes 75 Twice A Day [facility] Promethazine Hcl 25 Mg Tablet Promethazine Hcl 25 Mg Tablet Yes 25 As Needed [facility] Cholecalciferol (Vitamin D3) (Vitamin D) 400 Unit Caps ule, 400 Units Oral Cholecalciferol (Vitamin D3) (Vitamin D) 400 Unit Capsule, 400 Units Oral 2016-05-05 00:00:00 No 400 Daily [facility] Folic Acid 1 Mg Tablet, 1 Mg Oral Folic Acid 1 Mg Tablet, 1 Mg O ral 2016-05-05 00:00:00 No 1 Daily [facility] Hydrocodone Bit/Acetaminophen ([place] 5-325 Tablet) 1 E ach Tablet, 1 Each Oral Hydrocodone Bit/Acetaminophen ([place] 5-325 Tablet) 1 Each Tablet, 1 Each Oral 2016-05-05 00:00:00 No 1 [facility] Topiramate (Topamax) 15 Mg Cap.sprink, 20 Mg Oral Topi ramate (Topamax) 15 Mg Cap.sprink, 20 Mg Oral 2016-05-05 00:00:00 No 20 T wice A Day [facility] Procedures Procedure Date / Time Performed Performing Clinician [facility] X-ray of chest, two views 2017-08-25 00:00:00 PAMELA ROSENBAUM [facility] Encounters Start Date/Time End Date/Time Encounter Type Admission Type Attendi [facility] Care Department Encounter ID Source 2018-09-05 17:30:00 2018-09-05 17:30:00 Outpatient E [facility] MED [id number] 2017-10-25 20:45:00 2017-10-26 02:10:00 Departed Emergency Room [facility] [id number] [facility] 2017-08-25 21:15:00 2017-08-25 23:32:00 Departed Emergency Room 1 GUNJAN PEREZ [facility] [id number] [facility] 2016-07-17 05:12:00 2016-07-17 05:12:00 Emergency E [facility] [id number] [facility] Results Test Description Test Time Test Comments Results Result Comments Source Amylase Level 2017-10-26 01:06:00 Test Item Amylase Level (test code = 1798-8) 67 25-125 [facility]2018-08-23 01:06:00* Test Item Value Reference Range Interpretation Comments Lipase (test code = 3040-3) 43 8-78 [facility]hamUrine [id number] 22:35:00* Test Item Value Reference Range Interpretation Comments Urine WBC (test code = 5821-4) NONE 0-5 [facility]hamUrine [id number] 22:35:00* Test Item Value Reference Range Interpretation Comments Urine RBC (test code = 69911-4) NONE 0-5 [facility]hamUrine Qhqvctfg1295-26-03 22:35:00* Test Item Value Reference Range Interpretation Comments Urine Bacteria (test code = 38381-0) FEW NONE [facility]hamUrine Epithelial Ncorr2960-11-01 22:35:00 * Test Item Value Reference Range Interpretation Comments Urine Epithelial Cells (test code = 03449-1) MODERATE NONE [facility] [id number] 22:26:00* Test Item Value Reference Range Interpretation Comments Sodium Level (test code = 2951-2) 140 136-145 [facility]hamPotassium Xevqr2167-11-21 22:26:00* Test Item Value Reference Range Interpretation Comments Potassium Level (test code = 2823-3) 4.0 3.5-5.1 [facility]hamChloride [id number] 22:26:00* Test Item Value Reference Range Interpretation Comments Chloride Level (test code = 2075-0) 101 98-107 [facility] BrenhamCarbon Dioxide Qlday6327-41-75 22:26:00* Test Item Value Reference Range Interpretation Comments Carbon Dioxide Level (test code = 2028-9) 26 22-29 [facility] BrenhamAnion [id number] 22:26:00* Test Item Value Reference Range Interpretation Comments Anion Gap (test code = 34824-3) 17.0 8-16 H [facility]hamBlood Urea Xeguqnjo2299-43-27 22:26:00* Test Item Value Reference Range Interpretation Comments Blood Urea Nitrogen (test code = 3094-0) 17 7-26 [facility]hamCreatinine2018-08-22 22:26:00* Test Item Value Reference Range Interpretation Comments Creatinine (test code = 2160-0) 0.96 0.57-1.11 [facility]hamBUN/Creatinine Ajwck1041-63-05 22:26:00* Test Item Value Reference Range Interpretation Comments BUN/Creatinine Ratio (test code = 3097-3) 18 6-25 [facility]hamEstimat Glomerular Filtration Rate 2017-10-25 22:26:00* Test Item Value Reference Range Interpretation Comments Estimat Glomerular Filtration Rate (test code = 11951-5) 60- >60 Ranges were taken from the National Kidney Disease Education Program and the [facility] [employer] literature.Reference ranges:60 or greater: Stipft87-51 ( for 3 consecutive months): Chronic kidney disease 15 or less: Kidney failureBaylor Scott & White Medical Center – BrenhamGlucose Kermf2495-27-64 22:26:00* Test Item Value Reference Range Interpretation Comments Glucose Level (test code = CTZ3492) 118 74-118 [facility]hamCalcium Hwnuf7489-75-36 22:26:00* Test Item Value Reference Range Interpretation Comments Calcium Level (test code = 97039-0) 10.2 8.4-10.2 [facility]hamTotal Smqtvafku0975-97-40 22:26:00* Test Item Value Reference Range Interpretation Comments Total Bilirubin (test code = 1975-2) 0.3 0.2-1.2 [facility] BrenhamAspartate Amino Transf (AST/SGOT) 2017-10-25 22:26:00* Test Item Value Reference Range Interpretation Comments Aspartate Amino Transf (AST/SGOT) (test code = Aspartate Amino Transf (AST/SGOT)) 42 5-34 H [facility] BrenhamAlanine Aminotransferase (ALT/SGPT) 2017-10-25 22:26:00* Test Item Value Reference Range Interpretation Comments Alanine Aminotransferase (ALT/SGPT) (test code = 1742-6) 42 0-55 [facility]hamTotal Vhhoqha5258-73-65 22:26:00* Test Item Value Reference Range Interpretation Comments Total Protein (test code = 2885-2) 7.8 6.5-8.1 [facility] BrenhamAlbumin2018-08-22 22:26:00* Test Item Value Reference Range Interpretation Comments Albumin (test code = 1751-7) 3.8 3.5-5.0 [facility]hamGlobulin2018-08-22 22:26:00* Test Item Value Reference Range Interpretation Comments Globulin (test code = 65638-4) 4.0 2.3-3.5 H [facility] BrenhamAlbumin/Globulin Dpvlq7022-42-03 22:26:00 * Test Item Value Reference Range Interpretation Comments Albumin/Globulin Ratio (test code = 1759-0) 1.0 0.8-2.0 [facility] BrenhamAlkaline Snyzmqpytcw4976-40-35 22:26:00* Test Item Value Reference Range Interpretation Comments Alkaline Phosphatase (test code = 6768-6) 87 40-150 [facility] BrenhamUrine Bujdy5637-82-17 22:25:00* Test Item Value Reference Range Interpretation Comments Urine Color (test code = 5778-6) YELLOW YELLOW [facility] BrenhamUrine Bhtypra4725-06-73 22:25:00* Test Item Value Reference Range Interpretation Comments Urine Clarity (test code = 04931-0) SL CLOUDY CLEAR [facility] BrenhamUrine Specific Cjjhhfl4646-86-35 22:25:00 * Test Item Value Reference Range Interpretation Comments Urine Specific [place] (test code = 5811-5) 1.015 1.010-1.02 5 [facility] BrenhamUrine [id number] 22:25:00* Test Item Value Reference Range Interpretation Comments Urine pH (test code = 22005-9) 7 5-7 [facility]hamUrine Leukocyte Vxdswldj0708-24-77 22:25:00* Test Item Value Reference Range Interpretation Comments Urine Leukocyte Esterase (test code = 5799-2) NEGATIVE NEGATIVE [facility] BrenhamUrine Xgulhnx4297-62-95 22:25:00* Test Item Value Reference Range Interpretation Comments Urine Nitrite (test code = 81055-5) NEGATIVE NEGATIVE [facility] BrenhamUrine Rmdsmpa5219-41-03 22:25:00* Test Item Value Reference Range Interpretation Comments Urine Protein (test code = 5804-0) NEGATIVE NEGATIVE [facility] BrenhamUrine Glucose (UA)2017-10-25 22:25:00* Test Item Value Reference Range Interpretation Comments Urine Glucose (UA) (test code = 2349-9) 1+ NEGATIVE H [facility] BrenhamUrine Koqgqww6276-37-51 22:25:00* Test Item Value Reference Range Interpretation Comments Urine Ketones (test code = 20499-2) NEGATIVE NEGATIVE [facility] BrenhamUrine Dbkkjfpwituy8298-35-45 22:25:00* Test Item Value Reference Range Interpretation Comments Urine Urobilinogen (test code = 16332-2) 0.2 0.2-1 [facility] BrenhamUrine Lgtxkkctk9406-67-80 22:25:00* Test Item Value Reference Range Interpretation Comments Urine Bilirubin (test code = 1978-6) NEGATIVE NEGATIVE [facility] BrenhamUrine Hqazr0505-56-05 22:25:00* Test Item Value Reference Range Interpretation Comments Urine Blood (test code = 20480-9) NEGATIVE NEGATIVE [facility] BrenhamUrine Vbql1405-99-42 22:25:00* Test Item Value Reference Range Interpretation Comments Urine Test (test code = 2106-3) NEGATIVE NEGATIVE [facility] BrenhamWhite Blood Hplun2963-53-50 22:16:00* Test Item Value Reference Range Interpretation Comments White Blood Count (test code = 6690-2) 8.13 4.8-10.8 [facility] BrenhamRed Blood Phqnv2135-53-18 22:16:00* Test Item Value Reference Range Interpretation Comments Red Blood Count (test code = 789-8) 4.77 3.6-5.1 [facility]hamHemoglobin2018-08-22 22:16:00* Test Item Value Reference Range Interpretation Comments Hemoglobin (test code = 10803-7) 13.6 12.0-16.0 [facility] BrenhamHematocrit2018-08-22 22:16:00* Test Item Value Reference Range Interpretation Comments Hematocrit (test code = 4544-3) 39.2 34.2-44.1 [facility] BrenhamMean Corpuscular Quvnia0048-68-42 22:16:00* Test Item Value Reference Range Interpretation Comments Mean Corpuscular Volume (test code = 787-2) 82.2 81-99 [facility] BrenhamMean Corpuscular Gjsznfaufn2818-30-50 22:16:00* Test Item Value Reference Range Interpretation Comments Mean Corpuscular Hemoglobin (test code = 785-6) 28.5 28-32 [facility] BrenhamMean Corpuscular Hemoglobin Concent 2017-10-25 22:16:00* Test Item Value Reference Range Interpretation Comments Mean Corpuscular Hemoglobin Concent (test code = 786-4) 34.7 31-35 [facility] BrenhamRed Cell Distribution Dcsag4561-48-27 22:16:00* Test Item Value Reference Range Interpretation Comments Red Cell Distribution Width (test code = 23312-3) 12.6 11.7 -14.4 [facility] BrenhamPlatelet Nhoeh2392-84-17 22:16:00* Test Item Value Reference Range Interpretation Comments Platelet Count (test code = 777-3) 260 140-360 [facility] BrenhamNeutrophils (%) (Auto)2017-10-25 22:16:00 * Test Item Value Reference Range Interpretation Comments Neutrophils (%) (Auto) (test code = 78260-0) 54.9 38.7-80.0 [facility] BrenhamLymphocytes (%) (Auto)2017-10-25 22:16:00 * Test Item Value Reference Range Interpretation Comments Lymphocytes (%) (Auto) (test code = 736-9) 36.2 18.0-39.1 [facility]hamMonocytes (%) (Auto)2017-10-25 22:16:00* Test Item Value Reference Range Interpretation Comments Monocytes (%) (Auto) (test code = 5905-5) 5.8 4.4-11.3 [facility]hamEosinophils (%) (Auto)2017-10-25 22:16:00 * Test Item Value Reference Range Interpretation Comments Eosinophils (%) (Auto) (test code = 713-8) 2.0 0.0-6.0 [facility] BrenhamBasophils (%) (Auto)2017-10-25 22:16:00* Test Item Value Reference Range Interpretation Comments Basophils (%) (Auto) (test code = 706-2) 0.7 0.0-1.0 [facility] BrenhamIM GRANULOCYTES %2017-10-25 22:16:00* Test Item Value Reference Range Interpretation Comments IM GRANULOCYTES % (test code = IM GRANULOCYTES %) 0.4 0.0- 1.0 [facility]hamNeutrophils # (Auto)2017-10-25 22:16:00* Test Item Value Reference Range Interpretation Comments Neutrophils # (Auto) (test code = 751-8) 4.5 2.1-6.9 [facility] BrenhamLymphocytes # (Auto)2017-10-25 22:16:00* Test Item Value Reference Range Interpretation Comments Lymphocytes # (Auto) (test code = 84329-4) 2.9 1.0-3.2 [facility]hamMonocytes # (Auto)2017-10-25 22:16:00* Test Item Value Reference Range Interpretation Comments Monocytes # (Auto) (test code = 742-7) 0.5 0.2-0.8 [facility]hamEosinophils # (Auto)2017-10-25 22:16:00* Test Item Value Reference Range Interpretation Comments Eosinophils # (Auto) (test code = 711-2) 0.2 0.0-0.4 [facility]hamBasophils # (Auto)2017-10-25 22:16:00* Test Item Value Reference Range Interpretation Comments Basophils # (Auto) (test code = 704-7) 0.1 0.0-0.1 [facility] BrenhamAbsolute Immature Granulocyte (auto 2017-10-25 22:16:00* Test Item Value Reference Range Interpretation Comments Absolute Immature Granulocyte (auto (jareth t code = Absolute Immature Granulocyte (auto) 0.03 0-0.1 [facility] BrenhamCreatine Kinase [id number] 22:08:00* Test Item Value Reference Range Interpretation Comments Creatine Kinase MB (test code = 93215-5) 0.40 0-5.0 [facility]ernin [id number] 22:08:00* Test Item Value Reference Range Interpretation Comments Troponin I (test code = DVM8987) -0.001 0-0.300 [facility] BrenhamCreatine Kinase [id number] 22:08:00* Test Item Value Reference Range Interpretation Comments Creatine Kinase MB (test code = 22014-1) 0.40 0-5.0 [facility]erniG[facility] CenterR9377-32-88 22:08:00* Test Item Value Reference Range Interpretation Comments Troponin I (test code = JWF7202) -0.001 0-0.300 [facility] BrenhamCHEST 2 [id number] 22:04:00 [place] [address] Patient Name: RADHA BOUDREAUX MR #: [id number] : 0 1965 Age/Sex: 52/F Req #: [id number] Adm Physician: Ordered by: KARO ROSENBAUM Report #: [id number] Location: ER Room /Bed: Procedure: [id number] DX/CHEST 2 VIEWS Exam Shiv e: Exam [...] MD 04 COPY TO: KARO ROSENBAUM Magnesium Skgqt4726-19-08 22:01:00* Test Item Value Reference Range Interpretation Comments Magnesium Level (test code = 23529-0) 1.7 1.3-2.1 [facility] BrenhamCreatine Hshrnp6475-08-55 22:01:00* Test Item Value Reference Range Interpretation Comments Creatine Kinase (test code = 2157-6) 54 29-168 [facility] BrenhamAmylase Lbqur8580-87-36 22:01:00* Test Item Value Reference Range Interpretation Comments Amylase Level (test code = 1798-8) 63 25-125 [facility] BrenhamLipase2018-06-22 22:01:00* Test Item Value Reference Range Interpretation Comments Lipase (test code = 3040-3) 25 8-78 [facility] BrenhamMagnesium Szxmt3351-62-62 22:01:00* Test Item Value Reference Range Interpretation Comments Magnesium Level (test code = 00689-3) 1.7 1.3-2.1 [facility] BrenhamCreatine Vemjzk8478-79-33 22:01:00* Test Item Value Reference Range Interpretation Comments Creatine Kinase (test code = 2157-6) 54 29-168 [facility]odium Rhovt3560-74-63 22:00:00* Test Item Value Reference Range Interpretation Comments Sodium Level (test code = 2951-2) 138 136-145 [facility] BrenhamPotassium Huakr4957-21-20 22:00:00* Test Item Value Reference Range Interpretation Comments Potassium Level (test code = 2823-3) 3.9 3.5-5.1 [facility] BrenhamChloride Htenk1110-88-70 22:00:00* Test Item Value Reference Range Interpretation Comments Chloride Level (test code = 2075-0) 100 98-107 [facility] BrenhamCarbon Dioxide Jsutk7449-66-59 22:00:00* Test Item Value Reference Range Interpretation Comments Carbon Dioxide Level (test code = 2028-9) 27 22-29 [facility] BrenhamAnion Scs0415-10-73 22:00:00* Test Item Value Reference Range Interpretation Comments Anion Gap (test code = 04237-2) 14.9 8-16 [facility] BrenhamBlood Urea Pchgiwib0861-03-06 22:00:00* Test Item Value Reference Range Interpretation Comments Blood Urea Nitrogen (test code = 3094-0) 12 7-26 [facility] BrenhamCreatinine2018-06-22 22:00:00* Test Item Value Reference Range Interpretation Comments Creatinine (test code = 2160-0) 0.97 0.57-1.11 [facility] BrenhamBUN/Creatinine Xvjyr9843-09-98 22:00:00* Test Item Value Reference Range Interpretation Comments BUN/Creatinine Ratio (test code = 3097-3) 12 6-25 [facility] BrenhamEstimat Glomerular Filtration Rate 2017-08-25 22:00:00* Test Item Value Reference Range Interpretation Comments Estimat Glomerular Filtration Rate (test code = 64910-2) 60 >60 Ranges were taken from the National Kidney Disease Education Program and the [facility] Foundation literature.Reference ranges:60 or greater: Kozcgd84-63 ( for 3 consecutive months): Chronic kidney disease 15 or less: Kidney failureBaylor Scott & White Medical Center – BrenhamGlucose Nhnsx4933-24-36 22:00:00* Test Item Value Reference Range Interpretation Comments Glucose Level (test code = WQP9863) 108 74-118 [facility] BrenhamCalcium Envxq7586-05-38 22:00:00* Test Item Value Reference Range Interpretation Comments Calcium Level (test code = 72579-3) 10.0 8.4-10.2 [facility] BrenhamTotal Bnqrdrghu4446-59-40 22:00:00* Test Item Value Reference Range Interpretation Comments Total Bilirubin (test code = 1975-2) 0.3 0.2-1.2 [facility] BrenhamAspartate Amino Transf (AST/SGOT) 2017-08-25 22:00:00* Test Item Value Reference Range Interpretation Comments Aspartate Amino Transf (AST/SGOT) (test code = Aspartate Amino Transf (AST/SGOT)) 26 5-34 [facility] BrenhamAlanine Aminotransferase (ALT/SGPT) 2017-08-25 22:00:00* Test Item Value Reference Range Interpretation Comments Alanine Aminotransferase (ALT/SGPT) (test code = 1742-6) 21 0-55 [facility] BrenhamTotal Ekeedmz3221-50-06 22:00:00* Test Item Value Reference Range Interpretation Comments Total Protein (test code = 2885-2) 8.0 6.5-8.1 [facility] BrenhamAlbumin2018-06-22 22:00:00* Test Item Value Reference Range Interpretation Comments Albumin (test code = 1751-7) 3.9 3.5-5.0 [facility] BrenhamGlobulin2018-06-22 22:00:00* Test Item Value Reference Range Interpretation Comments Globulin (test code = 59217-9) 4.1 2.3-3.5 H [facility] BrenhamAlbumin/Globulin Zquho9727-32-79 22:00:00 * Test Item Value Reference Range Interpretation Comments Albumin/Globulin Ratio (test code = 1759-0) 1.0 0.8-2.0 [facility] BrenhamAlkaline Ayshgazfdhn9782-17-49 22:00:00* Test Item Value Reference Range Interpretation Comments Alkaline Phosphatase (test code = 6768-6) 74 40-150 [facility] BrenhamUrine RFZ5660-48-31 21:51:00* Test Item Value Reference Range Interpretation Comments Urine WBC (test code = 5821-4) 0-5 0-5 [facility] BrenhamUrine AAT4619-50-24 21:51:00* Test Item Value Reference Range Interpretation Comments Urine RBC (test code = 94827-6) 0-5 0-5 [facility] BrenhamUrine Wnmfrfsm6899-95-43 21:51:00* Test Item Value Reference Range Interpretation Comments Urine Bacteria (test code = 49409-3) NONE NONE [facility]ham[facility] Epithelial [id number] 21:51:00 * Test Item Value Reference Range Interpretation Comments Urine Epithelial Cells (test code = 83126-2) NONE NONE [facility] [id number] 21:51:00* Test Item Value Reference Range Interpretation Comments Urine Mucus (test code = 8247-9) FEW RARE H [facility] [id number] 21:51:00* Test Item Value Reference Range Interpretation Comments Urine Mucus (test code = 8247-9) FEW RARE H [facility] [id number] 21:44:00* Test Item Value Reference Range Interpretation Comments Urine Color (test code = 5778-6) YELLOW YELLOW [facility] [id number] 21:44:00* Test Item Value Reference Range Interpretation Comments Urine Clarity (test code = 68173-3) CLEAR CLEAR [facility] Specific [id number] 21:44:00 * Test Item Value Reference Range Interpretation Comments Urine Specific [place] (test code = 5811-5) 1.015 1.010-1.02 5 [facility] [id number] 21:44:00* Test Item Value Reference Range Interpretation Comments Urine pH (test code = 58765-6) 6 5-7 [facility] Leukocyte Epxzvhmc7108-92-10 21:44:00* Test Item Value Reference Range Interpretation Comments Urine Leukocyte Esterase (test code = 5799-2) NEGATIVE NEGATIVE [facility] [id number] 21:44:00* Test Item Value Reference Range Interpretation Comments Urine Nitrite (test code = 02732-8) NEGATIVE NEGATIVE [facility] [id number] 21:44:00* Test Item Value Reference Range Interpretation Comments Urine Protein (test code = 5804-0) NEGATIVE NEGATIVE [facility] Glucose (UA)2017-08-25 21:44:00* Test Item Value Reference Range Interpretation Comments Urine Glucose (UA) (test code = 2349-9) NEGATIVE NEGATIVE [facility] [id number] 21:44:00* Test Item Value Reference Range Interpretation Comments Urine Ketones (test code = 09377-6) NEGATIVE NEGATIVE [facility] Gsceryimziam6349-15-85 21:44:00* Test Item Value Reference Range Interpretation Comments Urine Urobilinogen (test code = 40213-0) 0.2 0.2-1 [facility] Poxrnehgy5316-57-01 21:44:00* Test Item Value Reference Range Interpretation Comments Urine Bilirubin (test code = 1978-6) NEGATIVE NEGATIVE [facility] [id number] 21:44:00* Test Item Value Reference Range Interpretation Comments Urine Blood (test code = 85581-2) NEGATIVE NEGATIVE [facility] Blood [id number] 21:42:00* Test Item Value Reference Range Interpretation Comments White Blood Count (test code = 6690-2) 5.37 4.8-10.8 [facility]ham[facility] Blood [id number] 21:42:00* Test Item Value Reference Range Interpretation Comments Red Blood Count (test code = 789-8) 5.27 3.6-5.1 H [facility]hamHemoglobin2018-06-22 21:42:00* Test Item Value Reference Range Interpretation Comments Hemoglobin (test code = 20128-8) 14.4 12.0-16.0 [facility]Hematocrit2018-06-22 21:42:00* Test Item Value Reference Range Interpretation Comments Hematocrit (test code = 4544-3) 42.5 34.2-44.1 [facility]hamMean Corpuscular [id number] 21:42:00* Test Item Value Reference Range Interpretation Comments Mean Corpuscular Volume (test code = 787-2) 80.6 81-99 L [facility]hamMean Corpuscular Vdvojbgfav4159-10-83 21:42:00* Test Item Value Reference Range Interpretation Comments Mean Corpuscular Hemoglobin (test code = 785-6) 27.3 28-32 L [facility]hamMean Corpuscular Hemoglobin Concent 2017-08-25 21:42:00* Test Item Value Reference Range Interpretation Comments Mean Corpuscular Hemoglobin Concent (test code = 786-4) 33.9 31-35 [facility]ham[facility] Cell Distribution [id number] 21:42:00* Test Item Value Reference Range Interpretation Comments Red Cell Distribution Width (test code = 74672-6) 14.8 11.7 -14.4 H [facility]hamPlatelet Tieoy7571-03-57 21:42:00* Test Item Value Reference Range Interpretation Comments Platelet Count (test code = 777-3) 239 140-360 [facility]hamNeutrophils (%) (Auto)2017-08-25 21:42:00 * Test Item Value Reference Range Interpretation Comments Neutrophils (%) (Auto) (test code = 13632-0) 38.7 38.7-80.0 [facility]hamLymphocytes (%) (Auto)2017-08-25 21:42:00 * Test Item Value Reference Range Interpretation Comments Lymphocytes (%) (Auto) (test code = 736-9) 49.9 18.0-39.1 H [facility]hamMonocytes (%) (Auto)2017-08-25 21:42:00* Test Item Value Reference Range Interpretation Comments Monocytes (%) (Auto) (test code = 5905-5) 7.1 4.4-11.3 [facility]hamEosinophils (%) (Auto)2017-08-25 21:42:00 * Test Item Value Reference Range Interpretation Comments Eosinophils (%) (Auto) (test code = 713-8) 3.5 0.0-6.0 [facility]ham[facility]ophils (%) (Auto)2017-08-25 21:42:00* Test Item Value Reference Range Interpretation Comments Basophils (%) (Auto) (test code = 706-2) 0.6 0.0-1.0 [facility]hamIM GRANULOCYTES %2017-08-25 21:42:00* Test Item Value Reference Range Interpretation Comments IM GRANULOCYTES % (test code = IM GRANULOCYTES %) 0.2 0.0- 1.0 [facility]hamNeutrophils # (Auto)2017-08-25 21:42:00* Test Item Value Reference Range Interpretation Comments Neutrophils # (Auto) (test code = 751-8) 2.1 2.1-6.9 [facility]hamLymphocytes # (Auto)2017-08-25 21:42:00* Test Item Value Reference Range Interpretation Comments Lymphocytes # (Auto) (test code = 99970-8) 2.7 1.0-3.2 [facility]hamMonocytes # (Auto)2017-08-25 21:42:00* Test Item Value Reference Range Interpretation Comments Monocytes # (Auto) (test code = 742-7) 0.4 0.2-0.8 [facility]hamEosinophils # (Auto)2017-08-25 21:42:00* Test Item Value Reference Range Interpretation Comments Eosinophils # (Auto) (test code = 711-2) 0.2 0.0-0.4 [facility]hamBasophils # (Auto)2017-08-25 21:42:00* Test Item Value Reference Range Interpretation Comments Basophils # (Auto) (test code = 704-7) 0.0 0.0-0.1 [facility]hamAbsolute Immature Granulocyte (auto 2017-08-25 21:42:00* Test Item Value Reference Range Interpretation Comments Absolute Immature Granulocyte (auto (jareth t code = Absolute Immature Granulocyte (auto) 0.01 0-0.1 [facility] BrenhamCT HEAD OR BRAIN WO [id number] 06:24:40CT BRAIN WITHOUT CONTRAST:COMPARISON: No prior studies.CLINICAL [...]
[2019-11-06] MEDS ORDERED: SODIUM CHLORIDE 0.9% 1000ML 1,000 ML IV ONE (00:15)
--- NOTE | 2019-11-06 00:30 | NUR ---
Received patient from ER. Pt AAOx4. Able to make needs known. C/o pain to left axilla. Rates a 5/10 but states she took norco and morphine prior to coming in to ER. Dressing site saturated with greenish red drainage. Two abcess sites noted and continue to drain. Cleaned with NS, applied 4x4 and abd pain and covered. Non skid socks applied, bed in locked and low position. Call light in reach. Will cont to monitor.
[2019-11-06] MEDS ORDERED: DOXYCYCLINE HY100 MG PO (01:25)
[2019-11-06] MEDS ORDERED: CIPRO500 MG PO (01:25)
[2019-11-06] MEDS: VANCOMYCIN 1GM/NS 250 ML 250 ML IV SCH ×2 (01:38→12:53)
[2019-11-06 05:53] LABS: BASOPHILS # (AUTO) 0.1 (0.0-0.1); BASOPHILS % 0.8 % (0.0-1.0); EOSINOPHILS # (AUTO) 0.2 (0.0-0.4); HEMATOCRIT 30.2 % (34.2-44.1); HEMOGLOBIN 9.7 g/dL (12.0-16.0); LYMPHOCYTES # (AUTO) 2.4 (1.0-3.2); LYMPHOCYTES % 25.7 % (18.0-39.1); MEAN CORPUSCULAR HEMOGLOBIN 28.2 pg (28-32); MEAN CORPUSCULAR HGB CONC 32.1 g/dL (31-35); MEAN CORPUSCULAR VOLUME 87.8 fL (81-99); MONOCYTES # (AUTO) 0.6 (0.2-0.8); NEUTROPHILS # (AUTO) 5.9 (2.1-6.9); NEUTROPHILS % 63.3 % (38.7-80.0); PLATELET COUNT 501 x10e3/uL (140-360); RED BLOOD COUNT 3.44 x10e6/uL (3.6-5.1); RED CELL DISTRIBUTION WIDTH 13.3 % (11.7-14.4)
[2019-11-06] MEDS: PIPER-TAZ 3.375 GM 50 ML IV SCH ×3 (06:11→21:38)
[2019-11-06 06:16] LABS: ALBUMIN 3.7 g/dL (3.5-5.0); ANION GAP 16.8 mmol/L (8-16); CALCIUM 8.6 mg/dL (8.4-10.2); CREATININE, SERUM 1.11 mg/dL (0.57-1.11); POTASSIUM 3.8 mmol/L (3.5-5.1)
--- NOTE | 2019-11-06 07:24 | NUR ---
H&P cc: pain HPI: 54yoF, PCP , developed left ampit pain, "pimple", worsened, went to PCP, given antibiotics, doxycycline and cipro, worsened, then drainage of white pus, came to ER. No prior similar events in past. PMH: DM2, HTN, chronic pancreatitis, pancreatic insufficiency, chronic pain syndrome, fibromyalgia, DM-neuropathy, atypical CP PSHx: cholecystectomy, bladder suspension, carpal tunnel release, ear, hysterectomy Allergies; see emr Fh/SH: ; no cigs Meds; see MAR ROS: no f/c/s/N/V/D/GUO/cp/sob/confusion/vision changes/leg pain/dizziness v/s revd PE tired appearing anicteric ns1s2 mod bs soft nt nd LEFT AMPITWITH ERYTHEMA/WARMTH/TENDERNESS/PUS DRAINAGE/EDEMA skin dry flat affect a&ox3; oleary labs/meds revd A/P: Hidradinitis suppurativa- IV zosyn/vanco; sx eval LILIANA- hold aceI; hold lasix DM2- hab1c/lipids HTN- cont meds Chr pain syndrome- home meds Fibromyalgia- home meds Prop; scd Dispo ;f/u Long Roche MD, PhD.
[2019-11-06] MEDS: INSULIN REGULAR, HUMAN 100 UNIT/1 ML 3ML VIAL SQ SCH ×4 (07:30→21:00)
[2019-11-06] MEDS ORDERED: DOCUSATE SODIUM 100 MG CAP PO PRN (07:30)
[2019-11-06 07:39] LABS: CHOL/HDL RATIO 3.8 (3.0-3.6)
[2019-11-06] MEDS: SODIUM CHLORIDE 0.9% 1000ML 1,000 ML IV SCH ×2 (08:24→16:40)
[2019-11-06] MEDS: CLONAZEPAM 1 MG TAB PO SCH ×2 (08:24→16:40)
[2019-11-06] MEDS: AMYLAS/CELLU/LIPAS/PROTEA/BILE 12,000 UNIT CAP PO SCH ×3 (08:24→20:33)
[2019-11-06] MEDS: MORPHINE SULFATE 2 MG/ML SYR 1ML IV PRN ×4 (08:25→21:00)
[2019-11-06] MEDS: PANTOPRAZOLE SOD 40 MG TABEC PO SCH ×2 (08:25→16:40)
[2019-11-06] MEDS ORDERED: METOCLOPRAMIDE HCL 10 MG/2ML VIAL ONE (08:46)
[2019-11-06] MEDS ORDERED: ONDANSETRON HCL INJ 2MG/ML 2ML 2 MG/ML VIAL ONE (08:46)
[2019-11-06] MEDS ORDERED: [UNRECOGNIZED DRUG - OTHER] SQ SCH (09:00)
[2019-11-06] MEDS ORDERED: INSULIN NPL SQ SCH (09:00)
[2019-11-06] MEDS ORDERED: INSULIN LISPRO SQ SCH (09:00)
[2019-11-06] MEDS: ONDANSETRON HCL INJ 2MG/ML 2ML 2 MG/ML VIAL IV PRN ×2 (11:03→20:33)
--- NOTE | 2019-11-06 12:00 | NUR ---
dressing to armpit changed due to lots of drainage.
--- NOTE | 2019-11-06 12:52 | Consultation ---
DATE OF CONSULTATION: 11/06/2019 CHIEF COMPLAINT: Axillary infection. HISTORY OF PRESENT ILLNESS: The patient is a 54-year-old female with 1-week history of progressive left axillary infection progressing to a large abscess, which spontaneously drained in the last 24 hours. The patient denies history of prior episode. She has been taking oral antibiotics by her PCP without resolution. PAST MEDICAL HISTORY: Positive for history of hidradenitis, hypertension, diabetes, fibromyalgia, and pancreatitis. PAST SURGICAL HISTORY: Positive for hysterectomy. ALLERGIES: SHE IS ALLERGIC TO AMITRIPTYLINE, NAPROSYN, AND METAXALONE. SOCIAL HABITS: She does not smoke or drink. REVIEW OF SYSTEMS: No chest pain, shortness of breath, or cough. PHYSICAL EXAMINATION: VITAL SIGNS: Stable. She is afebrile. GENERAL: She is awake, alert, in moderate to severe discomfort. HEENT: Sclerae anicteric. NECK: Supple. LUNGS: Clear. HEART: Regular rate and rhythm. ABDOMEN: Soft. EXTREMITIES: Axillary space in the left side revealed erythema, induration with multiple small fistula opening, draining purulent material. LABORATORY DATA: White cell count is 9.2, hemoglobin of 9.7, and platelets count of 500. Glucose is 156 and creatinine 1.1. ASSESSMENT: Left axillary abscess, spontaneously drained, likely secondary to hidradenitis suppurativa. PLAN: Continue IV antibiotics. The patient has requested incision and drainage to promote quicker resolution. Leonel Rashid MD DNL/MODL /[id number]
[2019-11-06] MEDS: HYDROCODONE/APAP 10MG-325MG TAB PO PRN (12:53)
[2019-11-06] MEDS: GABAPENTIN 100 MG CAP PO SCH ×2 (15:13→20:33)
[2019-11-06] MEDS: ACETAMINOPHEN 325 MG TAB PO PRN (17:13)
--- NOTE | 2019-11-06 18:31 | NUR ---
dressing changed again. lots of green/ yellow drainage from underarm. consent completed and placed on chart. patient aware of NPO status at midnight and plan for surgery tomorrow.
--- NOTE | 2019-11-06 19:05 | NUR ---
Completed bedside shift report with morning nurse. Pt alert and oriented, lying in bed HOB 45 degrees, c/o mild left axillary pain d/t abscess. Call light within reach. Bed low and locked.
[2019-11-06] MEDS: ZOLPIDEM TARTRATE 5 MG TAB PO PRN (21:00)
[2019-11-07] VITALS (7 sets, daily range): BP systolic 141–166; BP diastolic 73–88
[2019-11-07] MEDS: HYDROCODONE/APAP 10MG-325MG TAB PO PRN ×2 (00:10→15:44)
[2019-11-07] MEDS: VANCOMYCIN 1GM/NS 250 ML 250 ML IV SCH ×2 (00:14→12:46)
[2019-11-07] MEDS ORDERED: PNEUMOCOCCAL VACCINE POLYVALENT 23 MCG/0.5 ML VIAL IM SCH (01:27)
[2019-11-07] MEDS: ACETAMINOPHEN 325 MG TAB PO PRN (03:00)
[2019-11-07] MEDS: MORPHINE SULFATE 2 MG/ML SYR 1ML IV PRN ×3 (03:00→20:30)
[2019-11-07] MEDS: PIPER-TAZ 3.375 GM 50 ML IV SCH ×3 (06:00→21:45)
[2019-11-07] MEDS: SODIUM CHLORIDE 0.9% 1000ML 1,000 ML IV SCH ×3 (06:00→15:46)
--- NOTE | 2019-11-07 06:45 | NUR ---
IM- progress note O/N see below ROS: no f/c/s/N/V/D/GUO/cp/sob/confusion/vision changes/leg pain/dizziness v/s revd PE tired appearing anicteric ns1s2 mod bs soft nt nd LEFT AMPITWITH ERYTHEMA/WARMTH/TENDERNESS/PUS DRAINAGE/EDEMA skin dry flat affect a&ox3; oleary labs/meds revd A/P: Hidradinitis suppurativa- IV zosyn/vanco; sx eval LILIANA- hold aceI; hold lasix DM2- hab1c/lipids HTN- cont meds Chr pain syndrome- home meds Fibromyalgia- home meds Prop; scd Dispo ;f/u 9-3 Hba1c/LDL .3; Uncontrolled; check renal fn today; improving; I&D planned. Long Roche MD, PhD.
[2019-11-07] MEDS ORDERED: BUPIVACAINE 0.5%/EPI 30 ML SDV INJ ONE (07:19)
[2019-11-07] MEDS ORDERED: ONDANSETRON HCL INJ 2MG/ML 2ML 2 MG/ML VIAL ONE ×2 (08:57→19:45)
[2019-11-07] MEDS ORDERED: FENTANYL CITRATE/PF 100MCG/2 ML INJ ONE ×2 (08:58→19:45)
[2019-11-07] MEDS: INSULIN ASPART 70/30 100 UNITS/ML VIAL SC SCH (09:19)
[2019-11-07] MEDS: INSULIN REGULAR, HUMAN 100 UNIT/1 ML 3ML VIAL SQ SCH ×4 (09:19→20:44)
[2019-11-07] MEDS: CLONAZEPAM 1 MG TAB PO SCH ×2 (09:41→16:26)
[2019-11-07] MEDS: PANTOPRAZOLE SOD 40 MG TABEC PO SCH ×2 (09:42→16:26)
[2019-11-07] MEDS: GABAPENTIN 100 MG CAP PO SCH ×3 (09:42→20:42)
[2019-11-07 10:40] LABS: BASOPHILS # (AUTO) 0.1 (0.0-0.1); BASOPHILS % 0.8 % (0.0-1.0); EOSINOPHILS # (AUTO) 0.1 (0.0-0.4); EOSINOPHILS % 0.9 % (0.0-6.0); HEMATOCRIT 28.4 % (34.2-44.1); HEMOGLOBIN 9.1 g/dL (12.0-16.0); LYMPHOCYTES % 15.5 % (18.0-39.1); MEAN CORPUSCULAR HEMOGLOBIN 27.2 pg (28-32); MEAN CORPUSCULAR VOLUME 84.8 fL (81-99); MONOCYTES # (AUTO) 0.1 (0.2-0.8); NEUTROPHILS # (AUTO) 5.1 (2.1-6.9); NEUTROPHILS % 78.3 % (38.7-80.0); PLATELET COUNT 457 x10e3/uL (140-360); RED BLOOD COUNT 3.35 x10e6/uL (3.6-5.1); RED CELL DISTRIBUTION WIDTH 12.8 % (11.7-14.4)
[2019-11-07 11:09] LABS: ANION GAP 14.3 mmol/L (8-16); BLOOD UREA NITROGEN 10 mg/dL (7-26); BUN/CREATININE RATIO 12 (6-25); CALCIUM 8.2 mg/dL (8.4-10.2); CARBON DIOXIDE 23 mmol/L (22-29); CHLORIDE 106 mmol/L (98-107); CREATININE, SERUM 0.85 mg/dL (0.57-1.11); EST GLOMERULAR FILTRATION RATE > 60 ML/MIN (60-); GLUCOSE 195 mg/dL (74-118); POTASSIUM 4.3 mmol/L (3.5-5.1); SODIUM 139 mmol/L (136-145)
[2019-11-07] MEDS: AMYLAS/CELLU/LIPAS/PROTEA/BILE 12,000 UNIT CAP PO SCH ×3 (11:22→20:42)
--- NOTE | 2019-11-07 11:37 | Operative Report ---
DATE OF PROCEDURE: 11/07/2019 SURGEON: Leonel Rashid MD PREOPERATIVE DIAGNOSIS: Left axillary abscess. POSTOPERATIVE DIAGNOSIS: Left axillary abscess. OPERATIVE PROCEDURE: Debridement of left axillary hidradenitis suppurative abscess. ANESTHESIA: General, Dr. Shipman. INDICATION: A 54-year-old female with one-week history of left axillary abscess formation secondary to hidradenitis suppurative. The patient consented for debridement. Attending risks discussed. DESCRIPTION OF PROCEDURE: The patient was brought to the OR intubated. The left axillary space was exposed by abduction of the arm. The axillary space was prepped with alcohol and draped in sterile fashion. The patient had multiple skin opening which connected by dividing the intervening skin. Entering the large abscess cavity with purulent material, swab specimen obtained for culture and sensitivity. Using digital dissection, the cavity was thoroughly explored resulting in a large tunneling wound in all directions secondary to the hidradenitis process. All abscess cavities were opened and debrided removing necrotic fatty tissue and skin. The wound was then irrigated. Hemostasis achieved with cauterization and packed with iodoform gauze. Hemostasis achieved using 4 x 4 and pressure dressing. The patient tolerated the procedure and was extubated and transported to recovery room. BLOOD LOSS: 10 mL. Leonel Rashid MD DNL/MODL /[id number]
--- NOTE | 2019-11-07 11:51 | NUR ---
Consult for wound care given Nursing contacted patient status post op left ankle per Dr Rashid 11/07/2019 post operative orders for dressing documented per orders reconsult wound care for further needs Addendum: 11/07/19 at 1151 by Enzo Hines RN Amended: Links added.
[2019-11-07] MEDS ORDERED: SEVOFLURANE INHAL SOLN 250 ML PEN BTL ONE (19:45)
[2019-11-07] MEDS ORDERED: DEXAMETHASONE SOD PHOS INJ 4 MG/ML VIAL ONE (19:45)
[2019-11-07] MEDS ORDERED: MIDAZOLAM HCL 2 MG/2 ML VIAL ONE (19:45)
[2019-11-07] MEDS ORDERED: KETOROLAC TROMETHAMINE 30 MG/ML VIAL ONE (19:45)
[2019-11-07] MEDS ORDERED: PROPOFOL IV EMULSION 10 MG/ML 20 ML VIAL ONE (19:45)
[2019-11-07] MEDS ORDERED: LIDOCAINE HCL 2% LOCAL INJ 5 ML SDV VIAL INJ ONE (19:45)
[2019-11-07] MEDS: ZOLPIDEM TARTRATE 5 MG TAB PO PRN (20:30)
[2019-11-07] MEDS: ONDANSETRON HCL 4 MG ORAL DISINTEGRATING TAB PO PRN (20:40)
[2019-11-08] VITALS (8 sets, daily range): BP systolic 149–169; BP diastolic 71–115
[2019-11-08] MEDS: VANCOMYCIN 1GM/NS 250 ML 250 ML IV SCH ×3 (00:55→23:56)
[2019-11-08] MEDS: SODIUM CHLORIDE 0.9% 1000ML 1,000 ML IV SCH ×4 (05:00→23:56)
[2019-11-08] MEDS: MORPHINE SULFATE 2 MG/ML SYR 1ML IV PRN (05:30)
[2019-11-08] MEDS: PIPER-TAZ 3.375 GM 50 ML IV SCH ×3 (05:38→21:46)
--- NOTE | 2019-11-08 06:47 | NUR ---
IM- progress note O/N see below ROS: no f/c/s/N/V/D/GUO/cp/sob/confusion/vision changes/leg pain/dizziness v/s revd PE tired appearing anicteric ns1s2 mod bs soft nt nd LEFT AMPITWITH ERYTHEMA/WARMTH/TENDERNESS/PUS DRAINAGE/EDEMA skin dry flat affect a&ox3; oleary labs/meds revd A/P: Hidradinitis suppurativa- IV zosyn/vanco; sx eval LILIANA- hold aceI; hold lasix DM2- hab1c/lipids HTN- cont meds Chr pain syndrome- home meds Fibromyalgia- home meds Prop; scd Dispo ;f/u 9-3 Hba1c/LDL 11.3; Uncontrolled; check renal fn today; improving; I&D planned. 9-4 control glucose- start lantus; control BP and pain. Long Roche MD, PhD.
[2019-11-08] MEDS ORDERED: INSULIN GLARGINE 100 UNITS/ML VIAL SQ ONE (06:54)
[2019-11-08] MEDS ORDERED: TRAMADOL HCL 50 MG TAB PO PRN (07:00)
--- NOTE | 2019-11-08 08:16 | NUR ---
GAVE PACKET OF INFORMATION WITH [employer] FOR ASSISTANCE WITH LOW TO NO INCOME TO PATIENT. RESOURCES THAT PATIENT MAY BE ABLE TO FOLLOW UP UPON DISCHARGE. PT EDUCATED ON EACH RESOURCE AND UNDERSTANDING HOW TO FOLLOW UP TO SEE IF QUALIFIED FOR EACH RESOURCE.
[2019-11-08] MEDS: AMYLAS/CELLU/LIPAS/PROTEA/BILE 12,000 UNIT CAP PO SCH ×3 (09:56→20:51)
[2019-11-08] MEDS: CLONAZEPAM 1 MG TAB PO SCH ×2 (09:56→17:31)
[2019-11-08] MEDS: METOPROLOL TARTRATE 25 MG TAB PO SCH ×2 (09:56→17:33)
[2019-11-08] MEDS: GABAPENTIN 100 MG CAP PO SCH ×3 (09:57→20:51)
[2019-11-08] MEDS: PANTOPRAZOLE SOD 40 MG TABEC PO SCH ×2 (09:57→17:33)
[2019-11-08] MEDS: INSULIN ASPART 70/30 100 UNITS/ML VIAL SC SCH (09:58)
[2019-11-08] MEDS: INSULIN REGULAR, HUMAN 100 UNIT/1 ML 3ML VIAL SQ SCH ×4 (09:59→20:28)
[2019-11-08] MEDS: HYDROCODONE/APAP 10MG-325MG TAB PO PRN ×3 (10:14→20:51)
[2019-11-08] MEDS: ONDANSETRON HCL 4 MG ORAL DISINTEGRATING TAB PO PRN ×2 (12:23→19:41)
--- NOTE | 2019-11-08 13:40 | NUR ---
WOUND CARE NURSE CONSULTATION. 54 YEAR OLD MALE ADMITTED TO [facility] WITH LEFT AXILLARY INFECTION. S/P 2 DAYS I&D BY DR. ELLIOTT. SURGICAL DRESSING REMOVED AND CHANGED PER DR. ELLIOTT'S ORDERS. POST SURGICAL MEASURES ARE FOLLOWS: 2X7X2.5CM WITH 2CM UNDERMINING AT 9 O' CLOCK. 95% GRANULAR TISSUE IS NOTED. PT EDUCATED ON PLAN OF CARE AND DRESSING CHANGES. STATES UNDERSTANDING. HX OF: DIABETES MELLITUS TYPE II, HIDRADENITIS , HTN, AND PANCREATITIS. LABS: WBC: 6.51 HGB A1C: 11.3 ALB: 3.7 BLOOD AND WOUND CULTURE PENDING. RECOMMENDATIONS: CLEAN LEFT AXILLA WOUND WITH NS, PACK WITH 1/4IN IODOFORM PACKING THEN COVER WITH 4X4 GAUZE, ABD PAD AND TAPE. CHANGE DRESSING DAILY AND PRN. THANKS DR. ELLIOTT FOR THIS CONSULTATION. Addendum: 11/08/19 at 1352 by Aurora Sanchez RN Amended: Links added.
[2019-11-09] VITALS: BP 181/93
[2019-11-09] MEDS: ONDANSETRON HCL 4 MG ORAL DISINTEGRATING TAB PO PRN (01:04)
[2019-11-09] MEDS: MORPHINE SULFATE 2 MG/ML SYR 1ML IV PRN ×2 (01:04→17:05)
[2019-11-09 04:00] VITALS: BP 153/81
[2019-11-09] MEDS: PIPER-TAZ 3.375 GM 50 ML IV SCH ×2 (05:15→14:52)
[2019-11-09] MEDS: INSULIN ASPART 70/30 100 UNITS/ML VIAL SC SCH (08:13)
[2019-11-09] MEDS: INSULIN REGULAR, HUMAN 100 UNIT/1 ML 3ML VIAL SQ SCH ×3 (08:14→16:32)
[2019-11-09 08:51] VITALS: BP 168/81
[2019-11-09] MEDS ORDERED: INSULIN GLARGINE 100 UNITS/ML VIAL SQ SCH (09:00)
[2019-11-09] MEDS: HYDROCODONE/APAP 10MG-325MG TAB PO PRN (09:23)
[2019-11-09] MEDS: PANTOPRAZOLE SOD 40 MG TABEC PO SCH ×2 (09:23→16:31)
[2019-11-09] MEDS: GABAPENTIN 100 MG CAP PO SCH ×2 (09:24→14:52)
[2019-11-09] MEDS: CLONAZEPAM 1 MG TAB PO SCH ×2 (09:25→16:31)
[2019-11-09] MEDS: AMYLAS/CELLU/LIPAS/PROTEA/BILE 12,000 UNIT CAP PO SCH ×2 (09:25→14:52)
[2019-11-09] MEDS: METOPROLOL TARTRATE 25 MG TAB PO SCH ×2 (09:25→16:31)
[2019-11-09 10:50] VITALS: BP 168/81
[2019-11-09] MEDS: SODIUM CHLORIDE 0.9% 1000ML 1,000 ML IV SCH ×2 (11:04→16:30)
[2019-11-09 11:48] VITALS: BP 168/73
[2019-11-09] MEDS: VANCOMYCIN 1GM/NS 250 ML 250 ML IV SCH (12:35)
[2019-11-09 16:53] VITALS: BP 168/79
--- NOTE | 2019-11-09 19:45 | NUR ---
order received from dr. Roche to discharge patient and continue home medications. New prescription for keflex and cipro will be called by Dr. Roche to patient's pharmacy.
[2019-11-09] MEDS ORDERED: KEFLEX500 MG PO (19:50)
[2019-11-09] MEDS ORDERED: CLINDAMYCIN HC150 MG PO (19:51)
--- NOTE | 2019-11-09 20:40 | NUR ---
Patient is alert and oriented. Dressing to left axilla dry, clean and intact. Discharge instructions given to patient and expressed understanding. Patient will take Pneumococcal Vaccine from local pharmacy.
--- NOTE | 2019-11-09 21:02 | NUR ---
D/C summary Principal Dx: Hidradinitis suppurativa- IV zosyn/vanco; sx eval MSSA infected axilla LILIANA- hold aceI; hold lasix DM2- hab1c/lipids HTN- cont meds Chr pain syndrome- home meds Fibromyalgia- home meds Prop; scd Dispo ;f/u 9-3 Hba1c/LDL 11.3/79; Uncontrolled; check renal fn today; improving; I&D planned. 9-4 control glucose- start lantus; control BP and pain. d/c home on keflex and clindamycin d/c >35mins f/u pcp 2-3 days stable Long Roche MD, PhD.
== END 2019-11-09 20:33 | disposition home or self-care (01) | DRG 571 ==
LOC: ER 23:17 → ERHOLD 23:54 → MED/SURG2 11-06 00:30 → OBSVTOIN 11-07 16:31
PROVIDERS: ADMIT Internal Medicine; ATTEND Internal Medicine
PROC: 0JBF0ZZ Excision of Left Upper Arm Subcutaneous Tissue and Fascia, Open Approach (ICD-10-PCS; principal; 2019-11-07 08:00)
DX: L73.2 Hidradenitis suppurativa (principal); N17.9 Acute kidney failure, unspecified; L02.412 Cutaneous abscess of left axilla; I10 Essential (primary) hypertension; Z09 Encounter for follow-up examination after completed treatment for conditions other than malignant neoplasm; Z86.73 Personal history of transient ischemic attack (TIA), and cerebral infarction without residual deficits; F41.9 Anxiety disorder, unspecified; K21.9 Gastro-esophageal reflux disease without esophagitis; E78.5 Hyperlipidemia, unspecified; E11.43 Type 2 diabetes mellitus with diabetic autonomic (poly)neuropathy; K31.84 Gastroparesis; E11.42 Type 2 diabetes mellitus with diabetic polyneuropathy; M79.7 Fibromyalgia; Z88.8 Allergy status to other drugs, medicaments and biological substances; G89.4 Chronic pain syndrome; Z98.890 Other specified postprocedural states; Z11.59 Encounter for screening for other viral diseases; Z79.4 Long term (current) use of insulin
CPT/HCPCS: 36415; 80048; 80053; 80061; 80202; 82948; 83036; 85025; 85610; 85730; 87040; 87071; 87075; 87186; 87205; 96361; 99251; 99284; G0378; J1100; J1815; J1817; J1885; J2001; J2250; J2270; J2405; J2543; J2765; J3010; J3370; J7030; Q0162; U0002

== ENCOUNTER 2020-10-26 23:35 | Inpatient (IN) | payer SELFPAY ==
[~2020-10-26] VITALS: Ht 149.9 cm; Wt 76.3 kg
[~2020-10-26 23:35] MED LIST changes: +CIPRO500 MG PO; +CLINDAMYCIN HC150 MG PO; +DOXYCYCLINE HY100 MG PO; +KEFLEX500 MG PO
[2020-10-27] VITALS (8 sets, daily range): BP systolic 135–186; BP diastolic 100–120
[2020-10-27] MEDS ORDERED: SODIUM CHLORIDE 0.9% 1000ML 1,000 ML IV STA (00:14)
[2020-10-27 00:42] LABS: BASOPHILS # (AUTO) 0.1 (0.0-0.1); BASOPHILS % 0.9 % (0.0-1.0); EOSINOPHILS # (AUTO) 0.2 (0.0-0.4); EOSINOPHILS % 3.7 % (0.0-6.0); HEMATOCRIT 35.2 % (34.2-44.1); HEMOGLOBIN 11.6 g/dL (12.0-16.0); LYMPHOCYTES % 45.8 % (18.0-39.1); MEAN CORPUSCULAR HEMOGLOBIN 27.1 pg (28-32); MEAN CORPUSCULAR VOLUME 82.2 fL (81-99); MONOCYTES # (AUTO) 0.4 (0.2-0.8); MONOCYTES % 5.9 % (4.4-11.3); NEUTROPHILS # (AUTO) 2.8 (2.1-6.9); NEUTROPHILS % 43.2 % (38.7-80.0); PLATELET COUNT 255 x10e3/uL (140-360); RED BLOOD COUNT 4.28 x10e6/uL (3.6-5.1); RED CELL DISTRIBUTION WIDTH 14.1 % (11.7-14.4)
[2020-10-27 00:53] LABS: ALANINE AMINOTRANSFERASE 111 IU/L (0-55); ALBUMIN 4.3 g/dL (3.5-5.0); BLOOD UREA NITROGEN 22 mg/dL (7-26); BUN/CREATININE RATIO 17 (6-25); CALCIUM 9.4 mg/dL (8.4-10.2); CARBON DIOXIDE 20 mmol/L (22-29); CREATININE, SERUM 1.26 mg/dL (0.57-1.11); EST GLOMERULAR FILTRATION RATE 44 ML/MIN (60-); GLUCOSE 122 mg/dL (74-118)
[2020-10-27 00:54] LABS: ALKALINE PHOSPHATASE 133 IU/L (40-150); CREATINE KINASE 45 IU/L (29-168)
[2020-10-27 01:10] LABS: ANION GAP 17.6 mmol/L (8-16); CHLORIDE 104 mmol/L (98-107); POTASSIUM 3.6 mmol/L (3.5-5.1); SODIUM 137 mmol/L (136-145)
[2020-10-27] MEDS ORDERED: HYDRALAZINE HCL 20 MG/ML VIAL IV STA (01:43)
[2020-10-27] MEDS ORDERED: LABETALOL HCL 5 MG/ML 20ML VIAL IV STA (03:27)
[2020-10-27] MEDS ORDERED: ONDANSETRON HCL INJ 2MG/ML 2ML 2 MG/ML VIAL IV STA (03:53)
[2020-10-27] MEDS ORDERED: MORPHINE SULFATE INJ 4 MG/ML INJ 1ML IV ONE (04:00)
[2020-10-27] MEDS ORDERED: SODIUM CHLORIDE 0.9% 50ML 50 ML ONE (04:44)
[2020-10-27] MEDS ORDERED: IOPAMIDOL 370 MG/ML 200 ML INFUS..BTL INJ ONE (04:45)
[2020-10-27 04:48] LABS: AMPHETAMINES SCREEN,URINE NEGATIVE (NEGATIVE); BENZODIAZEPINES SCREEN,URINE POSITIVE (NEGATIVE); PHENCYCLIDINE SCREEN,URINE NEGATIVE (NEGATIVE)
[2020-10-27] MEDS ORDERED: LORAZEPAM INJ 2 MG/ML VIAL ONE ×2 (06:16→06:17)
[2020-10-27 06:26] LABS: CLARITY,URINE CLOUDY (CLEAR); COLOR,URINE YELLOW (YELLOW); KETONES,URINE NEGATIVE (NEGATIVE); LEUKOCYTE ESTERASE ,URINE NEGATIVE (NEGATIVE); NITRITE,URINE NEGATIVE (NEGATIVE); PROTEIN,URINE DIPSTICK NEGATIVE (NEGATIVE); URINE UROBILINOGEN 0.2 mg/dL (0.2 - 1)
[2020-10-27 06:50] LABS: BACTERIA,URINE RARE /HPF; EPITHELIAL CELLS,URINE FEW /LPF; WBC,URINE (MAN) 0-5 /HPF (0-5)
[2020-10-27] MEDS ORDERED: CLONIDINE HCL 0.2 MG TAB PO NR (08:00)
[2020-10-27] MEDS ORDERED: MORPHINE SULFATE INJ 4 MG/ML INJ 1ML IV NR (08:00)
[2020-10-27] MEDS ORDERED: ONDANSETRON HCL INJ 2MG/ML 2ML 2 MG/ML VIAL IV NR (08:00)
[2020-10-27] MEDS ORDERED: HYDRALAZINE HCL 20 MG/ML VIAL IV PRN (08:45)
[2020-10-27] MEDS: ASPIRIN 81 MG ENTERIC COATED PO SCH (09:59)
[2020-10-27] MEDS: MORPHINE SULFATE INJ 2 MG/ML SYR IV PRN ×3 (10:34→20:26)
[2020-10-27] MEDS ORDERED: NIFEDIPINE ER30 M1 PO (11:42)
[2020-10-27] MEDS ORDERED: CLONIDINE HCL0.1 MG PO (11:42)
[2020-10-27] MEDS ORDERED: HYDRALAZINE HCL50 MG PO (11:42)
[2020-10-27] MEDS ORDERED: DONEPEZIL HCL5 MG PO (11:42)
[2020-10-27] MEDS ORDERED: MINOXIDIL2.5 MG PO (11:42)
[2020-10-27] MEDS ORDERED: DOXYCYCLINE HY100 MG PO (11:42)
[2020-10-27] MEDS ORDERED: LINZESS290 MCG PO (11:42)
[2020-10-27] MEDS: NITROGLYCERIN 2% OINT 1 GM PKT TOP SCH ×2 (12:08→17:07)
[2020-10-27 13:40] LABS: CREATINE KINASE MB 1.9 ng/mL (0-5.0)
[2020-10-27] MEDS ORDERED: CLONIDINE HCL 0.1 MG TAB PO SCH (15:00)
[2020-10-27] MEDS ORDERED: CLONIDINE HCL 0.1 MG TAB PO ONE (15:00)
[2020-10-27] MEDS: LISINOPRIL 20 MG TAB PO SCH (15:43)
[2020-10-27] MEDS: NIFEDIPINE CR 30 MG TAB PO SCH (15:44)
[2020-10-27] MEDS: CARVEDILOL 3.125 MG TAB PO SCH (15:44)
[2020-10-27] MEDS ORDERED: CLONIDINE HCL 0.1 MG TAB PO PRN (16:00)
[2020-10-27 18:18] LABS: CREATINE KINASE MB 1.9 ng/mL (0-5.0)
[2020-10-27] MEDS: PANCRELIPASE 6000 ER CAPSULE PO SCH (20:26)
[2020-10-27] MEDS: ONDANSETRON HCL INJ 2MG/ML 2ML 2 MG/ML VIAL IV PRN (20:26)
[2020-10-27] MEDS: HYDRALAZINE HCL 25 MG TAB PO SCH (21:04)
[2020-10-28] VITALS (8 sets, daily range): BP systolic 131–163; BP diastolic 81–118
[2020-10-28] MEDS: NITROGLYCERIN 2% OINT 1 GM PKT TOP SCH ×3 (00:06→11:18)
[2020-10-28] MEDS: ONDANSETRON HCL INJ 2MG/ML 2ML 2 MG/ML VIAL IV PRN ×4 (02:10→19:38)
[2020-10-28] MEDS: MORPHINE SULFATE INJ 2 MG/ML SYR IV PRN ×5 (02:10→19:39)
[2020-10-28 06:18] LABS: BASOPHILS % 0.8 % (0.0-1.0); EOSINOPHILS # (AUTO) 0.2 (0.0-0.4); HEMATOCRIT 34.9 % (34.2-44.1); HEMOGLOBIN 11.1 g/dL (12.0-16.0); LYMPHOCYTES # (AUTO) 2.4 (1.0-3.2); LYMPHOCYTES % 45.7 % (18.0-39.1); MEAN CORPUSCULAR HEMOGLOBIN 26.5 pg (28-32); MEAN CORPUSCULAR HGB CONC 31.8 g/dL (31-35); MEAN CORPUSCULAR VOLUME 83.3 fL (81-99); MONOCYTES # (AUTO) 0.4 (0.2-0.8); MONOCYTES % 7.5 % (4.4-11.3); NEUTROPHILS # (AUTO) 2.3 (2.1-6.9); NEUTROPHILS % 42.8 % (38.7-80.0); PLATELET COUNT 273 x10e3/uL (140-360); RED BLOOD COUNT 4.19 x10e6/uL (3.6-5.1); RED CELL DISTRIBUTION WIDTH 14.7 % (11.7-14.4)
[2020-10-28] MEDS ORDERED: INSULIN ASPART 70/30 100 UNITS/ML VIAL SC SCH (07:30)
[2020-10-28 07:53] LABS: ALBUMIN 4.1 g/dL (3.5-5.0); ALBUMIN/GLOBULIN RATIO 1.1 (0.8-2.0); ANION GAP 14.8 mmol/L (8-16); CALCIUM 9.1 mg/dL (8.4-10.2); CREATININE, SERUM 0.95 mg/dL (0.57-1.11); POTASSIUM 3.8 mmol/L (3.5-5.1)
[2020-10-28 07:54] LABS: CHOL/HDL RATIO 3.9 (3.0-3.6)
[2020-10-28 08:06] LABS: FREE THYROXINE INDEX 2.3459 (1.4-3.8); THYROID STIMULATING HORMONE 1.199 uIU/mL (0.350-4.940)
[2020-10-28] MEDS: LISINOPRIL 20 MG TAB PO SCH (08:37)
[2020-10-28] MEDS: METFORMIN HCL 500 MG TAB PO SCH ×2 (08:37→18:08)
[2020-10-28] MEDS: PANCRELIPASE 6000 ER CAPSULE PO SCH ×3 (08:37→20:50)
[2020-10-28] MEDS: MINOXIDIL 2.5 MG TAB PO SCH ×2 (08:37→18:09)
[2020-10-28] MEDS: ASPIRIN 81 MG ENTERIC COATED PO SCH (08:37)
[2020-10-28] MEDS: CARVEDILOL 3.125 MG TAB PO SCH (08:37)
[2020-10-28] MEDS: FUROSEMIDE 40 MG TAB PO SCH (08:37)
[2020-10-28] MEDS: HYDRALAZINE HCL 25 MG TAB PO SCH ×3 (08:37→20:50)
[2020-10-28] MEDS: CLONAZEPAM 1 MG TAB PO SCH ×2 (08:37→18:09)
[2020-10-28] MEDS: POTASSIUM CHLORIDE 20 MEQ TAB CR PO SCH ×2 (08:38→18:09)
[2020-10-28] MEDS: NIFEDIPINE CR 30 MG TAB PO SCH ×2 (08:38→15:53)
[2020-10-28] MEDS ORDERED: CARVEDILOL 12.5 MG TAB PO ONE (15:00)
[2020-10-28] MEDS ORDERED: CARVEDILOL 12.5 MG TAB PO SCH (17:00)
[2020-10-28] MEDS: CARVEDILOL 12.5 MG TAB PO SCH (17:00)
[2020-10-28] MEDS ORDERED: ATORVASTATIN 40 MG TAB PO SCH (21:00)
[2020-10-29] VITALS: BP 147/79
[2020-10-29] MEDS: MORPHINE SULFATE INJ 2 MG/ML SYR IV PRN ×3 (00:01→12:11)
[2020-10-29 04:00] VITALS: BP 145/83
[2020-10-29] MEDS: ONDANSETRON HCL INJ 2MG/ML 2ML 2 MG/ML VIAL IV PRN ×2 (04:25→12:11)
[2020-10-29 07:23] VITALS: BP 145/83
[2020-10-29] MEDS ORDERED: INSULIN ASPART 70/30 100 UNITS/ML VIAL SC SCH (07:30)
[2020-10-29 07:49] VITALS: BP 128/65
[2020-10-29] MEDS: ASPIRIN 81 MG ENTERIC COATED PO SCH (08:49)
[2020-10-29] MEDS: CLONAZEPAM 1 MG TAB PO SCH (08:49)
[2020-10-29] MEDS: HYDRALAZINE HCL 25 MG TAB PO SCH ×2 (08:49→14:52)
[2020-10-29] MEDS: PANCRELIPASE 6000 ER CAPSULE PO SCH ×2 (08:49→14:51)
[2020-10-29] MEDS: CARVEDILOL 12.5 MG TAB PO SCH (08:49)
[2020-10-29] MEDS: FUROSEMIDE 40 MG TAB PO SCH (08:49)
[2020-10-29] MEDS: METFORMIN HCL 500 MG TAB PO SCH (08:49)
[2020-10-29] MEDS: NIFEDIPINE CR 30 MG TAB PO SCH (08:50)
[2020-10-29] MEDS: LISINOPRIL 20 MG TAB PO SCH (08:50)
[2020-10-29] MEDS: MINOXIDIL 2.5 MG TAB PO SCH (08:50)
[2020-10-29] MEDS: POTASSIUM CHLORIDE 20 MEQ TAB CR PO SCH (08:51)
[2020-10-29] MEDS ORDERED: REGADENOSON 0.4 MG/5 ML SYR IV ONE (10:22)
[2020-10-29 11:55] VITALS: BP 127/93
[2020-10-29 16:03] VITALS: BP 133/94
== END 2020-10-29 16:07 | disposition home or self-care (01) | DRG 305 ==
LOC: ER 23:40 → ERHOLD 10-27 07:57 → MED/SURG 10-27 10:31 → ERHOLD 10-27 10:40 → MED/SURG 10-27 11:06
PROVIDERS: ADMIT Family Medicine; ATTEND Family Medicine
DX: I16.0 Hypertensive urgency (principal); E78.5 Hyperlipidemia, unspecified; E11.9 Type 2 diabetes mellitus without complications; Z20.822 Contact with and (suspected) exposure to COVID-19; Z79.4 Long term (current) use of insulin; Z86.73 Personal history of transient ischemic attack (TIA), and cerebral infarction without residual deficits; I25.119 Atherosclerotic heart disease of native coronary artery with unspecified angina pectoris; F41.9 Anxiety disorder, unspecified; F32.9 Major depressive disorder, single episode, unspecified; Z86.16 Personal history of COVID-19
CPT/HCPCS: 36415; 70450; 71045; 71260; 74177; 78452; 80053; 80061; 80307; 81001; 82550; 82553; 82948; 83036; 83690; 83880; 84436; 84443; 84479; 84484; 85025; 93005; 93017; 93306; 99284; A9502; J0360; J1815; J2060; J2270; J2405; Q9967; U0002

== ENCOUNTER 2021-05-23 22:48 | Emergency (ER) | payer SELFPAY ==
[~2021-05-23] VITALS: Ht 149.9 cm; Wt 76.2 kg
[~2021-05-23 22:48] MED LIST changes: +CLONIDINE HCL0.1 MG PO; +DONEPEZIL HCL5 MG PO; +HYDRALAZINE HCL50 MG PO; +LINZESS290 MCG PO; +MINOXIDIL2.5 MG PO; +NIFEDIPINE ER30 M1 PO
[2021-05-23] MEDS ORDERED: SODIUM CHLORIDE 0.9% 1000ML 1,000 ML IV STA (22:59)
[2021-05-23] MEDS ORDERED: HALOPERIDOL LACTATE 5 MG/ML VIAL IV ONE (23:00)
[2021-05-23 23:08] LABS: BASOPHILS # (AUTO) 0.1 (0.0-0.1); EOSINOPHILS # (AUTO) 0.3 (0.0-0.4); EOSINOPHILS % 4.1 % (0.0-6.0); HEMATOCRIT 36.2 % (34.2-44.1); LYMPHOCYTES # (AUTO) 2.6 (1.0-3.2); LYMPHOCYTES % 36.1 % (18.0-39.1); MEAN CORPUSCULAR HEMOGLOBIN 26.7 pg (28-32); MEAN CORPUSCULAR HGB CONC 33.1 g/dL (31-35); MEAN CORPUSCULAR VOLUME 80.6 fL (81-99); MONOCYTES # (AUTO) 0.6 (0.2-0.8); MONOCYTES % 7.8 % (4.4-11.3); NEUTROPHILS # (AUTO) 3.6 (2.1-6.9); NEUTROPHILS % 50.6 % (38.7-80.0); PLATELET COUNT 293 x10e3/uL (140-360); RED BLOOD COUNT 4.49 x10e6/uL (3.6-5.1); RED CELL DISTRIBUTION WIDTH 12.3 % (11.7-14.4)
[2021-05-23 23:18] LABS: COLOR,URINE YELLOW (YELLOW)
[2021-05-23 23:19] LABS: CLARITY,URINE CLOUDY (CLEAR); KETONES,URINE NEGATIVE (NEGATIVE); LEUKOCYTE ESTERASE ,URINE TRACE (NEGATIVE); NITRITE,URINE NEGATIVE (NEGATIVE); PROTEIN,URINE DIPSTICK NEGATIVE (NEGATIVE); URINE UROBILINOGEN 0.2 mg/dL (0.2 - 1)
[2021-05-23 23:24] LABS: RBC,URINE 0-5 /HPF (0-5)
[2021-05-23 23:25] LABS: BACTERIA,URINE FEW /HPF; EPITHELIAL CELLS,URINE MANY /LPF; RENAL EPITHELIAL CELLS,URINE FEW; TRANSITIONAL EPI CELLS,URINE FEW
[2021-05-23 23:43] LABS: ALBUMIN 3.9 g/dL (3.5-5.0); ALBUMIN/GLOBULIN RATIO 0.9 (0.8-2.0); ANION GAP 14.3 mmol/L (8-16); CALCIUM 9.4 mg/dL (8.4-10.2); CREATININE, SERUM 1.35 mg/dL (0.57-1.11); POTASSIUM 4.3 mmol/L (3.5-5.1)
[2021-05-24] MEDS ORDERED: IOPAMIDOL 370 MG/ML 200 ML INFUS..BTL INJ ONE (00:13)
[2021-05-24] MEDS ORDERED: SODIUM CHLORIDE 0.9% 50ML 50 ML ONE (00:13)
[2021-05-24] MEDS ORDERED: HALOPERIDOL LACTATE 5 MG/ML VIAL IM ONE (00:15)
[2021-05-24] MEDS ORDERED: METRONIDAZOLE 500 MG TAB PO ONE (01:45)
[2021-05-24 02:15] VITALS: BP 128/78
== END 2021-05-24 02:00 | disposition home or self-care (01) ==
LOC: ER 22:52
DX: R10.84 Generalized abdominal pain (principal); K52.9 Noninfective gastroenteritis and colitis, unspecified; N39.0 Urinary tract infection, site not specified; E11.65 Type 2 diabetes mellitus with hyperglycemia; I10 Essential (primary) hypertension; E78.5 Hyperlipidemia, unspecified; K21.9 Gastro-esophageal reflux disease without esophagitis; F41.9 Anxiety disorder, unspecified; I25.10 Atherosclerotic heart disease of native coronary artery without angina pectoris; Z86.73 Personal history of transient ischemic attack (TIA), and cerebral infarction without residual deficits; Z87.19 Personal history of other diseases of the digestive system
CPT/HCPCS: 36415; 74177; 80053; 81001; 83690; 85025; 99284; J1630; J7030; Q9967

== ENCOUNTER 2021-09-24 13:01 | Emergency (ER) | payer SELFPAY ==
[~2021-09-24] VITALS: Ht 149.9 cm; Wt 76.2 kg
[2021-09-24] MEDS ORDERED: SODIUM CHLORIDE 0.9% 1000ML 1,000 ML IV STA (13:43)
[2021-09-24] MEDS ORDERED: ONDANSETRON HCL INJ 2MG/ML 2ML 2 MG/ML VIAL IV STA (13:43)
[2021-09-24] MEDS ORDERED: DICYCLOMINE HCL 20 MG/2 ML VIAL IM ONE (13:45)
[2021-09-24 14:34] LABS: BASOPHILS % 0.5 % (0.0-1.0); EOSINOPHILS # (AUTO) 0.2 (0.0-0.4); EOSINOPHILS % 1.9 % (0.0-6.0); HEMATOCRIT 37.9 % (34.2-44.1); HEMOGLOBIN 12.3 g/dL (12.0-16.0); LYMPHOCYTES # (AUTO) 1.4 (1.0-3.2); LYMPHOCYTES % 15.6 % (18.0-39.1); MEAN CORPUSCULAR HEMOGLOBIN 26.6 pg (28-32); MEAN CORPUSCULAR HGB CONC 32.5 g/dL (31-35); MONOCYTES # (AUTO) 0.6 (0.2-0.8); MONOCYTES % 6.5 % (4.4-11.3); NEUTROPHILS # (AUTO) 6.7 (2.1-6.9); NEUTROPHILS % 75.3 % (38.7-80.0); PLATELET COUNT 253 x10e3/uL (140-360); RED BLOOD COUNT 4.62 x10e6/uL (3.6-5.1); RED CELL DISTRIBUTION WIDTH 12.9 % (11.7-14.4)
[2021-09-24 14:44] LABS: INR 0.91; PROTHROMBIN TIME 13.1 seconds (11.9-14.5)
[2021-09-24 14:45] LABS: PARTIAL THROMBOPLASTIN TIME 29.7 seconds (23.8-35.5)
[2021-09-24 14:55] LABS: ALANINE AMINOTRANSFERASE 18 IU/L (0-55); ALBUMIN 3.5 g/dL (3.5-5.0); ALBUMIN/GLOBULIN RATIO 0.8 (0.8-2.0); ALKALINE PHOSPHATASE 92 IU/L (40-150); ANION GAP 16.2 mmol/L (8-16); BLOOD UREA NITROGEN 19 mg/dL (7-26); BUN/CREATININE RATIO 16 (6-25); CALCIUM 8.8 mg/dL (8.4-10.2); CARBON DIOXIDE 27 mmol/L (22-29); CHLORIDE 100 mmol/L (98-107); CREATINE KINASE 49 IU/L (29-168); CREATININE, SERUM 1.19 mg/dL (0.57-1.11); GLUCOSE 344 mg/dL (74-118); LIPASE 19 U/L (8-78); MAGNESIUM 1.6 MG/DL (1.3-2.1); POTASSIUM 4.2 mmol/L (3.5-5.1); SODIUM 139 mmol/L (136-145)
[2021-09-24 14:56] LABS: CHOL/HDL RATIO 3.9 (3.0-3.6)
[2021-09-24 15:18] LABS: CLARITY,URINE SL CLOUDY (CLEAR); COLOR,URINE YELLOW (YELLOW); KETONES,URINE NEGATIVE (NEGATIVE); LEUKOCYTE ESTERASE ,URINE NEGATIVE (NEGATIVE); NITRITE,URINE NEGATIVE (NEGATIVE); PROTEIN,URINE DIPSTICK NEGATIVE (NEGATIVE); URINE UROBILINOGEN 0.2 mg/dL (0.2 - 1)
[2021-09-24 15:23] LABS: BACTERIA,URINE FEW /HPF; EPITHELIAL CELLS,URINE MODERATE /LPF; RENAL EPITHELIAL CELLS,URINE FEW
[2021-09-24] MEDS ORDERED: IOPAMIDOL 370 MG/ML 100 ML INFUS..BTL INJ ONE (15:29)
== END 2021-09-24 17:25 | disposition home or self-care (01) ==
LOC: ER 13:14
DX: R10.11 Right upper quadrant pain (principal); G89.29 Other chronic pain; K57.90 Diverticulosis of intestine, part unspecified, without perforation or abscess without bleeding; R11.0 Nausea; E11.65 Type 2 diabetes mellitus with hyperglycemia; I10 Essential (primary) hypertension; E78.5 Hyperlipidemia, unspecified; K21.9 Gastro-esophageal reflux disease without esophagitis; F41.9 Anxiety disorder, unspecified; M79.7 Fibromyalgia; Z86.73 Personal history of transient ischemic attack (TIA), and cerebral infarction without residual deficits
CPT/HCPCS: 36415; 71045; 74177; 80053; 80061; 81001; 82550; 82553; 83690; 83735; 84484; 85025; 85610; 85730; 93005; 99284; C9113; J0500; J2405; J7030; Q9967